=== PATIENT | male | born 1940 | race Caucasian/White ===

== ENCOUNTER 2020-12-27 11:19 | Outpatient (REF) | payer MEDICARE, BC, SELFPAY ==
[2020-12-27 12:18] LABS: MANUAL DIFF FLAG NO
[2020-12-27 12:23] LABS: Basophils Percent Auto 0.3 % (0-2); Eosinophils Absolute Auto 0.1 X10*3/uL (0.0-0.4); Hematocrit 35.7 % (42-52); Hemoglobin 11.6 g/dl (14.0-18.0); Imm Gran Abs Auto 0.01 X10*3/uL (0.00-0.03); Imm Gran Pct Auto 0.1 % (0.0-0.4); Lymphocytes Absolute Auto 1.6 X10*3/uL (1.2-4.9); Lymphocytes Percent Auto 23.8 % (20-40); Mean Corpuscular HGB Conc 32.5 g/dl (31.0-36.0); Mean Corpuscular Hemoglobin 29.5 pg (27.0-33.0); Mean Corpuscular Volume 90.8 fL (80-98); Mean Platelet Volume 11.5 fL (9.4-12.4); Monocytes Absolute Auto 0.7 X10*3/uL (0.1-1.2); Monocytes Percent Auto 9.6 % (2-11); Neutrophils Absolute Auto 4.4 X10*3/uL (2.0-8.3); Neutrophils Percent Auto 64.2 % (45-73); Platelet Count 224 X10*3/uL (160-400); Red Blood Count 3.93 X10*6/uL (4.60-5.80); Red Cell Distribution Width 12.9 % (11.0-16.0); White Blood Count 6.9 X10*3/uL (4.8-10.8)
[2020-12-27 12:47] LABS: Alanine Aminotransferase 15 U/L (0-40); Albumin Level 4.2 g/dL (3.5-5.0); Alkaline Phosphatase 65 U/L (39-117); Anion Gap 11 (12-20); Aspartate Amino Transferase 18 U/L (5-37); Bilirubin Total 0.5 mg/dL (0.0-1.0); Blood Urea Nitrogen 32 mg/dL (9-16); Calcium 9.2 mg/dL (8.4-10.2); Carbon Dioxide 27 mmol/L (22-29); Chloride 105 mmol/L (96-108); Estimated Glomerular Filt Rate > 60; Glucose Random 107 mg/dL (60-115); Potassium 4.6 mmol/L (3.3-5.1); Sodium 138 mmol/L (135-145)
[2020-12-27 14:19] LABS: Creatinine Urine 108.23 mg/dL; Microalbum/Creatinine Ratio Ur 21.2 ug/mg cr
[2020-12-27 14:36] LABS: Estimated Average Glucose 137 mg/dL; Hemoglobin A1c % 6.4 %
== END 2020-12-27 11:20 | disposition home or self-care (01) ==
LOC: HO.LAB 11:19
PROVIDERS: PCP Internal Medicine; Visit Provider Internal Medicine
DX: I25.10 Atherosclerotic heart disease of native coronary artery without angina pectoris (principal); I48.91 Unspecified atrial fibrillation; E11.9 Type 2 diabetes mellitus without complications; N40.0 Benign prostatic hyperplasia without lower urinary tract symptoms
CPT/HCPCS: 36415; 80053; 82043; 83036; 85025

== ENCOUNTER 2022-08-15 11:00 | Outpatient (REF) | payer MEDICARE, BC, SELFPAY ==
[2022-08-15 13:17] LABS: MANUAL DIFF FLAG NO
[2022-08-15 13:22] LABS: Basophils Percent Auto 0.5 % (0-2); Eosinophils Absolute Auto 0.2 X10*3/uL (0.0-0.4); Eosinophils Percent Auto 2.5 % (0-4); Hematocrit 36.8 % (42.0-52.0); Hemoglobin 11.9 g/dl (14.0-18.0); Imm Gran Abs Auto 0.01 X10*3/uL (0.00-0.03); Imm Gran Pct Auto 0.2 % (0.0-0.4); Lymphocytes Absolute Auto 1.7 X10*3/uL (1.2-4.9); Lymphocytes Percent Auto 28.6 % (20-40); Mean Corpuscular HGB Conc 32.3 g/dl (31.0-36.0); Mean Corpuscular Hemoglobin 29.3 pg (27.0-33.0); Mean Corpuscular Volume 90.6 fL (80.0-98.0); Mean Platelet Volume 11.5 fL (9.4-12.4); Monocytes Absolute Auto 0.7 X10*3/uL (0.1-1.2); Monocytes Percent Auto 12.3 % (2-11); Neutrophils Absolute Auto 3.3 x10*3/uL (2.0-8.3); Neutrophils Percent Auto 55.9 % (45-73); Platelet Count 192 X10*3/uL (160-400); Red Blood Count 4.06 X10*6/uL (4.60-5.80); Red Cell Distribution Width 14.2 % (11.0-16.0); White Blood Count 5.9 X10*3/uL (4.8-10.8)
[2022-08-15 13:24] LABS: Appearance Urine Clear; Color Urine Yellow; Glucose Urine UA Negative (Negative); Leukocyte Esterase Urine Trace (Negative); Nitrite Urine Negative (Negative); PH 5.5 (5.0-9.0); UMIC TRIGGER UA YES; Urine Blood Negative (Negative); Urine Ketones Negative (Negative); Urine Protein Negative (Neg-Trace)
[2022-08-15 13:27] LABS: Estimated Average Glucose 146 mg/dL; Hemoglobin A1c % 6.7 %
[2022-08-15 13:29] LABS: Bacteria Urine None Seen (None Seen); Hyaline Casts Urine 0-2 /LPF (0-2); RBC Urine 0-2 /HPF (0-2); Squamous Epithelial Cell Urine 0-2 /HPF (0-2); WBC Urine 0-5 /HPF (0-5)
[2022-08-15 14:04] LABS: Alanine Aminotransferase 14 U/L (0-40); Albumin Level 4.4 g/dL (3.5-5.0); Alkaline Phosphatase 68 U/L (39-117); Anion Gap 13 (12-20); Aspartate Amino Transferase 17 U/L (5-37); Bilirubin Total 0.8 mg/dL (0.0-1.0); Blood Urea Nitrogen 20 mg/dL (9-16); Calcium 9.2 mg/dL (8.4-10.2); Carbon Dioxide 29 mmol/L (22-29); Chloride 104 mmol/L (96-108); Cholesterol 144 mg/dL; Estimated Glomerular Filt Rate > 60; Glucose Fasting 123 mg/dL (60-99); HDL Cholesterol 62 mg/dL; LDL Cholesterol Calculated 70 mg/dl; Potassium 4.2 mmol/L (3.3-5.1); Sodium 142 mmol/L (135-145); Total Protein 6.8 g/dL (6.5-8.0); Triglycerides 60 mg/dL
[2022-08-15 14:20] LABS: Creatinine Urine 40.55 mg/dL; Microalbum/Creatinine Ratio Ur 19.7 ug/mg cr
[2022-08-15 14:20] LABS: Prostate Specific Antigen 0.16 ng/mL (<0.05-4.0); Vitamin D 25-OH Total 27.8 ng/mL (>30)
== END 2022-08-15 11:01 | disposition home or self-care (01) ==
LOC: HO.10HDL 11:00
PROVIDERS: Visit Provider Internal Medicine
DX: Z00.00 Encounter for general adult medical examination without abnormal findings (principal); Z12.5 Encounter for screening for malignant neoplasm of prostate; E11.9 Type 2 diabetes mellitus without complications; E55.9 Vitamin D deficiency, unspecified
CPT/HCPCS: 36415; 80053; 80061; 81001; 82043; 82306; 83036; 84153; 85025

== ENCOUNTER 2023-03-31 11:45 | Outpatient (REF) | payer MEDICARE, BC, SELFPAY ==
[2023-03-31 13:14] LABS: MANUAL DIFF FLAG NO
[2023-03-31 13:47] LABS: Basophils Percent Auto 0.4 % (0-2); Eosinophils Absolute Auto 0.1 X10*3/uL (0.0-0.4); Eosinophils Percent Auto 2.6 % (0-4); Hematocrit 28.1 % (42.0-52.0); Hemoglobin 8.7 g/dl (14.0-18.0); Imm Gran Abs Auto 0.02 X10*3/uL (0.00-0.03); Imm Gran Pct Auto 0.4 % (0.0-0.4); Lymphocytes Absolute Auto 1.2 X10*3/uL (1.2-4.9); Lymphocytes Percent Auto 24.7 % (20-40); Mean Corpuscular Hemoglobin 25.7 pg (27.0-33.0); Mean Corpuscular Volume 83.1 fL (80.0-98.0); Mean Platelet Volume 11.3 fL (9.4-12.4); Monocytes Absolute Auto 0.4 X10*3/uL (0.1-1.2); Monocytes Percent Auto 8.5 % (2-11); Neutrophils Absolute Auto 3.2 x10*3/uL (2.0-8.3); Neutrophils Percent Auto 63.4 % (45-73); Platelet Count 191 X10*3/uL (160-400); Red Blood Count 3.38 X10*6/uL (4.60-5.80); Red Cell Distribution Width 15.5 % (11.0-16.0)
[2023-03-31 13:57] LABS: Alanine Aminotransferase 11 U/L (0-40); Albumin Level 3.9 g/dL (3.5-5.0); Alkaline Phosphatase 54 U/L (39-117); Anion Gap 11 (12-20); Aspartate Amino Transferase 16 U/L (5-37); Bilirubin Total 0.5 mg/dL (0.0-1.0); Blood Urea Nitrogen 17 mg/dL (9-16); Calcium 9.3 mg/dL (8.4-10.2); Carbon Dioxide 29 mmol/L (22-29); Chloride 106 mmol/L (96-108); Estimated Glomerular Filt Rate > 60; Glucose Random 201 mg/dL (60-115); Iron 27 mcg/dL (45-160); Percent Iron Saturation 7 % (15-50); Sodium 142 mmol/L (135-145); Total Iron Binding Capacity 369 mcg/dL (228-428); Total Protein 6.6 g/dL (6.5-8.0); Unsaturated Iron Binding 342 ug/dL
== END 2023-03-31 11:46 | disposition home or self-care (01) ==
LOC: HO.10HDL 11:45
PROVIDERS: Visit Provider Internal Medicine
DX: D64.9 Anemia, unspecified (principal); I48.91 Unspecified atrial fibrillation; I25.10 Atherosclerotic heart disease of native coronary artery without angina pectoris
CPT/HCPCS: 36415; 80053; 83540; 85025

== ENCOUNTER 2023-04-21 08:48 | Outpatient (REF) | payer MEDICARE, BC, SELFPAY ==
[2023-04-21 11:26] LABS: Anion Gap 13 (12-20); Blood Urea Nitrogen 24 mg/dL (9-16); Calcium 9.6 mg/dL (8.4-10.2); Carbon Dioxide 29 mmol/L (22-29); Chloride 104 mmol/L (96-108); Estimated Glomerular Filt Rate > 60; Glucose Random 122 mg/dL (60-115); Potassium 4.5 mmol/L (3.3-5.1); Sodium 141 mmol/L (135-145)
[2023-04-21 11:30] LABS: Estimated Average Glucose 117 mg/dL; Hemoglobin A1c % 5.7 % (<6.0)
== END 2023-04-21 08:49 | disposition home or self-care (01) ==
LOC: HO.10HDL 08:48
PROVIDERS: Visit Provider Internal Medicine
DX: E11.9 Type 2 diabetes mellitus without complications (principal)
CPT/HCPCS: 36415; 80048; 83036

== ENCOUNTER 2023-04-28 12:31 | Outpatient (REF) | payer MEDICARE, BC, SELFPAY ==
[2023-04-28 14:03] LABS: MANUAL DIFF FLAG NO
[2023-04-28 14:10] LABS: Basophils Percent Auto 0.7 % (0-2); Eosinophils Absolute Auto 0.1 X10*3/uL (0.0-0.4); Eosinophils Percent Auto 2.5 % (0-4); Hematocrit 33.6 % (42.0-52.0); Hemoglobin 10.5 g/dl (14.0-18.0); Imm Gran Abs Auto 0.01 X10*3/uL (0.00-0.03); Imm Gran Pct Auto 0.2 % (0.0-0.4); Lymphocytes Absolute Auto 1.3 X10*3/uL (1.2-4.9); Lymphocytes Percent Auto 23.8 % (20-40); Mean Corpuscular HGB Conc 31.3 g/dl (31.0-36.0); Mean Corpuscular Hemoglobin 26.5 pg (27.0-33.0); Mean Corpuscular Volume 84.8 fL (80.0-98.0); Mean Platelet Volume 10.9 fL (9.4-12.4); Monocytes Absolute Auto 0.6 X10*3/uL (0.1-1.2); Monocytes Percent Auto 10.5 % (2-11); Neutrophils Absolute Auto 3.5 x10*3/uL (2.0-8.3); Neutrophils Percent Auto 62.3 % (45-73); Platelet Count 231 X10*3/uL (160-400); Red Blood Count 3.96 X10*6/uL (4.60-5.80); Red Cell Distribution Width 19.9 % (11.0-16.0); White Blood Count 5.6 X10*3/uL (4.8-10.8)
[2023-04-28 14:26] LABS: Iron 50 mcg/dL (45-160); Percent Iron Saturation 16 % (15-50); Total Iron Binding Capacity 317 mcg/dL (228-428); Unsaturated Iron Binding 267 ug/dL
== END 2023-04-28 12:32 | disposition home or self-care (01) ==
LOC: HO.10HDL 12:31
PROVIDERS: Visit Provider Internal Medicine
DX: I48.91 Unspecified atrial fibrillation (principal); D64.9 Anemia, unspecified; E11.9 Type 2 diabetes mellitus without complications; I25.10 Atherosclerotic heart disease of native coronary artery without angina pectoris; R01.1 Cardiac murmur, unspecified
CPT/HCPCS: 36415; 83540; 85025

== ENCOUNTER 2023-05-06 11:55 | Outpatient (REF) | payer MEDICARE, BC, SELFPAY ==
[2023-05-06 12:13] LABS: MANUAL DIFF FLAG NO
[2023-05-06 13:48] LABS: Basophils Percent Auto 0.7 % (0-2); Eosinophils Absolute Auto 0.1 X10*3/uL (0.0-0.4); Eosinophils Percent Auto 2.2 % (0-4); Hematocrit 32.6 % (42.0-52.0); Hemoglobin 10.2 g/dl (14.0-18.0); Imm Gran Abs Auto 0.02 X10*3/uL (0.00-0.03); Imm Gran Pct Auto 0.3 % (0.0-0.4); Lymphocytes Absolute Auto 1.5 X10*3/uL (1.2-4.9); Mean Corpuscular HGB Conc 31.3 g/dl (31.0-36.0); Mean Corpuscular Hemoglobin 26.7 pg (27.0-33.0); Mean Corpuscular Volume 85.3 fL (80.0-98.0); Mean Platelet Volume 11.5 fL (9.4-12.4); Monocytes Absolute Auto 0.7 X10*3/uL (0.1-1.2); Monocytes Percent Auto 11.6 % (2-11); Neutrophils Absolute Auto 3.6 x10*3/uL (2.0-8.3); Neutrophils Percent Auto 60.2 % (45-73); Platelet Count 197 X10*3/uL (160-400); Red Blood Count 3.82 X10*6/uL (4.60-5.80); Red Cell Distribution Width 20.1 % (11.0-16.0)
== END 2023-05-06 11:56 | disposition home or self-care (01) ==
LOC: HO.LAB 11:55
PROVIDERS: Visit Provider Nurse Practitioner
DX: I25.118 Atherosclerotic heart disease of native coronary artery with other forms of angina pectoris (principal); D64.9 Anemia, unspecified
CPT/HCPCS: 36415; 85025

== ENCOUNTER 2023-05-20 10:44 | Outpatient (REF) | payer MEDICARE, BC, SELFPAY ==
[2023-05-20 12:37] LABS: MANUAL DIFF FLAG NO
[2023-05-20 12:42] LABS: Basophils Percent Auto 0.6 % (0-2); Eosinophils Absolute Auto 0.1 X10*3/uL (0.0-0.4); Eosinophils Percent Auto 1.9 % (0-4); Hematocrit 37.1 % (42.0-52.0); Hemoglobin 11.6 g/dl (14.0-18.0); Imm Gran Abs Auto 0.02 X10*3/uL (0.00-0.03); Imm Gran Pct Auto 0.3 % (0.0-0.4); Lymphocytes Absolute Auto 1.3 X10*3/uL (1.2-4.9); Lymphocytes Percent Auto 20.9 % (20-40); Mean Corpuscular HGB Conc 31.3 g/dl (31.0-36.0); Mean Corpuscular Hemoglobin 27.2 pg (27.0-33.0); Mean Corpuscular Volume 87.1 fL (80.0-98.0); Mean Platelet Volume 11.2 fL (9.4-12.4); Monocytes Absolute Auto 0.6 X10*3/uL (0.1-1.2); Monocytes Percent Auto 9.7 % (2-11); Neutrophils Absolute Auto 4.2 x10*3/uL (2.0-8.3); Neutrophils Percent Auto 66.6 % (45-73); Platelet Count 203 X10*3/uL (160-400); Red Blood Count 4.26 X10*6/uL (4.60-5.80); Red Cell Distribution Width 19.9 % (11.0-16.0); White Blood Count 6.4 X10*3/uL (4.8-10.8)
[2023-05-20 13:01] LABS: Anion Gap 9 (12-20); Blood Urea Nitrogen 16 mg/dL (9-16); Calcium 9.6 mg/dL (8.4-10.2); Carbon Dioxide 31 mmol/L (22-29); Chloride 104 mmol/L (96-108); Estimated Glomerular Filt Rate 57; Glucose Random 196 mg/dL (60-115); Iron 61 mcg/dL (45-160); Percent Iron Saturation 20 % (15-50); Potassium 4.2 mmol/L (3.3-5.1); Sodium 140 mmol/L (135-145); Total Iron Binding Capacity 303 mcg/dL (228-428); Unsaturated Iron Binding 242 ug/dL
== END 2023-05-20 10:45 | disposition home or self-care (01) ==
LOC: HO.10HDL 10:44
PROVIDERS: Visit Provider Internal Medicine
DX: D64.9 Anemia, unspecified (principal); I25.10 Atherosclerotic heart disease of native coronary artery without angina pectoris
CPT/HCPCS: 36415; 80048; 83540; 85025

== ENCOUNTER → 2023-06-30 09:54 | Outpatient (REF) | payer MEDICARE, BC, SELFPAY ==
[2023-06-30 10:48] LABS: MANUAL DIFF FLAG NO
[2023-06-30 11:47] LABS: Basophils Percent Auto 0.4 % (0-2); Eosinophils Absolute Auto 0.2 X10*3/uL (0.0-0.4); Eosinophils Percent Auto 2.3 % (0-4); Hematocrit 31.8 % (42.0-52.0); Hemoglobin 10.4 g/dl (14.0-18.0); Imm Gran Abs Auto 0.04 X10*3/uL (0.00-0.03); Imm Gran Pct Auto 0.6 % (0.0-0.4); Lymphocytes Absolute Auto 1.2 X10*3/uL (1.2-4.9); Lymphocytes Percent Auto 17.6 % (20-40); Mean Corpuscular HGB Conc 32.7 g/dl (31.0-36.0); Mean Corpuscular Hemoglobin 28.7 pg (27.0-33.0); Mean Corpuscular Volume 87.6 fL (80.0-98.0); Mean Platelet Volume 10.8 fL (9.4-12.4); Monocytes Absolute Auto 0.7 X10*3/uL (0.1-1.2); Monocytes Percent Auto 9.6 % (2-11); Neutrophils Absolute Auto 4.8 x10*3/uL (2.0-8.3); Neutrophils Percent Auto 69.5 % (45-73); Platelet Count 178 X10*3/uL (160-400); Red Blood Count 3.63 X10*6/uL (4.60-5.80); Red Cell Distribution Width 17.7 % (11.0-16.0); White Blood Count 6.9 X10*3/uL (4.8-10.8)
[2023-06-30 12:12] LABS: Estimated Average Glucose 143 mg/dL; Hemoglobin A1c % 6.6 % (<6.0)
[2023-06-30 12:32] LABS: Alanine Aminotransferase 16 U/L (0-40); Alkaline Phosphatase 58 U/L (39-117); Anion Gap 10 (12-20); Aspartate Amino Transferase 16 U/L (5-37); Bilirubin Total 0.3 mg/dL (0.0-1.0); Blood Urea Nitrogen 21 mg/dL (9-16); Calcium 9.2 mg/dL (8.4-10.2); Carbon Dioxide 32 mmol/L (22-29); Chloride 105 mmol/L (96-108); Estimated Glomerular Filt Rate > 60; Glucose Random 199 mg/dL (60-115); Sodium 143 mmol/L (135-145); Total Protein 6.8 g/dL (6.5-8.0)
== END ==
LOC: HO.SL 09:54
PROVIDERS: PCP Internal Medicine; Visit Provider Internal Medicine
DX: I48.91 Unspecified atrial fibrillation (principal); D64.9 Anemia, unspecified; I25.10 Atherosclerotic heart disease of native coronary artery without angina pectoris; R73.03 Prediabetes; G47.10 Hypersomnia, unspecified; F51.11 Primary hypersomnia; R06.83 Snoring
CPT/HCPCS: 36415; 80053; 83036; 85025; 95806

== ENCOUNTER → 2023-06-30 19:00 | Outpatient (BNV) | payer MEDICARE, BC, SELFPAY | PROVIDERS: PCP Internal Medicine; Visit Provider Internal Medicine | DX: G47.33 Obstructive sleep apnea (adult) (pediatric) (principal) | CPT/HCPCS: 95806 ==

== ENCOUNTER 2023-08-07 11:34 | Outpatient (REF) | payer MEDICARE, BC, SELFPAY ==
[2023-08-07 13:12] LABS: MANUAL DIFF FLAG NO
[2023-08-07 13:13] LABS: Appearance Urine Clear; Color Urine Yellow; Glucose Urine UA Negative (Negative); Leukocyte Esterase Urine Negative (Negative); Nitrite Urine Negative (Negative); PH 5.5 (5.0-9.0); Specific Gravity - Urine 1.025 (1.005-1.025); Urine Blood Negative (Negative); Urine Ketones Trace mg/dL (Negative); Urine Protein Negative (Neg-Trace)
[2023-08-07 13:19] LABS: Bacteria Urine None Seen (None Seen); Hyaline Casts Urine 0-2 /LPF (0-2); RBC Urine 0-2 /HPF (0-2); Squamous Epithelial Cell Urine 0-2 /HPF (0-2); WBC Urine 0-5 /HPF (0-5)
[2023-08-07 13:23] LABS: Basophils Absolute Auto 0.1 X10*3/uL (0.0-0.2); Basophils Percent Auto 0.7 % (0-2); Eosinophils Absolute Auto 0.4 X10*3/uL (0.0-0.4); Eosinophils Percent Auto 4.9 % (0-4); Hematocrit 30.8 % (42.0-52.0); Hemoglobin 10.1 g/dl (14.0-18.0); Imm Gran Abs Auto 0.06 X10*3/uL (0.00-0.03); Imm Gran Pct Auto 0.8 % (0.0-0.4); Lymphocytes Percent Auto 13.2 % (20-40); Mean Corpuscular HGB Conc 32.8 g/dl (31.0-36.0); Mean Corpuscular Hemoglobin 28.9 pg (27.0-33.0); Mean Corpuscular Volume 88.3 fL (80.0-98.0); Mean Platelet Volume 10.7 fL (9.4-12.4); Monocytes Absolute Auto 0.9 X10*3/uL (0.1-1.2); Monocytes Percent Auto 12.3 % (2-11); Neutrophils Absolute Auto 5.1 x10*3/uL (2.0-8.3); Neutrophils Percent Auto 68.1 % (45-73); Platelet Count 329 X10*3/uL (160-400); Red Blood Count 3.49 X10*6/uL (4.60-5.80); Red Cell Distribution Width 13.3 % (11.0-16.0); White Blood Count 7.5 X10*3/uL (4.8-10.8)
[2023-08-07 14:05] LABS: Anion Gap 12 (12-20); Blood Urea Nitrogen 19 mg/dL (9-16); Calcium 9.3 mg/dL (8.4-10.2); Carbon Dioxide 27 mmol/L (22-29); Chloride 101 mmol/L (96-108); Estimated Glomerular Filt Rate > 60; Glucose Random 182 mg/dL (60-115); Potassium 4.1 mmol/L (3.3-5.1); Sodium 136 mmol/L (135-145)
[2023-08-07 15:01] LABS: Estimated Average Glucose 143 mg/dL; Hemoglobin A1c % 6.6 % (<6.0)
== END 2023-08-07 11:35 | disposition home or self-care (01) ==
LOC: HO.10HDL 11:34
PROVIDERS: Visit Provider Internal Medicine
DX: E11.9 Type 2 diabetes mellitus without complications (principal); D64.9 Anemia, unspecified
CPT/HCPCS: 36415; 80048; 81001; 83036; 85025; 87086

== ENCOUNTER 2023-08-13 08:49 | Outpatient (REF) | payer MEDICARE, BC, SELFPAY ==
[2023-08-13 10:22] LABS: Appearance Urine Clear; Color Urine Yellow; Glucose Urine UA Negative (Negative); Leukocyte Esterase Urine Negative (Negative); Nitrite Urine Negative (Negative); PH 5.5 (5.0-9.0); Specific Gravity - Urine 1.025 (1.005-1.025); Urine Blood Negative (Negative); Urine Ketones Negative (Negative); Urine Protein Negative (Neg-Trace)
[2023-08-13 10:28] LABS: Bacteria Urine None Seen (None Seen); Hyaline Casts Urine 0-2 /LPF (0-2); RBC Urine 0-2 /HPF (0-2); Squamous Epithelial Cell Urine 0-2 /HPF (0-2); WBC Urine 0-5 /HPF (0-5)
== END 2023-08-13 08:50 | disposition home or self-care (01) ==
LOC: HO.10HDLNP 08:49
PROVIDERS: Visit Provider Internal Medicine
DX: R30.0 Dysuria (principal)
CPT/HCPCS: 81001; 87086

== ENCOUNTER 2023-10-13 08:18 | Outpatient (REF) | payer MEDICARE, BC, SELFPAY ==
[2023-10-13 10:58] LABS: MANUAL DIFF FLAG NO
[2023-10-13 11:09] LABS: Basophils Percent Auto 0.7 % (0-2); Eosinophils Absolute Auto 0.1 X10*3/uL (0.0-0.4); Eosinophils Percent Auto 2.7 % (0-4); Hematocrit 37.2 % (42.0-52.0); Hemoglobin 11.7 g/dl (14.0-18.0); Imm Gran Abs Auto 0.01 X10*3/uL (0.00-0.03); Imm Gran Pct Auto 0.2 % (0.0-0.4); Lymphocytes Absolute Auto 1.2 X10*3/uL (1.2-4.9); Lymphocytes Percent Auto 26.3 % (20-40); Mean Corpuscular HGB Conc 31.5 g/dl (31.0-36.0); Mean Corpuscular Hemoglobin 29.1 pg (27.0-33.0); Mean Corpuscular Volume 92.5 fL (80.0-98.0); Mean Platelet Volume 11.3 fL (9.4-12.4); Monocytes Absolute Auto 0.5 X10*3/uL (0.1-1.2); Monocytes Percent Auto 11.6 % (2-11); Neutrophils Absolute Auto 2.6 x10*3/uL (2.0-8.3); Neutrophils Percent Auto 58.5 % (45-73); Platelet Count 188 X10*3/uL (160-400); Red Blood Count 4.02 X10*6/uL (4.60-5.80); Red Cell Distribution Width 14.9 % (11.0-16.0); White Blood Count 4.5 X10*3/uL (4.8-10.8)
[2023-10-13 11:18] LABS: Estimated Average Glucose 134 mg/dL; Hemoglobin A1c % 6.3 % (<6.0)
[2023-10-13 11:43] LABS: Alanine Aminotransferase 14 U/L (0-40); Alkaline Phosphatase 60 U/L (39-117); Anion Gap 10 (12-20); Aspartate Amino Transferase 16 U/L (5-37); Bilirubin Total 0.5 mg/dL (0.0-1.0); Blood Urea Nitrogen 18 mg/dL (9-16); Calcium 9.1 mg/dL (8.4-10.2); Carbon Dioxide 29 mmol/L (22-29); Chloride 105 mmol/L (96-108); Estimated Glomerular Filt Rate > 60; Glucose Random 127 mg/dL (60-115); Iron 80 mcg/dL (45-160); Percent Iron Saturation 25 % (15-50); Sodium 140 mmol/L (135-145); Total Iron Binding Capacity 318 mcg/dL (228-428); Total Protein 7.1 g/dL (6.5-8.0); Unsaturated Iron Binding 238 ug/dL
[2023-10-13 11:50] LABS: Vitamin D 25-OH Total 37.5 ng/mL (>30)
== END 2023-10-13 08:19 | disposition home or self-care (01) ==
LOC: HO.10HDL 08:18
PROVIDERS: Visit Provider Internal Medicine
DX: E11.9 Type 2 diabetes mellitus without complications (principal); I25.10 Atherosclerotic heart disease of native coronary artery without angina pectoris; I48.91 Unspecified atrial fibrillation; D64.9 Anemia, unspecified; E55.9 Vitamin D deficiency, unspecified
CPT/HCPCS: 36415; 80053; 82306; 83036; 83540; 85025

== ENCOUNTER 2023-12-22 11:40 | Outpatient (REF) | payer MEDICARE, BC, SELFPAY ==
[2023-12-22 13:18] LABS: MANUAL DIFF FLAG NO
[2023-12-22 13:33] LABS: Basophils Percent Auto 0.7 % (0-2); Eosinophils Absolute Auto 0.1 X10*3/uL (0.0-0.4); Eosinophils Percent Auto 1.7 % (0-4); Imm Gran Abs Auto 0.03 X10*3/uL (0.00-0.03); Imm Gran Pct Auto 0.5 % (0.0-0.4); Lymphocytes Absolute Auto 1.2 X10*3/uL (1.2-4.9); Lymphocytes Percent Auto 21.4 % (20-40); Mean Corpuscular Hemoglobin 25.4 pg (27.0-33.0); Mean Corpuscular Volume 81.9 fL (80.0-98.0); Mean Platelet Volume 10.7 fL (9.4-12.4); Monocytes Absolute Auto 0.7 X10*3/uL (0.1-1.2); Monocytes Percent Auto 12.4 % (2-11); Neutrophils Absolute Auto 3.7 x10*3/uL (2.0-8.3); Neutrophils Percent Auto 63.3 % (45-73); Platelet Count 233 X10*3/uL (160-400); Red Blood Count 2.48 X10*6/uL (4.60-5.80); Red Cell Distribution Width 16.2 % (11.0-16.0); White Blood Count 5.8 X10*3/uL (4.8-10.8)
[2023-12-22 13:39] LABS: Hemoglobin 6.3 g/dl (14.0-18.0)
[2023-12-22 13:40] LABS: Hematocrit 20.3 % (42.0-52.0)
[2023-12-22 13:55] LABS: Alanine Aminotransferase 11 U/L (0-40); Albumin Level 3.9 g/dL (3.5-5.0); Alkaline Phosphatase 54 U/L (39-117); Anion Gap 11 (12-20); Aspartate Amino Transferase 13 U/L (5-37); Bilirubin Total 0.3 mg/dL (0.0-1.0); Blood Urea Nitrogen 20 mg/dL (9-16); Calcium 8.7 mg/dL (8.4-10.2); Carbon Dioxide 26 mmol/L (22-29); Chloride 108 mmol/L (96-108); Estimated Glomerular Filt Rate > 60; Glucose Random 158 mg/dL (60-115); Iron 318 mcg/dL (45-160); Percent Iron Saturation 80 % (15-50); Potassium 4.2 mmol/L (3.3-5.1); Sodium 141 mmol/L (135-145); Total Iron Binding Capacity 396 mcg/dL (228-428); Total Protein 6.3 g/dL (6.5-8.0); Unsaturated Iron Binding 78 ug/dL
== END 2023-12-22 11:41 | disposition home or self-care (01) ==
LOC: HO.10HDL 11:40
PROVIDERS: Visit Provider Internal Medicine
DX: Z13.89 Encounter for screening for other disorder (principal)
CPT/HCPCS: 36415; 80053; 83540; 85025

== ENCOUNTER 2023-12-22 14:44 | Inpatient (IN) | payer MEDICARE, BC, SELFPAY ==
[2023-12-22] VITALS (10 sets, daily range): BP systolic 116–157; BP diastolic 36–65; PULSE 52–69; RESP 12–24; TEMP 36.1–37; O2SAT 99–100; BMI 24.4
--- NOTE | ~2023-12-22 | CT_ITS ---
EXAMINATION: CT GI bleed abdomen and pelvis without and with IV contrast CLINICAL INFORMATION: Rectal bleeding. Anemia. COMPARISON: Previous CT of the abdomen and pelvis from 2011 TECHNIQUE: Axial images through the abdomen and pelvis without and following 85 mL Omnipaque 350 IV contrast. Delayed phase two-minute imaging post-IV contrast also performed. This CT examination was performed using dose optimization techniques as appropriate, variously including the following: *Automated exposure control *Adjustment of mA and/or kV according to patient size (this includes techniques or standardized protocols for targeted exams where dose is matched to indication/reason for exam; i.e. extremities or head) *Use of iterative reconstruction technique DLP 119 9 mg/cm FINDINGS: Lung bases are clear. Liver spleen pancreas adrenal glands and gallbladder are unremarkable. Small bilateral low-attenuation renal lesions probably representing cysts. No imaging follow-up recommended. Kidneys otherwise normal. Very full bladder. Enlarged prostate gland protrudes into the base of the bladder. No evidence of active GI bleeding seen. Severe diverticulosis. Mild constipation. No evidence of diverticulitis or colitis. No mass seen. Equalization of small bowel loops suggestive of small bowel stasis. No caliber change or dilatation to suggest obstruction. Normal appendix. Atherosclerotic disease. No aneurysm. No ascites or adenopathy. Left inguinal hernia containing fat. Postsurgical changes to the low anterior abdominal wall suggestive of prior hernia repair both inguinal regions with mesh. Degenerative changes of the spine and hip joints. CT/CT gi bleed abd pel wo/w IVcon IMPRESSION: No evidence of active GI bleed seen. Diverticulosis and constipation. Well-distended bladder. Enlarged prostate gland that protrudes into the base of the bladder.
--- NOTE | 2023-12-22 15:28 | ECG_ITS ---
Test Reason : ANEMIC Blood Pressure : / mmHG Vent. Rate : 051 BPM Atrial Rate : 000 BPM P-R Int : 000 ms QRS Dur : 088 ms QT Int : 464 ms P-R-T Axes : 000 -24 036 degrees QTc Int : 427 ms Atrial fibrillation with slow ventricular response Abnormal ECG No previous ECGs available Referred By: Caitlin Pandey Electronically Signed By:SHANNON MARTINEZ MD
--- NOTE | 2023-12-22 15:34 | ED.GIBLEED ---
HPI - GI Bleed General Chief complaint: GI Bleed Stated complaint: BLACK STOOL SINCE SAT,ABN LABS PER EMS Time Seen by Provider: 12/22/23 15:01 Source: patient, family and EMS Mode of arrival: EMS Limitations: no limitations History of Present Illness ED Provider: Dr. Caitlin Pandey HPI Narrative: Patient comes to the emergency room complaining of generalized fatigue, weakness, wobbly gait, and black colored stools for several days. Patient states that today because of his symptoms , patient went to see his primary care physician today who did lab work. When patient was sent home, the family received a phone call to the been note to return to the emergency room since the hemoglobin and hematocrit were on the lower side. Patient states that he has no abdominal pain. Per family, patient has had low hemoglobin in the past down to 5 for which patient did blood transfusion. According to the family, patient had a colonoscopy and endoscopy in [facility] with no obvious findings. Patient does take Xarelto for atrial fibrillation. patient denies shortness of breath, patient states that occasionally he feels very sharp pains in his chest which she has been having for years. Patient does have history of cardiac stents. At this time, patient has no chest pain or abdominal pain. Related Data Allergies Allergy/AdvReac Type Severity Reaction Status Date / Time No Known Allergies Allergy Verified 12/22/23 15:15 Review of Systems Review of Systems: Constitutional : No Weight loss, No Fever, No Chills, No Night Sweats, Complaining of fatigue and weakness ENT/Mouth : No Hearing loss, No Ear Pain, No Nasal Congestion, No Sinus Pain, No Hoarseness, No sore throat, No Rhinorrhea, No Swallowing Difficulty Eyes: No Eye Pain, No Swelling, No Redness, No Foreign Body, No Discharge, No Vision Changes Cardiovascular : occasional sharp pains in the chest for several years, no pain at this time, shortness of breath with exertion Respiratory : No Cough, No Sputum, No Wheezing, No Smoke Exposure, No Dyspnea Gastrointestinal : No Nausea, No Vomiting, No Diarrhea, No Constipation, No abdominal Pain, No Hematochezia, No Melena Genitourinary : no irregular bleeding, No Dysuria, No Urinary Frequency, No Hematuria, No Urinary Incontinence, No Urgency, No Flank Pain, No Urinary Flow Changes, No Hesitancy Musculoskeletal : complaining of decreased strength/wobbly gait in both legs from feeling fatigue, No joint pain, No Myalgias, No Joint Swelling Skin : pale skin color, no rash Neuro : No Weakness, No Numbness, No Paresthesias, No Loss of Consciousness, No Dizziness, No Headache Psych : No Anxiety/Panic, No Depression, No SI/HI/AH/VH, No Social Issues, Heme/Lymph: No Bruising, No Bleeding,No Lymphadenopathy Endocrine : No Polyuria, No Polydipsia, No Temperature Intolerance [facility] Past Medical History Medical History (Updated 12/22/23 @ 18:48 by Caitlin Pandey MD) Chronic anemia Coronary artery disease Hx of half-way use of blood thinners Atrial fibrillation Social History Social History Advance Directives: No Advance Directives Information Provided: No Physical Exam Vital Signs: Vital Signs: Last Vital Signs Temp 98.0 F 12/22/23 17:20 Pulse 58 12/22/23 17:20 Resp 12 12/22/23 17:20 BP 118/48 L 12/22/23 17:20 Pulse Ox 100 12/22/23 17:20 O2 Del Method Room Air 12/22/23 17:20 BMI result Body Mass Index 24.4 Const: Other: Appearance: Alert. Oriented X3. No acute distress. Eyes: Pupils equal, round and reactive to light. ENT: Pharynx normal. Neck: Normal inspection. Neck supple. No lymph nodes noted. No crepitus CVS: Normal heart rate and rhythm. Pulses normal. Normal S1 and S2 Respiratory: No respiratory distress. Breath sounds normal. No Wheezing. No rales Abdomen: Soft and nontender. No rigidity. No distention. no external hemorrhoids, maroon color stool Skin: Skin warm and dry. skin has a pale color. Normal skin turgor. Extremities: No lower extremity edema. No Lacerations. No Rash Neuro: Oriented X 3. No motor deficit. No sensory deficit. Moving all extremities. No slurred speech. CN 2 through 12 grossly intact Psych: calm, cooperative, normal affect Course Course Course Narrative: - labs from earlier this morning show a hemoglobin of 6.3, hematocrit 20.3 - I discussed with the patient the benefits versus risks of blood transfusion, patient agreeable to proceed with a blood transfusion, consent sign - CT scan of the abdomen pending Medications Administered Discontinued Medications Generic Name Dose Route Start Last Admin Trade Name Freq PRN Reason Stop Dose Admin Iohexol 100 ml 12/22/23 16:24 12/22/23 16:25 Iohexol 350 Mg/Ml 100 Ml Infus..Btl IV 12/22/23 16:25 80 ml ONCE ONE Administration Medical Decision Making Medical Decision Making [facility] Narrative: my interpretation of labs: Hemoglobin was checked again, remained stable my interpretation of CT scan, no obvious active GI bleed. Radiology report confirmed that there is no active GI bleed. - Patient is tolerating well the blood transfusion - we received records from [facility]. On February of 2023, patient had a colonoscopy which showed significant diverticulosis, internal and external hemorrhoids with no active bleeding. Then an endoscopy was also done which showed significant peptic erosions but no clear source of bleed. Patient was cleared by the GI team to restart aspirin and Xarelto - I discussed the patient with Dr. Weaver, patient being admitted Differential Diagnosis Differential Diagnoses: The differential diagnosis associated with the presentation includes ( upper GI bleed, lower GI bleed, internal hemorrhoids, diverticulitis, gastritis) Admission/Observation Consideration of admission/observation: Escalation of care including admission/observation considered Consult Healthcare Provider Management of the patient was discussed with: Hospitalist Lab Data [facility] Lab Attestation statement: I reviewed the patient's lab results. 12/22/23 15:44 12/22/23 15:44 Labs: Lab Results 12/22/23 12/22/23 12/22/23 Range/Units 15:44 15:48 15:49 WBC 5.6 (4.8-10.8) X10*3/uL RBC 2.62 L (4.60-5.80) X10*6/uL Hgb 6.5 L* (14.0-18.0) g/dl Hct 22.0 L (42.0-52.0) % MCV 84.0 (80.0-98.0) fL MCH 24.8 L (27.0-33.0) pg MCHC 29.5 L (31.0-36.0) g/dl RDW 16.3 H (11.0-16.0) % Plt Count 236 (160-400) X10*3/uL MPV 10.2 (9.4-12.4) fL Immature Gran % (Auto) 0.7 H (0.0-0.4) % Neut % (Auto) 59.7 (45-73) % Lymph % (Auto) 21.8 (20-40) % [place] % (Auto) 15.5 H (2-11) % Eos % (Auto) 1.8 (0-4) % Baso % (Auto) 0.5 (0-2) % Lymph # (Auto) 1.2 (1.2-4.9) X10*3/uL [place] # (Auto) 0.9 (0.1-1.2) X10*3/uL Eos # (Auto) 0.1 (0.0-0.4) X10*3/uL Baso # (Auto) 0.0 (0.0-0.2) X10*3/uL Abs Immat Gran (auto) 0.04 H (0.00-0.03) X10*3/uL Absolute Neuts (auto) 3.4 (2.0-8.3) x10*3/uL Absolute Nucleated RBC 0.000 (0.0-0.012) X10*3/uL Nucleated RBC % (auto) 0.0 (0.0-0.2) /100WBC PT 15.1 H (11.1-13.3) SEC INR 1.2 H (0.9-1.1) APTT 37.1 H (26.0-36.8) SEC Sodium 142 (135-145) mmol/L Potassium 4.0 (3.3-5.1) mmol/L Chloride 108 (96-108) mmol/L Carbon Dioxide 26 (22-29) mmol/L Anion Gap 12 (12-20) BUN 21 H (9-16) mg/dL Creatinine 0.87 (0.5-1.4) mg/dL Estim Creat Clear Calc 60.1 Estimated GFR > 60 Random Glucose 135 H (60-115) mg/dL Calcium 9.0 (8.4-10.2) mg/dL Magnesium 2.3 (1.6-2.6) mg/dL Total Bilirubin 0.3 (0.0-1.0) mg/dL Direct Bilirubin 0.1 (0.0-0.5) mg/dL AST 18 (5-37) U/L ALT 13 (0-40) U/L Alkaline Phosphatase 56 (39-117) U/L Troponin I High Sens 3.9 (<3.5-35.0) ng/L B-Natriuretic Peptide 239 H (<100) pg/mL Total Protein 6.5 (6.5-8.0) g/dL Albumin 4.0 (3.5-5.0) g/dL Urine Color Urine Appearance Urine pH (5.0-9.0) Ur Specific [place] (1.005-1.025) Urine Protein (Neg-Trace) mg/dL Urine Glucose (UA) (Negative) mg/dL Urine Ketones (Negative) mg/dL Urine Blood (Negative) Urine Nitrite (Negative) Ur Leukocyte Esterase (Negative) Urine RBC (0-2) /HPF Urine WBC (0-5) /HPF Ur Squamous Epith Cells (0-2) /HPF Urine Bacteria (None Seen) Hyaline Casts (0-2) /LPF Stool Occult Blood POSITIVE (NEGATIVE) Blood Type A Positive Antibody Screen NEGATIVE Crossmatch See Detail 12/22/23 Range/Units 17:15 WBC (4.8-10.8) X10*3/uL RBC (4.60-5.80) X10*6/uL Hgb (14.0-18.0) g/dl Hct (42.0-52.0) % MCV (80.0-98.0) fL MCH (27.0-33.0) pg MCHC (31.0-36.0) g/dl RDW (11.0-16.0) % Plt Count (160-400) X10*3/uL MPV (9.4-12.4) fL Immature Gran % (Auto) (0.0-0.4) % Neut % (Auto) (45-73) % Lymph % (Auto) (20-40) % [place] % (Auto) (2-11) % Eos % (Auto) (0-4) % Baso % (Auto) (0-2) % Lymph # (Auto) (1.2-4.9) X10*3/uL [place] # (Auto) (0.1-1.2) X10*3/uL Eos # (Auto) (0.0-0.4) X10*3/uL Baso # (Auto) (0.0-0.2) X10*3/uL Abs Immat Gran (auto) (0.00-0.03) X10*3/uL Absolute Neuts (auto) (2.0-8.3) x10*3/uL Absolute Nucleated RBC (0.0-0.012) X10*3/uL Nucleated RBC % (auto) (0.0-0.2) /100WBC PT (11.1-13.3) SEC INR (0.9-1.1) APTT (26.0-36.8) SEC Sodium (135-145) mmol/L Potassium (3.3-5.1) mmol/L Chloride (96-108) mmol/L Carbon Dioxide (22-29) mmol/L Anion Gap (12-20) BUN (9-16) mg/dL Creatinine (0.5-1.4) mg/dL Estim Creat Clear Calc Estimated GFR Random Glucose (60-115) mg/dL Calcium (8.4-10.2) mg/dL Magnesium (1.6-2.6) mg/dL Total Bilirubin (0.0-1.0) mg/dL Direct Bilirubin (0.0-0.5) mg/dL AST (5-37) U/L ALT (0-40) U/L Alkaline Phosphatase (39-117) U/L Troponin I High Sens (<3.5-35.0) ng/L B-Natriuretic Peptide (<100) pg/mL Total Protein (6.5-8.0) g/dL Albumin (3.5-5.0) g/dL Urine Color Yellow Urine Appearance Clear Urine pH 5.5 (5.0-9.0) Ur Specific [place] >= 1.030 H (1.005-1.025) Urine Protein Negative (Neg-Trace) mg/dL Urine Glucose (UA) >=1000 H (Negative) mg/dL Urine Ketones Negative (Negative) mg/dL Urine Blood Negative (Negative) Urine Nitrite Negative (Negative) Ur Leukocyte Esterase Negative (Negative) Urine RBC 0-2 (0-2) /HPF Urine WBC 0-5 (0-5) /HPF Ur Squamous Epith Cells 0-2 (0-2) /HPF Urine Bacteria None Seen (None Seen) Hyaline Casts 0-2 (0-2) /LPF Stool Occult Blood (NEGATIVE) Blood Type Antibody Screen Crossmatch Independent Interpretation I performed an independent interpretation of an: CT Scan Radiology Impression Discussion of test interpretation with radiology: I have reviewed the radiologist's reading. Radiologist Impression: FINDINGS: Lung bases are clear. Liver spleen pancreas adrenal glands and gallbladder are unremarkable. Small bilateral low-attenuation renal lesions probably representing cysts. No imaging follow-up recommended. Kidneys otherwise normal. Very full bladder. Enlarged prostate gland protrudes into the base of the bladder. No evidence of active GI bleeding seen. Severe diverticulosis. Mild constipation. No evidence of diverticulitis or colitis. No mass seen. Equalization of small bowel loops suggestive of small bowel stasis. No caliber change or dilatation to suggest obstruction. Normal appendix. Atherosclerotic disease. No aneurysm. No ascites or adenopathy. Left inguinal hernia containing fat. Postsurgical changes to the low anterior abdominal wall suggestive of prior hernia repair both inguinal regions with mesh. Degenerative changes of the spine and hip joints. CT/CT gi bleed abd pel wo/w IVcon IMPRESSION: No evidence of active GI bleed seen. Diverticulosis and constipation. Well-distended bladder. Enlarged prostate gland that protrudes into the base of the bladder. Critical Care Time Critical Care Time Critical Care Time: Yes Total Critical Care Time: 60 Attestation: I have personally provided critical care time. Time includes review of lab data, radiology results, discussion with consultants, and monitoring for potential decompensation. Intervention performed as documented. Discharge Plan Discharge Clinical Impression: Acute GI bleeding, Anemia Patient Disposition: Admitted As Inpatient Print Language: Estonian
[2023-12-22 15:49] LABS: MANUAL DIFF FLAG NO
[2023-12-22 15:50] LABS: Basophils Percent Auto 0.5 % (0-2); Eosinophils Absolute Auto 0.1 X10*3/uL (0.0-0.4); Eosinophils Percent Auto 1.8 % (0-4); Imm Gran Abs Auto 0.04 X10*3/uL (0.00-0.03); Imm Gran Pct Auto 0.7 % (0.0-0.4); Lymphocytes Absolute Auto 1.2 X10*3/uL (1.2-4.9); Lymphocytes Percent Auto 21.8 % (20-40); Mean Corpuscular HGB Conc 29.5 g/dl (31.0-36.0); Mean Corpuscular Hemoglobin 24.8 pg (27.0-33.0); Mean Platelet Volume 10.2 fL (9.4-12.4); Monocytes Absolute Auto 0.9 X10*3/uL (0.1-1.2); Monocytes Percent Auto 15.5 % (2-11); Neutrophils Absolute Auto 3.4 x10*3/uL (2.0-8.3); Neutrophils Percent Auto 59.7 % (45-73); Platelet Count 236 X10*3/uL (160-400); Red Blood Count 2.62 X10*6/uL (4.60-5.80); Red Cell Distribution Width 16.3 % (11.0-16.0); White Blood Count 5.6 X10*3/uL (4.8-10.8)
[2023-12-22 16:01] LABS: OBS Int Ctl Valid YES; OBS1 POSITIVE (NEGATIVE)
[2023-12-22 16:03] LABS: INTERNATIONAL NORM RATIO 1.2 (0.9-1.1); Prothrombin Time 15.1 SEC (11.1-13.3)
[2023-12-22 16:06] LABS: Partial Thromboplastin Time 37.1 SEC (26.0-36.8)
[2023-12-22 16:08] LABS: Alanine Aminotransferase 13 U/L (0-40); Alkaline Phosphatase 56 U/L (39-117); Anion Gap 12 (12-20); Aspartate Amino Transferase 18 U/L (5-37); Bilirubin Direct 0.1 mg/dL (0.0-0.5); Bilirubin Total 0.3 mg/dL (0.0-1.0); Blood Urea Nitrogen 21 mg/dL (9-16); Carbon Dioxide 26 mmol/L (22-29); Chloride 108 mmol/L (96-108); Creatinine Clr Calc Pharmacy 60.1; Estimated Glomerular Filt Rate > 60; Glucose Random 135 mg/dL (60-115); Magnesium 2.3 mg/dL (1.6-2.6); Sodium 142 mmol/L (135-145); Total Protein 6.5 g/dL (6.5-8.0)
[2023-12-22 16:10] LABS: B Type Natriuretic Peptide 239 pg/mL (<100); Troponin-I High Sensitivity 3.9 ng/L (<3.5-35.0)
[2023-12-22] MEDS: iohexoL 350 MG/ML 100 ML INFUS..BTL IV (16:25)
[2023-12-22 17:34] LABS: Appearance Urine Clear; Color Urine Yellow; Glucose Urine UA >=1000 mg/dL (Negative); Leukocyte Esterase Urine Negative (Negative); Nitrite Urine Negative (Negative); PH 5.5 (5.0-9.0); Specific Gravity - Urine >= 1.030 (1.005-1.025); UMIC TRIGGER UACC YES; Urine Blood Negative (Negative); Urine Ketones Negative (Negative); Urine Protein Negative (Neg-Trace)
[2023-12-22 17:39] LABS: Bacteria Urine None Seen (None Seen); Hyaline Casts Urine 0-2 /LPF (0-2); RBC Urine 0-2 /HPF (0-2); Squamous Epithelial Cell Urine 0-2 /HPF (0-2); WBC Urine 0-5 /HPF (0-5)
--- NOTE | 2023-12-22 18:37 | PM.IMHP ---
History of Present Illness Date of Service: 12/22/23 Chief Complaint: Black stool 83-year-old male presents today after outpatient labs demonstrated significant anemia. When questioned patient states over the last week or so he has been increasingly fatigued and weak with an unsteady gait and had several black colored stools. He called his PCP this a.m. was told to go for labs. Shortly thereafter he was called by his PCP's office and told to presents to the emergency room. In the emergency room initial hemoglobin was 6.5. Of note patient had recent colon/EGD at [facility] 02/2023 which demonstrated significant diverticulosis; EGD demonstrated significant peptic ulcers of esophagus for which he was on Carafate. He states it been off Carafate for some time now. In the emergency room has remained hemodynamically stable and will be admitted to complete transfusion and GI consult in a.m. 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 Atrial fibrillation Social History Advance Directives: No Advance Directives Information Provided: No Meds Allergies Allergy/AdvReac Type Severity Reaction Status Date / Time No Known Allergies Allergy Verified 12/22/23 15:15 Physical Exam Vital Signs and Narrative: Vital Signs: Last Vital Signs Temp 98.0 F 12/22/23 17:20 Pulse 58 12/22/23 17:20 Resp 12 12/22/23 17:20 BP 118/48 L 12/22/23 17:20 Pulse Ox 100 12/22/23 17:20 O2 Del Method Room Air 12/22/23 17:20 BMI result Body Mass Index 24.4 Const: Other: Awake alert oriented x3 in no acute distress Resp: Other: Clear to auscultation bilaterally no rales rhonchi or wheezes Cardio: Other: No S4; positive S1-S2; no S3 2/6 systolic murmur best heard at the apex. Irregularly irregular rhythm GI: Other: Soft nontender nondistended normoactive bowel sounds Neuro: Other: Cranial nerves 2-12 grossly intact as tested. Motor is 5/5 all extremities. Sensation is intact. Gait not observed Extrem: Other: No edema bilaterally Results Labs 12/22/23 15:44 12/22/23 15:44 Labs: Laboratory Results - last 24 hr 12/22/23 12/22/23 12/22/23 15:44 15:48 15:49 MCV 84.0 MCH 24.8 L MCHC 29.5 L RDW 16.3 H Plt Count 236 MPV 10.2 Immature Gran % (Auto) 0.7 H Neut % (Auto) 59.7 Lymph % (Auto) 21.8 [place] % (Auto) 15.5 H Eos % (Auto) 1.8 Baso % (Auto) 0.5 Lymph # (Auto) 1.2 [place] # (Auto) 0.9 Eos # (Auto) 0.1 Baso # (Auto) 0.0 Abs Immat Gran (auto) 0.04 H Absolute Neuts (auto) 3.4 Absolute Nucleated RBC 0.000 Nucleated RBC % (auto) 0.0 PT 15.1 H INR 1.2 H APTT 37.1 H Anion Gap 12 Estim Creat Clear Calc 60.1 Estimated GFR > 60 Random Glucose 135 H Calcium 9.0 Magnesium 2.3 Total Bilirubin 0.3 Direct Bilirubin 0.1 AST 18 ALT 13 Alkaline Phosphatase 56 Troponin I High Sens 3.9 B-Natriuretic Peptide 239 H Total Protein 6.5 Albumin 4.0 Urine Color Urine Appearance Urine pH Ur Specific [place] Urine Protein Urine Glucose (UA) Urine Ketones Urine Blood Urine Nitrite Ur Leukocyte Esterase Urine RBC Urine WBC Ur Squamous Epith Cells Urine Bacteria Hyaline Casts Stool Occult Blood POSITIVE Blood Type A Positive Antibody Screen NEGATIVE Crossmatch See Detail 12/22/23 17:15 MCV MCH MCHC RDW Plt Count MPV Immature Gran % (Auto) Neut % (Auto) Lymph % (Auto) [place] % (Auto) Eos % (Auto) Baso % (Auto) Lymph # (Auto) [place] # (Auto) Eos # (Auto) Baso # (Auto) Abs Immat Gran (auto) Absolute Neuts (auto) Absolute Nucleated RBC Nucleated RBC % (auto) PT INR APTT Anion Gap Estim Creat Clear Calc Estimated GFR Random Glucose Calcium Magnesium Total Bilirubin Direct Bilirubin AST ALT Alkaline Phosphatase Troponin I High Sens B-Natriuretic Peptide Total Protein Albumin Urine Color Yellow Urine Appearance Clear Urine pH 5.5 Ur Specific [place] >= 1.030 H Urine Protein Negative Urine Glucose (UA) >=1000 H Urine Ketones Negative Urine Blood Negative Urine Nitrite Negative Ur Leukocyte Esterase Negative Urine RBC 0-2 Urine WBC 0-5 Ur Squamous Epith Cells 0-2 Urine Bacteria None Seen Hyaline Casts 0-2 Stool Occult Blood Blood Type Antibody Screen Crossmatch Imaging Radiologist's Impressions: Impressions Abdomen/Pelvis CT 12/22/23 16:41 IMPRESSION: No evidence of active GI bleed seen. Diverticulosis and constipation. Well-distended bladder. Enlarged prostate gland that protrudes into the base of the bladder. Assessment and Plan (1) Lower GI bleed: Status: Acute (2) Chronic atrial fibrillation: Status: Acute (3) Coronary artery disease: Qualifiers: Associated angina: without angina Coronary Disease-Associated Artery/Lesion type: unspecified vessel or lesion type [place] vs. transplanted heart: [place] heart Qualified Code(s): I25.10 - Atherosclerotic heart disease of [place] coronary artery without angina pectoris Status: Acute Plan 83-year-old male with history of coronary artery disease chronic atrial fibrillation on anticoagulation presents after 2 weeks of weakness and unsteady gait and several days of black stool. Hemoglobin on admission 6.5 for which he received 2 units of blood in the emergency room. 1. Lower GI bleed -complete transfusion of packed red cells. . . Repeat blood count in a.m. -clear liquids until midnight... NPO thereafter -GI consult in a.m. -colonoscopy/EGD results reviewed. Will hold Carafate pending exam in a.m. 2. Chronic atrial fibrillation -hold Xarelto at this time -add back when clinically appropriate (await GI input) 3. Coronary artery disease -stable and well compensated -continue outpatient therapies Full code Pneumatics Patient will require 2 midnights of inpatient stay going forward to transfused 2 acceptable hemoglobin and for specialty consultation. This can not be achieved a lesser acute setting Quality Stroke Does the patient have a stroke diagnosis?: No VTE Prior VTE?: No VTE Risk Level:: Medical - moderate - high VTE Device Contraindication: N/A - Device Ordered VTE Drug Contraindication: Treatment Not Indicated
[2023-12-22] MEDS: Furosemide 20 MG/2 ML VIAL IVPUSH (20:00)
--- NOTE | 2023-12-22 20:08 | PC.NURSE ---
patient first unit of blood complete, no transfusion reaction noted.
--- NOTE | 2023-12-22 20:40 | PHA.MEDREC ---
Pharmacy Consult ? Medication Reconciliation Pharmacy has completed the medication reconciliation. Spoke with patient and family at bedside and patient was kitty able to confirm meds but family and him agreed to have Patients other daughter Melodie call and confirm them. Spoke to Melodie around 08:30 pm 12/21 and she was able to confirm what medications the patient was on and when he last took them.
[2023-12-23] VITALS (14 sets, daily range): BP systolic 110–144; BP diastolic 46–68; PULSE 55–71; RESP 16–19; TEMP 36–37.1; O2SAT 93–100
[2023-12-23] MEDS: 0.9 % Sodium Chloride Flush 3 ML SYRINGE IVFLUSH ×2 (00:09→09:28)
[2023-12-23 07:52] LABS: MANUAL DIFF FLAG NO
[2023-12-23 07:58] LABS: Basophils Percent Auto 0.5 % (0-2); Eosinophils Absolute Auto 0.1 X10*3/uL (0.0-0.4); Eosinophils Percent Auto 1.2 % (0-4); Hematocrit 28.9 % (42.0-52.0); Hemoglobin 9.4 g/dl (14.0-18.0); Imm Gran Abs Auto 0.05 X10*3/uL (0.00-0.03); Imm Gran Pct Auto 0.6 % (0.0-0.4); Lymphocytes Percent Auto 12.4 % (20-40); Mean Corpuscular HGB Conc 32.5 g/dl (31.0-36.0); Mean Corpuscular Hemoglobin 27.3 pg (27.0-33.0); Mean Platelet Volume 10.1 fL (9.4-12.4); Monocytes Absolute Auto 0.9 X10*3/uL (0.1-1.2); Monocytes Percent Auto 11.4 % (2-11); Neutrophils Absolute Auto 5.7 x10*3/uL (2.0-8.3); Neutrophils Percent Auto 73.9 % (45-73); Platelet Count 216 X10*3/uL (160-400); Red Blood Count 3.44 X10*6/uL (4.60-5.80); White Blood Count 7.7 X10*3/uL (4.8-10.8)
[2023-12-23 08:12] LABS: Alanine Aminotransferase 18 U/L (0-40); Albumin Level 3.8 g/dL (3.5-5.0); Alkaline Phosphatase 60 U/L (39-117); Anion Gap 11 (12-20); Aspartate Amino Transferase 19 U/L (5-37); Bilirubin Total 1.8 mg/dL (0.0-1.0); Blood Urea Nitrogen 16 mg/dL (9-16); Carbon Dioxide 27 mmol/L (22-29); Chloride 106 mmol/L (96-108); Creatinine Clr Calc Pharmacy 55.6; Estimated Glomerular Filt Rate > 60; Glucose Fasting 98 mg/dL (60-99); Potassium 3.3 mmol/L (3.3-5.1); Sodium 141 mmol/L (135-145); Total Protein 6.3 g/dL (6.5-8.0)
--- NOTE | 2023-12-23 08:56 | MHC.CM.PN ---
IMM 12/23/23 DX GIB Patient lives with his and family. He is independent with all functional mobility. A copy of his HCP has been requested. DP home with family assist + transport home.
--- NOTE | 2023-12-23 09:27 | P.CNGI_ITS ---
History of Present Illness Data of Consult Service Date: 12/23/23 Requesting physician: Alex Weaver Primary Care Provider: Josesito Chavarria MD HPI Reason for consult: anemia 83-year-old male w/ hx of CAd, a-fib-on xarelto and BPH who I am seeing for assessement for anemia. Patient had been at PCP c/o fatigue and weakness. He noted several dark stools and went for labs ordered by PCP. He was told to go to the ED due to low hgb. He denies abdominal pain , no nausea, no vomiting. presents today after outpatient labs demonstrated significant anemia. When questioned patient states over the last week or so he has been increasingly fatigued and weak with an unsteady gait and had several black colored stools. He called his PCP this a.m. was told to go for labs. Shortly thereafter he was called by his PCP's office and told to presents to the emergency room. In the emergency room initial hemoglobin was 6.5. Of note patient had recent colon/EGD at [facility] 02/2023 which demonstrated significant diverticulosis; EGD demonstrated significant peptic ulcers of esophagus for which he was on Carafate. He states it been off Carafate for some time now. In the emergency room has remained hemodynamically stable and will be admitted to complete transfusion and GI consult in a.m. Review of Systems 2 Review of Systems: Constitutional : No Weight loss, No Fever, No Chills ENT/Mouth : No sore throat, No Rhinorrhea Eyes: No Swelling, No Redness Cardiovascular : No Chest Pain, No SOB, No Edema Respiratory : No Cough, No Sputum, No Wheezing Gastrointestinal : see HPI Genitourinary : NO Dysuria, No Urinary Frequency, No Hematuria, No Urgency Musculoskeletal : + joint pain, No Myalgias, No Joint Swelling Skin : No Skin Lesions, No rash Neuro : No Weakness, No Numbness, No Dizziness, No Headache Psych : No Anxiety/Panic, No Depression Heme/Lymph: No Bruising, No Lymphadenopathy Endocrine : No Polyuria, No Polydipsia All other systems reviewed and are negative. 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 Atrial fibrillation Family History Pertinent family history: no Fh of ulcers or colon cancer Social History Social History Household Members: Spouse and Family Housing: House Do you presently have visiting nurse or other home services: No Patient Tobacco Use Status: Former Tobacco user e-Cigarette/Vaping Use: Former Use service: No Meds Allergies Allergy/AdvReac Type Severity Reaction Status Date / Time No Known Allergies Allergy Verified 12/22/23 15:15 Active Medications: Current Medications Acetaminophen (Acetaminophen 325 Mg Tablet) 650 mg PO Q6H PRN PRN Reason: Pain, Mild (Pain Scale 1-3), fever or headache Calcium Carbonate (Calcium Carbonate 750 Mg Tab.Chew) 750 mg PO Q4H PRN PRN Reason: Heartburn Magnesium Hydroxide (Milk Of Magnesia 30 Ml Oral.Susp) 30 ml PO DAILY PRN PRN Reason: Constipation Melatonin (Melatonin 3 Mg Tablet) 6 mg PO BEDTIME PRN PRN Reason: Insomnia Sodium Chloride (0.9 % Sodium Chloride Flush 3 Ml Syringe) 3 ml IVFLUSH [facility] Last Admin: 12/23/23 00:09 Dose: 3 ml Home Medications ?Medication ?Instructions ?Recorded ?Confirmed ?Last Taken ?Type aspirin 81 mg tablet,delayed 81 mg PO DAILY 12/22/23 12/22/23 12/22/23 10:00 History release cholecalciferol (vitamin D3) 25 25 mcg PO DAILY 12/22/23 12/22/23 12/22/23 10:00 History mcg (1,000 unit) tablet (Vitamin D3) dutasteride 0.5 mg capsule 0.5 mg PO BEDTIME 12/22/23 12/22/23 Unknown History empagliflozin 10 mg tablet 10 mg PO DAILY 12/22/23 12/22/23 12/22/23 10:00 History (Jardiance) ezetimibe 10 mg tablet 10 mg PO DAILY 12/22/23 12/22/23 12/22/23 10:00 History isosorbide mononitrate 30 mg 30 mg PO DAILY 12/22/23 12/22/23 12/22/23 10:00 History tablet,extended release 24 hr metoprolol succinate 25 mg 12.5 mg PO DAILY 12/22/23 12/22/23 12/22/23 10:00 History tablet,extended release 24 hr nitroglycerin 0.4 mg sublingual 0.4 mg sublingual NEEDED angina 12/22/23 12/22/23 Unknown History tablet pantoprazole 40 mg tablet,delayed 40 mg PO BID 12/22/23 12/22/23 12/22/23 10:00 History release rivaroxaban 20 mg tablet (Xarelto) 20 mg PO DAILY 12/22/23 12/22/23 Unknown History simvastatin 40 mg tablet 40 mg PO BEDTIME 12/22/23 12/22/23 Unknown History tamsulosin 0.4 mg capsule 0.4 mg PO DAILY 12/22/23 12/22/23 12/22/23 10:00 History Physical Exam 2 Vital Signs: Vital Signs: Last Vital Signs Temp 97.8 F 12/23/23 07:16 Pulse 65 12/23/23 07:16 Resp 18 12/23/23 07:16 BP 144/57 H 12/23/23 07:16 Pulse Ox 98 12/23/23 07:16 O2 Del Method Room Air 12/23/23 07:16 O2 Flow Rate 2 12/23/23 04:00 BMI result Body Mass Index 24.4 EXAM: GENERAL: The patient is well developed and nontoxic. VITAL SIGNS:see workflow HEENT: Nonicteric sclerae, PERRLA, EOMI. Oropharynx clear. Moist mucous membranes. Conjunctivae appear well perfused. No thyroid mass. CHEST: Chest wall is nontender. HEART: Regular rate and rhythm without murmurs. LUNGS: Clear to auscultation bilaterally. ABDOMEN: Soft, positive bowel sounds, nontender, no organomegaly.no flank tenderness SKIN: No rash, no excessive bruising, petechiae, or purpura. NEUROLOGIC: Cranial nerves II-XII intact without motor/sensory deficit. Psych: normal affect Results Labs 12/23/23 07:39 12/23/23 07:39 Labs: Short CBC 12/22/23 12/23/23 Range/Units 15:44 07:39 WBC 5.6 7.7 (4.8-10.8) X10*3/uL Hgb 6.5 L* 9.4 L D (14.0-18.0) g/dl Hct 22.0 L 28.9 L D (42.0-52.0) % Plt Count 236 216 (160-400) X10*3/uL BMP 12/22/23 12/23/23 15:44 07:39 Sodium 142 141 Potassium 4.0 3.3 Chloride 108 106 Carbon Dioxide 26 27 BUN 21 H 16 Creatinine 0.87 0.94 Calcium 9.0 9.0 Liver Function 12/22/23 12/23/23 Range/Units 15:44 07:39 Total Bilirubin 0.3 1.8 H (0.0-1.0) mg/dL Direct Bilirubin 0.1 (0.0-0.5) mg/dL AST 18 19 (5-37) U/L ALT 13 18 (0-40) U/L Alkaline Phosphatase 56 60 (39-117) U/L Albumin 4.0 3.8 (3.5-5.0) g/dL Urine 12/22/23 Range/Units 17:15 Urine Color Yellow Urine Appearance Clear Urine pH 5.5 (5.0-9.0) Ur Specific [place] >= 1.030 H (1.005-1.025) Urine Protein Negative (Neg-Trace) mg/dL Urine Glucose (UA) >=1000 H (Negative) mg/dL Procedures Date of Service Date of Service: 12/23/23
--- NOTE | 2023-12-23 12:15 | MHC.SHP ---
Pre-Procedural Eval Section A - 24 Hr Update-Section A only Date of Service: 12/23/23 The patient is an INPATIENT: Yes The patient has been examined within 24 hours of the surgical procedure. The History & Physical has been completed within 30 days and I have reviewed it.: Yes Section B - Complete if H&P > 30 days Chief Complaint: Lower GI bleed Allergies: Allergies Allergy/AdvReac Type Severity Reaction Status Date / Time No Known Allergies Allergy Verified 12/22/23 15:15 Plan I have reviewed the history and physical and performed a pertinent physical examination on my patient. No changes have occurred unless specified. Time Spent With Patient Time: Total time managing care of this patient today ____ minutes.
--- NOTE | 2023-12-23 12:15 | PM.EVENT ---
Event Note Date of Service: 12/23/23 Event Note: GI Consult-Full note dictated-History from patient, daughter Roz, and EMR. Imp: UGI bleed in 83 yo male on Xarelto(last dose on Thursday, 12/20) and 81mg aspirin(last dose on Thursday, 12/21) presenting with several days of painless melena with anemia, but no other GI sx. Denies NSAIDs, cigs, or EtOH. Had a similar history last year at [facility] with EGD showing ulcers and a negative colonoscopy. He had been on his PPI BID and Carafate through August. Carafate was stopped but the PPI was continued. He feels better after transfusions. He is hungry. He reports brown BM's over the last couple of days. Diff dx: Recurrent ulcer disease, gastritis, esophagitis. Rec: EGD with MAC today with Dr. Salter. Full consent has been obtained for this, including risks of bleeding and perforation. Continue holding Xarelto and aspirin for the time being. F/U Hgb. D/W patient and his daughter, Roz, in detail. Thanks Time Spent With Patient Time: Total time managing care of this patient today ____ minutes.
--- NOTE | 2023-12-23 12:20 | P.CDIM_ITS ---
PROVIDER RESPONSE TEXT: To clarify, the appropriate diagnosis supported by the clinical indicators: Acute blood loss anemia QUERY TEXT: PHYSICIAN'S DOCUMENTATION REQUEST Date of Query: 12/23/2023 11:55 AM EDT Patient Name: ANNE MARTINEZ Admit Date: 12/22/2023 Dear Alex Weaver, A review of the medical record indicates additional documentation may be needed. Please review below and update the documentation accordingly. Clinical Indicators: black stools H&H on 12/22/23: 6.5/22.0 transfusion of packed red cells GI follow up Based on the above, could you clarify which of the following is the most likely type of anemia you ar e evaluating, treating, and/or monitoring? Acute blood loss anemia Acute blood loss anemia with baseline chronic anemia (specify type) Anemia of chronic disease indicate if neoplastic disease, CKD, or other Chronic iron deficiency anemia due to blood loss Vitamin B12 deficiency anemia indicate etiology, such as intrinsic factor deficiency, malabsorption, transcobalamin II deficiency, dietary, etc Folate deficiency anemia indicate etiology, such as dietary, drug-induced, etc Protein deficiency anemia Other (explain) Clinically unable to determine (explain) Thank you, Karen Cheng RN Use of terms such as suspected, likely, concern for, or probable (associated with a specific diagnosi s that is being evaluated, monitored, or treated as if it exists) are acceptable and can be coded in the inpatient se tting, when documented at the time of discharge. Please use your independent medical judgment in providing your response. THIS QUERY IS PART OF THE PERMANENT MEDICAL RECORD
[2023-12-23] MEDS: Pantoprazole Sodium 40 MG/10 ML VIAL IVPUSH (12:26)
[2023-12-23] MEDS: Lactated Ringers 1,000 ML 80 ML IVCONT (13:42)
--- NOTE | 2023-12-23 13:42 | CONS_ITS ---
DATE OF SERVICE: 12/23/2023 REASON FOR CONSULTATION: Melena and anemia. HISTORY OF PRESENT ILLNESS: This has been obtained from the patient, his daughter, Roz, and the medical record. The patient is an 83-year-old male, who describes the onset of melena sometime last week. This persisted for several days until his stools became brown again over the past 1 or 2 days. However, he has developed progressive weakness and was found to be markedly anemic, which prompted his admission. The patient's history is notable for hospitalization last year at [facility] for a similar problem with melena and he underwent upper endoscopy and colonoscopy. I do not have the exact records, but he apparently had an ulcers and a negative colonoscopy. He has also had a colonoscopies with me in 2014 and 2002, which were negative other than small tubular adenomas. After the hospitalization at [facility] last year, he did remain on his Xarelto and aspirin, but was also on his pantoprazole b.i.d. and sucralfate. The sucralfate was stopped in August of this year due to some constipation, but he has continued on his pantoprazole twice a day on a regular basis. He has not been noticing any increasing heartburn, dysphagia, abdominal pain, early satiety, nausea, nor vomiting. Up until the stools turning black last week, the bowel movements had been regular and without any signs of bleeding. Over the past 1 to 2 days, the bowel movements have returned to normal color and again without any hematochezia. Aside from his daily Xarelto and aspirin, he does not use any other NSAIDs, tobacco, nor alcohol. MEDICATIONS: At home include pantoprazole 40 mg b.i.d., aspirin 81 mg, vitamin D, Jardiance, ezetimibe, isosorbide, metoprolol, pantoprazole, Xarelto, simvastatin, tamsulosin. PAST MEDICAL HISTORY: Screening Colonoscopies as above. EGD and Colonoscopy last year at [facility] with the finding of gastric ulcers. Coronary artery bypass. Knee surgery. Umbilical hernia surgery. Coronary artery disease, but denies any history of [place]. He also has a coronary artery stent placed approximately 2 or 3 years ago. He does have diabetes. Atrial fibrillation. He denies any history of lung disease nor renal disease. He denies any history of stroke. SOCIAL HISTORY: He is . He does not smoke nor use any significant amounts of alcohol. FAMILY HISTORY: Noncontributory. REVIEW OF SYSTEMS: CONSTITUTIONAL: Up until recently, had been feeling well with good energy and good appetite, but has become weaker with his associated anemia. CARDIAC: No chest pain. PULMONARY: No coughing, nor hemoptysis. GI: As above. URINARY: No dysuria. No hematuria. NEUROLOGIC: No headache or seizures. PHYSICAL EXAMINATION: GENERAL: The patient is a pleasant, alert, comfortable-appearing male. SKIN: Warm and dry. HEENT: Anicteric sclerae. Moist mucous membranes. NECK: Supple without lymphadenopathy. CHEST: Clear. CARDIAC: Normal S1, S2. ABDOMEN: Soft, nondistended, nontender without organomegaly or mass. EXTREMITIES: Without edema. LABORATORY DATA: His admitting hemoglobin was 6.3. After 2 units of blood, his hemoglobin has gone up to 9.4. Platelets 216,000, white blood cell count 7.7. PT 15.1 with INR 1.2. Normal electrolytes. BUN 21, creatinine 0.9. He had a CT scan of the abdomen and pelvis on admission, which was negative for any sign of active bleeding and showed only some diverticulosis and an enlarged prostate. His hemoglobin did go up to 9.4 as of this morning. He has received a total of 2 units of packed red blood cells. IMPRESSION: Given the patient's clinical history, this certainly seems consistent with another upper gastrointestinal bleed, most likely in relation to ulcer disease, gastritis, and/or esophagitis. Given the significance of the bleed and his need to go back on blood thinners, I would recommend a repeat upper endoscopy later today with Dr. Salter. Full consent has been obtained from the patient and his daughter for this, including risks of bleeding and perforation. I would continue to hold the aspirin and Xarelto for the time being. I would follow his hemoglobin after the transfusions to be sure it has improved and has remained stable. I do not think a repeat colonoscopy is required given the negative exam last year and the clinical history of just black stool. This has all been discussed with the patient and his daughter in detail. Thank you for the consultation. MD RIKI Elizalde/BEVERLY / [id number] [facility]
--- NOTE | 2023-12-23 13:46 | HO.ANESPROP2 ---
HPI - Anesthesia Eval Consult details Narrative: 83 yo male patient with GI bleed. 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 Atrial fibrillation Family History Family history of problems with anesthesia: No Surgical History Surgical History (Updated 12/23/23 @ 13:53 by Hank De La Cruz RN) History of esophagogastroduodenoscopy (EGD) History of coronary artery stent placement History of umbilical hernia repair History of left knee surgery History of coronary artery bypass graft History of Problems with Anesthesia: No Social History Social History Household Members: Spouse and Family Housing: House Do you presently have visiting nurse or other home services: No Patient Tobacco Use Status: Former Tobacco user e-Cigarette/Vaping Use: Former Use Second Hand Smoke Exposure: No service: No Meds Allergies Allergy/AdvReac Type Severity Reaction Status Date / Time No Known Allergies Allergy Verified 12/22/23 15:15 Active Medications: Current Medications Acetaminophen (Acetaminophen 325 Mg Tablet) 650 mg PO Q6H PRN PRN Reason: Pain, Mild (Pain Scale 1-3), fever or headache Calcium Carbonate (Calcium Carbonate 750 Mg Tab.Chew) 750 mg PO Q4H PRN PRN Reason: Heartburn Lactated Ringer's (Lr) 1,000 mls @ 80 mls/hr IVCONT .[id number] [facility] Last Admin: 12/23/23 13:42 Dose: 80 mls/hr Magnesium Hydroxide (Milk Of Magnesia 30 Ml Oral.Susp) 30 ml PO DAILY PRN PRN Reason: Constipation Melatonin (Melatonin 3 Mg Tablet) 6 mg PO BEDTIME PRN PRN Reason: Insomnia Pantoprazole Sodium (Pantoprazole Sodium 40 Mg/10 Ml Vial) 40 mg IVPUSH BID@0630,1630 [facility] Last Admin: 12/23/23 12:26 Dose: 40 mg Sodium Chloride (0.9 % Sodium Chloride Flush 3 Ml Syringe) 3 ml IVFLUSH QSHIFT [facility] Last Admin: 12/23/23 09:28 Dose: 3 ml Home Medications ?Medication ?Instructions ?Recorded ?Confirmed ?Last Taken ?Type aspirin 81 mg tablet,delayed 81 mg PO DAILY 12/22/23 12/22/23 12/22/23 10:00 History release cholecalciferol (vitamin D3) 25 25 mcg PO DAILY 12/22/23 12/22/23 12/22/23 10:00 History mcg (1,000 unit) tablet (Vitamin D3) dutasteride 0.5 mg capsule 0.5 mg PO BEDTIME 12/22/23 12/22/23 Unknown History empagliflozin 10 mg tablet 10 mg PO DAILY 12/22/23 12/22/23 12/21/23 History (Jardiance) ezetimibe 10 mg tablet 10 mg PO DAILY 12/22/23 12/22/23 12/22/23 10:00 History isosorbide mononitrate 30 mg 30 mg PO DAILY 12/22/23 12/22/23 12/22/23 10:00 History tablet,extended release 24 hr metoprolol succinate 25 mg 12.5 mg PO DAILY 12/22/23 12/22/23 12/22/23 10:00 History tablet,extended release 24 hr nitroglycerin 0.4 mg sublingual 0.4 mg sublingual NEEDED angina 12/22/23 12/22/23 Unknown History tablet pantoprazole 40 mg tablet,delayed 40 mg PO BID 12/22/23 12/22/23 12/22/23 10:00 History release rivaroxaban 20 mg tablet (Xarelto) 20 mg PO DAILY 12/22/23 12/22/23 12/21/23 History simvastatin 40 mg tablet 40 mg PO BEDTIME 12/22/23 12/22/23 Unknown History tamsulosin 0.4 mg capsule 0.4 mg PO DAILY 12/22/23 12/22/23 12/22/23 10:00 History Exam Height,Weight and Vital Signs: Height 5 ft 7 in Weight 70.8 kg Last Vital Signs Temp 98.6 F 12/23/23 13:38 Pulse 63 12/23/23 13:38 Resp 16 12/23/23 13:38 BP 144/53 H 12/23/23 13:38 Pulse Ox 100 12/23/23 13:38 O2 Del Method Room Air 12/23/23 13:38 O2 Flow Rate 2 12/23/23 04:00 Pertinent Lab Results Pertinent Lab Results: Laboratory Tests 12/22/23 12/22/23 12/22/23 15:44 15:48 15:49 WBC 5.6 RBC 2.62 L Hgb 6.5 L* Hct 22.0 L MCV 84.0 MCH 24.8 L MCHC 29.5 L RDW 16.3 H Plt Count 236 MPV 10.2 Immature Gran % (Auto) 0.7 H Neut % (Auto) 59.7 Lymph % (Auto) 21.8 Yancey % (Auto) 15.5 H Eos % (Auto) 1.8 Baso % (Auto) 0.5 Lymph # (Auto) 1.2 Yancey # (Auto) 0.9 Eos # (Auto) 0.1 Baso # (Auto) 0.0 Abs Immat Gran (auto) 0.04 H Absolute Neuts (auto) 3.4 Absolute Nucleated RBC 0.000 Nucleated RBC % (auto) 0.0 PT 15.1 H INR 1.2 H APTT 37.1 H Sodium 142 Potassium 4.0 Chloride 108 Carbon Dioxide 26 Anion Gap 12 BUN 21 H Creatinine 0.87 Estim Creat Clear Calc 60.1 Estimated GFR > 60 Random Glucose 135 H Fasting Glucose Calcium 9.0 Magnesium 2.3 Total Bilirubin 0.3 Direct Bilirubin 0.1 AST 18 ALT 13 Alkaline Phosphatase 56 Troponin I High Sens 3.9 B-Natriuretic Peptide 239 H Total Protein 6.5 Albumin 4.0 Urine Color Urine Appearance Urine pH Ur Specific [place] Urine Protein Urine Glucose (UA) Urine Ketones Urine Blood Urine Nitrite Ur Leukocyte Esterase Urine RBC Urine WBC Ur Squamous Epith Cells Urine Bacteria Hyaline Casts Stool Occult Blood POSITIVE Blood Type A Positive Antibody Screen NEGATIVE Crossmatch See Detail 12/22/23 12/23/23 17:15 07:39 WBC 7.7 RBC 3.44 L D Hgb 9.4 L D Hct 28.9 L D MCV 84.0 MCH 27.3 MCHC 32.5 RDW 17.0 H Plt Count 216 MPV 10.1 Immature Gran % (Auto) 0.6 H Neut % (Auto) 73.9 H Lymph % (Auto) 12.4 L Yancey % (Auto) 11.4 H Eos % (Auto) 1.2 Baso % (Auto) 0.5 Lymph # (Auto) 1.0 L Yancey # (Auto) 0.9 Eos # (Auto) 0.1 Baso # (Auto) 0.0 Abs Immat Gran (auto) 0.05 H Absolute Neuts (auto) 5.7 Absolute Nucleated RBC 0.000 Nucleated RBC % (auto) 0.0 PT INR APTT Sodium 141 Potassium 3.3 Chloride 106 Carbon Dioxide 27 Anion Gap 11 L BUN 16 Creatinine 0.94 Estim Creat Clear Calc 55.6 Estimated GFR > 60 Random Glucose Fasting Glucose 98 Calcium 9.0 Magnesium Total Bilirubin 1.8 H Direct Bilirubin AST 19 ALT 18 Alkaline Phosphatase 60 Troponin I High Sens B-Natriuretic Peptide Total Protein 6.3 L Albumin 3.8 Urine Color Yellow Urine Appearance Clear Urine pH 5.5 Ur Specific [place] >= 1.030 H Urine Protein Negative Urine Glucose (UA) >=1000 H Urine Ketones Negative Urine Blood Negative Urine Nitrite Negative Ur Leukocyte Esterase Negative Urine RBC 0-2 Urine WBC 0-5 Ur Squamous Epith Cells 0-2 Urine Bacteria None Seen Hyaline Casts 0-2 Stool Occult Blood Blood Type Antibody Screen Crossmatch Airway Mallampati Class: II TM Dist: >3cm Neck ROM: Full Denture: Upper and Lower Loose/Missing/Broken Teeth: Yes Heart: Irregularly irregular Lungs: CTAB Assessment and Plan Assessment Anesthesia Assessment: Anesthesia Plan Discussed and Chart Reviewed Final Anesthetic Review Family History of Problems with Anesthesia: No History of Problems with Anesthesia: No NPO: Yes ASA Class: III and Emergency Final Preanesthetic Review: No Changes in Pt Med Stat, Meds/Allgs Chart Reviewed, Consent Obtained/Reviewed and Anes Risks/Benef Reviewed Patient Risk: Intermediate Procedure Risk: Low Assessment/Block/Sedation in SS: Assess/Block/Sedation-SS Anesthetic Plan Anesthetic Plan: GA Disposition: Standard PACU and Inp. Admit - IMC
--- NOTE | 2023-12-23 13:54 | HO.PM.IMPN ---
Subjective Subjective Date of Service: 12/23/23 Interval History: No acute issues overnight. No further bleeding noted Physical Exam Vital Signs: Vital Signs: Last Vital Signs Temp 98.6 F 12/23/23 13:38 Pulse 63 12/23/23 13:38 Resp 16 12/23/23 13:38 BP 144/53 H 12/23/23 13:38 Pulse Ox 100 12/23/23 13:38 O2 Del Method Room Air 12/23/23 13:38 O2 Flow Rate 2 12/23/23 04:00 BMI result Body Mass Index 24.4 Const: Other: Awake alert oriented x3 in no acute distress Resp: Other: Clear to auscultation bilaterally no rales rhonchi or wheezes Cardio: Other: No S4; positive S1-S2; no S3 2/6 systolic murmur best heard at the apex. Irregularly irregular rhythm GI: Other: Soft nontender nondistended normoactive bowel sounds Neuro: Other: Cranial nerves 2-12 grossly intact as tested. Motor is 5/5 all extremities. Sensation is intact. Gait not observed Extrem: Other: No edema bilaterally Objective Data Active Medications Acetaminophen (Acetaminophen 325 Mg Tablet) 650 mg PO Q6H PRN PRN Reason: Pain, Mild (Pain Scale 1-3), fever or headache Calcium Carbonate (Calcium Carbonate 750 Mg Tab.Chew) 750 mg PO Q4H PRN PRN Reason: Heartburn Lactated Ringer's (Lr) 1,000 mls @ 80 mls/hr IVCONT .[id number] [facility] Last Admin: 12/23/23 13:42 Dose: 80 mls/hr Documented By: YSABEL Magnesium Hydroxide (Milk Of Magnesia 30 Ml Oral.Susp) 30 ml PO DAILY PRN PRN Reason: Constipation Melatonin (Melatonin 3 Mg Tablet) 6 mg PO BEDTIME PRN PRN Reason: Insomnia Pantoprazole Sodium (Pantoprazole Sodium 40 Mg/10 Ml Vial) 40 mg IVPUSH BID@0630,1630 [facility] Last Admin: 12/23/23 12:26 Dose: 40 mg Documented By: VI Sodium Chloride (0.9 % Sodium Chloride Flush 3 Ml Syringe) 3 ml IVFLUSH QSHIFT [facility] Last Admin: 12/23/23 09:28 Dose: 3 ml Documented By: VI Labs 12/23/23 07:39 12/23/23 07:39 Labs: Laboratory Results - last 24 hr 12/22/23 12/22/23 12/22/23 15:44 15:48 15:49 MCV 84.0 MCH 24.8 L MCHC 29.5 L RDW 16.3 H Plt Count 236 MPV 10.2 Immature Gran % (Auto) 0.7 H Neut % (Auto) 59.7 Lymph % (Auto) 21.8 [place] % (Auto) 15.5 H Eos % (Auto) 1.8 Baso % (Auto) 0.5 Lymph # (Auto) 1.2 [place] # (Auto) 0.9 Eos # (Auto) 0.1 Baso # (Auto) 0.0 Abs Immat Gran (auto) 0.04 H Absolute Neuts (auto) 3.4 Absolute Nucleated RBC 0.000 Nucleated RBC % (auto) 0.0 PT 15.1 H INR 1.2 H APTT 37.1 H Anion Gap 12 Estim Creat Clear Calc 60.1 Estimated GFR > 60 Random Glucose 135 H Fasting Glucose Calcium 9.0 Magnesium 2.3 Total Bilirubin 0.3 Direct Bilirubin 0.1 AST 18 ALT 13 Alkaline Phosphatase 56 Troponin I High Sens 3.9 B-Natriuretic Peptide 239 H Total Protein 6.5 Albumin 4.0 Urine Color Urine Appearance Urine pH Ur Specific [place] Urine Protein Urine Glucose (UA) Urine Ketones Urine Blood Urine Nitrite Ur Leukocyte Esterase Urine RBC Urine WBC Ur Squamous Epith Cells Urine Bacteria Hyaline Casts Stool Occult Blood POSITIVE Blood Type A Positive Antibody Screen NEGATIVE Crossmatch See Detail 12/22/23 12/23/23 17:15 07:39 MCV 84.0 MCH 27.3 MCHC 32.5 RDW 17.0 H Plt Count 216 MPV 10.1 Immature Gran % (Auto) 0.6 H Neut % (Auto) 73.9 H Lymph % (Auto) 12.4 L [place] % (Auto) 11.4 H Eos % (Auto) 1.2 Baso % (Auto) 0.5 Lymph # (Auto) 1.0 L [place] # (Auto) 0.9 Eos # (Auto) 0.1 Baso # (Auto) 0.0 Abs Immat Gran (auto) 0.05 H Absolute Neuts (auto) 5.7 Absolute Nucleated RBC 0.000 Nucleated RBC % (auto) 0.0 PT INR APTT Anion Gap 11 L Estim Creat Clear Calc 55.6 Estimated GFR > 60 Random Glucose Fasting Glucose 98 Calcium 9.0 Magnesium Total Bilirubin 1.8 H Direct Bilirubin AST 19 ALT 18 Alkaline Phosphatase 60 Troponin I High Sens B-Natriuretic Peptide Total Protein 6.3 L Albumin 3.8 Urine Color Yellow Urine Appearance Clear Urine pH 5.5 Ur Specific [place] >= 1.030 H Urine Protein Negative Urine Glucose (UA) >=1000 H Urine Ketones Negative Urine Blood Negative Urine Nitrite Negative Ur Leukocyte Esterase Negative Urine RBC 0-2 Urine WBC 0-5 Ur Squamous Epith Cells 0-2 Urine Bacteria None Seen Hyaline Casts 0-2 Stool Occult Blood Blood Type Antibody Screen Crossmatch Assessment and Plan (1) Acute GI bleeding: Status: Acute Plan 83-year-old male with history of coronary artery disease chronic atrial fibrillation on anticoagulation presents after 2 weeks of weakness and unsteady gait and several days of black stool. Hemoglobin on admission 6.5 for which he received 2 units of blood in the emergency room. 1. Acute GI bleed -2 units packed red cells with appropriate rise in hemoglobin -seen by GI ... EGD later today -NPO/continue to hold aspirin and Xarelto 2. Chronic atrial fibrillation -hold Xarelto at this time -add back when clinically appropriate (await GI input) 3. Coronary artery disease -stable and well compensated -continue outpatient therapies Full code Pneumatics Patient will require 2 midnights of inpatient stay going forward to transfused 2 acceptable hemoglobin and for specialty consultation. This can not be achieved a lesser acute setting Quality Stroke Does the patient have a stroke diagnosis?: No VTE Prior VTE?: No VTE Risk Level:: Medical - moderate - high VTE Device Contraindication: N/A - Device Ordered VTE Drug Contraindication: Treatment Not Indicated
--- NOTE | 2023-12-23 14:31 | PM.OP ---
Brief Operative Note Date of Service: 12/23/23 Pre-op diagnosis: gi bleeding Post-op diagnosis: same Procedure: egd Surgeon: Anshul Salter MD Anesthesia: MAC Was an Safety Consultant used for this Procedure?: No Estimated blood loss (mL): 2 Pathology: other Condition: stable Disposition: PACU
--- NOTE | 2023-12-23 14:32 | PM.EVENT ---
Event Note Date of Service: 12/23/23 Event Note: EGD EGD is fairly unremarkable, small hiatal hernia, no bleeding Rec: Advance diet resume anticoagulation, and antiplatelets as needed consider sb capsule endoscopy Time Spent With Patient Time: Total time managing care of this patient today ____ minutes.
--- NOTE | 2023-12-23 15:28 | OP_ITS ---
DATE OF SERVICE: 12/23/2023 SURGEON: Anshul Salter MD INDICATIONS: GI bleeding. PREOPERATIVE DIAGNOSIS: POSTOPERATIVE DIAGNOSIS: PROCEDURE PERFORMED: Upper endoscopy with biopsy. ESTIMATED BLOOD LOSS: COMPLICATIONS: ANESTHESIA: General anesthesia. ASSISTANTS: SPECIMENS: DESCRIPTION OF PROCEDURE: A history and physical was performed. The risks and benefits of the procedure were explained to the patient and informed consent was obtained. The patient was placed in the left lateral decubitus position. The Olympus video gastroscope was introduced into the esophagus, stomach, duodenum, and proximal small intestine. Examination was performed and the scope was removed. He tolerated the procedure well and was returned to recovery area in stable condition. FINDINGS: Esophagus: The esophagus was normal. 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 This had been previously biopsied at his endoscopy in the fall. It was not rebiopsied. There was a 4 to 5 cm hiatal hernia. Stomach: The stomach showed no evidence of masses, ulcers, or polyps. There was no blood in the stomach. The stomach was carefully examined. Antral biopsies were obtained. Duodenum: The scope was advanced 20 cm beyond the pyloric opening into the proximal jejunum and no bleeding was identified. No lesions were seen. The mucosa was normal. IMPRESSION: 1. Normal upper gastrointestinal endoscopy. 2. Small hiatal hernia. RECOMMENDATIONS: 1. Advance diet. 2. Consider outpatient capsule endoscopy. 3. Continue b.i.d. PPI as the patient will need to resume anticoagulation and anti-platelet medications. MD TAMMIE Bradley/BEVERLY / [id number] MTDD
[2023-12-23 16:27] LABS: Hemoglobin 6.5 g/dl (14.0-18.0)
[2023-12-24 04:00] VITALS: BP 143/61; PULSE 69; RESP 18; TEMP 37.2; O2SAT 98
[2023-12-24] MEDS: Pantoprazole Sodium 40 MG/10 ML VIAL IVPUSH (06:14)
[2023-12-24 06:23] LABS: MANUAL DIFF FLAG NO
[2023-12-24 06:34] LABS: Basophils Percent Auto 0.3 % (0-2); Eosinophils Absolute Auto 0.2 X10*3/uL (0.0-0.4); Eosinophils Percent Auto 1.6 % (0-4); Hematocrit 31.1 % (42.0-52.0); Hemoglobin 9.9 g/dl (14.0-18.0); Imm Gran Abs Auto 0.06 X10*3/uL (0.00-0.03); Imm Gran Pct Auto 0.6 % (0.0-0.4); Lymphocytes Absolute Auto 1.1 X10*3/uL (1.2-4.9); Lymphocytes Percent Auto 11.4 % (20-40); Mean Corpuscular HGB Conc 31.8 g/dl (31.0-36.0); Mean Corpuscular Hemoglobin 27.3 pg (27.0-33.0); Mean Corpuscular Volume 85.7 fL (80.0-98.0); Mean Platelet Volume 10.3 fL (9.4-12.4); Monocytes Absolute Auto 1.1 X10*3/uL (0.1-1.2); Monocytes Percent Auto 11.5 % (2-11); Neutrophils Absolute Auto 7.2 x10*3/uL (2.0-8.3); Neutrophils Percent Auto 74.6 % (45-73); Platelet Count 223 X10*3/uL (160-400); Red Blood Count 3.63 X10*6/uL (4.60-5.80); Red Cell Distribution Width 17.6 % (11.0-16.0); White Blood Count 9.7 X10*3/uL (4.8-10.8)
[2023-12-24 07:10] LABS: Anion Gap 12 (12-20); Blood Urea Nitrogen 16 mg/dL (9-16); Calcium 9.1 mg/dL (8.4-10.2); Carbon Dioxide 27 mmol/L (22-29); Chloride 105 mmol/L (96-108); Creatinine Clr Calc Pharmacy 56.8; Estimated Glomerular Filt Rate > 60; Glucose Fasting 97 mg/dL (60-99); Potassium 4.6 mmol/L (3.3-5.1); Sodium 139 mmol/L (135-145)
[2023-12-24 07:30] VITALS: BP 133/62; PULSE 62; RESP 18; TEMP 36.6; O2SAT 96
[2023-12-24 09:46] VITALS: BP 133/62
[2023-12-24] MEDS: Cholecalciferol (Vitamin D3) 25 MCG TABLET PO (09:46)
[2023-12-24] MEDS: Isosorbide Mononitrate 30 MG TAB.ER.24H PO (09:46)
[2023-12-24 09:47] VITALS: BP 133/62; PULSE 75
[2023-12-24] MEDS: Tamsulosin HCL 0.4 MG CAPSULE PO (09:47)
[2023-12-24] MEDS: Metoprolol Succinate ER 12.5 MG HALFTAB.ER.24H PO (09:47)
[2023-12-24] MEDS: Empagliflozin 10 MG TABLET PO (09:47)
[2023-12-24] MEDS: 0.9 % Sodium Chloride Flush 3 ML SYRINGE IVFLUSH (09:49)
[2023-12-24] MEDS: Ezetimibe 10 MG TABLET PO (10:11)
--- NOTE | 2023-12-24 11:12 | MHC.CM.PN ---
Pt is medically cleared for discharge home self-care with family support, pts family to transport him home.
--- NOTE | 2023-12-24 11:37 | P.DS_ITS ---
DS: Providers Provider Date of Service: 12/24/23 Date of admission: 12/22/23 18:35 Primary care physician: Josesito Chavarria MD Consults: 12/22/23 18:57 Consult to Gastroenterology Routine Consulting Provider: Melquiades Bang Reason for consultation: LGIB Has provider been notified: No DS: Diagnosis Discharge Diagnosis (1) Acute GI bleeding: Status: Acute DS: Summary Hospital Course Hospital Course: History of presenting illness: Date of Service: 12/22/23 Chief Complaint: Black stool 83-year-old male presents today after outpatient labs demonstrated significant anemia. When questioned patient states over the last week or so he has been increasingly fatigued and weak with an unsteady gait and had several black colored stools. He called his PCP this a.m. was told to go for labs. Shortly thereafter he was called by his PCP's office and told to presents to the emergency room. In the emergency room initial hemoglobin was 6.5. Of note patient had recent colon/EGD at [facility] 02/2023 which demonstrated significant diverticulosis; EGD demonstrated significant peptic ulcers of esophagus for which he was on Carafate. He states it been off Carafate for some time now. In the emergency room has remained hemodynamically stable and will be admitted to complete transfusion and GI consult in a.m. Hospital course: 83-year-old male with history of coronary artery disease chronic atrial fibrillation on anticoagulation presents after 2 weeks of weakness and unsteady gait and several days of black stool. Hemoglobin on admission 6.5 for which he received 2 units of blood in the emergency room and admitted to intermediate care unit, with a diagnosis of acute GI bleed and symptomatic anemia, treated with IV Protonix, anticoagulation was held, hematocrit improved with blood transfusion patient underwent upper endoscopy by Dr. Salter that showed no source of bleed, GI recommend to resume anticoagulation and to continue twice daily Protonix he recommend outpatient video capsule study since patient had no recurrent episodes of black tarry stools, tolerating diet with stable hematocrit he is being discharged home with recommendation for close outpatient follow-up w [facility] Gastroenterology.. In regard to Chronic atrial fibrillation he has been resume on Xarelto, for coronary artery disease he had no chest pain and recommended to resume home medications. Time Attestation Discharge Coordination Time (in mins): 36 Quality: Safe Use of Opioids Does Pt have an Active Cancer Diagnosis on the Problem List?: No Quality: Stroke Does the patient have a stroke diagnosis?: No Physical Exam Vital Signs: Vital Signs: Last Vital Signs Temp 97.8 F 12/24/23 07:30 Pulse 75 12/24/23 09:47 Resp 18 12/24/23 07:30 BP 133/62 12/24/23 09:47 Pulse Ox 96 12/24/23 07:30 O2 Del Method Room Air 12/24/23 07:30 O2 Flow Rate 2 12/23/23 04:00 BMI result Body Mass Index 24.4 Const: Other: General awake alert, in no acute distress. Necksupple no JVD. CVS regular rate rhythm, Respiratory lungs clear to auscultation, no respiratory distress, no wheeze, no rhonchi. Gastrointestinal abdomen soft, non tender, bowel sounds audible. Extremities no edema. Neuro nonfocal Skin no rash DS: Data Data Completed and Pending Pending studies at discharge: Pending at discharge 12/23/23 14:26 Surgical [PTH] Routine Labs on day of discharge: Laboratory Results - last 24 hr 12/22/23 12/24/23 15:44 06:00 WBC 9.7 RBC 3.63 L Hgb 6.5 L* 9.9 L Hct 31.1 L MCV 85.7 MCH 27.3 MCHC 31.8 RDW 17.6 H Plt Count 223 MPV 10.3 Immature Gran % (Auto) 0.6 H Neut % (Auto) 74.6 H Lymph % (Auto) 11.4 L [place] % (Auto) 11.5 H Eos % (Auto) 1.6 Baso % (Auto) 0.3 Lymph # (Auto) 1.1 L [place] # (Auto) 1.1 Eos # (Auto) 0.2 Baso # (Auto) 0.0 Abs Immat Gran (auto) 0.06 H Absolute Neuts (auto) 7.2 Absolute Nucleated RBC 0.000 Nucleated RBC % (auto) 0.0 Sodium 139 Potassium 4.6 D Chloride 105 Carbon Dioxide 27 Anion Gap 12 BUN 16 Creatinine 0.92 Estim Creat Clear Calc 56.8 Estimated GFR > 60 Fasting Glucose 97 Calcium 9.1 Discharge Plan Discharge Anticipated Discharge Date/Time: 12/24/23 11:07 Patient Disposition: Home, Self-Care Discharge Diagnosis: Acute GI bleed Chronic atrial fibrillation Referrals: Josesito Chavarria MD [Primary Care Provider] - 1 Week Discharge Medications: Continued isosorbide mononitrate 30 mg tablet extended release 24 hr 30 mg PO DAILY aspirin 81 mg Tablet,Delayed Release (Dr/Ec) 81 mg PO DAILY simvastatin 40 mg tablet 40 mg PO BEDTIME tamsulosin 0.4 mg capsule 0.4 mg PO DAILY pantoprazole 40 mg tablet,delayed release (DR/EC) 40 mg PO BID nitroglycerin 0.4 mg tablet, sublingual 0.4 mg sublingual NEEDED metoprolol succinate 25 mg tablet extended release 24 hr 12.5 mg PO DAILY ezetimibe 10 mg tablet 10 mg PO DAILY dutasteride 0.5 mg capsule 0.5 mg PO BEDTIME cholecalciferol (vitamin D3) [Vitamin D3] 25 mcg (1,000 unit) Tablet 25 mcg PO DAILY Xarelto 20 mg tablet 20 mg PO DAILY Jardiance 10 mg tablet 10 mg PO DAILY Discharge Orders: Discharge Order (Routine); Ordered 12/24/23 Ordered By: Tegan Buckner Diet: Diabetic diet Activity on Discharge: As tolerated Stand Alone Forms: Patient Portal Discharge page Print Language: Korean Care Plan Goals: Continue Prilosec 1 tablet twice daily, continue Xarelto and aspirin Upper endoscopy showed no source of bleed Recommend video capsule study as outpatient follow-up with Gastroenterology call for appointment Resume all home medication Returned to check with recurrent bleed. Health Concerns: cad/ch afib Plan of Treatment: Outpatient follow-up with Gastroenterology for video capsule study Assessment: as above Discharge Date/Time: 12/24/23 11:48
--- NOTE | 2023-12-24 12:03 | HO.POSTANES ---
Post Anesthesia Evaluation Post Anesthesia Evaluation Date of Service: 12/23/23 Vital Signs: Vital Signs Temp Pulse Resp BP Pulse Ox O2 Del Method 12/24/23 09:47 75 133/62 12/24/23 09:46 133/62 12/24/23 07:30 97.8 F 62 18 133/62 96 Room Air 12/24/23 04:00 98.9 F 69 18 143/61 H 98 Room Air Anesthesia: General Mental Status: Awake Pain Control: Satisfactory Nausea/Vomiting: None Hydration: Adequate Anesthesia-Related Issues: No Anes. Related Issues
== END 2023-12-24 11:48 | disposition home or self-care (01) | DRG 378 ==
LOC: HO.ED 15:28 → HO.EDOVER 18:48 → HO.IMC 19:49
PROVIDERS: Internal Medicine; Internal Medicine Gastroenterology; Admitting Provider Hospitalist; Emergency Provider Emergency Medicine; PCP Internal Medicine; Visit Provider Hospitalist
PROC: 0DB78ZX Excision of Stomach, Pylorus, Via Natural or Artificial Opening Endoscopic, Diagnostic (ICD-10-PCS; principal; 2023-12-23 13:50)
DX: K92.2 Gastrointestinal hemorrhage, unspecified (principal); D62 Acute posthemorrhagic anemia; I48.20 Chronic atrial fibrillation, unspecified; I25.10 Atherosclerotic heart disease of native coronary artery without angina pectoris; K44.9 Diaphragmatic hernia without obstruction or gangrene; Z87.891 Personal history of nicotine dependence; Z79.01 Long term (current) use of anticoagulants; Z79.82 Long term (current) use of aspirin; Z79.899 Other long term (current) drug therapy
CPT/HCPCS: 36415; 74178; 80048; 80053; 80076; 81001; 82272; 83540; 83735; 83880; 84484; 85025; 85610; 85730; 86850; 86900; 86901; 86923; 88305; 88313; 88342; 93005; 99285; C9113; J0171; J0330; J1940; J2371; J2405; J2704; J3010; J7120; P9016; Q9967

== ENCOUNTER → 2023-12-22 15:28 | Outpatient (BNV) | payer MEDICARE, BC, SELFPAY | PROVIDERS: Admitting Provider Hospitalist; Emergency Provider Emergency Medicine; PCP Internal Medicine; Visit Provider Internal Medicine Cardiovascular Disease | DX: R94.31 Abnormal electrocardiogram [ECG] [EKG] (principal) | CPT/HCPCS: 93010 ==

== ENCOUNTER → 2023-12-22 18:35 | Outpatient (BNV) | payer MEDICARE, BC, SELFPAY | PROVIDERS: Admitting Provider Hospitalist; Emergency Provider Emergency Medicine; PCP Internal Medicine; Visit Provider Hospitalist | DX: K92.2 Gastrointestinal hemorrhage, unspecified (principal) | CPT/HCPCS: 99223; 99232; 99239 ==

== ENCOUNTER 2024-01-04 09:53 | Outpatient (REF) | payer MEDICARE, BC, SELFPAY ==
[2024-01-04 11:21] LABS: MANUAL DIFF FLAG NO
[2024-01-04 11:28] LABS: Basophils Percent Auto 0.6 % (0-2); Eosinophils Absolute Auto 0.1 X10*3/uL (0.0-0.4); Eosinophils Percent Auto 1.8 % (0-4); Hemoglobin 10.5 g/dl (14.0-18.0); Imm Gran Abs Auto 0.04 X10*3/uL (0.00-0.03); Imm Gran Pct Auto 0.6 % (0.0-0.4); Lymphocytes Absolute Auto 1.2 X10*3/uL (1.2-4.9); Lymphocytes Percent Auto 18.7 % (20-40); Mean Corpuscular HGB Conc 30.9 g/dl (31.0-36.0); Mean Corpuscular Hemoglobin 27.6 pg (27.0-33.0); Mean Corpuscular Volume 89.2 fL (80.0-98.0); Mean Platelet Volume 10.8 fL (9.4-12.4); Monocytes Absolute Auto 0.6 X10*3/uL (0.1-1.2); Monocytes Percent Auto 8.8 % (2-11); Neutrophils Absolute Auto 4.4 x10*3/uL (2.0-8.3); Neutrophils Percent Auto 69.5 % (45-73); Platelet Count 239 X10*3/uL (160-400); Red Blood Count 3.81 X10*6/uL (4.60-5.80); Red Cell Distribution Width 19.1 % (11.0-16.0); White Blood Count 6.3 X10*3/uL (4.8-10.8)
[2024-01-04 11:45] LABS: Estimated Average Glucose 117 mg/dL; Hemoglobin A1c % 5.7 % (<6.0)
[2024-01-04 11:58] LABS: Anion Gap 12 (12-20); Blood Urea Nitrogen 22 mg/dL (9-16); Calcium 9.4 mg/dL (8.4-10.2); Carbon Dioxide 27 mmol/L (22-29); Chloride 106 mmol/L (96-108); Estimated Glomerular Filt Rate > 60; Glucose Random 170 mg/dL (60-115); Iron 43 mcg/dL (45-160); Percent Iron Saturation 13 % (15-50); Potassium 4.5 mmol/L (3.3-5.1); Sodium 140 mmol/L (135-145); Total Iron Binding Capacity 333 mcg/dL (228-428); Unsaturated Iron Binding 290 ug/dL
== END 2024-01-04 09:54 | disposition home or self-care (01) ==
LOC: HO.10HDL 09:53
PROVIDERS: Visit Provider Internal Medicine
DX: D64.9 Anemia, unspecified (principal); E11.9 Type 2 diabetes mellitus without complications; K92.2 Gastrointestinal hemorrhage, unspecified
CPT/HCPCS: 36415; 80048; 83036; 83540; 85025

== ENCOUNTER → 2024-01-20 07:52 | Outpatient (BNVA) | payer MEDICARE, BC, SELFPAY | PROVIDERS: PCP Internal Medicine; Visit Provider Internal Medicine Gastroenterology ==

== ENCOUNTER 2024-02-03 08:56 | Outpatient (REF) | payer MEDICARE, BC, SELFPAY ==
[2024-02-03 11:03] LABS: MANUAL DIFF FLAG NO
[2024-02-03 11:21] LABS: Basophils Percent Auto 0.6 % (0-2); Eosinophils Absolute Auto 0.1 X10*3/uL (0.0-0.4); Eosinophils Percent Auto 2.1 % (0-4); Hematocrit 27.8 % (42.0-52.0); Hemoglobin 8.7 g/dl (14.0-18.0); Imm Gran Abs Auto 0.02 X10*3/uL (0.00-0.03); Imm Gran Pct Auto 0.4 % (0.0-0.4); Lymphocytes Percent Auto 19.6 % (20-40); Mean Corpuscular HGB Conc 31.3 g/dl (31.0-36.0); Mean Corpuscular Hemoglobin 27.1 pg (27.0-33.0); Mean Corpuscular Volume 86.6 fL (80.0-98.0); Mean Platelet Volume 10.6 fL (9.4-12.4); Monocytes Absolute Auto 0.6 X10*3/uL (0.1-1.2); Monocytes Percent Auto 12.4 % (2-11); NRBC Pct Auto 0.4 /100WBC (0.0-0.2); Neutrophils Absolute Auto 3.2 x10*3/uL (2.0-8.3); Neutrophils Percent Auto 64.9 % (45-73); Platelet Count 186 X10*3/uL (160-400); Red Blood Count 3.21 X10*6/uL (4.60-5.80); Red Cell Distribution Width 17.9 % (11.0-16.0); White Blood Count 4.9 X10*3/uL (4.8-10.8)
[2024-02-03 11:22] LABS: Iron 29 mcg/dL (45-160); Percent Iron Saturation 9 % (15-50); Total Iron Binding Capacity 338 mcg/dL (228-428); Unsaturated Iron Binding 309 ug/dL
== END 2024-02-03 08:57 | disposition home or self-care (01) ==
LOC: HO.10HDL 08:56
PROVIDERS: Visit Provider Internal Medicine
DX: D64.9 Anemia, unspecified (principal)
CPT/HCPCS: 36415; 83540; 85025

== ENCOUNTER 2024-03-08 13:53 | Outpatient (REF) | payer MEDICARE, BC, SELFPAY ==
[2024-03-08 14:26] LABS: MANUAL DIFF FLAG NO
[2024-03-08 14:31] LABS: Basophils Percent Auto 0.4 % (0-2); Eosinophils Absolute Auto 0.1 X10*3/uL (0.0-0.4); Eosinophils Percent Auto 1.5 % (0-4); Hematocrit 30.7 % (42.0-52.0); Hemoglobin 9.8 g/dl (14.0-18.0); Imm Gran Abs Auto 0.01 X10*3/uL (0.00-0.03); Imm Gran Pct Auto 0.2 % (0.0-0.4); Mean Corpuscular HGB Conc 31.9 g/dl (31.0-36.0); Mean Corpuscular Hemoglobin 27.1 pg (27.0-33.0); Mean Platelet Volume 10.4 fL (9.4-12.4); Monocytes Absolute Auto 0.7 X10*3/uL (0.1-1.2); Monocytes Percent Auto 14.3 % (2-11); Neutrophils Absolute Auto 2.9 x10*3/uL (2.0-8.3); Neutrophils Percent Auto 62.6 % (45-73); Platelet Count 165 X10*3/uL (160-400); Red Blood Count 3.61 X10*6/uL (4.60-5.80); Red Cell Distribution Width 17.7 % (11.0-16.0); White Blood Count 4.6 X10*3/uL (4.8-10.8)
[2024-03-08 14:40] LABS: Estimated Average Glucose 120 mg/dL; Hemoglobin A1c % 5.8 % (<6.0)
[2024-03-08 15:29] LABS: Alanine Aminotransferase 13 U/L (0-40); Albumin Level 4.1 g/dL (3.5-5.0); Alkaline Phosphatase 55 U/L (39-117); Anion Gap 10 (12-20); Aspartate Amino Transferase 17 U/L (5-37); Bilirubin Total 0.3 mg/dL (0.0-1.0); Blood Urea Nitrogen 24 mg/dL (9-16); Calcium 9.4 mg/dL (8.4-10.2); Carbon Dioxide 29 mmol/L (22-29); Chloride 104 mmol/L (96-108); Estimated Glomerular Filt Rate > 60; Glucose Random 152 mg/dL (60-115); Iron 45 mcg/dL (45-160); Percent Iron Saturation 14 % (15-50); Potassium 4.1 mmol/L (3.3-5.1); Sodium 139 mmol/L (135-145); Total Iron Binding Capacity 331 mcg/dL (228-428); Total Protein 6.5 g/dL (6.5-8.0); Unsaturated Iron Binding 286 ug/dL
== END 2024-03-08 13:54 | disposition home or self-care (01) ==
LOC: HO.LAB 13:53
PROVIDERS: PCP Internal Medicine; Visit Provider Internal Medicine
DX: I25.10 Atherosclerotic heart disease of native coronary artery without angina pectoris (principal); D64.9 Anemia, unspecified; E11.9 Type 2 diabetes mellitus without complications
CPT/HCPCS: 36415; 80053; 83036; 83540; 85025

== ENCOUNTER 2024-03-23 07:49 | Outpatient (AMB) | payer MEDICARE, BC, SELFPAY ==
--- NOTE | 2024-03-23 08:03 | AM.OFFVISNUR ---
Intake Visit Reasons: CAPSULE ENDOSCOPY Allergies No Known Allergies Allergy (Verified 12/22/23 15:15) Nursing Note Patient presents for Capsule Endoscopy. Patient aware of risk of Capsule Endoscopy. Patient agreed to proceed and signed consent form. Patient given instructions to follow throughout the course of the day. Equipment placed, Capsule working appropriately. Patient advised to return to office at 4pm. Patient provided with number to our office to call with any questions or concerns.
--- NOTE | 2024-04-27 21:36 | A.OFFVIS_ITS ---
Intake Visit Reasons: CAPSULE ENDOSCOPY Allergies No Known Allergies Allergy (Verified 12/22/23 15:15) [facility] Medical History (Updated 04/27/24 @ 21:39 by Jill Cole MD) Chronic anemia Coronary artery disease Hx of exterminator termite use of blood thinners Atrial fibrillation Surgical History (Updated 12/23/23 @ 13:53 by Hank De La Cruz RN) History of esophagogastroduodenoscopy (EGD) History of coronary artery stent placement History of umbilical hernia repair History of left knee surgery History of coronary artery bypass graft Social History Household Members: Spouse and Family Housing: House Do you presently have visiting nurse or other home services: No Patient Tobacco Use Status: Former Tobacco user e-Cigarette/Vaping Use: Former Use Second Hand Smoke Exposure: No service: No Office Procedures AMB Capsule Endoscopy Procedure Notes: Capsule Endoscopy: Date of Service:03/23/24 Indication: anemia Findings: mild gastritis noted duodenum entered at 39 min. at 1 hr 33 min blood noted, possible visible vessel with clot in proximal or mid jejunum. cecum reached at 5 hr 8 min Conclusion: bleeding point jejunum, possible dieulafoy, may be accessible by push ente roscopy. (Report faxed to [facility]) Capsule Endoscopy CPT Code: 45687 - Capsule Endoscopy Assessment & Plan Assessment & Plan (1) Anemia: Code(s): D64.9 - Anemia, unspecified Category: Medical Qualifiers: Iron deficiency anemia type: chronic blood loss Plan: see above Coding Level of Care Code Procedure Only Diagnoses Anemia D64.9 Iron deficiency anemia type: chronic blood loss CPT Codes AMB Capsule Endoscopy - Capsule Endoscopy CPT Code: 56970 - Capsule Endoscopy ([id number])
== END 2024-03-23 08:06 | disposition home or self-care (01) ==
PROVIDERS: PCP Internal Medicine; Visit Provider Internal Medicine Gastroenterology
DX: D64.9 Anemia, unspecified (principal); K29.70 Gastritis, unspecified, without bleeding
CPT/HCPCS: 91110

== ENCOUNTER → 2024-03-23 07:49 | Outpatient (BNVA) | payer MEDICARE, BC, SELFPAY | PROVIDERS: PCP Internal Medicine; Visit Provider Internal Medicine Gastroenterology | DX: D50.0 Iron deficiency anemia secondary to blood loss (chronic) (principal) | CPT/HCPCS: 91110; 99211 ==

== ENCOUNTER 2024-04-20 11:13 | Outpatient (REF) | payer MEDICARE, BC, SELFPAY ==
[2024-04-20 11:46] LABS: MANUAL DIFF FLAG NO
[2024-04-20 12:07] LABS: Basophils Percent Auto 0.3 % (0-2); Eosinophils Absolute Auto 0.1 X10*3/uL (0.0-0.4); Eosinophils Percent Auto 0.6 % (0-4); Hematocrit 26.5 % (42.0-52.0); Hemoglobin 8.5 g/dl (14.0-18.0); Imm Gran Abs Auto 0.05 X10*3/uL (0.00-0.03); Imm Gran Pct Auto 0.5 % (0.0-0.4); Lymphocytes Absolute Auto 0.9 X10*3/uL (1.2-4.9); Lymphocytes Percent Auto 9.1 % (20-40); Mean Corpuscular HGB Conc 32.1 g/dl (31.0-36.0); Mean Corpuscular Hemoglobin 27.9 pg (27.0-33.0); Mean Corpuscular Volume 86.9 fL (80.0-98.0); Monocytes Absolute Auto 0.9 X10*3/uL (0.1-1.2); Monocytes Percent Auto 9.1 % (2-11); Neutrophils Absolute Auto 7.8 x10*3/uL (2.0-8.3); Neutrophils Percent Auto 80.4 % (45-73); Platelet Count 301 X10*3/uL (160-400); Red Blood Count 3.05 X10*6/uL (4.60-5.80); White Blood Count 9.7 X10*3/uL (4.8-10.8)
[2024-04-20 12:39] LABS: Anion Gap 11 (12-20); Blood Urea Nitrogen 16 mg/dL (9-16); Calcium 8.9 mg/dL (8.4-10.2); Carbon Dioxide 28 mmol/L (22-29); Chloride 106 mmol/L (96-108); Estimated Glomerular Filt Rate > 60; Glucose Random 156 mg/dL (60-115); Iron 286 mcg/dL (45-160); Percent Iron Saturation 83 % (15-50); Potassium 4.1 mmol/L (3.3-5.1); Sodium 141 mmol/L (135-145); Total Iron Binding Capacity 345 mcg/dL (228-428); Unsaturated Iron Binding 59 ug/dL
== END 2024-04-20 11:14 | disposition home or self-care (01) ==
LOC: HO.LAB 11:13
PROVIDERS: PCP Internal Medicine; Visit Provider Internal Medicine
DX: D64.9 Anemia, unspecified (principal)
CPT/HCPCS: 36415; 80048; 83540; 85025

== ENCOUNTER 2024-04-27 11:58 | Outpatient (REF) | payer MEDICARE, BC, SELFPAY ==
[2024-04-27 12:26] LABS: MANUAL DIFF FLAG NO
[2024-04-27 13:06] LABS: Basophils Absolute Auto 0.1 X10*3/uL (0.0-0.2); Basophils Percent Auto 0.9 % (0-2); Eosinophils Absolute Auto 0.1 X10*3/uL (0.0-0.4); Eosinophils Percent Auto 2.4 % (0-4); Hematocrit 29.6 % (42.0-52.0); Hemoglobin 9.2 g/dl (14.0-18.0); Imm Gran Abs Auto 0.06 X10*3/uL (0.00-0.03); Imm Gran Pct Auto 1.1 % (0.0-0.4); Lymphocytes Absolute Auto 1.2 X10*3/uL (1.2-4.9); Lymphocytes Percent Auto 23.2 % (20-40); Mean Corpuscular HGB Conc 31.1 g/dl (31.0-36.0); Mean Corpuscular Hemoglobin 27.9 pg (27.0-33.0); Mean Corpuscular Volume 89.7 fL (80.0-98.0); Mean Platelet Volume 10.6 fL (9.4-12.4); Monocytes Absolute Auto 0.6 X10*3/uL (0.1-1.2); Neutrophils Absolute Auto 3.3 x10*3/uL (2.0-8.3); Neutrophils Percent Auto 61.4 % (45-73); Platelet Count 291 X10*3/uL (160-400); Red Cell Distribution Width 16.1 % (11.0-16.0); White Blood Count 5.4 X10*3/uL (4.8-10.8)
[2024-04-27 13:53] LABS: Anion Gap 12 (12-20); Blood Urea Nitrogen 17 mg/dL (9-16); Calcium 8.8 mg/dL (8.4-10.2); Carbon Dioxide 28 mmol/L (22-29); Chloride 107 mmol/L (96-108); Estimated Glomerular Filt Rate > 60; Glucose Random 123 mg/dL (60-115); Sodium 143 mmol/L (135-145)
== END 2024-04-27 11:59 | disposition home or self-care (01) ==
LOC: HO.LAB 11:58
PROVIDERS: PCP Internal Medicine; Visit Provider Internal Medicine
DX: D64.9 Anemia, unspecified (principal)
CPT/HCPCS: 36415; 80048; 85025

== ENCOUNTER 2024-05-04 12:03 | Outpatient (REF) | payer MEDICARE, BC, SELFPAY ==
[2024-05-04 12:58] LABS: MANUAL DIFF FLAG NO
[2024-05-04 13:10] LABS: Basophils Percent Auto 0.4 % (0-2); Eosinophils Absolute Auto 0.1 X10*3/uL (0.0-0.4); Eosinophils Percent Auto 1.8 % (0-4); Hematocrit 30.4 % (42.0-52.0); Hemoglobin 9.7 g/dl (14.0-18.0); Imm Gran Abs Auto 0.02 X10*3/uL (0.00-0.03); Imm Gran Pct Auto 0.4 % (0.0-0.4); Lymphocytes Absolute Auto 1.2 X10*3/uL (1.2-4.9); Lymphocytes Percent Auto 22.5 % (20-40); Mean Corpuscular HGB Conc 31.9 g/dl (31.0-36.0); Mean Corpuscular Volume 87.6 fL (80.0-98.0); Mean Platelet Volume 10.3 fL (9.4-12.4); Monocytes Absolute Auto 0.7 X10*3/uL (0.1-1.2); Monocytes Percent Auto 12.2 % (2-11); Neutrophils Absolute Auto 3.5 x10*3/uL (2.0-8.3); Neutrophils Percent Auto 62.7 % (45-73); Platelet Count 203 X10*3/uL (160-400); Red Blood Count 3.47 X10*6/uL (4.60-5.80); Red Cell Distribution Width 16.7 % (11.0-16.0); White Blood Count 5.5 X10*3/uL (4.8-10.8)
== END 2024-05-04 12:04 | disposition home or self-care (01) ==
LOC: HO.LAB 12:03
PROVIDERS: PCP Internal Medicine; Visit Provider Internal Medicine
DX: D64.9 Anemia, unspecified (principal); I48.0 Paroxysmal atrial fibrillation
CPT/HCPCS: 36415; 85025

== ENCOUNTER 2024-05-11 14:06 | Outpatient (REF) | payer MEDICARE, BC, SELFPAY ==
[2024-05-11 14:21] LABS: MANUAL DIFF FLAG NO
[2024-05-11 14:43] LABS: Basophils Percent Auto 0.3 % (0-2); Eosinophils Absolute Auto 0.1 X10*3/uL (0.0-0.4); Eosinophils Percent Auto 1.4 % (0-4); Hemoglobin 10.3 g/dl (14.0-18.0); Imm Gran Abs Auto 0.04 X10*3/uL (0.00-0.03); Imm Gran Pct Auto 0.6 % (0.0-0.4); Lymphocytes Percent Auto 15.1 % (20-40); Mean Corpuscular HGB Conc 31.2 g/dl (31.0-36.0); Mean Corpuscular Hemoglobin 28.2 pg (27.0-33.0); Mean Corpuscular Volume 90.4 fL (80.0-98.0); Mean Platelet Volume 10.4 fL (9.4-12.4); Monocytes Absolute Auto 0.6 X10*3/uL (0.1-1.2); Monocytes Percent Auto 9.3 % (2-11); Neutrophils Absolute Auto 4.8 x10*3/uL (2.0-8.3); Neutrophils Percent Auto 73.3 % (45-73); Platelet Count 189 X10*3/uL (160-400); Red Blood Count 3.65 X10*6/uL (4.60-5.80); Red Cell Distribution Width 16.7 % (11.0-16.0); White Blood Count 6.5 X10*3/uL (4.8-10.8)
[2024-05-11 14:45] LABS: Appearance Urine Cloudy; Color Urine Yellow; Glucose Urine UA 250 mg/dL (Negative); Leukocyte Esterase Urine Moderate (2+) (Negative); Nitrite Urine Negative (Negative); PH 5.5 (5.0-9.0); Specific Gravity - Urine 1.015 (1.005-1.025); UMIC TRIGGER UACC YES; Urine Blood Moderate (2+) (Negative); Urine Ketones Trace mg/dL (Negative); Urine Protein 30 (1+) mg/dL (Neg-Trace)
[2024-05-11 14:51] LABS: Bacteria Urine None Seen (None Seen); Hyaline Casts Urine 0-2 /LPF (0-2); Squamous Epithelial Cell Urine 0-2 /HPF (0-2); UACC Culture Trigger YES; WBC Urine >50 /HPF (0-5)
== END 2024-05-11 14:07 | disposition home or self-care (01) ==
LOC: HO.LAB 14:06
PROVIDERS: PCP Internal Medicine; Visit Provider Internal Medicine
DX: D64.9 Anemia, unspecified (principal); K92.2 Gastrointestinal hemorrhage, unspecified
CPT/HCPCS: 36415; 81001; 85025; 87086

== ENCOUNTER 2024-05-19 10:19 | Outpatient (REF) | payer MEDICARE, BC, SELFPAY ==
[2024-05-19 10:34] LABS: MANUAL DIFF FLAG NO
[2024-05-19 10:42] LABS: Basophils Percent Auto 0.8 % (0-2); Eosinophils Absolute Auto 0.1 X10*3/uL (0.0-0.4); Eosinophils Percent Auto 2.2 % (0-4); Hematocrit 34.9 % (42.0-52.0); Hemoglobin 10.9 g/dl (14.0-18.0); Imm Gran Abs Auto 0.04 X10*3/uL (0.00-0.03); Imm Gran Pct Auto 0.8 % (0.0-0.4); Lymphocytes Absolute Auto 0.9 X10*3/uL (1.2-4.9); Mean Corpuscular HGB Conc 31.2 g/dl (31.0-36.0); Mean Corpuscular Hemoglobin 27.5 pg (27.0-33.0); Mean Corpuscular Volume 87.9 fL (80.0-98.0); Monocytes Absolute Auto 0.5 X10*3/uL (0.1-1.2); Monocytes Percent Auto 10.5 % (2-11); Neutrophils Absolute Auto 3.3 x10*3/uL (2.0-8.3); Neutrophils Percent Auto 66.7 % (45-73); Platelet Count 208 X10*3/uL (160-400); Red Blood Count 3.97 X10*6/uL (4.60-5.80); Red Cell Distribution Width 15.5 % (11.0-16.0)
[2024-05-19 11:47] LABS: Anion Gap 12 (12-20); Blood Urea Nitrogen 17 mg/dL (9-16); Calcium 9.5 mg/dL (8.4-10.2); Carbon Dioxide 29 mmol/L (22-29); Chloride 105 mmol/L (96-108); Estimated Glomerular Filt Rate > 60; Glucose Random 128 mg/dL (60-115); Potassium 4.1 mmol/L (3.3-5.1); Sodium 142 mmol/L (135-145)
== END 2024-05-19 10:20 | disposition home or self-care (01) ==
LOC: HO.LAB 10:19
PROVIDERS: PCP Internal Medicine; Visit Provider Internal Medicine
DX: D64.9 Anemia, unspecified (principal); I48.0 Paroxysmal atrial fibrillation
CPT/HCPCS: 36415; 80048; 85025

== ENCOUNTER 2024-05-24 06:35 | Outpatient (REF) | payer MEDICARE, BC, SELFPAY ==
[2024-05-24 07:20] LABS: Basophils Percent Auto 0.2 % (0-2); Eosinophils Absolute Auto 0.1 X10*3/uL (0.0-0.4); Eosinophils Percent Auto 0.3 % (0-4); Hematocrit 35.1 % (42.0-52.0); Hemoglobin 11.1 g/dl (14.0-18.0); Imm Gran Abs Auto 0.16 X10*3/uL (0.00-0.03); Imm Gran Pct Auto 0.9 % (0.0-0.4); Lymphocytes Absolute Auto 1.1 X10*3/uL (1.2-4.9); Lymphocytes Percent Auto 5.8 % (20-40); MANUAL DIFF FLAG SCAN; Mean Corpuscular HGB Conc 31.6 g/dl (31.0-36.0); Mean Corpuscular Volume 88.4 fL (80.0-98.0); Mean Platelet Volume 10.7 fL (9.4-12.4); Monocytes Absolute Auto 1.6 X10*3/uL (0.1-1.2); Monocytes Percent Auto 8.5 % (2-11); Neutrophils Absolute Auto 15.6 x10*3/uL (2.0-8.3); Neutrophils Percent Auto 84.3 % (45-73); Platelet Count 238 X10*3/uL (160-400); Red Blood Count 3.97 X10*6/uL (4.60-5.80); Red Cell Distribution Width 16.3 % (11.0-16.0); SCAN SMEAR FLAG 1; White Blood Count 18.5 X10*3/uL (4.8-10.8)
[2024-05-24 07:30] LABS: Estimated Average Glucose 117 mg/dL; Hemoglobin A1C 110.3399 umol/L; Hemoglobin A1c % 5.7 % (<6.0); Total Hemoglobin (HGBA1C) 2823.0231 umol/L
[2024-05-24 07:46] LABS: Alanine Aminotransferase 26 U/L (0-40); Albumin Level 4.4 g/dL (3.5-5.0); Alkaline Phosphatase 75 U/L (39-117); Anion Gap 12 (12-20); Aspartate Amino Transferase 38 U/L (5-37); Bilirubin Total 0.5 mg/dL (0.0-1.0); Blood Urea Nitrogen 19 mg/dL (9-16); Calcium 9.7 mg/dL (8.4-10.2); Carbon Dioxide 28 mmol/L (22-29); Chloride 102 mmol/L (96-108); Estimated Glomerular Filt Rate > 60; Glucose Random 148 mg/dL (60-115); Iron 138 mcg/dL (45-160); Percent Iron Saturation 40 % (15-50); Potassium 3.8 mmol/L (3.3-5.1); Sodium 138 mmol/L (135-145); Total Iron Binding Capacity 345 mcg/dL (228-428); Total Protein 7.2 g/dL (6.5-8.0); Unsaturated Iron Binding 207 ug/dL
[2024-05-24 07:55] LABS: SLIDE REVIEW VERIFIED
== END 2024-05-24 06:36 | disposition home or self-care (01) ==
LOC: HO.LAB 06:35
PROVIDERS: PCP Internal Medicine; Visit Provider Internal Medicine
DX: D64.9 Anemia, unspecified (principal); E11.9 Type 2 diabetes mellitus without complications; I25.10 Atherosclerotic heart disease of native coronary artery without angina pectoris
CPT/HCPCS: 36415; 80053; 83036; 83540; 85025

== ENCOUNTER 2024-05-31 10:04 | Outpatient (REF) | payer MEDICARE, BC, SELFPAY ==
[2024-05-31 10:17] LABS: MANUAL DIFF FLAG NO
[2024-05-31 10:51] LABS: Basophils Percent Auto 0.7 % (0-2); Eosinophils Absolute Auto 0.1 X10*3/uL (0.0-0.4); Eosinophils Percent Auto 1.8 % (0-4); Hematocrit 35.8 % (42.0-52.0); Hemoglobin 11.1 g/dl (14.0-18.0); Imm Gran Abs Auto 0.05 X10*3/uL (0.00-0.03); Imm Gran Pct Auto 0.9 % (0.0-0.4); Lymphocytes Percent Auto 17.9 % (20-40); Mean Corpuscular Hemoglobin 27.7 pg (27.0-33.0); Mean Corpuscular Volume 89.3 fL (80.0-98.0); Mean Platelet Volume 10.5 fL (9.4-12.4); Monocytes Absolute Auto 0.6 X10*3/uL (0.1-1.2); Monocytes Percent Auto 10.9 % (2-11); Neutrophils Absolute Auto 3.7 x10*3/uL (2.0-8.3); Neutrophils Percent Auto 67.8 % (45-73); Platelet Count 249 X10*3/uL (160-400); Red Blood Count 4.01 X10*6/uL (4.60-5.80); Red Cell Distribution Width 15.3 % (11.0-16.0); White Blood Count 5.4 X10*3/uL (4.8-10.8)
== END 2024-05-31 10:05 | disposition home or self-care (01) ==
LOC: HO.LAB 10:04
PROVIDERS: PCP Internal Medicine; Visit Provider Internal Medicine
DX: D64.9 Anemia, unspecified (principal)
CPT/HCPCS: 36415; 85025

== ENCOUNTER 2024-06-07 09:16 | Outpatient (REF) | payer MEDICARE, BC, SELFPAY ==
[2024-06-07 09:36] LABS: MANUAL DIFF FLAG NO
[2024-06-07 09:56] LABS: Basophils Percent Auto 0.4 % (0-2); Eosinophils Absolute Auto 0.1 X10*3/uL (0.0-0.4); Eosinophils Percent Auto 2.5 % (0-4); Hematocrit 34.5 % (42.0-52.0); Hemoglobin 10.9 g/dl (14.0-18.0); Imm Gran Abs Auto 0.03 X10*3/uL (0.00-0.03); Imm Gran Pct Auto 0.5 % (0.0-0.4); Lymphocytes Absolute Auto 1.2 X10*3/uL (1.2-4.9); Lymphocytes Percent Auto 20.7 % (20-40); Mean Corpuscular HGB Conc 31.6 g/dl (31.0-36.0); Mean Corpuscular Hemoglobin 28.2 pg (27.0-33.0); Mean Corpuscular Volume 89.1 fL (80.0-98.0); Mean Platelet Volume 10.4 fL (9.4-12.4); Monocytes Absolute Auto 0.7 X10*3/uL (0.1-1.2); Monocytes Percent Auto 11.8 % (2-11); Neutrophils Absolute Auto 3.6 x10*3/uL (2.0-8.3); Neutrophils Percent Auto 64.1 % (45-73); Platelet Count 218 X10*3/uL (160-400); Red Blood Count 3.87 X10*6/uL (4.60-5.80); Red Cell Distribution Width 15.3 % (11.0-16.0); White Blood Count 5.7 X10*3/uL (4.8-10.8)
--- OUTSIDE RECORDS SUMMARY | 2024-06-08 19:24 | XMS_ITS ---
Author Organization [facility] Address [address] [place] [address] Care Team Providers Care Bus Company Manager Name Role Phone Josesito Chavarria MD Primary Care Provider Riki Avila Unavailable [phone] REASON FOR VISIT Patient presents today for a f/u from a GI bleed. Encounters Encounter Location Date Provider Diagnosis [facility] [address] [place] [address] 05/19/2024 Riki Clements PLAN OF TREATMENT Next Appt Details Provider Name:Riki Clements , 07/07/2024 11:20:00 AM, [address], [address], [place], [address],
--- OUTSIDE RECORDS SUMMARY | 2024-06-08 19:25 | XMS_ITS ---
Author Organization [facility] Address [address] [place] [address] Care Team Providers Care Insulation Machine Operator Name Role Phone Josesito Chavarria MD Primary Care Provider UnavailRiki Guerrero Unavailable [phone] REASON FOR VISIT daughter has question Encounters Encounter Location Date Provider Diagnosis [facility] [address] [place] [address] 04/21/2024 Riki Clements PLAN OF TREATMENT Next Appt Details Provider Name:Riki Clements , 07/07/2024 11:20:00 AM, [address], [address], [place], [address],
--- OUTSIDE RECORDS SUMMARY | 2024-06-08 19:25 | XMS_ITS | Patient Health Record ---
Author Organization [facility] Address [address] [place] [address] Care Team Providers Care Press Department Manager Name Role Phone Josesito Chavarria MD Primary Care Provider Riki Avila Unavailable [phone] RESULTS Component Value Reference Range Notes Pathology Reviewed date:12/25/2023 04:12:01 PM Interpretation: Performing Lab:[facility], [address] [place] [phone] Notes/Report: Complete Blood Count Auto Di ff Reviewed date:12/24/2023 12:39:32 PM Interpretation: Performing Lab:[facility], [address] [place] [phone] Notes/Report: White Blood Count 9.7 4.8-10.8 X10*3/uL Red Blood Count 3.63 4.60-5.80 X10*6/uL Hemoglobin 9.9 14.0-18.0 g/dl Hematocrit 31.1 42.0-52.0 % Mean Corpuscular Volume 85.7 80.0-98.0 fL Mean Corpuscular Hemoglobin 27.3 27.0-33.0 pg Mean Corpuscular HGB Conc 31.8 31.0-36.0 g/dl Red Cell Distribution Width 17.6 11.0-16.0 % Platelet Count 223 160-400 X10*3/uL Mean Platelet Volume 10.3 9.4-12.4 fL Neutrophils Percent Auto 74.6 45-73 % Imm Gran Pct Auto 0.6 0.0-0.4 % Lymphocytes Percent Auto 11.4 20-40 % Monocytes Percent Auto 11.5 2-11 % Eosinophils Percent Auto 1.6 0-4 % Basophils Percent Auto 0.3 0-2 % NRBC Pct Auto 0.0 0.0-0.2 /100WBC Neutrophils Absolute Auto 7.2 2.0-8.3 x10*3/u L Imm Gran Abs Auto 0.06 0.00-0.03 X10*3/uL Lymphocytes Absolute Auto 1.1 1.2-4.9 X10*3/u L Monocytes Absolute Auto 1.1 0.1-1.2 X10*3/uL Eosinophils Absolute Auto 0.2 0.0-0.4 X10*3/u L Basophils Absolute Auto 0.0 0.0-0.2 X10*3/uL NRBC Abs Auto 0.000 0.0-0.012 X10*3/uL Basic Metabolic Panel Fastin g Reviewed date:12/24/2023 12:40:09 PM Interpretation: Performing Lab:[facility], [address] [place] [phone] Notes/Report: Sodium 139 135-145 mmol/L Potassium 4.6 3.3-5.1 mmol/L Chloride 105 96-108 mmol/L Carbon Dioxide 27 22-29 mmol/L Anion Gap 12 12-20 Blood Urea Nitrogen 16 9-16 mg/dL Creatinine 0.92 0.5-1.4 mg/dL Creatinine Clr Calc Pharmacy 56.8 eGFR (calculated from the MDRD study equation) and eCrCl (calculated from the Cockcroft-Gault equation) are based on different parameters and may not yield comparable results. If eCrCl result is absurd, please check patient's height/weight. Estimated Glomerular Filt Rate > 60 NOTE: For -Citizen Of [place] individuals, multiply the result by 1.210. Chronic Kidney Disease: Estimated GFR < 60 mL/min/1.73m2 Severe Kidney Disease: Estimated GFR < 15 mL/min/1.73m2 Glucose Fasting 97 60-99 mg/dL Calcium 9.1 8.4-10.2 mg/dL REASON FOR REFERRAL No Information MEDICATIONS Medication SIG (Take, Route, Frequency, Duration) Notes Start Date End Date Status pyRIDostigmine [place] 60 MG 1 tablet Or ally every 4 hrs Active Suprep Bowel Prep 1 kit as directed Oral ly as directed for 1 dose 12/19/2014 Active Vytorin 10-40 MG 1 tablet Orally Once a day Active metFORMIN HCl 500 MG 1 tablet with meals Orally Twice a day Active Warfarin Sodium 5 MG 1 tablet Orally Onc e a day Active Atenolol 25 MG 1 tablet Orally Once a day Active Tamsulosin HCl 0.4 MG 1 capsule 30 minut es after the same meal each day Orally Once a day Active Avodart 0.5 MG 1 capsule Orally Onc e a day Active SOCIAL HISTORY Sex Assigned At : Social History Observation Description Sex Assigned At Unknown PROBLEMS Problem Type ICD Code Onset Dates Problem Status W/U Status Risk SNOMED Code Notes Problem Colon cancer screening (V76.51) Active confirmed Colon can cer screening (877403362) Problem alf current use of anticoagulant (V58.61) Active confirmed Long-term curre nt use of anticoagulant (942281455) Problem Acute posthemorrhagic anemia (D62) Active confirmed Acute posthemorrhagic anemia (132060009) Encounters Encounter Location Date Provider Diagnosis [facility] [address] [place] [address] 05/19/2024 Riki Clements [facility] [address] [place] [address] 12/24/2023 Riki Clements [facility] [address] [place] [address] 12/25/2023 Riki Clements [facility] [address] [place] [address] 01/20/2024 Riki Clements Acute posthemorrhagi c anemia D62 [facility] [address] [place] [address] 04/13/2024 Riki Clements [facility] [address] [place] [address] 04/21/2024 Riki Clements [facility] [address] [place] [address] 05/15/2024 Riki Clements ASSESSMENTS Encounter Date Diagnosis Assessment Notes Treatment Notes Treatment Clinical Notes 01/20/2024 Acute posthemorrhagi c anemia (ICD-10 - D62) PLAN OF TREATMENT Pending Test Test Name Order Date GI BIOPSY 03/20/2015 CBC w DIFF 01/20/2024 Future Test Test Name Order Date COLONOSCOPY 12/13/2014 Next Appt Details Provider Name:Riki Clements , 07/07/2024 11:20:00 AM, [address], [address], [place], [address], Insurance Providers Payer Name Payer Address Payer Phone Subscriber Number Group Number Insured Name Patient Relationship to Insured Coverage Start Date Coverage End Date MEDICARE OF [place] [address] [place] [address] [id number] ANNE MARTINEZ Self - patient is the insured [facility] [address] [place], [place] [id number] ANNE MARTINEZ Self - patient is the insured MEDICAL (GENERAL) HISTORY Medical History History ICD Code HTN NIDDM 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 screening colonoscopy i n 09/2002 except for a hyperplastic polyp, sigmoid divertciulosis, internal hemorrhoids Hyperlipidemia Surgical History Surgery Date(Month/Year) Bilateral inguinal hernia CABG as above
--- OUTSIDE RECORDS SUMMARY | 2024-06-08 19:25 | XMS_ITS ---
Author Organization [facility] Address [address] [place] [address] Care Team Providers Care Laborer Steel Handling Name Role Phone Josesito Chavarria MD Primary Care Provider Riki Avila Unavailable [phone] Encounters Encounter Location Date Provider Diagnosis [facility] [address] [place] [address] 05/15/2024 Riki Clements PLAN OF TREATMENT Next Appt Details Provider Name:Riki Clements , 07/07/2024 11:20:00 AM, [address], [address], [place], [address],
== END 2024-06-07 09:17 | disposition home or self-care (01) ==
LOC: HO.LABR 09:16
PROVIDERS: PCP Internal Medicine; Visit Provider Internal Medicine
DX: D64.9 Anemia, unspecified (principal)
CPT/HCPCS: 36415; 85025

== ENCOUNTER 2024-06-14 09:48 | Outpatient (REF) | payer MEDICARE, BC, SELFPAY ==
--- OUTSIDE RECORDS SUMMARY | 2024-06-14 09:51 | XMS_ITS | Patient Health Record ---
Author Organization [facility] Address [address] [place] [address] Care Team Providers Care Switch Cleaner Name Role Phone Josesito Chavarria MD Primary Care Provider Riki Avila Unavailable [phone] RESULTS Component Value Reference Range Notes Pathology Reviewed date:12/25/2023 04:12:01 PM Interpretation: Performing Lab:[facility], [address] [place] [phone] Notes/Report: Complete Blood Count Auto Di ff Reviewed date:12/24/2023 12:39:32 PM Interpretation: Performing Lab:[facility], [address] [place] [phone] Notes/Report: White Blood Count 9.7 4.8-10.8 X10*3/uL [...] g Reviewed date:12/24/2023 12:40:09 PM Interpretation: Performing Lab:[facility], [address] [place] [phone] Notes/Report: Sodium 139 135-145 mmol/L Potassium 4.6 [...] Glomerular Filt Rate > 60 NOTE: For -[place] individuals, multiply the result by 1.210. Chronic Kidney Disease: Estimated GFR < 60 mL/min/1.73m2 Severe Kidney Disease: Estimated GFR < 15 mL/min/1.73m2 Glucose Fasting 97 60-99 mg/dL Calcium 9.1 8.4-10.2 mg/dL REASON FOR REFERRAL No Information MEDICATIONS Medication SIG (Take, Route, Frequency, Duration) Notes Start Date End Date Status pyRIDostigmine [place] 60 MG 1 tablet Or ally every [...] (V76.51) Active confirmed Colon can cer screening (086593606) Problem longterm current use of anticoagulant (V58.61) Active confirmed Long-term curre nt use of anticoagulant (553874597) Problem Acute posthemorrhagic anemia (D62) Active confirmed Acute posthemorrhagic anemia (524325355) Encounters Encounter Location Date Provider Diagnosis [facility] [address] [place] [address] 05/19/2024 Riki Clements [facility] [address] [place] [address] 12/24/2023 Riki Clements [facility] [address] [place] [address] 12/25/2023 Riki Clements [facility] [address] [place] [address] 01/20/2024 Riki Clements Acute posthemorrhagi c anemia D62 [facility] [address] [place] [address] 04/13/2024 Riki Clements [facility] [address] [place] [address] 04/21/2024 Riki Clements [facility] [address] [place] [address] 05/15/2024 Riki Clements ASSESSMENTS Encounter Date Diagnosis Assessment Notes Treatment Notes Treatment Clinical Notes 01/20/2024 Acute posthemorrhagi c anemia (ICD-10 - D62) PLAN OF TREATMENT Pending Test Test Name Order Date GI BIOPSY 03/20/2015 CBC w DIFF 01/20/2024 Future Test Test Name Order Date COLONOSCOPY 12/13/2014 Next Appt Details Provider Name:Riki Clements , 07/07/2024 11:20:00 AM, [address], [address], [place], [address], Insurance Providers Payer Name Payer Address Payer Phone Subscriber Number Group Number Insured Name Patient Relationship to Insured Coverage Start Date Coverage End Date MEDICARE OF [place] [address] [place] [address] [id number] ANNE MARTINEZ Self - patient is the insured [facility] [address] [place], [place] [id number] [phone] [id number] ANNE MARTINEZ Self - patient is the insured MEDICAL (GENERAL) HISTORY Medical History History ICD Code HTN NIDDM 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 screening colonoscopy i n 09/2002 except for a hyperplastic polyp, sigmoid divertciulosis, internal hemorrhoids Hyperlipidemia Surgical History Surgery Date(Month/Year) Bilateral inguinal hernia CABG as above
--- OUTSIDE RECORDS SUMMARY | 2024-06-14 09:51 | XMS_ITS ---
Author Organization [facility] Address [address] [place] [address] Care Team Providers Care Globe Tester Name Role Phone Josesito Chavarria MD Primary Care Provider Riki Avila Unavailable [phone] Encounters Encounter Location Date Provider Diagnosis [facility] [address] [place] [address] 05/15/2024 Riki Clements PLAN OF TREATMENT Next Appt Details Provider Name:Riki Clements , 07/07/2024 11:20:00 AM, [address], [address], [place], [address],
--- OUTSIDE RECORDS SUMMARY | 2024-06-14 09:51 | XMS_ITS ---
Author Organization [facility] Address [address] [place] [address] Care Team Providers Care Security Police Name Role Phone Josesito Chavarria MD Primary Care Provider UnavailRiki Guerrero Unavailable [phone] REASON FOR VISIT daughter has question Encounters Encounter Location Date Provider Diagnosis [facility] [address] [place] [address] 04/21/2024 Riki Clements PLAN OF TREATMENT Next Appt Details Provider Name:Riki Clements , 07/07/2024 11:20:00 AM, [address], [address], [place], [address],
--- OUTSIDE RECORDS SUMMARY | 2024-06-14 09:51 | XMS_ITS ---
Author Organization [facility] Address [address] [place] [address] Care Team Providers Care Superintendent Stations Name Role Phone Josesito Chavarria MD Primary Care Provider Riki Avila Unavailable [phone] REASON FOR VISIT Patient presents today for a f/u from a GI bleed. Encounters Encounter Location Date Provider Diagnosis [facility] [address] [place] [address] 05/19/2024 Riki Clements PLAN OF TREATMENT Next Appt Details Provider Name:Riki Clements , 07/07/2024 11:20:00 AM, [address], [address], [place], [address],
[2024-06-14 10:01] LABS: MANUAL DIFF FLAG NO
[2024-06-14 11:03] LABS: Basophils Percent Auto 0.5 % (0-2); Eosinophils Absolute Auto 0.1 X10*3/uL (0.0-0.4); Eosinophils Percent Auto 2.4 % (0-4); Hematocrit 31.1 % (42.0-52.0); Hemoglobin 9.8 g/dl (14.0-18.0); Imm Gran Abs Auto 0.03 X10*3/uL (0.00-0.03); Imm Gran Pct Auto 0.5 % (0.0-0.4); Lymphocytes Absolute Auto 1.1 X10*3/uL (1.2-4.9); Lymphocytes Percent Auto 18.3 % (20-40); Mean Corpuscular HGB Conc 31.5 g/dl (31.0-36.0); Mean Corpuscular Hemoglobin 27.9 pg (27.0-33.0); Mean Corpuscular Volume 88.6 fL (80.0-98.0); Mean Platelet Volume 11.1 fL (9.4-12.4); Monocytes Absolute Auto 0.6 X10*3/uL (0.1-1.2); Neutrophils Absolute Auto 3.9 x10*3/uL (2.0-8.3); Neutrophils Percent Auto 67.3 % (45-73); Platelet Count 206 X10*3/uL (160-400); Red Blood Count 3.51 X10*6/uL (4.60-5.80); Red Cell Distribution Width 15.3 % (11.0-16.0); White Blood Count 5.8 X10*3/uL (4.8-10.8)
== END 2024-06-14 09:49 | disposition home or self-care (01) ==
LOC: HO.LABR 09:48
PROVIDERS: PCP Internal Medicine; Visit Provider Internal Medicine
DX: D64.9 Anemia, unspecified (principal)
CPT/HCPCS: 36415; 85025

== ENCOUNTER 2024-06-20 16:29 | Outpatient (REF) | payer MEDICARE, BC, SELFPAY ==
[2024-06-20 16:39] LABS: MANUAL DIFF FLAG NO
[2024-06-20 16:49] LABS: Basophils Percent Auto 0.6 % (0-2); Eosinophils Absolute Auto 0.2 X10*3/uL (0.0-0.4); Eosinophils Percent Auto 3.1 % (0-4); Hematocrit 32.3 % (42.0-52.0); Hemoglobin 10.5 g/dl (14.0-18.0); Imm Gran Abs Auto 0.04 X10*3/uL (0.00-0.03); Imm Gran Pct Auto 0.6 % (0.0-0.4); Lymphocytes Absolute Auto 1.5 X10*3/uL (1.2-4.9); Lymphocytes Percent Auto 22.5 % (20-40); Mean Corpuscular HGB Conc 32.5 g/dl (31.0-36.0); Mean Corpuscular Hemoglobin 28.8 pg (27.0-33.0); Mean Corpuscular Volume 88.7 fL (80.0-98.0); Mean Platelet Volume 9.8 fL (9.4-12.4); Monocytes Absolute Auto 0.9 X10*3/uL (0.1-1.2); Monocytes Percent Auto 13.3 % (2-11); Neutrophils Absolute Auto 3.9 x10*3/uL (2.0-8.3); Neutrophils Percent Auto 59.9 % (45-73); Platelet Count 222 X10*3/uL (160-400); Red Blood Count 3.64 X10*6/uL (4.60-5.80); Red Cell Distribution Width 15.7 % (11.0-16.0); White Blood Count 6.5 X10*3/uL (4.8-10.8)
== END 2024-06-20 16:30 | disposition home or self-care (01) ==
LOC: HO.LABR 16:29
PROVIDERS: PCP Internal Medicine; Visit Provider Internal Medicine
DX: D64.9 Anemia, unspecified (principal)
CPT/HCPCS: 36415; 85025

== ENCOUNTER 2024-07-05 11:52 | Outpatient (REF) | payer MEDICARE, BC, SELFPAY ==
[2024-07-05 12:12] LABS: MANUAL DIFF FLAG NO
[2024-07-05 12:29] LABS: Basophils Percent Auto 0.4 % (0-2); Eosinophils Absolute Auto 0.2 X10*3/uL (0.0-0.4); Eosinophils Percent Auto 2.9 % (0-4); Hematocrit 34.8 % (42.0-52.0); Hemoglobin 10.9 g/dl (14.0-18.0); Imm Gran Abs Auto 0.04 X10*3/uL (0.00-0.03); Imm Gran Pct Auto 0.6 % (0.0-0.4); Lymphocytes Absolute Auto 1.2 X10*3/uL (1.2-4.9); Lymphocytes Percent Auto 17.2 % (20-40); Mean Corpuscular HGB Conc 31.3 g/dl (31.0-36.0); Mean Corpuscular Hemoglobin 28.2 pg (27.0-33.0); Mean Corpuscular Volume 90.2 fL (80.0-98.0); Mean Platelet Volume 10.6 fL (9.4-12.4); Monocytes Absolute Auto 0.7 X10*3/uL (0.1-1.2); Monocytes Percent Auto 9.9 % (2-11); Neutrophils Absolute Auto 4.7 x10*3/uL (2.0-8.3); Platelet Count 200 X10*3/uL (160-400); Red Blood Count 3.86 X10*6/uL (4.60-5.80); Red Cell Distribution Width 15.3 % (11.0-16.0); White Blood Count 6.8 X10*3/uL (4.8-10.8)
--- OUTSIDE RECORDS SUMMARY | 2024-07-05 13:49 | XMS_ITS ---
Author Organization [facility] Address [address] [place] [address] Care Team Providers Care Airport Duty Manager Name Role Phone Josesito Chavarria MD Primary Care Provider Riki Avila Unavailable [phone] Encounters Encounter Location Date Provider Diagnosis [facility] [address] [place] [address] 05/15/2024 Riki Clements PLAN OF TREATMENT Next Appt Details Provider Name:Riki Clements , 07/07/2024 11:20:00 AM, [address], [address], [place], [address],
--- OUTSIDE RECORDS SUMMARY | 2024-07-05 13:50 | XMS_ITS | Patient Health Record ---
Author Organization [facility] Carmen marisela Price Address [address] [place] [address] Care Team Providers Care Warranty Clerk Name Role Phone Josesito Chavarria MD Primary Care Provider Carol Barron Unavailable [phone] Allergies No Known Allergies Results Component Value Reference Range Notes HEMOGLOBIN A1C (GLYCOHEMOGLO BIN) Reviewed date:06/24/2024 12:19:41 PM Interpretation: Performing Lab: Notes/Report: TOTAL HEMOGLOBIN (HGBA1C) 5.8 Reason For Referral No Information Medications Medication SIG (Take, Route, Frequency, Duration) Notes Start Date End Date Status Extra Depth Orthopedic Shoes, (1) Pair With (3) Pair Custom Heat Molded Multidensity Innersoles Dx: NIDDM/PVD(E11.51), Hammertoe Foot Deformity(M20.41,M20.42), Preulcerative Skin Lesion(s)(L85.1) Wear Daily for 365 days 06/24/2024 Active Zetia 10 MG 1 tablet Orally Once a day Active Pantoprazole Sodium 40 MG 1 tablet 1/2 t o 1 hour before morning meal Orally twice a day Active Avodart 0.5 MG 1 capsule Orally Onc e a day Active Xarelto 20 MG 1 tablet with food O rally Once a day Active Isosorbide Mononitrate ER 30 MG 1 tablet in the morning Orally Once a day Active Simvastatin 40 MG 1 tablet in the even ing Orally Once a day Active Metoprolol Succinate 12.5mg Active Ferrous Sulfate 325 (65 Fe) MG 1 tablet Orally Three times a Week Active Carafate 1 GM 1 tablet on an empty stomach Orally Twice a day Active Vitamin C 500 MG as directed Orally Active Folic Acid 1 MG 1 tablet Orally Once a day Active Flomax 0.4 MG 1 capsule Orally Onc e a day Active Nitroglycerin PRN Active Jardiance 10 MG 1 tablet Orally Once a day Active Vitamin D Active Social History Tobacco Use: Social History Observation Description Date Details (start date - stop date) Former Smoker NA - NA Tobacco use other than smoking: Question Answer Notes Are you an other tobacco user? No Tobacco Control (Standard) Question Answer Notes Tobacco use: Former smoker Additional Findings: Tobacco non-user Current no nsmoker AUDIT-C (Standard) Question Answer Notes Did you have a drink containing alcohol in the p ast year? No Points 0 Interpretation Negative Problems Problem Type SNOMED Code ICD Code Onset Dates Problem Status W/U Status Risk Notes Problem Acquired hammer toe of right foot (7470977497743 105) Other hammer toe(s) (acquired), right foot (M20.41) Active confirmed Problem Type 2 diabetes mellitus with peripheral angiopathy (080437533) Type 2 diabetes mellitus with diabetic peripheral angiopathy without gangrene (E11.51) Active confirmed Q7(A), Q8(2B), Q9(1B,2C) Problem Acquired hammer toe of left foot (5267978555458 103) Other hammer toe(s) (acquired), left foot (M20.42) Active confirmed Vital Signs Height 5ft 6in in 06/24/2024 Weight 150 lbs 06/24/2024 BMI 24.21 kg/m2 06/24/2024 Procedures Procedure Date Ordered Date Performed Result Body Sit e 10234-ITBNLWN NAIL, 6 OR MORE 06/24/2024 N/A 46686-HHAU SKIN LESIONS, OVER 4 06/24/2024 N/A Encounters Encounter Location Date Provider Diagnosis [facility] [place] [address] [place] [address] 06/24/2024 Carol Valerio Other hammer toe(s) (acquired), right foot M20.41 ; Other hammer toe(s) (acquired), left foot M20.42 ; Type 2 diabetes mellitus with diabetic peripheral angiopathy without gangrene E11.51 ; Tinea unguium B35.1 ; Pain in right toe(s) M79.674 and Pain in left toe(s) M79.675 Assessments Encounter Date Diagnosis (ICD Code) Assessment Notes Treatment Notes Treatment Clinical Notes Section Notes 06/24/2024 Other hammer toe(s) (acquired), right foot (ICD-10 - M20.41) Patient Educated with: DIABETIC FOOT CARE INSTRUCTIONS.p df (DIABETIC FOOT CARE INSTRUCTIONS.p df) 06/24/2024 Other hammer toe(s) (acquired), left foot (ICD-10 - M20.42) 06/24/2024 Type 2 diabetes mellitus with diabetic peripheral angiopathy without gangrene (ICD-10 - E11.51) Q7(A), Q8(2B), Q9(1B,2C) 06/24/2024 Tinea unguium (ICD-10 - B35.1) 06/24/2024 Pain in right toe(s) (ICD-10 - M79.674) 06/24/2024 Pain in left toe(s) (ICD-10 - M79.675) Plan Of Treatment Pending Test Test Name Order Date 56307-QCHFWQR NAIL, 6 OR MORE 06/24/2024 74988-VVCS SKIN LESIONS, OVER 4 06/24/20 24 Next Appt Details Provider Name:Carol Lauren lucrecia, 10/18/2024 10:15:00 AM, [address] [facility], [facility] [address], [place], [address], Insurance Providers Payer Name Payer Address Payer Phone Subscriber Number Group Number Insured Name Patient Relationship to Insured Coverage Start Date Coverage End Date Medicare [employer] [address] [place] [address] [id number] Elvin Barone Self - patient is the insured 6 [facility] [address] [place] [address] [id number] Elvin Barone Self - patient is the insured 6 Medical (General) History Medical History History ICD Code Anemia CAD (Cholesterol) type II diabetes High Blood Pressure Reflux ( GERD) Stomach ulcer Chicken pox Transfusions Surgical History Surgery Date(Month/Year) CABG surgery 1996 Stent 2021 hernia 2010
--- OUTSIDE RECORDS SUMMARY | 2024-07-05 13:50 | XMS_ITS | Patient Health Record ---
Author Organization [facility] Address [address] [place] [address] Care Team Providers Care Sole Tier Name Role Phone Josesito Chavarria MD Primary Care Provider Riki Avila Unavailable [phone] RESULTS Component Value Reference Range Notes Pathology Reviewed date:12/25/2023 04:12:01 PM Interpretation: Performing Lab:[facility], [address] [place] [phone] Notes/Report: Complete Blood Count Auto Di ff Reviewed date:12/24/2023 12:39:32 PM Interpretation: Performing Lab:[facility], [address] [place] [phone] Notes/Report: White Blood Count 9.7 4.8-10.8 X10*3/uL [...] g Reviewed date:12/24/2023 12:40:09 PM Interpretation: Performing Lab:[facility], [address] [place] [phone] Notes/Report: Sodium 139 135-145 mmol/L Potassium 4.6 [...] Glomerular Filt Rate > 60 NOTE: For -Chinese individuals, multiply the result by 1.210. 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 (V58.61) Active confirmed Long-term curre nt use of anticoagulant (398477985) Problem Acute posthemorrhagic anemia (D62) Active confirmed Acute posthemorrhagic anemia (864374523) Encounters Encounter Location Date Provider Diagnosis [facility] [address] [place] [address] 05/19/2024 Riki Clements [facility] [address] [place] [address] 12/24/2023 Riki Clements [facility] [address] [place] [address] 12/25/2023 Riki Clements [facility] [address] [place] [address] 01/20/2024 Riki Clements Acute posthemorrhagi c anemia D62 [facility] [address] [place] [address] 04/13/2024 Riki Clements [facility] [address] [place] [address] 04/21/2024 Riki Clements [facility] [address] [place] [address] 05/15/2024 Riki Clements ASSESSMENTS Encounter Date Diagnosis Assessment Notes Treatment Notes Treatment Clinical Notes 01/20/2024 Acute posthemorrhagi c anemia (ICD-10 - D62) PLAN OF TREATMENT Pending Test Test Name Order Date GI BIOPSY 03/20/2015 CBC w DIFF 01/20/2024 Future Test Test Name Order Date COLONOSCOPY 12/13/2014 Next Appt Details Provider Name:Riki Clements , 07/07/2024 11:20:00 AM, [address], [address], [place], [address], Insurance Providers Payer Name Payer Address Payer Phone Subscriber Number Group Number Insured Name Patient Relationship to Insured Coverage Start Date Coverage End Date MEDICARE OF [place] [address] [place] [address] [phone] [id number] ANNE MARTINEZ Self - patient is the insured [facility] [address] [place], [place] [id number] ANNE MARTINEZ Self - patient is the insured MEDICAL (GENERAL) HISTORY Medical History History ICD Code HTN NIDDM 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 screening colonoscopy i n 09/2002 except for a hyperplastic polyp, sigmoid divertciulosis, internal hemorrhoids Hyperlipidemia Surgical History Surgery Date(Month/Year) Bilateral inguinal hernia CABG as above
--- OUTSIDE RECORDS SUMMARY | 2024-07-05 13:50 | XMS_ITS ---
Author Organization [facility] Address [address] [place] [address] Care Team Providers Care Chief Librarian Work With Blind Name Role Phone Josesito Chavarria MD Primary Care Provider UnavailRiki Guerrero Unavailable [phone] REASON FOR VISIT daughter has question Encounters Encounter Location Date Provider Diagnosis [facility] [address] [place] [address] 04/21/2024 Riki Clements PLAN OF TREATMENT Next Appt Details Provider Name:Riki Clements , 07/07/2024 11:20:00 AM, [address], [address], [place], [address],
--- OUTSIDE RECORDS SUMMARY | 2024-07-05 13:50 | XMS_ITS ---
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 Name Role Phone Josesito Chavarria MD Primary Care Provider Carol Barron Unavailable [phone] Allergies No Known Allergies REASON FOR VISIT Toe Irritation, At Risk Footcare, Painful Nail(s) aggravated by shoes and causing difficulty standing/walking Medications Medication SIG (Take, Route, Frequency, Duration) Notes Start Date End Date Status Avodart 0.5 MG 1 capsule Orally Onc e a day Active Ferrous Sulfate 325 (65 Fe) MG 1 tablet Orally Three times a Week Active Carafate 1 GM 1 tablet on an empty stomach Orally Twice a day Active Vitamin C 500 MG as directed Orally Active Folic Acid 1 MG 1 tablet Orally Once a day Active Extra Depth Orthopedic Shoes, (1) Pair With (3) Pair Custom Heat Molded Multidensity Innersoles Dx: NIDDM/PVD(E11.51), Hammertoe Foot Deformity(M20.41,M20.42), Preulcerative Skin Lesion(s)(L85.1) Wear Daily for 365 days 06/24/2024 Active Zetia 10 MG 1 tablet Orally Once a day Active Xarelto 20 MG 1 tablet with food O rally Once a day Active Simvastatin 40 MG 1 tablet in the even ing Orally Once a day Active Nitroglycerin PRN Active Pantoprazole Sodium 40 MG 1 tablet 1/2 t o 1 hour before morning meal Orally twice a day Active Isosorbide Mononitrate ER 30 MG 1 tablet in the morning Orally Once a day Active Metoprolol Succinate 12.5mg Active Flomax 0.4 MG 1 capsule Orally Onc e a day Active Vitamin D Active Jardiance 10 MG 1 tablet Orally Once a day Active Social History Tobacco Use: Social History [...] Problem Acquired hammer toe of right foot (5570443447210 105) Other hammer toe(s) (acquired), right foot (M20.41) Active confirmed Problem Acquired hammer toe of left foot (8639551098486 103) Other hammer toe(s) (acquired), left foot (M20.42) Active confirmed Problem Type 2 diabetes mellitus with peripheral angiopathy (812957924) Type 2 diabetes mellitus with diabetic peripheral angiopathy without gangrene (E11.51) Active confirmed Q7(A), Q8(2B), Q9(1B,2C) Vital Signs Height 5ft 6in in 06/24/2024 Weight 150 lbs 06/24/2024 BMI 24.21 kg/m2 06/24/2024 Procedures Procedure Date Ordered Date Performed Result Body Sit e 80789-KJLXJTT NAIL, 6 OR MORE 06/24/2024 N/A 94335-XZAL SKIN LESIONS, OVER 4 06/24/2024 N/A Encounters Encounter Location Date Provider Diagnosis [facility] [address] [address] 06/24/2024 Carol Valerio Other hammer toe(s) (acquired), [...] toe(s) (ICD-10 - M79.675) Plan Of Treatment Medication Medication Name Sig Start Date Stop Date Notes Extra Depth Orthopedic Shoes , (1) Pair With (3) Pair Custom Heat Molded Multidensity Innersoles Dx: NIDDM/PVD(E11.51), Hammertoe Foot Deformity(M20.41,M20.42), Preulcerative Skin Lesion(s)(L85.1) Wear Daily for 365 days 06/24/2024 Treatment Notes Assessment Notes Other hammer toe(s) (acquired), right fo ot Patient Educated with: DIABETIC FOOT CARE INSTRUCTIONS.pdf (DIABETIC FOOT CARE INSTRUCTIONS.pdf) Pending Test Test Name Order Date [id number] NAIL, 6 OR MORE 06/24/2024 26508-GASK SKIN LESIONS, OVER 4 06/24/20 24 Next Appt Details Follow Up: 4 Months, Reason: Provider Name:Carol singer, 10/18/2024 10:15:00 AM, [address] [facility], [address], [place], [address], Procedure Notes * Category Sub-Category Detail Notes Debride Nail 6-10 Nail debridement Due to the cl inical pathology outlined in the exam findings, performance of this nail treatment is medically necessary as its management by an unskilled/untrained nonprofessional would put this patients foot and overall health at risk. Therefore, debridement to affected nail(s), as described in exam ( TA, T1, T2, T3, T4, T5, T6, T7, T8, T9, ), was performed exclusively by the physician of record to reduce/remove overall nail length, girth, thickness, subungual debris, and necrotic tissue, by manual and/or electrical means through the use of a nail nipper and/or dremel-type carbon plant grinder, to a more viable healthy nail plate or bed tissue 6-10 nails in total. Silver nitrate was used for any petechial bleeding as necessary. Definitive antifungal treatment options, both pharmaceutical and surgical, have been reviewed and discussed with the patient. The patient solely prefers the use of intermittent/as needed professional debridement services for their nail condition and understands the need for additional periodic treatments to maintain effectiveness in symptomatic relief - 65397 Keratoma Treatment Parring or Cutting o f Benign Hyperkeratotic Lesion(s) (-57) More than 4 Lesions - Due to the at risk nature of the patients medical condition as documented in the exam findings, performance of this keratoderma treatment is medically necessary as its management by an unskilled/untrained nonprofessional would put this patients foot and overall health at risk. Therefore, the benign hyperkeratotic lesions, ( 6 ) in total, locations as stated and described in the exam ( sub 1st, 2nd, 3rd and 5th metatarsal heads B/L), were pared, and/or cut utilizing a sterile 15 blade, tissue nippers, and/or power dremel instrumentation by the physician of record - 59806, Q8 Progress Notes * Elvin BARONEDOB: (83 yo M)Acc No.[id number]:06/24/2024 Progress Notes Patient:?Elvin BARONE Provider:?Carol Valerio DPM :1940???Age:83 Y???Sex:Male Doroteo e:06/24/2024 Address:[address] [place] [address], [place] [address] Pcp:Josesito Chavarria MD Subjective: * Chief Complaints: * ???Toe IrritationAt Risk Abby tcarePainful Nail(s) aggravated by shoes and causing difficulty standing/walking * HPI: ???Toe pain:?Location:?B/L feet.?Duration:?several years.?Course:?worse.?Aggravated by:?shoes, any pressure.?Treatments:?change in shoes.?At Risk footcare:?Pt States Last PCP Visit:?Date?05/10/2024 * ROS:?General/Constitutional:?Nausea?denies.?Vomiting?denies.?Hunger Thirst?denies.?Loss appetite?denies.?Chills?denies.?Fatigue?denies.?Fever?denies.?Night Sweats?denies.?Unexplained weight loss?denies.?Unexplained weight gain?denies.?HEENTM:?Dentures?admits.?Dizziness?denies.?Glasses/contacts?denies.?Retinopathy?de nies.?Blurred/double vision?admits.?TMJ?denies.?Discharge/drainage?denies.?Implants?denies.?Sore throat?denies.?Dental implants?denies.?Hard of hearing ?denies.?Difficulty chewing/swallowing/speaking?denies.?Nose bleeds?denies.?Sore mouth?denies.?Respiratory:?On Oxygen?denies.?Pneumonia/pleurisy?denies.?Bronchitis?denies.?Emphysema?denies.?C oughing?denies.?Cough blood?denies.?Shortness of breath?denies.?Wheezing?denies.?Cardiovascular:?Pacemaker?denies.?MVP?denies.?WPW?denies.?CHF?denies.?Heart attack?denies.?Septal defect?denies.?Rapid beat?denies.?Chest pain ?denies.?Atrial Fib.?admits.?Murmur/Palpitations?denies.?Gastrointestinal:?Hemorrhoids?denies.?Stomach/Abdominal pain?admits.?Dark blood stool?denies.?Irritable bowel ?denies.?Constipation?denies.?Diarrhea?denies.?Hematology:?Swelling?denies.?Clots?denies.?Varicose Veins?denies.?Bruising?denies.?Bleeding problem?denies.?Genitourinary:?Blood urine?denies.?Frequent/Painfu/urination/bladder control?denies.?Kidney stones?denies.?Infection (UTI)?denies.?Nephropathy?denies.?sex trans dis (STD)?denies.?Prostate?admits.?Musculoskeletal:?Hammertoes?denies.?Bunions?denies.?Back Pain?denies.?Muscle Cramps/ Resting?denies.?Muscle cramps / walking?denies.?Generalized aches and pains?denies.?Weakness?denies.?Integ.:?Manriquez?denies.?Scars?denies.?Corns/calluses?denies.?Ingrown nails?denies.?Painful nails?denies.?Open Sores?denies.?Rashes?denies.?Neurologic:?Difficulty sleeping?denies.?Brain disorder?denies.?Numbness?denies.?Balance trouble?denies.?Confusion?denies.?Fainting/blackouts?denies.?Tingling?denies.?Tr emors?denies.? * Medical History:? * Surgical History:?CABG surge ry 1996Stent 2021hernia 2009 * Hospitalization/Major Diagno stic Procedure:?No Hospitalization History. * Family History:?Mother: dece ased, diagnosed with Other malignant neoplasm of unspecified site.?Father: , diagnosed with Unspecified heart disease.? * Social History:?Tobacco Use:?Tobacco use other than smoking?Are you an other tobacco user??No ?Tobacco Control (Standard)?Tobacco use:?Former smoker ?Additional Findings: Tobacco non-user?Current nonsmoker ???Drugs/Alcohol:?Drugs?Have you used drugs other than those for medical reasons in the past 12 months??No ???Miscellaneous:?Caffeine: yes, 2-3 cups per day. ?Children: yes. ?Exercise: yes, walking, golf. ?Marital status: . ?Occupation: Retired. ???Drug/Alcohol:?AUDIT-C (Standard)?Did you have a drink containing alcohol in the past year??No ?Points?0 ?Interpretation?Negative * Medications:?TakingNitroglyc shaista , Notes to Pharmacist: PRNSimvastatin 40 MG Tablet 1 tablet in the evening Orally Once a day Zetia 10 MG Tablet 1 tablet Orally Once a day Avodart 0.5 MG Capsule 1 capsule Orally Once a day Vitamin C 500 MG Capsule as directed Orally Folic Acid 1 MG Tablet 1 tablet Orally Once a day Ferrous Sulfate 325 (65 Fe) MG Tablet 1 tablet Orally Three times a Week Carafate 1 GM Tablet 1 tablet on an empty stomach Orally Twice a day Jardiance 10 MG Tablet 1 tablet Orally Once a day Vitamin D Flomax 0.4 MG Capsule 1 capsule Orally Once a day Isosorbide Mononitrate ER 30 MG Tablet Extended Release 24 Hour 1 tablet in the morning Orally Once a day Metoprolol Succinate , Notes to Pharmacist: 12.5mgPantoprazole Sodium 40 MG Tablet Delayed Release 1 tablet 1/2 to 1 hour before morning meal Orally twice a day Xarelto 20 MG Tablet 1 tablet with food Orally Once a day Medication List reviewed and reconciled with the patientTaking Nitroglycerin , Notes to Pharmacist: PRNTaking Simvastatin 40 MG Tablet 1 tablet in the evening Orally Once a day Taking Zetia 10 MG Tablet 1 tablet Orally Once a day Taking Avodart 0.5 MG Capsule 1 capsule Orally Once a day Taking Vitamin C 500 MG Capsule as directed Orally Taking Folic Acid 1 MG Tablet 1 tablet Orally Once a day Taking Ferrous Sulfate 325 (65 Fe) MG Tablet 1 tablet Orally Three times a Week Taking Carafate 1 GM Tablet 1 tablet on an empty stomach Orally Twice a day Taking Jardiance 10 MG Tablet 1 tablet Orally Once a day Taking Vitamin D Taking Flomax 0.4 MG Capsule 1 capsule Orally Once a day Taking Isosorbide Mononitrate ER 30 MG Tablet Extended Release 24 Hour 1 tablet in the morning Orally Once a day Taking Metoprolol Succinate , Notes to Pharmacist: 12.5mgTaking Pantoprazole Sodium 40 MG Tablet Delayed Release 1 tablet 1/2 to 1 hour before morning meal Orally twice a day Taking Xarelto 20 MG Tablet 1 tablet with food Orally Once a day Medication List reviewed and reconciled with the patient * Allergies:?N.K.D.A.yes[Aller gies Verified] Objective: * Vitals:?Ht: 5ft 6in, Wt: 150 , BMI: 24.21, Shoe size: 10.5, BS: 141, Ht-cm: 167.64 cm, Wt-k.04 kg. * ???Past Orders: ???Lab:HEMOGLOBIN A1C (GLYCO HEMOGLOBIN) (Order Date - 06/24/2024) (Collection Date & Time - 06/24/2024 12:19 PM) ? Value Reference Range ?TOTAL HEMOGLOBIN (HGBA1C) 5.8 * Examination: ???Ophthalmology Referral: ?DIABETES EYE EXAM?Orthopedic: ?MUSCLE STRENGTH:?5/5 all groups in a symmetrical fashion, B/L.?DIGITAL DEFORMITIES:?Digital contracture, PIPJ, 2-5 B/L, incompl-reducible to push-up test, no over, nor underlapping,?there is?evidence of shoe producing skin irritation.?FOOTWEAR:?worn, non-supportive, shoe gear properties exacerbate patient's foot/toe deformity.?General Examination: ?GENERAL APPEARANCE:?Reveals a pleasant, alert, well nourished, well- developed, well hydrated individual, who demonstrates proper attention to hygiene/body habitus, and is in no acute distress, Pt serves as own historian for office visit today.?ORIENTED:?person, place, and time.?FOOT EXAM:?Footwear Evaluation?Vascular: ?DP PULSES (B):? 0/4, B/L.?PT PULSES (B):? 0/4, B/L.?CAPILLARY FILL TIME:? delayed, all digits, B/L.?TROPHIC CONDITION-TEXTURE/ELASTICITY/TURGOR/HAIR GROWTH (B):? decreased, fragile, thin, shiny, with sparse to absent hair growth, B/L.?TEMPERTURE GRADIENT (C):? decreased, cool to cool, proximal to distal, B/L.?PIGMENTATION:?pale, B/L.?EDEMA (C):?absent, B/L.?CLAUDICATION (C):?denies, B/L.?REST PAIN:?denies, B/L.?PARESTHESIA (C):?absent, B/L.?BURNING (C):?absent, B/L.?Nails: ?NAILS are:?Elongated, overgrown, dystrophic, lytic, greater than 3mm thick, discolored and friable with crumbly malodorous subungual debris, with pain on palpation, TA, T1, T2, T3, T4, T5, T6, T7, T8, T9.?Dermatologic: ?SKIN FINDINGS:?Skin exam reveals Keratotic lesion(s) located at sub 1st, 2nd, 3rd and 5th metatarsal heads B/L.?Neurological: ?SENSORY:?Neurological exam reveals intact sensorium, pain sensation normal, vibration sensation intact, pinprick sensation is normal in the lower extremities, 5.07 monofilament test performed at plantar aspects of 5 varied sites per foot shows sensation, normal, B/L, Pt denies, anesthesia, burning, paresthesia, tingling, B/L.? Assessment: * Assessment: 1.?Other hammer toe(s) (acqu ired), right foot - M20.41 (Primary)???Specify :Chronic problem, Worse (4),Rx Management (4)???2.?Other hammer toe(s) (acquired), left foot - M20.42???Specify :Chronic problem, Worse (4),Rx Management (4)???3.?Type 2 diabetes mellitus with diabetic peripheral angiopathy without gangrene - E11.51???Notes :Q7(A), Q8(2B), Q9(1B,2C)???4.?Tinea unguium - B35.1???5.?Pain in right toe(s) - M79.674???6.?Pain in left toe(s) - M79.675??? Plan: * Treatment: 2.?Type 2 diabetes mellitus with diabetic peripheral angiopathy without gangrene?Procedure: 70351-FDSQ SKIN LESIONS, OVER 4 3.?Tinea unguium?Procedure: 94479-AUNEVHN NAIL, 6 OR MORE * Procedures:?Debride Nail 6-10:?Nail debridement?Due to the clinical pathology outlined in the exam findings, performance of this nail treatment is medically necessary as its management by an unskilled/untrained nonprofessional would put this patients foot and overall health at risk. Therefore, debridement to affected nail(s), as described in exam ( TA, T1, T2, T3, T4, T5, T6, T7, T8, T9, ), was performed exclusively by the physician of record to reduce/remove overall nail length, girth, thickness, subungual debris, and necrotic tissue, by manual and/or electrical means through the use of a nail nipper and/or dremel-type carbon plant grinder, to a more viable healthy nail plate or bed tissue 6- 10 nails in total. Silver nitrate was used for any petechial bleeding as necessary. Definitive antifungal treatment options, both pharmaceutical and surgical, have been reviewed and discussed with the patient. The patient solely prefers the use of intermittent/as needed professional debridement services for their nail condition and understands the need for additional periodic treatments to maintain effectiveness in symptomatic relief - 74444.?Keratoma Treatment:?Parring or Cutting of Benign Hyperkeratotic Lesion(s)?(-57) More than 4 Lesions - Due to the at risk nature of the patients medical condition as documented in the exam findings, performance of this keratoderma treatment is medically necessary as its management by an unskilled/untrained nonprofessional would put this patients foot and overall health at risk. Therefore, the benign hyperkeratotic lesions, ( 6 ) in total, locations as stated and described in the exam ( sub 1st, 2nd, 3rd and 5th metatarsal heads B/L), were pared, and/or cut utilizing a sterile 15 blade, tissue nippers, and/or power dremel instrumentation by the physician of record - 22243, Q8.? * Procedure Codes:?05561 DEBRI DE NAIL, 6 OR MORE, Modifiers: XS 67355 TRIM SKIN LESIONS, OVER 4, Modifiers: XS , Q8 * Preventive Medicine:? ??Counseling:?Discussion:?-04: Office or other outpatient visit for the evaluation and management of a new patient, which required a medically appropriate history and/or examination and MODERATE level of DECISION MAKING for: 1 OR MORE CHRONIC PROBLEM(S) THATS WORSENING, 2 STABLE CHRONIC PROBLEMS, A NEWLY DIAGNOSED PROBLEM WITH UNCERTAIN PROGNOSIS, AN ACUTE COMPLICATED INJURY WITH MULTIPLE TREATMENT OPTIONS, OR AN ACUTE PROBLEM WITH ACCOMPANYING SYSTEMIC SYMPTOMS, THAT POSE(S) A MODERATE RISK OF MORBIDITY. THIS CONDITION MAY ALSO INCLUDE RX DRUG MANAGEMENT, OR A DECISON FOR MINOR SURGERY. The visit on the day of the encounter encompassed interpreting the data and educating the patient as to the nature of their condition, treatment options available according to their individual PMH, meds, allergies, and overall health/living conditions, as well as any potential risks or complications that may occur from a failure to adhere to, and participate in, the recommended course of therapy. The discussion included a complete verbal, and/or written explanation of the examination results, any x-rays taken, the proposed diagnosis, and outline of the treatment plan. A schedule for future care needs was also explained. The patient verbalized an understanding of the instructions at this time and agreed to be an active participant in their treatment. If the patient should think of any questions or concerns after the visit, I have encouraged the patient to call the office.?Digital Surgery:?Digital surgery was discussed with the patient, We elected to try conservative treatment at the present time, due to the patients medical history and increased asssociated post-operative risks.?Digital Treatment:?HT- I explained to the patient the possible etiologies of Hammertoes, including genetics/foot type/shoegear/activity level/exercise routine and the risks/benefits of all the different treatment options for their pain including: No treatment at all, Rest, Ice, New/supportive/wider/deeper Shoegear, Digital Padding/Strapping/Taping/Bracing/Gel protective sleeves, Foot/Ankle AFO Bracing, Stretching exercises, Deep Tissue Massage, Arch support/shoe inserts with splay metatarsal padding, and Custom orthoses. I insisted that any digital devices be removed daily and not worn overnight for safety. The patient is to carefully examine the toes daily for any skin irritation while using any splinting or padding device. The advantages and disadvantages of each option were discussed and the patients questions re: shoegear, padding, custom vs prefabricated inserts, activity level, and consistency in home treatment regimens for optimal success were answered to their verbally confirmed satisfaction.?Shoe Gear Counseling:?SHOE Rx - The patient was counseled in great detail on their muscoloskeletal foot and toe deformities which coincided with the dermatological presentations visualized on exam. We discussed how their deformities put the integrity of their feet at risk for potential pedal complications which makes the accomidative diabetic shoes and cutomizable inserts medically necessary. We discussed the different shoe and insert treatment types and options, as well as the important advantages for adhering to regularly wearing these accomidative devices daily. The patient was made aware of the fact that a failure to abide by these recommedations may be deleterious to their foot health as they are able to prevent many pedal complications such as skin irritation, skin ulceration, infection, and even loss of toe/foot/leg/or life. Time was also spent with the patient dispensing and discussing proper diabetic footcare techniques including daily skin moisturization, daily foot inspection for any interruption in skin integrity including open lesions, or sign of infection such as redness/malodor/drainage/swelling. Also discussed and recommended were procedures regarding daily shoe inspection for the presence of internal foreign bodies as well as any visualized irregular shoe or insert wear. Patient questions re: shoes, inserts, and self foot inspections were answered to their satisfaction as the patient verbally confirmed a full understanding of the above information. A Rx for Extra Depth Orthopedic Shoes with 3 pair of custom heat-molded inserts was dispensed.? * Follow Up:?4 Months * Images: * Sign off status: Completed true * Provider:Edmundo Valerio DPM Date:?08/25/2023 Generated for Jeanine thapa/Kamari/Isidoro on:?07/05/2024 01:49 PM EST History and Physical Notes * HPI (History of Present Illness) Category Sub-Category Detail Notes Category Not es Toe pain Location: B/L feet Duration: several years Course: worse Aggravated by: shoes, any pressure Treatments: change in shoes At Risk footcare Pt States Last PCP Visit: Date: 4 Examination Category Sub-Category Detail Notes Category Not es Neurological SENSORY: Neurological exa m reveals intact sensorium, pain sensation normal, vibration sensation intact, pinprick sensation is normal in the lower extremities, 5.07 monofilament test performed at plantar aspects of 5 varied sites per foot shows sensation, normal, B/L, Pt denies, anesthesia, burning, paresthesia, tingling, B/L Dermatologic SKIN FINDINGS: Skin exam reveal s Keratotic lesion(s) located at sub 1st, 2nd, 3rd and 5th metatarsal heads B/L Orthopedic FOOTWEAR: worn, non-suppor tive, shoe gear properties exacerbate patient's foot/toe deformity DIGITAL DEFORMITIES: Digital contracture , PIPJ, 2-5 B/L, incompl-reducible to push-up test, no over, nor underlapping, there is evidence of shoe producing skin irritation MUSCLE STRENGTH: 5/5 all groups in a symmetrical fashion, B/L General Examination GENERAL APPEARANCE: Reveals a pleasant, alert, well nourished, well-developed, well hydrated individual, who demonstrates proper attention to hygiene/body habitus, and is in no acute distress, Pt serves as own historian for office visit today FOOT EXAM: Lower Extremity Neurological Exa m performed:: Yes ORIENTED: person, place, and t marilyn Footwear Evaluation Footwear Evaluation performe d:: Yes Ophthalmology Referral DIABETES EYE EXAM Diabeti c Retinopathy Screening:: Yes 08/2023 Vascular DP PULSES (B): 0/4, B/L PT PULSES (B): 0/4, B/L CAPILLARY FILL TIME: delayed, all digits , B/L TEMPERTURE GRADIENT (C): decreased, cool to cool, proximal to distal, B/L TROPHIC CONDITION-TEXTURE/ELASTICITY/TURGOR/HAIR GROWTH (B): decreased, fragile, thin, shiny, with sp arse to absent hair growth, B/L EDEMA (C): absent, B/L CLAUDICATION (C): denies, B/L REST PAIN: denies, B/L PIGMENTATION: pale, B/L PARESTHESIA (C): absent, B/L BURNING (C): absent, B/L Nails NAILS are: Elongated, overg rown, dystrophic, lytic, greater than 3mm thick, discolored and friable with crumbly malodorous subungual debris, with pain on palpation, TA, T1, T2, T3, T4, T5, T6, T7, T8, T9
== END 2024-07-05 11:53 | disposition home or self-care (01) ==
LOC: HO.LAB 11:52
PROVIDERS: PCP Internal Medicine; Visit Provider Internal Medicine
DX: D64.9 Anemia, unspecified (principal)
CPT/HCPCS: 36415; 85025

== ENCOUNTER 2024-07-18 09:35 | Outpatient (REF) | payer MEDICARE, BC, SELFPAY ==
[2024-07-18 09:48] LABS: MANUAL DIFF FLAG NO
[2024-07-18 10:05] LABS: Basophils Percent Auto 0.5 % (0-2); Eosinophils Absolute Auto 0.3 X10*3/uL (0.0-0.4); Eosinophils Percent Auto 5.1 % (0-4); Hematocrit 36.9 % (42.0-52.0); Hemoglobin 11.8 g/dl (14.0-18.0); Imm Gran Abs Auto 0.04 X10*3/uL (0.00-0.03); Imm Gran Pct Auto 0.7 % (0.0-0.4); Lymphocytes Absolute Auto 0.9 X10*3/uL (1.2-4.9); Lymphocytes Percent Auto 14.8 % (20-40); Mean Corpuscular Hemoglobin 28.2 pg (27.0-33.0); Mean Corpuscular Volume 88.1 fL (80.0-98.0); Mean Platelet Volume 10.4 fL (9.4-12.4); Monocytes Absolute Auto 0.7 X10*3/uL (0.1-1.2); Monocytes Percent Auto 12.2 % (2-11); Neutrophils Absolute Auto 3.8 x10*3/uL (2.0-8.3); Neutrophils Percent Auto 66.7 % (45-73); Platelet Count 237 X10*3/uL (160-400); Red Blood Count 4.19 X10*6/uL (4.60-5.80); Red Cell Distribution Width 14.5 % (11.0-16.0); White Blood Count 5.7 X10*3/uL (4.8-10.8)
[2024-07-18 10:32] LABS: INTERNATIONAL NORM RATIO 1.7 (0.9-1.1); Prothrombin Time 19.9 SEC (10.9-12.4)
[2024-07-18 10:34] LABS: Anion Gap 14 (12-20); Blood Urea Nitrogen 18 mg/dL (9-16); Calcium 9.6 mg/dL (8.4-10.2); Carbon Dioxide 27 mmol/L (22-29); Chloride 103 mmol/L (96-108); Estimated Glomerular Filt Rate > 60; Glucose Random 131 mg/dL (60-115); Sodium 140 mmol/L (135-145)
[2024-07-18 10:49] LABS: Cholesterol 142 mg/dL (<200); HDL Cholesterol 49 mg/dL (>40); LDL Cholesterol Calculated 75 mg/dL (<100); Triglycerides 93 mg/dL (<150)
== END 2024-07-18 09:36 | disposition home or self-care (01) ==
LOC: HO.LAB 09:35
PROVIDERS: Absent Provider Nurse Practitioner; PCP Internal Medicine; Visit Provider Internal Medicine Clinical Cardiac Electrophysiology
DX: I25.10 Atherosclerotic heart disease of native coronary artery without angina pectoris (principal)
CPT/HCPCS: 36415; 80048; 80061; 85025; 85610

== ENCOUNTER 2024-08-04 10:57 | Outpatient (REF) | payer MEDICARE, BC, SELFPAY ==
--- OUTSIDE RECORDS SUMMARY | 2024-08-04 11:00 | XMS_ITS | Encounter Summary ---
Author Organization [facility] Address [address] [place] [address] Care Team Providers Care Family Resource Management Specialist Name Role Phone Josesito Chavarria MD Primary Care Provider [phone] Reason for Visit * Reason Comments Follow-up Encounter Details Date Type Department Care Team (Late st Contact Info) Description 07/07/2024 8:10 AM EST Office Visit [facility] [address] [place] [address] Marilyn Gutiérrez NP [address] [place] [address] Dr [address] [place], [place] [id number] Atrial fibrillation, unspecified type (CMS/HCC) (Primary Dx); Coronary artery disease involving [place] coronary artery of [place] heart without angina pectoris; Aortic valve stenosis, etiology of cardiac valve disease unspecified Social History Tobacco Use Types Packs/Day Years Used Date Smoking Tobacco: Former Cigarettes Smokeless Tobacco: Never Alcohol Use Standard Drinks/Week Comments Not Currently 0 (1 standard drink = 0.6 oz pur e alcohol) Sex and Gender Information Value Date Recorded Sex Assigned at Male 07/25/2024 12:30 PM EST Gender Identity Male 07/25/2024 12:30 PM EST Sexual Orientation Straight 07/25/2024 12 :30 PM EST Job Start Date Occupation Industry Not on file Not on file Not on file documented as of this encounter Last Filed Vital Signs Vital Sign Reading Time Taken Comments Blood Pressure 100/58 07/07/2024 8:20 AM EST Pulse 89 07/07/2024 8:20 AM EST Temperature - - Respiratory Rate - - Oxygen Saturation 98% 07/07/2024 8:20 AM EST Inhaled Oxygen Concentration - - Weight 68.9 kg (152 lb) 07/07/2024 8:20 AM EST Height 170.2 cm (5' 7 ) 07/07/2024 8:20 AM EST Body Mass Index 23.81 07/07/2024 8:20 AM EST documented in this encounter Progress Notes * Marilyn Gutiérrez, ANASTACIA - 07/07/2024 8:10 AM EST Images from the original note were not included. [facility] PRIMARY PRESS FEEDER: Michael Cuba MD PCP: Josesito Chavarria MD HPI: Elvin Barone is a 83 y.o. old male with history of coronary artery disease status post bypass which included CONTEH graft to the LAD, vein graft to the first diagonal, vein graft to the circumflex marginal. He also has history of chronic atrial fibrillation and is on Xarelto for anticoagulation. Nuclear medicine stress testing has shown evidence of reversible apical defect. Coronary angiography showed that the vein graft to the first diagonal was patent, vein graft to the first obtuse marginal was small with severe ostial disease. The graft to the LAD which was the CONTEH graft was patent. There is severe underlying three-vessel [place] disease. 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 The RCA was not bypassed it was felt that the graft to the OM was small and not worth the benefit of angioplasty and medical management was increased. Patient unfortunately developed refractory chest discomfort his isosorbide was increased ultimatelyunderwent coronary angiography in September 2021 and had a 2.5 mm drug-eluting stent placed in the ostium of the vein graft to the obtuse marginal. Echo in 2021 showed a normal LV EF 55 to 60% with mild aortic stenosis with a 29 mmHg peak gradientmild mitral and tricuspid insufficiency. Nuclear medicine stress testing was repeated in 2022 that showed no areas of ischemia or infarct In 2022 the patient had a significant anemia due to gastric erosions. Patient continued to have difficulties with anemia and was seen by Dr. Aceves 03/2024 in consultation for a left atrial appendage closure device placement. Patient underwent placement of a left atrial appendage closure device on 06/08/2024. He was discharged on Xarelto and Plavix and was advised to stop Xarelto and continue on aspirin and Plavix for at least 6 months after his 45- day DAVI. Patient is scheduled for DAVI on 07/25/2024. I have obtained verbal consent from Elvin Barone prior to the recording. I have advised Godwin Barone that he may refuse the recording and require the recording to be turned off at any time during this encounter. History of Present Illness The patient presents today for a hospital follow-up. He recently underwent the placement of a left atrial appendage occlusion device. He is scheduled for a transesophageal echocardiogram (DAVI) on 07/25/2024. Presently, he remains on aspirin and Xarelto. We will also evaluate his history of coronaryartery disease and atrial fibrillation during today's office visit. He reports an improvement in his condition since his recent hospitalization, with no complaints of chest pain or shortness of breath. He experiences leg swelling, typically towards the end of the day, which resolves overnight. He has not observed any bleeding or excessive bruising, although he did experience minor bleeding following a blood draw. He has not had his cholesterol levels checked recently but plans to do so next week at [place], along with his weekly blood count. He occasionally experiences palpitations upon waking in the morning, which subside after medicationadministration. ACTIVE MEDICATIONS: Current Outpatient Medications Medication Instructions ascorbic acid, vitamin C, 500 mg capsule Take 1 Capsule by mouth daily. aspirin 81 mg EC tablet Take 1 Tablet by mouth daily. cholecalciferol (VITAMIN D-3) 25 mcg (1,000 unit) tablet Take 1 Tablet by mouth daily. dutasteride (AVODART) 0.5 mg capsule Take 1 tablet by mouth daily. empagliflozin (Jardiance) 10 mg tablet Take 1 Tablet by mouth daily. ezetimibe (ZETIA) 10 mg, oral, Daily ferrous sulfate 325 mg (65 mg elemental iron) tablet Take 1 Tablet by mouth daily. folic acid (FOLVITE) 1 mg tablet Take 1 Tablet by mouth daily. isosorbide mononitrate (IMDUR) 30 mg 24 hr tablet TAKE TWO TABLETS BY MOUTH EVERY DAY metoprolol tartrate (LOPRESSOR) 25 mg tablet Take 0.5 Tablets by mouth daily. nitroglycerin (NITROSTAT) 0.[address] 1 Tablet under the tongue every 5 minutes as needed for Chest pain. pantoprazole (PROTONIX) 40 mg EC tablet Take 1 Tablet by mouth 2 Times Daily. rivaroxaban (XARELTO) 20 mg, oral, Daily, With meals simvastatin (ZOCOR) 40 mg tablet Take 1 tablet by mouth daily. sucralfate (CARAFATE) 1 gram tablet Take 1 Tablet by mouth 2 times daily. tamsulosin (FLOMAX) 0.4 mg 24 hr capsule Take 1 capsule by mouth daily. PAST MEDICAL HISTORY: Patient Active Problem List Diagnosis Atrial fibrillation (CMS/HCC) Coronary artery disease Aortic stenosis Bilateral carotid bruits Leg weakness Chest pain Chronic anemia Light headedness Black stool ALLERGIES: No Known Allergies SOCIAL HISTORY: Social History Tobacco Use Smoking status: Former Current packs/day: 0.50 Types: Cigarettes Smokeless tobacco: Never Substance Use Topics Alcohol use: Not Currently PHYSICAL EXAM: Vitals: 07/07/24 0820 BP: 100/58 BP Location: Left arm Patient Position: Sitting BP Cuff Size: Adult Pulse: 89 SpO2: 98% Weight: 68.9 kg (152 lb) Height: 1.702 m (67 ) Physical Exam Constitutional: General: He is not in acute distress. Appearance: He is not diaphoretic. HENT: Head: Normocephalic. Eyes: Pupils: Pupils are equal, round, and reactive to light. Neck: Vascular: No carotid bruit. Cardiovascular: Rate and Rhythm: Normal rate. Rhythm irregular. Pulses: Normal pulses. Heart sounds: Murmur heard. Harsh midsystolic murmur is present with a grade of 2/6 at the upper right sternal border radiatingto the neck. No friction rub. Pulmonary: Effort: Pulmonary effort is normal. No respiratory distress. Breath sounds: Normal breath sounds. No stridor. No wheezing, rhonchi or rales. Chest: Chest wall: No tenderness. Abdominal: General: Bowel sounds are normal. There is no distension. Palpations: Abdomen is soft. Tenderness: There is no abdominal tenderness. Musculoskeletal: General: No deformity. Cervical back: Normal range of motion. Right lower leg: No edema. Left lower leg: No edema. Skin: General: Skin is warm and dry. Neurological: Mental Status: He is alert and oriented to person, place, and time. Psychiatric: Mood and Affect: Mood normal. EKG: Encounter Date: 07/07/24 ECG 12 lead Result Value Ventricular Rate ECG 89 Atrial Rate 375 QRS Duration 82 Q-T Interval 392 QTc 476 R [place] 118 T [place] 11 ECG Interpretation Atrial fibrillation Right axis deviation Abnormal ECG When compared with ECG of 22-MAR-2019 15:08, Vent. rate has increased BY 38 BPM QRS axis Shifted right QT has lengthened *Note: Due to a large number of results and/or encounters for the requested time period, some results have not been displayed. A complete set of results can be found in Results Review. TESTING: Patient to have labs done in the near future. ASSESSMENT/PLAN: As per AHA guidelines and previously established plan of care by Dr. Michael Cuba MD, we discussed the following today: Assessment & Plan 1. Post-hospitalization follow-up, s/p Left atrial appendage closure device placement. His blood pressure readings are within normal limits today. He is currently on aspirin and Xarelto.A DAVI is scheduled for 07/25/2024, to be performed by Dr. Mcguire at [facility]. A lab slip for cholesterol level assessment has been provided, with instructions to fast prior to the test. If the DAVI results are satisfactory, he will be advised to discontinue Xarelto and commence Plavix therapy, in conjunction with aspirin, for a minimum duration of 6 months. Subsequently, discontinuation of Plavix and continuation of aspirin monotherapy will be considered. 2. Atrial Fibrillation. He reports occasional palpitations in the morning, which resolve after taking his medications. An EKG showed atrial fibrillation but a reasonable heart rate. He will continue with his current medication regimen of aspirin and Xarelto. If the DAVI results are satisfactory, a transition to Plavix and aspirin will be made for at least 6 months. 3. Coronary Artery Disease. Patient has history of coronary artery disease status post bypass which included CONTEH graft to the LAD, vein graft to the first diagonal, vein graft to the circumflex marginal. 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 in September 2021 and had a 2.5 mm drug-eluting stent placed in the ostium of the vein graft to the obtuse marginal. He denies any exertional anginal symptoms. Continue with aspirin, beta flakito, isosorbide and statin. I have reviewed with the patient the importance of a heart healthy lifestyle which includes eating a low-fat low-salt diet, getting regular exercise, maintaining a healthy weight, not smoking, and following up with routine medical care. 4. Hyperlipidemia We will update lipid panel. Goal LDL less than 70. Continue with statin. DAVI schedule later this month. 5. Aortic stenosis Mild aortic stenosis on last echocardiogram. Patient denies any clinical symptoms of heart failure.He is euvolemic on examination. Follow-up The patient will follow up with Dr. Cuba in 6 months. [facility] documented in this encounter Plan of Treatment Upcoming Encounters Date Type Department Care Team (Late st Contact Info) Description 08/09/2024 1:40 PM EST Office Visit [facility] [address] [place] [id number] Christina Varma NP [address] [place] [id number] Scheduled Orders Name Type Priority Associated Diagnoses Orde r Schedule Lipid panel Lab Routine Coronary artery disease involving [place] coronary artery of [place] heart without angina pectoris 1 Occurrences starting 07/07/2024 until 07/07/2025 documented as of this encounter Procedures Procedure Name Priority Date/Time Associated Diagnosis Comments ECG 12-LEAD Routine 07/07/2024 9:00 AM EST Atrial fibrillation, unspecified type (CMS/HCC) documented in this encounter Results * ECG 12 lead (07/07/2024 9:00 AM EST) Ventricular Rate ECG 89 BPM GEMUSE Atrial Rate 375 BPM GEMUSE QRS Duration 82 ms GEMUSE Q-T Interval 392 ms GEMUSE QTc 476 ms GEMUSE R [place] 118 degrees GEMUSE T [place] 11 degrees GEMUSE ECG Interpretation Atrial fibrillation Right axis deviation Abnormal ECG Confirmed by Prasad CUBA, MICHAEL ([id number]) on 07/07/2024 2:34:42 PM GEMUSE 07/07/2024 8:28 AM EST 07/07/2024 2:34 PM EST Marilyn Gutiérrez DIRECTOR PUBLIC POLICY ECG ORDERABLES GEMUSE documented in this encounter Visit Diagnoses Diagnosis Atrial fibrillation, unspecified type (CMS/[facility])- Primary Coronary artery disease involving [place] coronary artery of [place] heart without angina pectoris Aortic valve stenosis, etiology of cardiac valve disease unspecified documented in this encounter Care Teams Family Resource Management Specialist Relationship Specialty Start Date End Date Josesito Chavarria MD [address] [place] [address] Dr Sary [place] PCP - General 11/29/13 documented as of this encounter
--- OUTSIDE RECORDS SUMMARY | 2024-08-04 11:00 | XMS_ITS | Clinical Summary ---
Author Organization [facility] Address [address] [place] [address] Care Team Providers Care Digital Content Coordinator Name Role Phone Josesito Chavarria MD Primary Care Provider [phone] Allergies No known active allergies Medications dutasteride (Avodart) 0.5 MG capsule Take 0.5 mg by mouth every night. 4 Active Jardiance 10 MG Take 10 mg by mouth 1 (one) time each day in the morning. 4 Active ezetimibe (Zetia) 10 MG tablet Take 10 mg by mouth every night. 4 Active isosorbide mononitrate ER (Imdur) 30 MG 24 hr tablet Take 30 mg by mouth 1 (one) time each day in the morning. 4 Active metoprolol succinate XL (Toprol-XL) 25 MG 24 hr tablet Take 12.5 mg by mouth 1 (one) time each day in the morning. 4 Active pantoprazole (ProtoNix) 40 MG EC tablet Take 40 mg by mouth in the morning and 40 mg before bedtime. 4 Active simvastatin (Zocor) 40 MG tablet Take 40 mg by mouth every night. 4 Active sucralfate (Carafate) 1 g tablet Take 1 g by mouth in the morning and 1 g before bedtime. 4 Active tamsulosin (Flomax) 0.4 MG 24 hr capsule Take 0.4 mg by mouth 1 (one) time each day in the morning. 4 Active ascorbic acid (Vitamin C) 500 MG tablet Take 500 mg by mouth 1 (one) time each day in the morning. Active folic acid (Folvite) 1 MG tablet Take 1 mg by mouth 1 (one) time each day in the morning. Active ferrous sulfate 325 (65 Fe) MG tablet Take 325 mg by mouth 1 (one) time each day with breakfast. Active Carboxymethylcel lulose Sodium (ARTIFICIAL TEARS OP) Administer 1 drop into both eyes if needed. Active acetaminophen (Tylenol) 500 MG tablet Take 500 mg by mouth if needed for mild pain (pain score 1-3). Active aspirin 81 MG EC tablet Take 1 tablet (81 mg total) by mouth 1 (one) time each day in the morning HOLD UNTIL REPEAT LABS. 4 Active Xarelto 20 MG tablet Take 1 tablet (20 mg total) by mouth 1 (one) time each day in the morning HOLD UNTIL REPEAT LABS.. 4 Active Active Problems Problem Noted Date Diagnosed Date CAD (coronary artery disease) 04/14/2024 HTN (hypertension) 04/14/2024 Atrial fibrillation 04/14/2024 Acute blood loss anemia 04/13/2024 Social History Tobacco Use Types Packs/Day Years Used Date Smoking Tobacco: Former Cigarettes 1 40.1 1 985 - 1956 Smokeless Tobacco: Never Tobacco Cessation:Counseling Given: Not Answered Alcohol Use Standard Drinks/Week Comments Yes 0 (1 standard drink = 0.6 oz pur e alcohol) RARE B1300 Health Literacy Answer Date Recor ded How often do you need to hav e someone help you when you read instructions, pamphlets, or other written material from your doctor or pharmacy? Never 04/13/2024 Humiliation, Afraid, Rape, and Kick questionnair e Answer Date Recorded Fear of Current or Ex-Partner Not on file Within the last year, have y ou been humiliated or emotionally abused in other ways by your partner or ex-partner? No 04/15/2024 Physically Abused Not on file 04/15/2024 Within the last year, have y ou been raped or forced to have any kind of sexual activity by your partner or ex-partner? No 04/15/2024 Social Connection and Isolation Panel [NHANES] A nswer Date Recorded In a typical week, how many times do you talk on the phone with family, friends, or neighbors? Three times a week 04/15/2024 How often do you get togethe r with friends or relatives? Twice a week 04/15/2024 How often do you attend chur ch or yazidism services? Never 04/15/2024 Do you belong to any clubs o r organizations such as muslim groups, unions, fraternal or athletic groups, or school groups? Yes 04/15/2024 How often do you attend meet ings of the clubs or organizations you belong to? Never 04/15/2024 Are you , , di vorced, , never , or living with a partner? 04/15/2024 Overall Financial Resource Strain (CARDIA) Answe r Date Recorded How hard is it for you to pa y for the very basics like food, housing, medical care, and heating? Not hard at all 04/14/2024 PHQ-2 Answer Date Recorded Patient Health Questionnaire-2 Score 0 04/13/2024 [facility] [place] - Occupational Stress Questionnaire Answer Date Recorded Do you feel stress - tense, restless, nervous, or anxious, or unable to sleep at night because your mind is troubled all the time - these days? Only a little 04/13/2024 Exercise Vital Sign Answer Date Recorde d On average, how many days pe r week do you engage in moderate to strenuous exercise (like a brisk walk)? 7 days 04/13/2024 On average, how many minutes do you engage in exercise at this level? 30 min 04/13/2024 Hunger Vital Sign Answer Date Recorded Within the past 12 months, y ou worried that your food would run out before you got the money to buy more. Never true 04/14/20 24 Within the past 12 months, t he food you bought just didn't last and you didn't have money to get more. Never true 04/14/2024 PRAPARE - Transportation Answer Date Re corded In the past 12 months, has l ack of transportation kept you from medical appointments or from getting medications? No 03/29 In the past 12 months, has l ack of transportation kept you from meetings, work, or from getting things needed for daily living? No 04/14/2024 Housing Stability Vital Sign Answer Doroteo e Recorded In the last 12 months, was t here a time when you were not able to pay the mortgage or rent on time? No 04/14/2024 In the past 12 months, how m any times have you moved where you were living? 0 04/14/2024 At any time in the past 12 m [facility], were you homeless or living in a penitentiary (including now)? No 04/14/2024 Alcohol Use/AUDIT-C Answer Date Recorde d How often do you have a drin k containing alcohol? Never 04/13/2024 How many standard drinks con taining alcohol do you have on a typical day? Patient does not drink 04/13/2024 How often do you have six or more drinks on one occasion? 04/13/2024 Sex and Gender Information Value Date Recorded Sex Assigned at Not on file Legal Sex Male 1:10 PM EDT Gender Identity Not on file Sexual Orientation Not on file Last Filed Vital Signs Vital Sign Reading Time Taken Comments Blood Pressure 141/61 04/16/2024 5:05 AM EDT Pulse 72 04/16/2024 9:00 AM EDT Temperature 36.4 ??C (97.5 ??F) 04/16/2024 5:05 AM ED T Respiratory Rate 16 04/16/2024 9:00 AM EDT Oxygen Saturation 100% 04/16/2024 5:05 AM EDT Inhaled Oxygen Concentration - - Weight 62 kg (136 lb 11 oz) 04/14/2024 8:45 AM E DT Height 170.2 cm (5' 7 ) 04/14/2024 8:45 AM EDT Body Mass Index 21.41 04/14/2024 8:45 AM EDT Plan of Treatment Health Maintenance Due Date Last Done Comments DTaP,Tdap,and Td Vaccines (1 - Tdap) 11/20/1959 Zoster Vaccines (1 of 2) 1990 Pneumococcal Vaccine: 65+ Ye ars (1 of 1 - PCV) 2005 Respiratory Syncytial Virus (RSV): 60+ years (1 - 1-dose 75+ series) 11/20/2015 Influenza Vaccine (#1) 2024 03/25/2023 HPV Vaccines Aged Out No longer eligi ble based on patient's age to complete this topic Meningococcal Vaccine Aged Out No sher epi eligible based on patient's age to complete this topic Insurance MEDICARE PART A AND B [facility] Advance Directives * Full Code (Latest Code Status on File) Date Activated Date Inactivated Comments 04/13/2024 8:20 PM 04/16/2024 2:35 PM Care Teams Digital Content Coordinator Relationship Specialty Start Date End Date Josesito Chavarria MD [address] [place] [address] [place] [address] PCP - General Family Medicine 04/15/24
--- OUTSIDE RECORDS SUMMARY | 2024-08-04 11:00 | XMS_ITS | Encounter Summary ---
Author Organization [facility] Address [address] [place] [address] Care Team Providers Care Cyanide Furnace Operator Name Role Phone Josesito Chavarria MD Primary Care Provider [phone] Reason for Referral * Imaging (Routine) - Closed Specialty Diagnoses / Procedures Referred By Contac t Referred To Contact Cardiology Diagnoses Atrial fibrillation, unspecified type (CMS/HCC) Procedures Transesophageal echocardiogram (DAVI) with PRN contrast and 3D RI ECHOCARDIOGRAPHY TRANSESOPHAGEAL REAL-TIME W IMG DOC INCL PROBE PLCMNT RI ECHOCARDIOGRAPHY DOPPLER COLOR FLOW MAPPING RI DOPPLER ECHO COMPLETE Dom Aceves MD [address] [place] [address] [facility] Referral ID Status Reason Start Date Expiration Date Visits Re quested Visits Authorized [id number] Closed 06/23/2024 06/23/2025 1 1 Reason for Visit * Imaging (Routine) - Closed Specialty Diagnoses / Procedures Referred By Contac t Referred To Contact Cardiology Diagnoses Atrial fibrillation, unspecified type (CMS/HCC) Procedures Transesophageal echocardiogram (DAVI) with PRN contrast and 3D RI ECHOCARDIOGRAPHY TRANSESOPHAGEAL REAL-TIME W IMG DOC INCL PROBE PLCMNT RI ECHOCARDIOGRAPHY DOPPLER COLOR FLOW MAPPING RI DOPPLER ECHO COMPLETE Dom Aceves MD [address] [place] [address] [facility] Referral ID Status Reason Start Date Expiration Date Visits Re quested Visits Authorized [id number] Closed 06/23/2024 06/23/2025 1 1 Encounter Details Date Type Department Care Team (Late st Contact Info) Description 07/25/2024 12:35 PM EST - 07/25/2024 11:59 PM EST Hospital Encounter [facility] Cardiac Rounder Hand [address] [place] [id number] Esteban Mcguire MD [address] [place] [address] Ant Herndon MD [address] [facility] [address] [place] [address] Atrial fibrillation, unspecified type (CMS/HCC) Discharge Disposition: Home or Self Care Social History Tobacco Use Types Packs/Day Years [...] Sign Reading Time Taken Comments Blood Pressure 120/54 07/25/2024 2:00 PM EST Pulse 66 07/25/2024 2:00 PM EST Temperature - - Respiratory Rate 18 07/25/2024 1:45 PM EST Oxygen Saturation 98% 07/25/2024 2:00 PM EST Inhaled Oxygen Concentration - - Weight 68 kg (150 lb) 07/25/2024 12:55 PM EST Height 170.2 cm (5' 7 ) 07/25/2024 12:55 PM EST Body Mass Index 23.49 07/25/2024 12:55 PM EST documented in this encounter Medications at Time of Discharge Medication Sig Dispensed Refills Start Date End Date ascorbic acid, vitamin C, 500 mg capsule Take 1 Capsule by mouth daily. aspirin 81 mg EC tablet Take 1 Tablet by mouth daily. cholecalciferol (VITAMIN D-3) 25 mcg (1,000 unit) tablet Take 1 Tablet by mouth daily. dutasteride (AVODART) 0.5 mg capsule Take 1 tablet by mouth daily. empagliflozin (Jardiance) 10 mg tablet Take 1 Tablet by mouth daily. ezetimibe (ZETIA) 10 mg tablet TAKE ONE TABLET BY MOUTH EVERY DAY 90 tablet 3 06/13/2024 ferrous sulfate 325 mg (65 mg elemental iron) tablet Take 1 Tablet by mouth daily. folic acid (FOLVITE) 1 mg tablet Take 1 Tablet by mouth daily. isosorbide mononitrate (IMDUR) 30 mg 24 hr tablet TAKE TWO TABLETS BY MOUTH EVERY DAY metoprolol tartrate (LOPRESSOR) 25 mg tablet Take 0.5 Tablets by mouth daily. pantoprazole (PROTONIX) 40 mg EC tablet Take 1 Tablet by mouth 2 Times Daily. rivaroxaban (XARELTO) 20 mg tablet Take 1 tablet (20 mg total) by mouth 1 (one) time each day. With meals 90 each 3 05/12/2024 simvastatin (ZOCOR) 40 mg tablet Take 1 tablet by mouth daily. sucralfate (CARAFATE) 1 gram tablet Take 1 Tablet by mouth 2 times daily. tamsulosin (FLOMAX) 0.4 mg 24 hr capsule Take 1 capsule by mouth daily. nitroglycerin (NITROSTAT) 0.[address] 1 Tablet under the tongue every 5 minutes as needed for Chest pain. documented as of this encounter Discharge Disposition Disposition Code Departure Means Destination Home or Self Care documented in this encounter H&P Notes * Esteban Mcguire MD - 07/25/2024 1:30 PM EST Note reviewed, no significant change in symptoms or exam at this time. Source Note - Marilyn Gutiérrez NP - 07/07/2024 8:10 AM EST Images from the original note were not included. [facility] PRIMARY KITCHEN MANAGER: Jovani Cuba MD PCP: Josesito Chavarria MD HPI: [...] was patent. 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 The patient has a chronic subtotal [...] plans to do so next week at [facility], along with his weekly blood count. He [...] 82 Q-T Interval 392 QTc 476 R [place] 118 T [place] 11 ECG Interpretation Atrial fibrillation Right axis [...] previously established plan of care by Dr. Jovani Cuba MD, we discussed the following today: Assessment & Plan 1. Post-hospitalization follow-up, s/p Left atrial appendage closure device placement. His blood pressure readings are within normal limits today. He is currently on aspirin and Xarelto.A DAVI is scheduled for 07/25/2024, to be performed by Dr. Mcguire at [facility]. A lab slip for cholesterol level assessment [...] up with Dr. Cuba in 6 months. [facility] documented in this encounter Procedure Notes * Suzette Beaver RN - 07/25/2024 1:30 PM EST Care taken over from anesthesia, VSS. Patient drowsy but oriented. * Esteban Mcguire MD - 07/25/2024 1:30 PM EST Transesophageal Echo Procedure note Reason for procedure: Post-Watchman Chronic Afib Retail Planning Manager: Dr. Mcguire Sedation: Anesthesia deep sedation Procedure Description: After informed consent time out was performed. Sedation per anesthesia. After adequate sedation theTEE was passed by me without difficulty. Images were obtained. Watchman device was seen in the RAFAL.It is well seated without asha- device leak. Patient tolerated procedure well without complications. documented in this encounter Plan of Treatment Upcoming Encounters Date Type Department Care Team (Late st Contact Info) Description 08/09/2024 1:40 PM EST Office Visit [facility] - [address] [place] [address] Christina Varma NP [address] [place] [address] documented as of this encounter Procedures Procedure Name Priority Date/Time Associated Diagnosis Comments DAVI COMPLETE Routine 07/25/2024 1:52 PM EST Atrial fibrillation, unspecified type (CMS/HCC) documented in this encounter Results * DAVI COMPLETE (07/25/2024 1:52 PM EST) BSA 1.79 m2 CV PACS Aortic Sinus Valsalva 3.2 cm CV PACS Ascending Aorta 3.3 cm CV PACS Ascending Aorta Index 1.84 cm/m2 CV PACS Anatomical Region Laterality Modality X-Ray Angiograph y Narrative 07/25/2024 4:59 PM EST ?Left ventricle cavity size is normal. Left ventricular systolic function is in the normal range with an ejection fraction of 55-60%. ?Right ventricular systolic function is normal. ?Aortic valve demonstrates mild stenosis. ?There is a Watchman closure device. It completely occludes the left atrial appendage. ?? There is no thrombus in the cavity or appendage. Left Ventricle Left ventricle cavity size is normal. Systolic function is normal with an ejection fraction of 55-60%. Right Ventricle Systolic function is normal. Left Atrium There is a Watchman closure device. It completely occludes the left atrial appendage. There is no thrombus in the cavity or appendage. Right Atrium There is no thrombus in the right atrial cavity. Mitral Valve The leaflets are mildly thickened. There is mild regurgitation. There is no evidence of mitral valve stenosis. Tricuspid Valve There is trace regurgitation. There is no evidence of tricuspid valve stenosis. Aortic Valve The aortic valve is trileaflet. There is trace regurgitation. There is mild stenosis. Pulmonic Valve There is no regurgitation or stenosis. Ascending Aorta The aorta appears normal in size. Pericardium Pericardium appears normal. There is no pericardial effusion. Study Details Overall the study quality was adequate. A transesophogeal echo was performed using 3D imaging and postprocessing performed without an independent workstation. The procedure, risks and alternatives were explained. Informed consent was obtained. The probe was inserted by the brush trimming machine setter. There was no probe insertion difficulty. Moderate sedation was administered by anesthesia. The patient had no complications. Estimated blood loss: no blood loss. No specimens were collected. Dom Aceves MD CV ECHO PROCEDURES documented in this encounter Visit Diagnoses Diagnosis Atrial fibrillation, unspecified type (CMS/[facility]) documented in this encounter Orders Discharge Count Last Ordered Date First Orde red Date DISCHARGE PATIENT 1 07/25/2024 documented in this encounter Care Teams Cyanide Furnace Operator Relationship Specialty Start Date End Date Josesito Chavarria MD [address] [place] [address] Dr Sary [place] PCP - General 11/29/13 documented as of this encounter
--- OUTSIDE RECORDS SUMMARY | 2024-08-04 11:00 | XMS_ITS | Clinical Summary ---
Author Organization [facility] [employer] Address [address] [place] [address] Phone Care Team Providers Care Manager Ship Name Role Phone Josesito Chavarria MD Primary Care Provider [phone] Allergies No known active allergies Medications Medication Sig Dispensed Refills Start Date End Date Status rivaroxaban (XARELTO) 20 mg tablet Take 1 tablet (20 mg total) by mouth 1 (one) time each day. With meals 90 each 3 05/12/2024 Active ascorbic acid, vitamin C, 500 mg capsule Take 1 Capsule by mouth daily. Active aspirin 81 mg EC tablet Take 1 Tablet by mouth daily. Active cholecalciferol (VITAMIN D-3) 25 mcg (1,000 unit) tablet Take 1 Tablet by mouth daily. Active dutasteride (AVODART) 0.5 mg capsule Take 1 tablet by mouth daily. Active empagliflozin (Jardiance) 10 mg tablet Take 1 Tablet by mouth daily. Active ferrous sulfate 325 mg (65 mg elemental iron) tablet Take 1 Tablet by mouth daily. Active folic acid (FOLVITE) 1 mg tablet Take 1 Tablet by mouth daily. Active isosorbide mononitrate (IMDUR) 30 mg 24 hr tablet TAKE TWO TABLETS BY MOUTH EVERY DAY Active metoprolol tartrate (LOPRESSOR) 25 mg tablet Take 0.5 Tablets by mouth daily. Active nitroglycerin (NITROSTAT) 0.[address] 1 Tablet under the tongue every 5 minutes as needed for Chest pain. Active pantoprazole (PROTONIX) 40 mg EC tablet Take 1 Tablet by mouth 2 Times Daily. Active simvastatin (ZOCOR) 40 mg tablet Take 1 tablet by mouth daily. Active sucralfate (CARAFATE) 1 gram tablet Take 1 Tablet by mouth 2 times daily. Active tamsulosin (FLOMAX) 0.4 mg 24 hr capsule Take 1 capsule by mouth daily. Active ezetimibe (ZETIA) 10 mg tablet TAKE ONE TABLET BY MOUTH EVERY DAY 90 tablet 3 06/13/2024 Active Active Problems Problem Noted Date Diagnosed Date Chronic anemia 03/21/2024 Black stool 03/21/2024 Light headedness 04/30/2023 Leg weakness 03/10/2023 Bilateral carotid bruits 08/12/2022 Overview (05/19/2024): Last Assessment & Plan: On exam today we noted carotid bruits he does have mild aortic stenosis. And this may simply be a radiated murmur of the vascular tree but we will obtain a vascular duplex scan of the lateral carotid arteries to ensure that were not missing a stenosis. Aortic stenosis 12/24/2021 Overview (05/19/2024): Last Assessment & Plan: Patient with a left ventricular outflow tract murmur and evidence of mild aortic stenosis Atrial fibrillation 11/30/2020 Overview (05/19/2024): Last Assessment & Plan: Patient with a history of atrial fibrillation requiring anticoagulation. He had 2 GI bleeds now is now time to consider a Watchman device have discussed this with him and his daughter they are interested in pursuing the possibility of the device. The patient will be sent to our EP service to be considered for the placement of watchman's and that ultimately we can discontinue his anticoagulation Coronary artery disease 11/30/2020 Overview (05/19/2024): Last Assessment & Plan: Patient has history of coronary artery disease status post bypass as outlined in detailed above. He had ongoing issues with refractory chest pain and to his most recent coronary angiogram 09/2021 he successfully underwent angioplasty with a 2.5 mm drug-eluting stent to the ostium of the vein graft to the obtuse marginal. At this time he denies any exertional anginal symptoms. We reviewed the results of his nuclear stress test. Does not require any additional cardiac intervention at this time. He should remain on his cardioprotective medical therapies with aspirin, beta-flakito and statin. I have reviewed with the patient the importance of a heart healthy lifestyle which includes eating a low-fat low-salt diet, getting regular exercise, maintaining a healthy weight, not smoking, and following up with routine medical care. Resolved Problems Problem Noted Date Diagnosed Date Resolved Date Chest pain 04/30/2023 07/07/2024 Overview (05/19/2024): Last Assessment & Plan: Patient really does not complain of chest pain just a vague chest discomfort I used several different tactics using probing questions to try to get a sense as to what he is feeling and at the end of the interview I felt that the patient was feeling palpitations previously had been ordered a Holter monitor prior to his GI bleed for the same symptoms we will get a go ahead and do that now I do not think this is angina. When asked patient whether his symptoms were consistent with a discomfort prior to the stent of the vein graft he said (no). My hope is that this is an arrhythmia on top of the A-fib and the Holter monitor will allow us to see that. Patient does have a history of mild ischemia on stress testing more recent stress testing is showing no evidence for ischemia on medical management. He is taking 30 mg of isosorbide in the morning and 15 in the evening and seems to be controlling his symptoms at this time Encounters Date Type Department Care Team Description 07/25/2024 1:04 PM EST Anesthesia Event [facility] Cardiac Blender Operator [address] [place] [address] Ant Herndon MD 07/25/2024 12:35 PM EST - 07/25/2024 11:59 PM EST Hospital Encounter [facility] Cardiac Blender Operator [address] [place] [address] Esteban Mcguire MD Gomes, Sheldon B, MD Atrial fibrillation, unspecified type ([facility]) Discharge Disposition: Home or Self Care 07/07/2024 8:10 AM EST Office Visit [facility] - [facility] [address] [place] [address] Marilyn Gutiérrez, ANASTACIA Atrial fibrillation, unspecified type (CMS/HCC) (Primary Dx); Coronary artery disease involving tangirnaq coronary artery of tangirnaq heart without angina pectoris; Aortic valve stenosis, etiology of cardiac valve disease unspecified 06/23/2024 Telephone [facility] Cardiology [facility] [address] [place] [phone] Dom Aceves MD Procedure (DAVI post watchman 07.25.24) 06/03/2024 Telephone [facility] Cardiology [facility] - [address] [place] [phone] Dom Aceves MD Procedure (Watchman Procedure w/ Dr. Aceves at [facility] on 06.08.24) 05/12/2024 Telephone [facility] [address] [place] [phone] Jovani Cuba MD Med Refill 05/10/2024 Telephone [place] [address] [place] [address] Jovani Cuba MD medication review from Last 3 Months Medical History Medical History Date Comments Diabetes mellitus type 2, co ntrolled, with complications (CMS/HCC) DX:Diabetes mellitus type 2, controlled, with complications (HCC) Hyperlipidemia DX:Hyperlipidemi a Diverticulosis DX:Diverticulosi s Peptic ulceration DX:Peptic ulce ration HTN (hypertension) DX:HTN (hyper tension) Anemia DX:Anemia GI bleed DX:GI bleed Social History Tobacco Use Types Packs/Day Years [...] file Not on file Not on file Obstetrics History Last Filed Vital Signs Vital Sign Reading [...] Mass Index 23.49 07/25/2024 12:55 PM EST Plan of Treatment Upcoming Encounters Date Type Department Care Team (Late st Contact Info) Description 08/09/2024 1:40 PM EST Office Visit [facility] - [address] [place] [address] Christina Varma NP [address] [place] [address] Health Maintenance Due Date Last Done Comments Pneumococcal Vaccine: 65+ Years (1 of 2 - PCV) 1946 DTaP,Tdap,and Td Vaccines (1 - Tdap) 11/20/1959 Zoster Vaccines (1 of 2) 1990 RSV Immunization Patients 60+ Years Old (1 - 1-dose 75+ series) 11/20/2015 Cholesterol Screening (Lipid Panel) 06/07/2022 Depression Screening 06/07/2022 Falls Risk Assessment 06/07/2022 Social Influencers of Health Screening 06/07/2022 Medicare Annual Wellness Visit 08/14/2023 08/14/2022 COVID-19 Vaccine ( - season) 2024 Influenza Vaccine (#1) 2024 03/25/2023 Hypertension/CHF/CAD Annual BMP Blood Test 04/16/2025 04/16/2024, 04/16/2024, 04/15/2024, Additional history exists HIB Vaccines Aged Out No longer eligi ble based on patient's age to complete this topic HPV Vaccines Aged Out No longer eligi ble based on patient's age to complete this topic Hepatitis A Vaccines Aged Out No long er eligible based on patient's age to complete this topic Hepatitis B Vaccines Aged Out No long er eligible based on patient's age to complete this topic IPV Vaccines Aged Out No longer eligi ble based on patient's age to complete this topic MMR Vaccines Aged Out No longer eligi ble based on patient's age to complete this topic Meningococcal ACWY Vaccine Aged Out N o longer eligible based on patient's age to complete this topic RSV Immunization Patients Under 20 months Aged Out No longer eligible based on patient's age to complete this topic Varicella Vaccines Aged Out No longer eligible based on patient's age to complete this topic Procedures Procedure Name Priority Date/Time Associated Diagnosis Comments DAVI COMPLETE Routine 07/25/2024 1:52 PM EST Atrial fibrillation, unspecified type (CMS/HCC) EXTERNAL CLINICAL LAB Routine 07/18/2024 9:42 AM EST ECG 12-LEAD Routine 07/07/2024 9:00 AM EST Atrial fibrillation, unspecified type (CMS/HCC) EXTERNAL CT REPORT Routine 05/14/2024 1: 39 PM EST ANNUAL BMP BLOOD TEST Routine 04/16/2024 from Last 3 Months or Most Recently Relevant to Health Maintenance Results * DAVI COMPLETE (07/25/2024 1:52 PM [...] obtained. The probe was inserted by the pv installer tech. There was no probe insertion difficulty. Moderate sedation was administered by anesthesia. The patient had no complications. Estimated blood loss: no blood loss. No specimens were collected. Dom Aceves MD CV ECHO PROCEDURES * External clinical lab (07/18/2024 9:42 AM EST) Historical Provider LAB BLOOD ORDERAB LES * ECG 12 lead (07/07/2024 9:00 AM EST) Ventricular Rate ECG 89 BPM GEMUSE Atrial Rate 375 BPM GEMUSE QRS Duration 82 ms GEMUSE Q-T Interval 392 ms GEMUSE QTc 476 ms GEMUSE R Marion 118 degrees GEMUSE T Marion 11 degrees GEMUSE ECG Interpretation Atrial fibrillation Right axis deviation Abnormal ECG Confirmed by Prasad CUBA JAMES ([id number]) on 07/07/2024 2:34:42 PM GEMUSE 07/07/2024 8:28 AM EST 07/07/2024 2:34 PM EST Marilyn Gutiérrez NP ECG ORDERABLES GEMUSE * External CT Report (05/14/2024 1:39 PM EST) Anatomical Region Laterality Modality Computed Tomogra phy Historical Provider MD BENITO CT PROCEDURES * Annual BMP Blood Test (04/16/2024) Annual BMP Blood Test abstracted Historical Provider MD OSMIN Jasso from Last 3 Months or Most Recently Relevant to Health Maintenance Care Teams Manager Ship Relationship Specialty Start Date End Date Josesito Chavarria MD [address] [place] [address] Dr Kumar [address] [place] [address] PCP - General 11/29/13
--- OUTSIDE RECORDS SUMMARY | 2024-08-04 11:01 | XMS_ITS | Referral Summary ---
Author Organization [facility] Address [address] [place] [address] Care Team Providers Care Job Site Supervisor Name Role Phone Josesito Chavarria MD Primary Care Provider [phone] Allergies No known active allergies Medications dutasteride [...] often do you attend chur ch or taoist services? Never 04/15/2024 Do you belong to any clubs o r organizations such as jew groups, unions, fraternal or athletic groups, or [...] Recorded Patient Health Questionnaire-2 Score 0 04/13/2024 [facility] - Occupational Stress Questionnaire Answer Date Recorded [...] any time in the past 12 m [facility], were you homeless or living in a [place] health [place] facility (including now)? No 04/14/2024 Alcohol Use/AUDIT-C Answer [...] Mass Index 21.41 04/14/2024 8:45 AM EDT Functional Status * Are you deaf or do you have serious difficulty hearing? Answer Date of Assessment Author No 04/13/2024 9:09 PM EDT Neelima Louise RN * Are you blind or do you have serious difficulty seeing, even when wearing glasses? Answer Date of Assessment Author No 04/13/2024 9:09 PM EDT Michaela Marquis RN Plan of Treatment Not on file Insurance MEDICARE PART A AND B [facility] Advance Directives * Full Code (Latest Code Status on File) Date Activated Date Inactivated Comments 04/13/2024 8:20 PM 04/16/2024 2:35 PM Care Teams Job Site Supervisor Relationship Specialty Start Date End Date Josesito Chavarria MD [address] [place] [address] [place] [address] PCP - General Family Medicine 04/15/24
--- OUTSIDE RECORDS SUMMARY | 2024-08-04 11:01 | XMS_ITS | Encounter Summary ---
[facility] Organization [facility] Address [address] [place] [address] Care Team Providers Care Dry Starch Supervisor Name Role Phone Josesito Chavarria MD Primary Care Provider [phone] Encounter Details Date Type Department Care Team (Late st Contact Info) Description 07/25/2024 1:04 PM EST Anesthesia Event [facility] Cardiac Automobile Seat Cover Installer [address] [place] [id number] Ant Herndon MD [address] [place] [address] [address] [place] [address] Anesthesia Record Procedure Summary Procedure Name Responsible Anesthesiologist Anesthesia Start Time Anesthesia Stop Time TRANSESOPHAGEAL ECHOCARDIOGRAM (CONTRAST/3D PRN) Ant Herndon MD 07/25/24 1304 07/25/24 1325 Events Date Time Event Comment 07/25/2024 1256 1304 An Start 1304 An Start Data The patient wa s reevaluated immediately before moderate or deep sedation use and before anesthesia induction. 1304 Anesthesia Ready 1306 Kong Time out done 1308 Proc Start 1321 Proc Fin 1322 an stop data 1324 Handoff to RN I completed my handoff to the receiving nurse during which we: 1. Identified the patient 2. Identified the responsible provider 3. Reviewed the pertinent medical history 4. Discussed the surgical course 5. Reviewed intra-op anesthesia management and issues during anesthesia 6. Set expectations for post-procedure period 7. Allowed opportunity for questions and acknowledgement of understanding. 1325 An Stop Meds Name Total propofol (DIPRIVAN) injection 10 mg/mL 9 0 mg lidocaine PF (XYLOCAINE-MPF) local injec tion 2% 100 mg lactated Ringer's infusion 75 mL * Agents Name O2 * Blood No blood administrations on file. Lines, Drains, and Airways Type Details Placement Removal Peripheral IV Placement Date: 07/25/24; Placement Time: 1254; Catheter Size: 20 G; Orientation: Right; Location: Antecubital; Local Anesth: None; Removal Date: 07/25/24; Removal Time: 1420 07/25/24 1254 by Suzette Beaver RN 07/25/24 1420 by Lars Ferguson RN documented in this encounter Social History Tobacco Use Types Packs/Day Years [...] on file documented as of this encounter Progress Notes * Phi Fernandez CRNA - 07/25/2024 1:25 PM EST Patient: Elvin Barone Procedure Summary Date: 07/25/24 Room / Location: [facility] Cardiac Automobile Seat Cover Installer Anesthesia Start: 1304 Anesthesia Stop: 1325 Procedure: TRANSESOPHAGEAL ECHOCARDIOGRAM (CONTRAST/3D PRN) Diagnosis: Atrial fibrillation, unspecified type (CMS/HCC) Scheduled Providers: Esteban Mcguire MD; Ant Herndon MD Responsible Provider: Ant Herndon MD Anesthesia Type: MAC ASA Status: 3 Anesthesia Plan: MAC Last Vitals: Vitals Value Taken Time BP 98/54 07/25/24 1325 Temp 97.3 07/25/24 1325 Pulse 68 07/25/24 1325 Resp 14 07/25/24 1325 SpO2 98 07/25/24 1325 No data recorded Anesthesia Post Evaluation Patient location during evaluation: PACU Patient participation: complete - patient participated Level of consciousness: awake Pain score: 0 Pain management: adequate Airway patency: patent Anesthetic complications: no Cardiovascular status: acceptable Respiratory status: acceptable Hydration status: acceptable Nausea: No Vomiting: No There were no known notable events for this encounter. * Ant Herndon MD - 07/25/2024 12:44 PM EST 83 y.o. male scheduled for Atrial fibrillation, unspecified type (CMS/HCC) [TRANSESOPHAGEAL ECHOCARDIOGRAM (CONTRAST/3D PRN)] Ht Readings from Last 1 Encounters: 07/07/24 1.702 m (67 ) Wt Readings from Last 1 Encounters: 07/07/24 68.9 kg (152 lb) There is no height or weight on file to calculate BMI. Past Medical History: Diagnosis Date Anemia DX:Anemia Diabetes mellitus type 2, controlled, with complications (CMS/HCC) DX:Diabetes mellitus type 2, controlled, with complications ([facility]) Diverticulosis DX:Diverticulosis GI bleed DX:GI bleed HTN (hypertension) DX:HTN (hypertension) Hyperlipidemia DX:Hyperlipidemia Peptic ulceration DX:Peptic ulceration No past surgical history on file. Anesthesia complications Denies No Known Allergies Prior to Admission medications Medication Sig Start Date End Date Taking? Authorizing Provider ascorbic acid, vitamin C, 500 mg capsule Take 1 Capsule by mouth daily. Historical Provider, aspirin 81 mg EC tablet Take 1 Tablet by mouth daily. Historical Provider, cholecalciferol (VITAMIN D-3) 25 mcg (1,000 unit) tablet Take 1 Tablet by mouth daily. Historical Provider, dutasteride (AVODART) 0.5 mg capsule Take 1 tablet by mouth daily. Historical Provider, empagliflozin (Jardiance) 10 mg tablet Take 1 Tablet by mouth daily. Historical Provider, ezetimibe (ZETIA) 10 mg tablet TAKE ONE TABLET BY MOUTH EVERY DAY 06/13/24 Jovani Cuba MD ferrous sulfate 325 mg (65 mg elemental iron) tablet Take 1 Tablet by mouth daily. Historical Provider, folic acid (FOLVITE) 1 mg tablet Take 1 Tablet by mouth daily. Historical Provider, isosorbide mononitrate (IMDUR) 30 mg 24 hr tablet TAKE TWO TABLETS BY MOUTH EVERY DAY Historical ProviderMD metoprolol tartrate (LOPRESSOR) 25 mg tablet Take 0.5 Tablets by mouth daily. Historical Provider, nitroglycerin (NITROSTAT) 0.[address] 1 Tablet under the tongue every 5 minutes as needed for Chest pain. Historical Provider, pantoprazole (PROTONIX) 40 mg EC tablet Take 1 Tablet by mouth 2 Times Daily. Historical ProviderMD rivaroxaban (XARELTO) 20 mg tablet Take 1 tablet (20 mg total) by mouth 1 (one) time each day. Withmeals 05/12/24 Jovani Cuba MD simvastatin (ZOCOR) 40 mg tablet Take 1 tablet by mouth daily. Historical Provider, sucralfate (CARAFATE) 1 gram tablet Take 1 Tablet by mouth 2 times daily. Historical Provider, tamsulosin (FLOMAX) 0.4 mg 24 hr capsule Take 1 capsule by mouth daily. Historical ProviderMD Villalobos have personally reviewed all the patient's medications with them prior to anesthesia. Current In-hospital Medications Social History Tobacco Use Smoking status: Former Current packs/day: 0.50 Types: Cigarettes Smokeless tobacco: Never Substance Use Topics Alcohol use: Not Currently Drug use: Never Is the patient a current smoker (e.g. cigarette, cigar, pip, e-cigarette, or mariajuana)? Yes [] No[] Patient previously instructed to abstain from smoking on the day of procedure? Yes [] No[] Patient smoked on the day of procedure? Yes [] No[] ASPIRE smoking VBR: [] Not interested in quitting [] Interested in quitting- referred to treatment [] Interested in quitting - treatment provided Visit Vitals Smoking Status Former LABS: No results found for: WBC , HGB , HCT , MCV , PLT No results found for: GLUCOSE , CALCIUM , NA , K , CO2 , CL , BUN , CREATININE No results found for: INR , PROTIME No results found for: PTT Relevant Problems Cardio (+) Aortic stenosis (+) Atrial fibrillation (CMS/HCC) (+) Coronary artery disease Other (+) Chronic anemia Clinical information reviewed: Anesthesia Plan ASA 3 Anesthesia Plan: MAC Induction method: intravenous Anesthetic plan and risks discussed with patient. Anesthesia Plan discussed with MARKETING COMPLIANCE MANAGER. Anesthesia Evaluation History of anesthetic complications Airway Mallampati: II Thyromental distance: > 3 finger breadths Neck ROM: fullnot intubatedno noted risk Dental (+) upper dentures and lower dentures Pulmonary breath sounds clear to auscultation Cardiovascular (+) hypertension, CAD, CABG/stent (Stent 2022) Rhythm: irregular Rate: normal ROS comment: Nuclear stress test 2022: SCAN FINDINGS: Nuclear imaging of the left ventricle reveals normal cavity size at stress, no change with rest imaging. Myocardial perfusion imaging of the left ventricle reveals a medium sized moderate to severe intensity defect in the apical inferior, mid inferior, basal inferior region. No ischemia is identified. CT attenuation correction was applied to the study which normalized the previously mentioned perfusion abnormality Gated SPECT imaging was performed which demonstrated paradoxical septal wall motion consistent withprior bypass surgery with a calculated LVEF of 72 % IMPRESSION: Abnormal. Exercise stress test with nuclear imaging. The patient had left-sided chest pain as notedabove. Ischemic EKG changes are noted. Nuclear imaging revealed no areas of ischemia or infarction after attenuation correction was applied. TID was normal at 1.03. Severe three-vessel coronary artery calcification was noted. Calcification is noted in the aortic valve. Gated SPECT imaging was performed which demonstrated paradoxical septal wall motion consistent withprior bypass surgery with a calculated LVEF of 72 % coronary artery disease status post bypass which [...] was patent. There is severe underlying three-vessel ute disease. 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 The RCA was not bypassed it was felt that the graft to the OM was small and not worth the benefit of angioplasty and medical management was increased. Patient developed refractory chest discomfort his isosorbide was increased ultimately underwent coronary angiography in September 2021 and had a 2.5 mm drug- eluting stent placed in the ostium of the veingraft to the obtuse marginal. Echo in 2021 [...] 6 months after his 45- day DAVI. Neuro/Psych GI/Hepatic/Renal (+) PUD Endo/Other (+) diabetes mellitus Abdominal PONV RISK SCORE: 1 There were no vitals filed for this visit. SpO2 Readings from Last 1 Encounters: 07/07/24 98% No results found for: WBC , RBC , HGB , HCT , PLT , MCV No Known Allergies STOP BANG: No data recorded NPO Status: No data recorded documented in this encounter Plan of Treatment Upcoming Encounters Date Type Department Care Team (Late st Contact Info) Description 08/09/2024 1:40 PM EST Office Visit [facility] [address] [place] [address] Christina Varma NP [address] [place] [address] documented as of this encounter Visit Diagnoses Not on filedocumented in this encounter Administered Medications Inactive Administered Medications - up to 3 most recent administrations Medication Order MAR Action Action Date Dose Rate Site lactated Ringer's infusion intravenous, Continuous PRN, Starting on Thu07/25/24 at 1321, Anesthesia Intraprocedure New Bag 07/25/2024 1:21 PM EST 50 mL/hr lidocaine (PF) (XYLOCAINE-MPF) 2 % injection injection, As needed, Starting on Thu07/25/24 at 1307, Anesthesia Intraprocedure Given 07/25/2024 1:07 PM EST 100 mg propofoL (DIPRIVAN) injection intravenous, As needed, Starting on Thu07/25/24 at 1307, Anesthesia Intraprocedure Given 07/25/2024 1:13 PM EST 20 mg Given 07/25/2024 1:07 PM EST 70 mg documented in this encounter Care Teams Dry Starch Supervisor Relationship Specialty Start Date End Date Josesito Chavarria MD [address] [facility] [address] PCP - General 11/29/13 documented as of this encounter
[2024-08-04 11:05] LABS: MANUAL DIFF FLAG NO
[2024-08-04 11:36] LABS: Basophils Absolute Auto 0.1 X10*3/uL (0.0-0.2); Basophils Percent Auto 0.7 % (0-2); Eosinophils Absolute Auto 0.4 X10*3/uL (0.0-0.4); Eosinophils Percent Auto 5.1 % (0-4); Hematocrit 35.8 % (42.0-52.0); Hemoglobin 11.4 g/dl (14.0-18.0); Imm Gran Abs Auto 0.05 X10*3/uL (0.00-0.03); Imm Gran Pct Auto 0.7 % (0.0-0.4); Lymphocytes Percent Auto 14.9 % (20-40); Mean Corpuscular HGB Conc 31.8 g/dl (31.0-36.0); Mean Corpuscular Hemoglobin 28.1 pg (27.0-33.0); Mean Corpuscular Volume 88.2 fL (80.0-98.0); Mean Platelet Volume 10.4 fL (9.4-12.4); Monocytes Percent Auto 14.1 % (2-11); Neutrophils Absolute Auto 4.5 x10*3/uL (2.0-8.3); Neutrophils Percent Auto 64.5 % (45-73); Platelet Count 251 X10*3/uL (160-400); Red Blood Count 4.06 X10*6/uL (4.60-5.80); Red Cell Distribution Width 13.7 % (11.0-16.0)
== END 2024-08-04 10:58 | disposition home or self-care (01) ==
LOC: HO.LABR 10:57
PROVIDERS: PCP Internal Medicine; Visit Provider Internal Medicine
DX: D64.9 Anemia, unspecified (principal)
CPT/HCPCS: 36415; 85025

== ENCOUNTER 2024-08-09 11:04 | Outpatient (REF) | payer MEDICARE, BC, SELFPAY ==
[2024-08-09 11:19] LABS: MANUAL DIFF FLAG NO
[2024-08-09 11:50] LABS: Basophils Percent Auto 0.6 % (0-2); Eosinophils Absolute Auto 0.3 X10*3/uL (0.0-0.4); Eosinophils Percent Auto 4.5 % (0-4); Hematocrit 35.8 % (42.0-52.0); Hemoglobin 11.2 g/dl (14.0-18.0); Imm Gran Abs Auto 0.04 X10*3/uL (0.00-0.03); Imm Gran Pct Auto 0.6 % (0.0-0.4); Lymphocytes Percent Auto 14.9 % (20-40); Mean Corpuscular HGB Conc 31.3 g/dl (31.0-36.0); Mean Corpuscular Hemoglobin 27.9 pg (27.0-33.0); Mean Corpuscular Volume 89.1 fL (80.0-98.0); Mean Platelet Volume 10.6 fL (9.4-12.4); Monocytes Absolute Auto 0.8 X10*3/uL (0.1-1.2); Neutrophils Absolute Auto 4.2 x10*3/uL (2.0-8.3); Neutrophils Percent Auto 66.4 % (45-73); Platelet Count 261 X10*3/uL (160-400); Red Blood Count 4.02 X10*6/uL (4.60-5.80); Red Cell Distribution Width 13.9 % (11.0-16.0); White Blood Count 6.4 X10*3/uL (4.8-10.8)
--- OUTSIDE RECORDS SUMMARY | 2024-08-09 12:35 | XMS_ITS ---
Author Organization [facility] Address [address] [place] [address] Care Team Providers Care Employee Benefits Specialist Name Role Phone Josesito Chavarria MD Primary Care Provider Riki Avila Unavailable [phone] Encounters Encounter Location Date Provider Diagnosis [facility] [address] [place] [address] 05/15/2024 Riki Clements PLAN OF TREATMENT Next Appt Details Provider Name:Riki Clements , 03/21/2025 09:30:00 AM, [address], [address], [place], [address],
--- OUTSIDE RECORDS SUMMARY | 2024-08-09 12:35 | XMS_ITS ---
Author Organization [facility] Address [address] [place] [address] Care Team Providers Care Hat Forming Machine Feeder Name Role Phone Josesito Chavarria MD Primary Care Provider Esther lewis Riki Clements Unavailable [phone] ALLERGIES No Known Allergies REASON FOR VISIT Patient presents today for a f/u from GI bleed/small bowel enteroscopy(Dr. Blair) /watchman placement MEDICATIONS Medication SIG (Take, Route, Frequency, Duration) Notes Start Date End Date Status Folic Acid 800 MCG 1 tablet Orally Once a day for 30 day(s) 07/07/2024 Active Warfarin Sodium 5 MG 1 tablet Orally Onc e a day Not-Taking Vitamin C 500 MG as directed Orally 07/07/2024 Active Aspirin 81 81 MG 1 tablet Orally Once a day for 30 day(s) 07/07/2024 Active Isosorbide Mononitrate ER 30 MG TAKE TWO TABLETS BY MOUTH EVERY DAY Oral for 90 Active Vitamin D 50 MCG (2000 UT) 1 tablet Oral ly Once a day for 30 day(s) 07/07/2024 Active Flomax 0.4 MG 1 capsule Orally Onc e a day for 30 day(s) 07/07/2024 Active Ferrous Sulfate 325 (65 Fe) MG 1 tablet Orally Three times a Week for 30 day(s) 07/07/2024 Active Xarelto 20 MG TAKE 1 TABLET BY CAREN TH ONCE A DAY. WITH MEAL Oral for 90 Active Sucralfate 1 GM TAKE ONE TABLET BY MOUTH THREE TIMES A DAY. Oral for 30 Active Simvastatin 40 MG TAKE ONE TABLET BY MOUTH EVERY DAY Oral for 90 Active Metoprolol Succinate ER 25 MG TAKE HALF A TABLET BY MOUTH DAILY. Oral for 90 Active Pantoprazole Sodium 40 MG TAKE ONE TABLE T BY MOUTH TWICE A DAY Oral for 90 Active Vytorin 10-40 MG 1 tablet Orally Once a day Not-Taking Dutasteride 0.5 MG TAKE ONE CAPSULE BY MOUTH DAILY AT BEDTIME Oral for 90 Active pyRIDostigmine Bruni 60 MG 1 tablet Orally every 4 hrs Not-Taking Ezetimibe 10 MG TAKE ONE TABLET BY MOUTH EVERY DAY Oral for 90 Active Jardiance 10 MG TAKE ONE TABLET BY MOUTH EVERY DAY Oral for 30 Active Tamsulosin HCl 0.4 MG 1 capsule 30 minut es after the same meal each day Orally Once a day Active Avodart 0.5 MG 1 capsule Orally Onc e a day Active VITAL SIGNS BMI 23.80 kg/m2 07/07/2024 Blood pressure systolic 00 mm Hg 07/07/19 25 Blood pressure diastolic 00 mm Hg 025 Height 67 in 07/07/2024 Weight 152 lbs 07/07/2024 Encounters Encounter Location Date Provider Diagnosis [facility] [address] [place] [address] 07/07/2024 Riki Clements Acute posthemorrhagi c anemia D62 ASSESSMENTS Encounter Date Diagnosis Assessment Notes Treatment Notes Treatment Clinical Notes 07/07/2024 Acute posthemorrhagi c anemia (ICD-10 - D62) Continue the Protonix and Sucralfate twice a day longterm for now PLAN OF TREATMENT Treatment Notes Assessment Notes Acute posthemorrhagic anemia Continue th e Protonix and Sucralfate twice a day roasterman for now Next Appt Details Follow Up: 2024, Reaso n: Provider Name:Riki Clements , 03/21/2025 09:30:00 AM, [address] [place] [address], [address], [place], [address],
--- OUTSIDE RECORDS SUMMARY | 2024-08-09 12:35 | XMS_ITS | Clinical Summary ---
Author Organization [facility] Address [address] [place] [address] Care Team Providers Care Concrete Inspector Name Role Phone Josesito Chavarria MD Primary Care Provider [phone] Allergies No known active allergies Medications dutasteride [...] often do you attend chur ch or sabianism services? Never 04/15/2024 Do you belong to any clubs o r organizations such as quaker groups, unions, fraternal or athletic groups, or [...] Recorded Patient Health Questionnaire-2 Score 0 04/13/2024 [facility] Stress Questionnaire Answer Date Recorded [...] any time in the past 12 m [facility], were you homeless or living in a correction (including now)? No 04/14/2024 Alcohol Use/AUDIT-C Answer [...] topic Insurance MEDICARE PART A AND B [facility] Advance Directives * Full Code (Latest Code Status on File) Date Activated Date Inactivated Comments 04/13/2024 8:20 PM 04/16/2024 2:35 PM Care Teams Concrete Inspector Relationship Specialty Start Date End Date Josesito Chavarria MD [address] [place] [address] [place] [address] PCP - General Family Medicine 04/15/24
--- OUTSIDE RECORDS SUMMARY | 2024-08-09 12:35 | XMS_ITS | Encounter Summary ---
[facility] Organization [facility] Address [address] [place] [address] Care Team Providers Care Manager Lsw Name Role Phone Josesito Chavarria MD Primary Care Provider [phone] Encounter Details Date Type Department Care Team (Late st Contact Info) Description 07/25/2024 1:04 PM EST Anesthesia Event [facility] Cardiac Mix Crusher Operator [address] [place] [id number] Ant Herndon MD [address] [place] [address] [address] [place] [address] Anesthesia Record Procedure Summary Procedure Name Responsible Anesthesiologist Anesthesia Start Time Anesthesia Stop Time TRANSESOPHAGEAL ECHOCARDIOGRAM (CONTRAST/3D PRN) Ant Herndno MD 07/25/24 1304 07/25/24 1325 Events Date [...] Assigned at Male 07/25/2024 12:30 PM EST Legal Sex Male 12:02 AM EST Gender Identity Male 07/25/2024 12:30 PM EST Sexual Orientation Straight 07/25/2024 12 :30 PM EST documented as of this encounter Progress Notes * Phi Fernandez CRNA - 07/25/2024 1:25 PM EST Patient: Elvin Barone Procedure Summary Date: 07/25/24 Room / Location: [facility] Cardiac Mix Crusher Operator Anesthesia Start: 1304 Anesthesia Stop: 1325 Procedure: [...] DX:Diabetes mellitus type 2, controlled, with complications ([facility]) Diverticulosis DX:Diverticulosis GI bleed DX:GI bleed HTN [...] discussed with patient. Anesthesia Plan discussed with EXCHANGE SPECIALIST. Anesthesia Evaluation History of anesthetic complications Airway [...] was patent. There is severe underlying three-vessel [place] disease. The patient has a chronic subtotal [...] Description 08/09/2024 1:40 PM EST Office Visit [facility] [address] [facility] [address] [place] [address] Christina Varma, DATABASE REPORTING CONSULTANT [address] [place] [address] documented as of this encounter [...] mg documented in this encounter Care Teams Manager Lsw Relationship Specialty Start Date End Date Josesito Chavarria MD [address] [place] [address] Dr Sary [place] PCP - General 11/29/13 documented as of this encounter
--- OUTSIDE RECORDS SUMMARY | 2024-08-09 12:35 | XMS_ITS | Encounter Summary ---
Author Organization [facility] Address [address] [place] [address] Care Team Providers Care Offbearer Name Role Phone Josesito Chavarria MD Primary Care Provider [phone] Reason for Referral * Imaging (Routine) - Closed Specialty Diagnoses / Procedures Referred By Contac t Referred To Contact Cardiology Diagnoses Atrial fibrillation, unspecified type (CMS/HCC) Procedures Transesophageal echocardiogram (DAVI) with PRN contrast and 3D NM ECHOCARDIOGRAPHY TRANSESOPHAGEAL REAL-TIME W IMG DOC INCL PROBE PLCMNT NM ECHOCARDIOGRAPHY DOPPLER COLOR FLOW MAPPING NM DOPPLER ECHO COMPLETE Dom Aceves MD [address] [place] [address] Phone: tel: fax: [facility] Referral ID Status Reason Start Date Expiration Date Visits Re quested Visits Authorized [id number] Closed 06/23/2024 06/23/2025 1 1 Reason for Visit * Imaging (Routine) - Closed Specialty Diagnoses / Procedures Referred By Contac t Referred To Contact Cardiology Diagnoses Atrial fibrillation, unspecified type (CMS/HCC) Procedures Transesophageal echocardiogram (DAVI) with PRN contrast and 3D NM ECHOCARDIOGRAPHY TRANSESOPHAGEAL REAL-TIME W IMG DOC INCL PROBE PLCMNT NM ECHOCARDIOGRAPHY DOPPLER COLOR FLOW MAPPING NM DOPPLER ECHO COMPLETE Dom Aceves MD [address] [place] [address] Phone: tel: fax: [facility] Referral ID Status Reason Start Date Expiration Date Visits Re quested Visits Authorized [id number] Closed 06/23/2024 06/23/2025 1 1 Encounter Details Date Type Department Care Team (Late st Contact Info) Description 07/25/2024 12:35 PM EST - 07/25/2024 11:59 PM EST Hospital Encounter [facility] Cardiac Guest Service Host [address] [place] [id number] Esteban Mcguire MD [address] [place] [address] Ant Herndon MD [address] [facility] [address] [place] [address] Atrial fibrillation, unspecified type (CMS/HCC) Discharge Disposition: [...] PM EST documented as of this encounter Last Filed [...] this encounter Medications at Time of Discharge ascorbic acid, vitamin C, 500 mg capsule [...] capsule Take 1 capsule by mouth daily. documented as of this encounter Discharge Disposition Disposition Code Departure Means Destination Home or Self Care documented in this encounter H&P Notes * Esteban Mcguire MD - 07/25/2024 1:30 PM EST Note reviewed, no significant change in symptoms or exam at this time. Source Note - Marilyn Gutiérrez NP - 07/07/2024 8:10 AM EST Images from the original note were not included. [facility] PRIMARY ELECTRICIAN'S ASSISTANT: Jovani Cuba MD PCP: Josesito Chavarria MD [...] was patent. There is severe underlying three-vessel [place] disease. The patient has a chronic subtotal [...] prior to the recording. I have advised CelineTiffany Lizabeth that he may refuse the recording and [...] plans to do so next week at [place], along with his weekly blood count. He [...] 82 Q-T Interval 392 QTc [address] [place] [address] [place] 11 ECG Interpretation Atrial fibrillation Right axis [...] to be performed by Dr. Mcguire at [facility]. A lab slip for cholesterol [...] up with Dr. Cuba in 6 months. [facility] Cosigned by Jovani Cuba MD at 07/08/2024 6:28 PM EST documented in this encounter Procedure Notes * Suzette Beaver RN - 07/25/2024 1:30 PM EST Care taken over from anesthesia, VSS. Patient drowsy but oriented. * Esteban Mcguire MD - 07/25/2024 1:30 PM EST Transesophageal Echo Procedure note Reason for procedure: Post-Watchman Chronic Afib [place]: Dr. Mcguire Sedation: Anesthesia deep sedation Procedure [...] Description 08/09/2024 1:40 PM EST Office Visit [facility] - [address] [place] [address] Christina Varma, PURCHASING ANALYST [address] [place] [address] documented as of this encounter [...] obtained. The probe was inserted by the search engine optimization specialist. There was no probe insertion difficulty. Moderate sedation was administered by anesthesia. The patient had no complications. Estimated blood loss: no blood loss. No specimens were collected. us Dom Aceves MD CV ECHO PROCEDURES Final R esult documented in this encounter Visit Diagnoses Diagnosis Atrial fibrillation, unspecified type (CMS/HCC) documented in this encounter Orders Discharge Count Last Ordered Date First Orde red Date DISCHARGE PATIENT 1 07/25/2024 documented in this encounter Care Teams Offbearer Relationship Specialty Start Date End Date Josesito Chavarria MD [address] [place] [address] Dr Sary [place] PCP - General 11/29/13 documented as of this encounter
--- OUTSIDE RECORDS SUMMARY | 2024-08-09 12:35 | XMS_ITS | Patient Health Record ---
Author Organization [facility] Address [address] [place] [address] Care Team Providers Care It Intern Name Role Phone Josesito Chavarria MD Primary Care Provider Riki Avila Unavailable [phone] ALLERGIES No Known Allergies RESULTS Component Value Reference Range Notes Pathology Reviewed date:12/25/2023 04:12:01 PM Interpretation: Performing Lab:[facility], [address] [place] [phone] Notes/Report: Complete Blood Count Auto Di ff Reviewed date:12/24/2023 12:39:32 PM Interpretation: Performing Lab:[facility], [address] [place] [phone] Notes/Report: White Blood Count 9.7 4.8-10.8 X10*3/uL [...] g Reviewed date:12/24/2023 12:40:09 PM Interpretation: Performing Lab:[facility], [address] [place] [phone] Notes/Report: Sodium 139 135-145 mmol/L Potassium 4.6 [...] Glomerular Filt Rate > 60 NOTE: For -[place] Island[place] individuals, multiply the result by 1.210. Chronic Kidney Disease: Estimated GFR < 60 mL/min/1.73m2 Severe Kidney Disease: Estimated GFR < 15 mL/min/1.73m2 Glucose Fasting 97 60-99 mg/dL Calcium 9.1 8.4-10.2 mg/dL REASON FOR REFERRAL No Information MEDICATIONS Medication SIG (Take, Route, Frequency, Duration) Notes Start Date End Date Status Vytorin 10-40 MG 1 tablet Orally Once a day Not-Taking Aspirin 81 81 MG 1 tablet Orally Once a day for 30 day(s) 07/07/2024 Active Tamsulosin HCl 0.4 MG 1 capsule 30 minut es after the same meal each day Orally Once a day Active Isosorbide Mononitrate ER 30 MG TAKE TWO TABLETS BY MOUTH EVERY DAY Oral for 90 Active Dutasteride 0.5 MG TAKE ONE CAPSULE BY MOUTH DAILY AT BEDTIME Oral for 90 Active Vitamin D 50 MCG (2000 UT) 1 tablet Oral ly Once a day for 30 day(s) 07/07/2024 Active pyRIDostigmine [place] 60 MG 1 tablet Orally every 4 hrs Not-Taking Flomax 0.4 MG 1 capsule Orally Onc e a day for 30 day(s) 07/07/2024 Active Ezetimibe 10 MG TAKE ONE TABLET BY MOUTH EVERY DAY Oral for 90 Active Folic Acid 800 MCG 1 tablet Orally Once a day for 30 day(s) 07/07/2024 Active Jardiance 10 MG TAKE ONE TABLET BY MOUTH EVERY DAY Oral for 30 Active Ferrous Sulfate 325 (65 Fe) MG 1 tablet Orally Three times a Week for 30 day(s) 07/07/2024 Active Xarelto 20 MG TAKE 1 TABLET BY CAREN TH ONCE A DAY. WITH MEAL Oral for 90 Active Warfarin Sodium 5 MG 1 tablet Orally Onc e a day Not-Taking Sucralfate 1 GM TAKE ONE TABLET BY MOUTH THREE TIMES A DAY. Oral for 30 Active Vitamin C 500 MG as directed Orally 07/07/2024 Active Pantoprazole Sodium 40 MG TAKE ONE TABLE T BY MOUTH TWICE A DAY Oral for 90 Active Simvastatin 40 MG TAKE ONE TABLET BY MOUTH EVERY DAY Oral for 90 Active Metoprolol Succinate ER 25 MG TAKE HALF A TABLET BY MOUTH DAILY. Oral for 90 Active Avodart 0.5 MG 1 capsule Orally Onc e a day Active SOCIAL HISTORY Sex Assigned At : Social History Observation Description Sex Assigned At Unknown PROBLEMS Problem Type ICD Code Onset Dates Problem Status W/U Status Risk SNOMED Code Notes Problem Colon cancer screening (V76.51) Active confirmed Colon can cer screening (313036794) Problem technician terminal and repeater current use of anticoagulant (V58.61) Active confirmed Long-term curre nt use of anticoagulant (451010665) Problem Acute posthemorrhagic anemia (D62) Active confirmed Acute posthemorrhagic anemia (538983320) VITAL SIGNS Blood pressure diastolic 00 mm Hg 07/07/2024 Height 67 in 07/07/2024 Blood pressure systolic 00 mm Hg 07/07/2024 Weight 152 lbs 07/07/2024 BMI 23.80 kg/m2 07/07/2024 Encounters Encounter Location Date Provider Diagnosis [facility] [address] [place] [address] 05/19/2024 Riki Clements [facility] [address] [place] [address] 07/07/2024 Riki Clements Acute posthemorrhagi c anemia D62 [facility] [address] [place] [address] 12/24/2023 Riki Clements [facility] [address] [place] [address] 12/25/2023 Riki Clements [facility] [address] [place] [address] 01/20/2024 Riki Clements Acute posthemorrhagi c anemia D62 [facility] [address] [place] [address] 04/13/2024 Riki Clements [facility] [address] [place] [address] 04/21/2024 Riki Clements [facility] [address] [place] [address] 05/15/2024 Riki Clements ASSESSMENTS Encounter Date Diagnosis Assessment Notes Treatment Notes Treatment Clinical Notes 07/07/2024 Acute posthemorrhagi c anemia (ICD-10 - D62) Continue the Protonix and Sucralfate twice a day termite inspector for now 01/20/2024 Acute posthemorrhagi c anemia (ICD-10 - D62) PLAN OF TREATMENT Pending Test Test Name Order Date GI BIOPSY 03/20/2015 CBC w DIFF 01/20/2024 Future Test Test Name Order Date COLONOSCOPY 12/13/2014 Next Appt Details Provider Name:Riki Clements , 03/21/2025 09:30:00 AM, [address], [address], [place], [address], Insurance Providers Payer Name Payer Address Payer Phone Subscriber Number Group Number Insured Name Patient Relationship to Insured Coverage Start Date Coverage End Date MEDICARE OF [place] [address] [place] [id number] [phone] [id number] ANNE MARTINEZ Self - patient is the insured [facility] [address] [place], [place] [id number] ANNE MARTINEZ Self - patient is the insured MEDICAL (GENERAL) HISTORY Medical History History ICD Code HTN NIDDM CAD--4V CABG-1996--no SC A.fib--refractory to cardioversion--on Jorge [place]-he sees BPH Denies SC,CVA,Lung disease,renal disease Neg. screening colonoscopy i n 09/2002 except for a hyperplastic polyp, sigmoid divertciulosis, internal hemorrhoids Hyperlipidemia Surgical History Surgery Date(Month/Year) Bilateral inguinal hernia CABG as above left knee watchman jun 08, 2024
--- OUTSIDE RECORDS SUMMARY | 2024-08-09 12:35 | XMS_ITS | Clinical Summary ---
Author Organization [facility] Address [address] [facility] [place] [address] Phone Care Team Providers Care Electrolysis Engineer Name Role Phone Josesito Chavarria MD Primary Care Provider [phone] Allergies No known active allergies Medications rivaroxaban (XARELTO) 20 mg tablet Take 1 [...] Description 07/25/2024 1:04 PM EST Anesthesia Event [facility] Cardiac Cardiac Cath [address] [place] [phone] Ant Herndon MD 07/25/2024 12:35 PM EST - 07/25/2024 11:59 PM EST Hospital Encounter [facility] Cardiac Cardiac Cath R[address] [place] [phone] Esteban Mcguire MD Gomes, Sheldon B, MD Atrial fibrillation, unspecified type (CMS/HCC) Discharge Disposition: Home or Self Care 07/07/2024 8:10 AM EST Office Visit [facility] [address] [facility] [address] [place] [phone] Marilyn Gutiérrez, ANASTACIA Atrial fibrillation, unspecified type (CMS/HCC) (Primary Dx); Coronary artery disease involving chinik coronary artery of chinik heart without angina pectoris; Aortic valve stenosis, etiology of cardiac valve disease unspecified 06/23/2024 Telephone [facility] [address] [place] [phone] Dom Aceves MD Procedure (DAVI post watchman 1.) 06/03/2024 Telephone [facility] - [address] [place] [phone] Dom Aceves MD Procedure (Watchman Procedure w/ Dr. Aceves at [facility] on 06.08.24) 05/12/[address] [place] [phone] Jovani Cuba MD Med Refill 05/10/2024 Telephone [place] [address] [place] [address] Jovani Cuba MD medication review from Last [...] Orientation Straight 07/25/2024 12 :30 PM EST Obstetrics History Last Filed Vital Signs Vital [...] Description 08/09/2024 1:40 PM EST Office Visit [facility] - [address] [place] [address] Christina Varma NP [address] [place] [address] Health Maintenance Due Date Last Done Comments DTaP,Tdap,and Td Vaccines (1 - Tdap) 11/20/1947 Pneumococcal Vaccine: 50+ Years (1 of 2 - PCV) 11/20/1959 Zoster Vaccines (1 of 2) 1990 RSV Immunization Patients 60+ Years Old (1 - 1-dose 75+ series) 11/20/2015 Cholesterol Screening (Lipid Panel) 06/07/2022 Depression Screening 06/07/2022 Falls Risk Assessment 06/07/2022 Social Influencers of Health Screening 06/07/2022 Medicare Annual Wellness Visit 08/14/2023 08/14/2022 COVID-19 Vaccine ( season) 2024 Influenza Vaccine (#1) 2024 03/25/2023 [...] patient's age to complete this topic Meningococcal B Vacine Aged Out No lo nger eligible based on patient's age to complete [...] obtained. The probe was inserted by the customs house broker. There was no probe insertion difficulty. Moderate sedation was administered by anesthesia. The patient had no complications. Estimated blood loss: no blood loss. No specimens were collected. Dom Aceves MD CV ECHO PROCEDURES Final R esult * External clinical lab (07/18/2024 9:42 AM EST) Historical Provider LAB BLOOD ORDERABLES Edit ed Result - Final * ECG 12 lead (07/07/2024 9:00 AM EST) Ventricular Rate ECG 89 BPM GEMUSE Atrial Rate 375 BPM GEMUSE QRS Duration 82 ms GEMUSE Q-T Interval 392 ms GEMUSE QTc 476 ms GEMUSE R [place] 118 degrees GEMUSE T [place] 11 degrees GEMUSE ECG Interpretation Atrial fibrillation Right axis deviation Abnormal ECG Confirmed by Prasad CUBA JAMES ([id number]) on 07/07/2024 2:34:42 PM GEMUSE 07/07/2024 8:28 AM EST 07/07/2024 2:34 PM EST us Marilyn Blackwoodoc C WINFORMS DEVELOPER ECG ORDERABLES Edited Resul t - Final GEMUSE * External CT Report (05/14/2024 1:39 PM EST) Anatomical Region Laterality Modality Computed Tomogra phy Historical Provider IMG CT PROCEDURES Final R esult * Annual BMP Blood Test (04/16/2024) Annual BMP Blood Test abstracted Historical Provider HEALTH MAINTENANCE Final Result from Last 3 Months or Most Recently Relevant to Health Maintenance Insurance MEDICARE [facility] Care Teams Electrolysis Engineer Relationship Specialty Start Date End Date Josesito Chavarria MD [address] [place] [address] Dr Sary [place] PCP - General 11/29/13
--- OUTSIDE RECORDS SUMMARY | 2024-08-09 12:35 | XMS_ITS | Referral Summary ---
Author Organization [facility] Address [address] [place] [address] Care Team Providers Care Sap Director Name Role Phone Josesito Chavarria MD Primary Care Provider [phone] Allergies No known active allergies Medications dutasteride [...] often do you attend chur ch or methodist services? Never 04/15/2024 Do you belong to any clubs o r organizations such as roman catholic groups, unions, fraternal or athletic groups, or [...] Recorded Patient Health Questionnaire-2 Score 0 04/13/2024 [facility] - Occupational Stress Questionnaire Answer Date [...] in the past 12 m [facility], were you homeless or living in a retirement (including now)? No 04/14/2024 Alcohol Use/AUDIT-C Answer [...] file Insurance MEDICARE PART A AND B [facility] Advance Directives * Full Code (Latest Code Status on File) Date Activated Date Inactivated Comments 04/13/2024 8:20 PM 04/16/2024 2:35 PM Care Teams Sap Director Relationship Specialty Start Date End Date Josesito Chavarria MD [address] [place] [address] [place] [address] PCP - General Family Medicine 04/15/24
--- OUTSIDE RECORDS SUMMARY | 2024-08-09 12:35 | XMS_ITS ---
Author Organization [facility] Address [address] [place] [address] Care Team Providers Care Blue Leather Sorter Name Role Phone Josesito Chavarria MD Primary Care Provider Riki Avila Unavailable [phone] REASON FOR VISIT Patient presents today for a f/u from a GI bleed. Encounters Encounter Location Date Provider Diagnosis [facility] [address] [place] [address] 05/19/2024 Riki Clements PLAN OF TREATMENT Next Appt Details Provider Name:Riki Clements , 03/21/2025 09:30:00 AM, [address], [address], [place], [address],
== END 2024-08-09 11:05 | disposition home or self-care (01) ==
LOC: HO.LABR 11:04
PROVIDERS: PCP Internal Medicine; Visit Provider Internal Medicine
DX: D64.9 Anemia, unspecified (principal)
CPT/HCPCS: 36415; 85025

== ENCOUNTER 2024-08-23 11:47 | Outpatient (REF) | payer MEDICARE, BC, SELFPAY ==
[2024-08-23 12:01] LABS: Basophils Percent Auto 0.6 % (0-2); Eosinophils Absolute Auto 0.2 X10*3/uL (0.0-0.4); Eosinophils Percent Auto 3.2 % (0-4); Hematocrit 33.4 % (42.0-52.0); Hemoglobin 10.9 g/dl (14.0-18.0); Imm Gran Abs Auto 0.02 X10*3/uL (0.00-0.03); Imm Gran Pct Auto 0.4 % (0.0-0.4); Lymphocytes Absolute Auto 0.9 X10*3/uL (1.2-4.9); Lymphocytes Percent Auto 17.4 % (20-40); Mean Corpuscular HGB Conc 32.6 g/dl (31.0-36.0); Mean Corpuscular Hemoglobin 28.9 pg (27.0-33.0); Mean Corpuscular Volume 88.6 fL (80.0-98.0); Mean Platelet Volume 10.3 fL (9.4-12.4); Monocytes Absolute Auto 0.7 X10*3/uL (0.1-1.2); Monocytes Percent Auto 13.4 % (2-11); Neutrophils Absolute Auto 3.5 x10*3/uL (2.0-8.3); Red Blood Count 3.77 X10*6/uL (4.60-5.80); Red Cell Distribution Width 14.6 % (11.0-16.0); White Blood Count 5.4 X10*3/uL (4.8-10.8)
[2024-08-23 12:05] LABS: MANUAL DIFF FLAG SCAN
[2024-08-23 12:54] LABS: Platelet Count 159 X10*3/uL (160-400)
--- OUTSIDE RECORDS SUMMARY | 2024-08-23 14:27 | XMS_ITS ---
Author Organization [facility] marisela Mcintosh Address [address] [place] [address] Care Team Providers Care Revenue Field Agent Name Role Phone Josesito Chavarria MD Primary Care Provider Carol Barron Unavailable [phone] Allergies No Known Allergies REASON FOR VISIT [...] Problem Acquired hammer toe of right foot (9423322397762 105) Other hammer toe(s) (acquired), right foot (M20.41) Active confirmed Problem Acquired hammer toe of left foot (3294850033407 103) Other hammer toe(s) (acquired), left foot (M20.42) Active confirmed Problem Type 2 diabetes mellitus with peripheral angiopathy (955971000) Type 2 diabetes mellitus with diabetic peripheral angiopathy without gangrene (E11.51) Active confirmed Q7(A), Q8(2B), Q9(1B,2C) Vital Signs Height 5ft 6in in 06/24/2024 Weight 150 lbs 06/24/2024 BMI 24.21 kg/m2 06/24/2024 Procedures Procedure Date Ordered Date Performed Result Body Sit e 65649-YAPVYSG NAIL, 6 OR MORE 06/24/2024 N/A 07110-EXIW SKIN LESIONS, OVER 4 06/24/2024 N/A Encounters Encounter Location Date Provider Diagnosis [facility] [address] [address] 06/24/2024 Carol Valerio Other hammer toe(s) (acquired), [...] INSTRUCTIONS.pdf) Pending Test Test Name Order Date 35430-JFREVUV NAIL, 6 OR MORE 06/24/2024 10152-HBKG SKIN LESIONS, OVER 4 06/24/20 24 Next Appt Details Follow Up: 4 Months, Reason: Provider Name:Carol singer, 10/18/2024 10:15:00 AM, [address], [address], [place], [address], Procedure Notes * Category Sub-Category Detail Notes [...] use of a nail nipper and/or dremel-type razor grinder, to a more viable healthy nail [...] to maintain effectiveness in symptomatic relief - 46499 Keratoma Treatment Parring or Cutting o f [...] instrumentation by the physician of record - 75701, Q8 Progress Notes * Elvin BARONEDOB: (83 yo M)Acc No.[id number]:06/24/2024 Progress Notes Patient:?Elvin BARONE Provider:?Carol Valerio DPM :1940???Age:83 Y???Sex:Male Doroteo e:06/24/2024 Address:[address] [place] [address], [place] [address] Pcp:Josesito Chavarria MD Subjective: * Chief Complaints: [...] mellitus with diabetic peripheral angiopathy without gangrene?Procedure: 41487-WUUL SKIN LESIONS, OVER 4 3.?Tinea unguium?Procedure: 09493-JPAKIHW NAIL, 6 OR MORE * Procedures:?Debride Nail [...] use of a nail nipper and/or dremel-type razor grinder, to a more viable healthy nail [...] to maintain effectiveness in symptomatic relief - 20900.?Keratoma Treatment:?Parring or Cutting of Benign Hyperkeratotic Lesion(s)?(-57) [...] instrumentation by the physician of record - 29612, Q8.? * Procedure Codes:?15215 DEBRI DE NAIL, 6 OR MORE, Modifiers: XS 70708 TRIM SKIN LESIONS, OVER 4, Modifiers: XS [...] Valerio DPM Date:?08/25/2023 Generated for Jeanine thapa/Kamari/Isidoro on:?08/23/2024 02:26 PM EST History and Physical Notes * [...]
--- OUTSIDE RECORDS SUMMARY | 2024-08-23 14:27 | XMS_ITS | Encounter Summary ---
Author Organization [facility] Address [address] [place] [address] Care Team Providers Care Recovery Engineer Name Role Phone Josesito Chavarria MD Primary Care Provider [phone] Encounter Details Date Type Department Care Team (Late st Contact Info) Description 07/25/2024 1:04 PM EST Anesthesia Event [facility] Cardiac Dispatcher Maintenance Service [address] [place] [phone] Ant Herndon MD [address] [place] [address] [address] [place] [address] Anesthesia Record Procedure Summary Procedure Name Responsible [...] Procedure Summary Date: 07/25/24 Room / Location: [facility] Cardiac Dispatcher Maintenance Service Anesthesia Start: 1304 Anesthesia Stop: 1325 Procedure: [...] DX:Diabetes mellitus type 2, controlled, with complications ([facility]) Diverticulosis DX:Diverticulosis GI bleed DX:GI bleed HTN [...] discussed with patient. Anesthesia Plan discussed with BIT SHARPENER OPERATOR. Anesthesia Evaluation History of anesthetic complications Airway [...] was patent. 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 The patient has a chronic subtotal [...] Care Team (Late st Contact Info) Description 02/28/2025 1:00 PM EDT Office Visit [facility] [address] [place] [address] Jovani Cuba MD [address] [place] [address] [address] [place] [address] documented as of this encounter Visit Diagnoses [...] mg documented in this encounter Care Teams Recovery Engineer Relationship Specialty Start Date End Date Josesito Chavarria MD [address] [facility] [address] [place] PCP - General 11/29/13 documented as of this encounter
--- OUTSIDE RECORDS SUMMARY | 2024-08-23 14:27 | XMS_ITS | Encounter Summary ---
Author Organization [facility] Address [address] [place] [address] Care Team Providers Care Merchandising Execution Manager Name Role Phone Josesito Chavarria MD Primary Care Provider [phone] Reason for Visit * Reason Comments Follow-up Encounter Details Date Type Department Care Team (Late st Contact Info) Description 08/09/2024 1:40 PM EST Office Visit [facility] [address] [facility] [address] [place] [address] Christina Varma NP [address] [place] [address] Atrial fibrillation, unspecified type (CMS/HCC) (Primary Dx) Social History Tobacco Use Types Packs/Day Years [...] Sign Reading Time Taken Comments Blood Pressure 129/65 08/09/2024 1:55 PM EST Pulse 61 08/09/2024 1:55 PM EST Temperature - - Respiratory Rate - - Oxygen Saturation 98% 08/09/2024 1:55 PM EST Inhaled Oxygen Concentration - - Weight 69.9 kg (154 lb) 08/09/2024 1:55 PM EST Height 170.2 cm (5' 7 ) 08/09/2024 1:55 PM EST Body Mass Index 24.12 08/09/2024 1:55 PM EST documented in this encounter Ordered Prescriptions Prescription Sig Dispense Quantity Refills Last Filled Start Date End Date clopidogreL (PLAVIX) 75 mg tablet Take 1 tablet (75 mg total) by mouth 1 (one) time each day. 30 each 3 08/09/2024 amoxicillin (AMOXIL) 500 mg capsule Take 4 caps (2000 mg) 1 hour prior to procedure. 12 capsule 11 08/09/2024 08/19/2024 documented in this encounter Progress Notes * Christina Varma NP - 08/09/2024 1:40 PM EST PRIMARY PHARMACY DELIVERY DRIVER: Jovani Cuba MD PCP: Josesito Chavarria MD Elvin Barone is a 83 y.o. old male Stage 4 permanent atrial fibrillation, anticoagulated with Xarelto, significant anemia due to gastric erosion, GI bleed requiring transfusion, GI bleed requiring transfusion, CHADSVASc 3 for age and vascular disease ultimately undergoing successful watchman placement on June 08, 2024. Discharged on aspirin and Xarelto DAVI July 25, 2024, Watchman device was well-seated without BERE device leak. Other past medical history includes coronary artery disease, status post CABG, hyperlipidemia, aortic stenosis, followed closely by his primary cardiology team, Dr. Jovani Cuba and Marilyn Gutiérrez NP The patient presents for evaluation of his Watchman device. He is accompanied by his daughter. Documentation completed with aid of [employer]. I have obtained verbal consent from patient prior to the recording. I have advised patient that he may refuse the recording and require the recording to be turned off at any time during this encounter. History of Present Illness He has been on a regimen of Xarelto and aspirin. His groin area is in good condition, with no residual bruising or swelling. Initially, there was a presley on one side that persisted longer than expected, but it has since faded. He does not anticipate any procedures in the coming months. His primary care physician conducts frequent blood work, which has remained stable around 10. He has no known allergies to antibiotics. Otherwise reports feeling well, no exertional chest pain, shortness of breath, lightheadedness or palpitations. Is sleeping well no PND, orthopnea. No peripheral edema ALLERGIES - No known allergies MEDICATIONS - Current: Xarelto, aspirin Results ACTIVE MEDICATIONS: Outpatient Medications Marked as Taking for the 08/09/24 encounter (Office Visit) with Christina Varma NP Medication Sig Dispense Refill ascorbic acid, vitamin C, 500 mg capsule [...] BY MOUTH EVERY DAY 90 tablet 3 ferrous sulfate 325 mg (65 mg elemental iron) tablet Take 1 Tablet by mouth daily. folic acid (FOLVITE) 1 mg tablet Take 1 Tablet by mouth daily. isosorbide mononitrate (IMDUR) 30 mg 24 hr tablet TAKE TWO TABLETS BY MOUTH EVERY DAY (Patient taking differently: Take 1 tablet (30 mg total) by mouth 1 (one) time each day.) metoprolol tartrate (LOPRESSOR) 25 mg tablet Take 0.5 Tablets by mouth daily. nitroglycerin (NITROSTAT) 0.[address] 1 Tablet under the tongue every 5 minutes as needed for Chest pain. pantoprazole (PROTONIX) 40 mg EC tablet Take 1 Tablet by mouth 2 Times Daily. simvastatin (ZOCOR) 40 mg tablet Take 1 tablet by mouth daily. sucralfate (CARAFATE) 1 gram tablet Take 1 Tablet by mouth 2 times daily. tamsulosin (FLOMAX) 0.4 mg 24 hr capsule Take 1 capsule by mouth daily. [DISCONTINUED] rivaroxaban (XARELTO) 20 mg tablet Take 1 tablet (20 mg total) by mouth 1 (one) timeeach day. With meals 90 each 3 ALLERGIES: No Known Allergies FAMILY HISTORY: No family history on file. SOCIAL HISTORY: Social History Tobacco Use Smoking status: Former Current packs/day: 0.50 Types: Cigarettes Smokeless tobacco: Never Substance Use Topics Alcohol use: Not Currently PHYSICAL EXAM: Blood pressure 129/65, pulse 61, height 1.702 m (67 ), weight 69.9 kg (154 lb), SpO2 98%. Body mass index is 24.12 kg/m??. Physical Exam HENT: Mouth/Throat: Mouth: Mucous membranes are moist. Cardiovascular: Rate and Rhythm: Normal rate and regular rhythm. Heart sounds: Murmur heard. Pulmonary: Breath sounds: Normal breath sounds. Abdominal: General: Bowel sounds are normal. Palpations: Abdomen is soft. Musculoskeletal: General: Normal range of motion. Skin: General: Skin is warm and dry. Neurological: General: No focal deficit present. Mental Status: He is alert. Psychiatric: Mood and Affect: Mood normal. Right groin soft to palpation, no residual ecchymosis. Encounter Date: 07/07/24 ECG 12 lead Result Value Ventricular Rate ECG 89 Atrial Rate 375 QRS Duration 82 Q-T Interval 392 QTc 476 R [place] 118 T [place] 11 ECG Interpretation Atrial fibrillation Right axis deviation Abnormal ECG Confirmed by Prasad CUBA JAMES ([id number]) on 07/07/2024 2:34:42 PM *Note: Due to a large number of results and/or encounters for the requested time period, some results have not been displayed. A complete set of results can be found in Results Review. TESTING: PAST MEDICAL HISTORY: Patient Active Problem List Diagnosis Date Noted Chronic anemia 03/21/2024 Black stool 03/21/2024 Light headedness 04/30/2023 Leg weakness 03/10/2023 Bilateral carotid bruits 08/12/2022 Aortic stenosis 12/24/2021 Atrial fibrillation (CMS/HCC) 11/30/2020 Coronary artery disease 11/30/2020 As per AHA guidelines and previously established plan of care by Dr. Rachell Aceves MD we discussed the following today: ASSESSMENT/PLAN: Assessment & Plan Stage 4 permanent AF - s/p successful Watchman placement - Plavix and ASA for 6 months post procedure (December 07, 2024) Baby ASA there after. Will require dental prophylaxis for 6 months post implant - also until December 07, 2024. - DAVI results satisfactory, indicating a well-functioning Watchman device - Discontinue Xarelto - Prescription for amoxicillin 2000 mg provided, to be taken 30 to 60 minutes prior to any dental procedures until 12/07/2024 - Frequency of CBC monitoring to be determined by primary care physician or technical spec - Follow-up appointment with Dr. Cuba scheduled for 6 months from now Problem List Items Addressed This Visit None Thank you for allowing us to participate in the care of this patient. Today's documentation was made using voice recognition software.This note may contain grammatical errors secondary to this software. Cosigned by Dom Aceves MD at 08/15/2024 9:18 PM EST documented in this encounter Plan of Treatment Upcoming Encounters Date Type Department Care Team (Late st Contact Info) Description 02/28/2025 1:00 PM EDT Office Visit [facility] [address] [place] [address] Jovani Cuba MD [address] [place] [address] [address] [place] [address] documented as of this encounter Visit Diagnoses Diagnosis Atrial fibrillation, unspecified type (CMS/HCC)- Primary documented in this encounter Discontinued Medications Medication Sig Discontinue Reason Start Date End Da te rivaroxaban (XARELTO) 20 mg tablet Take 1 tablet (20 mg total) by mouth 1 (one) time each day. With meals 05/12/2024 08/09/2024 documented as of this encounter Care Teams Merchandising Execution Manager Relationship Specialty Start Date End Date Josesito Chavarria MD [address] [place] [address] [place] [address] DAMARIS Rahman PCP - General 11/29/13 documented as of this encounter
--- OUTSIDE RECORDS SUMMARY | 2024-08-23 14:27 | XMS_ITS | Encounter Summary ---
Author Organization [facility] Address [address] [place] [address] Care Team Providers Care Operations Systems Specialist Name Role Phone Josesito Chavarria MD Primary Care Provider [phone] Reason for Visit * Reason Onset Date Comments medication 08/09/2024 Encounter Details Date Type Department Care Team (Late st Contact Info) Description 08/09/2024 Telephone [facility]iology [address] [place] [phone] Jovani Cuba MD [address] [place] [address] [address] [place], [place] [phone] medication Social History Tobacco Use Types Packs/Day Years [...] as of this encounter Progress Notes * Karen Santos RN - 08/11/2024 9:28 AM EST Henri informed of Aleksander Bailey's response and voiced understanding. * Tacho Ellis NP - 08/11/2024 9:08 AM EST Yes that's ok to take * Fawn Mederos MA - 08/09/2024 3:04 PM EST Title Clopidogrel / Pantoprazole Risk Rating C: Monitor therapy Summary Pantoprazole may decrease serum concentrations of the active metabolite(s) of Clopidogrel. Severity Major Reliability Rating Fair: Existing data/ Pharmacist I wanting to know if they should still proceed to refill medication for pt * Anh Dowd - 08/09/2024 2:56 PM EST Henri from [employer] [facility] [employer] called. There is an interaction between the patient's Plavix and Pantoprazole. They are asking for confirmation that it is ok to prescribe both. Please call them back at [phone]. documented in this encounter Plan of Treatment Upcoming Encounters Date Type Department Care Team (Late st Contact Info) Description 02/28/2025 1:00 PM EDT Office Visit [facility] [address] [place] [address] Dr [address] [place] [address] Jovani Cuba MD [address] [place] [address] [address] [place] [address] documented as of this encounter Visit Diagnoses Not on filedocumented in this encounter Care Teams Operations Systems Specialist Relationship Specialty Start Date End Date Josesito Chavarria MD [address] [place] [address] Dr Kumar [facility] DAMARIS Rahman PCP - General 11/29/13 documented as of this encounter
--- OUTSIDE RECORDS SUMMARY | 2024-08-23 14:27 | XMS_ITS | Encounter Summary ---
Author Organization [facility] Address [address] [place] [address] Care Team Providers Care Clutch Operator Name Role Phone Josesito Chavarria MD Primary Care Provider [phone] Reason for Referral * Imaging (Routine) - Closed Specialty Diagnoses / Procedures Referred By Contac t Referred To Contact Cardiology Diagnoses Atrial fibrillation, unspecified type (CMS/HCC) Procedures Transesophageal echocardiogram (DAVI) with PRN contrast and 3D NY ECHOCARDIOGRAPHY TRANSESOPHAGEAL REAL-TIME W IMG DOC INCL PROBE PLCMNT NY ECHOCARDIOGRAPHY DOPPLER COLOR FLOW MAPPING [place] DOPPLER ECHO COMPLETE Dom Aceves MD [address] [place] [address] Phone: tel: fax: [facility] Referral ID Status Reason Start Date Expiration Date Visits Re quested Visits Authorized [id number] Closed 06/23/2024 06/23/2025 1 1 Reason for Visit * Imaging (Routine) - Closed Specialty Diagnoses / Procedures Referred By Contac t Referred To Contact Cardiology Diagnoses Atrial fibrillation, unspecified type (CMS/HCC) Procedures Transesophageal echocardiogram (DAVI) with PRN contrast and 3D [place] ECHOCARDIOGRAPHY TRANSESOPHAGEAL REAL-TIME W IMG DOC INCL PROBE PLCMNT [place] ECHOCARDIOGRAPHY DOPPLER COLOR FLOW MAPPING NY DOPPLER ECHO COMPLETE Dom Aceves MD [address] [place] [address] Phone: tel: fax: [facility] Referral ID Status Reason Start Date Expiration Date Visits Re quested Visits Authorized [id number] Closed 06/23/2024 06/23/2025 1 1 Encounter Details Date Type Department Care Team (Late st Contact Info) Description 07/25/2024 12:35 PM EST - 07/25/2024 11:59 PM EST Hospital Encounter [facility] [address] [place] [phone] Esteban Mcguire MD [address] [place] [address] Ant Herndon MD [address] [facility] [address] [place] [address] Atrial fibrillation, unspecified type (CMS/HCC) Discharge Disposition: [...] 5 minutes as needed for Chest pain. rivaroxaban (XARELTO) 20 mg tablet Take 1 tablet (20 mg total) by mouth 1 (one) time each day. With meals 90 each 3 05/12/2024 08/09/2024 documented as of this encounter Discharge Disposition Disposition Code Departure Means Destination Home or Self Care documented in this encounter H&P Notes * Esteban Mcguire MD - 07/25/2024 1:30 PM EST Note reviewed, no significant change in symptoms or exam at this time. Source Note - Marilyn Gutiérrez NP - 07/07/2024 8:10 AM EST Images from the original note were not included. [facility] PRIMARY REWORK OPERATOR: Jovani Cuba MD PCP: Josesito Chavarria MD [...] was patent. 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 The patient has a chronic subtotal [...] with anemia and was seen by Dr. Aceevs 03/2024 in consultation for a left atrial [...] I have obtained verbal consent from Elvin Parker Lizabeth prior to the recording. I have advised [...] plans to do so next week at [place], along with his weekly blood count. He [...] 82 Q-T Interval 392 QTc 476 R [place] 118 T [place] 11 ECG Interpretation Atrial fibrillation Right axis [...] to be performed by Dr. Mcguire at [facility]. A lab slip for cholesterol [...] up with Dr. Cuba in 6 months. [facility] Cosigned by Jovani Cuba MD at 07/08/2024 6:28 PM EST documented in this encounter Procedure Notes * Suzette Beaver RN - 07/25/2024 1:30 PM EST Care taken over from anesthesia, VSS. Patient drowsy but oriented. * Esteban Mcguire MD - 07/25/2024 1:30 PM EST Transesophageal Echo Procedure note Reason for procedure: Post-Watchman Chronic Afib Delinquent Tax Collector: Dr. Mcguire Sedation: Anesthesia deep sedation Procedure [...] Description 02/28/2025 1:00 PM EDT Office Visit [facility] [address] [place] [address] [address] [place] [address] Jovani Cuba MD [address] [place] [address] [address] [place] [address] documented as of this encounter Procedures Procedure [...] obtained. The probe was inserted by the yoker machine operator. There was no probe insertion difficulty. Moderate [...] 07/25/2024 documented in this encounter Care Teams Clutch Operator Relationship Specialty Start Date End Date Josesito Chavarria MD [address] [place] [address] Dr Sary [place] PCP - General 11/29/13 documented as of this encounter
--- OUTSIDE RECORDS SUMMARY | 2024-08-23 14:27 | XMS_ITS | Referral Summary ---
Author Organization [facility] Address [address] [place] [address] Care Team Providers Care Plugman Name Role Phone Josesito Chavarria MD Primary Care Provider Allergies No known active allergies Medications dutasteride [...] Used Date Smoking Tobacco: Former Cigarettes 1 40.2 1 985 - 1956 Smokeless Tobacco: Never [...] often do you attend chur ch or confucianist services? Never 04/15/2024 Do you belong to any clubs o r organizations such as protestant groups, unions, fraternal or athletic groups, or [...] Recorded Patient Health Questionnaire-2 Score 0 04/13/2024 [facility] - Occupational Stress Questionnaire Answer [...] any time in the past 12 m [facility], were you homeless or living in a fci (including now)? No 04/14/2024 Alcohol Use/AUDIT-C Answer [...] file Insurance MEDICARE PART A AND B [facility] Advance Directives * Full Code (Latest Code Status on File) Date Activated Date Inactivated Comments 04/13/2024 8:20 PM 04/16/2024 2:35 PM Care Teams Plugman Relationship Specialty Start Date End Date Josesito Chavarria MD [address] [place] [address] [place] [address] PCP - General Family Medicine 04/15/24
--- OUTSIDE RECORDS SUMMARY | 2024-08-23 14:27 | XMS_ITS | Clinical Summary ---
Author Organization [facility] Address [address] [place] [address] Care Team Providers Care Beef Pusher Name Role Phone Josesito Chavarria MD Primary Care Provider [phone] Allergies No known active allergies Medications dutasteride [...] often do you attend chur ch or spiritism services? Never 04/15/2024 Do you belong to any clubs o r organizations such as baptist groups, unions, fraternal or athletic groups, or [...] Recorded Patient Health Questionnaire-2 Score 0 04/13/2024 [facility] - Occupational Stress Questionnaire Answer Date [...] any time in the past 12 m [facility], were you homeless or living in a prison (including now)? No 04/14/2024 Alcohol Use/AUDIT-C Answer [...] topic Insurance MEDICARE PART A AND B [facility] Advance Directives * Full Code (Latest Code Status on File) Date Activated Date Inactivated Comments 04/13/2024 8:20 PM 04/16/2024 2:35 PM Care Teams Beef Pusher Relationship Specialty Start Date End Date Josesito Chavarria MD [address] [place] [address] [place] [address] PCP - General Family Medicine 04/15/24
--- OUTSIDE RECORDS SUMMARY | 2024-08-23 14:27 | XMS_ITS | Patient Health Record ---
Author Organization [facility] Address [address] [place] [address] Care Team Providers Care Floor Trader Name Role Phone Josesito Chavarria MD Primary Care Provider Carol Barron Unavailable [phone] Allergies No Known Allergies Results Component Value [...] Problem Acquired hammer toe of right foot (0776265282565 105) Other hammer toe(s) (acquired), right foot (M20.41) Active confirmed Problem Type 2 diabetes mellitus with peripheral angiopathy (993343904) Type 2 diabetes mellitus with diabetic peripheral angiopathy without gangrene (E11.51) Active confirmed Q7(A), Q8(2B), Q9(1B,2C) Problem Acquired hammer toe of left foot (9110426355037 103) Other hammer toe(s) (acquired), left foot (M20.42) Active confirmed Vital Signs Height 5ft 6in in 06/24/2024 Weight 150 lbs 06/24/2024 BMI 24.21 kg/m2 06/24/2024 Procedures Procedure Date Ordered Date Performed Result Body Sit e 38651-IDQCMIC NAIL, 6 OR MORE 06/24/2024 N/A 44704-NBVN SKIN LESIONS, OVER 4 06/24/2024 N/A Encounters Encounter Location Date Provider Diagnosis [facility] [place] [address] [place] [phone] 06/24/2024 Carol Valerio Other hammer toe(s) (acquired), [...] Treatment Pending Test Test Name Order Date [id number] NAIL, 6 OR MORE 06/24/2024 82521-QXKN SKIN LESIONS, OVER 4 06/24/20 24 Next Appt Details Provider Name:Carol Lauren lucrecia, 10/18/2024 10:15:00 AM, [address] [facility] [address], [place], [address], Insurance Providers Payer Name Payer Address Payer Phone Subscriber Number Group Number Insured Name Patient Relationship to Insured Coverage Start Date Coverage End Date Medicare [employer] [address] [place] [address] [id number] Elvin Barone Self - patient is the insured 6 [facility] [address] [place] [address] [id number] Elvin Barone Self - patient is the insured 6 Medical (General) History Medical History History ICD Code Anemia CAD (Cholesterol) type II diabetes High Blood Pressure Reflux ( GERD) Stomach ulcer Chicken pox Transfusions Surgical History Surgery Date(Month/Year) CABG surgery 1996 Stent 2021 hernia 2010
[2024-08-23 14:55] LABS: SLIDE REVIEW VERIFIED
== END 2024-08-23 11:48 | disposition home or self-care (01) ==
LOC: HO.LAB 11:47
PROVIDERS: PCP Internal Medicine; Visit Provider Internal Medicine
DX: D64.9 Anemia, unspecified (principal)
CPT/HCPCS: 36415; 85025

== ENCOUNTER 2024-08-31 12:09 | Outpatient (REF) | payer MEDICARE, BC, SELFPAY ==
[2024-08-31 12:34] LABS: MANUAL DIFF FLAG NO
[2024-08-31 13:09] LABS: Basophils Percent Auto 0.7 % (0-2); Eosinophils Absolute Auto 0.1 X10*3/uL (0.0-0.4); Eosinophils Percent Auto 2.8 % (0-4); Hematocrit 35.8 % (42.0-52.0); Hemoglobin 11.3 g/dl (14.0-18.0); Imm Gran Abs Auto 0.04 X10*3/uL (0.00-0.03); Imm Gran Pct Auto 0.9 % (0.0-0.4); Lymphocytes Percent Auto 22.3 % (20-40); Mean Corpuscular HGB Conc 31.6 g/dl (31.0-36.0); Mean Corpuscular Volume 88.8 fL (80.0-98.0); Mean Platelet Volume 10.9 fL (9.4-12.4); Monocytes Absolute Auto 0.6 X10*3/uL (0.1-1.2); Neutrophils Absolute Auto 2.7 x10*3/uL (2.0-8.3); Neutrophils Percent Auto 59.3 % (45-73); Platelet Count 171 X10*3/uL (160-400); Red Blood Count 4.03 X10*6/uL (4.60-5.80); Red Cell Distribution Width 14.9 % (11.0-16.0); White Blood Count 4.6 X10*3/uL (4.8-10.8)
--- OUTSIDE RECORDS SUMMARY | 2024-08-31 14:40 | XMS_ITS ---
Author Organization [facility] Address [address] [place] [address] Care Team Providers Care Photographic Equipment Technician Name Role Phone Josesito Chavarria MD Primary Care Provider Riki Avila Unavailable [phone] Allergies No Known Allergies Medications Medication SIG (Take, Route, Frequency, Duration) [...] AT BEDTIME Oral for 90 Active pyRIDostigmine Fairdale 60 MG 1 tablet Orally every 4 [...] capsule Orally Onc e a day Active Vital Signs Blood pressure systolic 00 mm Hg 07/07/19 25 Blood pressure diastolic 00 mm Hg 025 Height 67 in 07/07/2024 Weight 152 lbs 07/07/2024 BMI 23.80 kg/m2 07/07/2024 Encounters Encounter Location Date Provider Diagnosis [facility] [address] [place] [address] 07/07/2024 Riki Clements Acute posthemorrhagi c anemia D62 Assessments Encounter Date Diagnosis (ICD Code) Assessment Notes Treatment Notes Treatment Clinical Notes Section Notes 07/07/2024 Acute posthemorrhagic anemia (ICD-10 - D62) Continue the Protonix and Sucralfate twice a day fci for now Overall, Elvin appears to be stable at the present time in regard to the multiple episodes of previous GI bleeding. He does remain on his blood thinner, as well as his BID PPI and sucralfate. At this point he will continue followup with the cardiologists in regard to the recently placed Watchman and hopefully eventually will be able to be taken off of his blood thinner completely later this year and just remain on a low-dose aspirin. I did advise him to continue his PPI and sucralfate until he is off of his blood thinner completely. I will plan to see him again in the Fall for a followup visit. I did advise him and his daughter to call sooner as needed. If he was to have significant recurrent bleeding then he may need reevaluation with a followup small bowel capsule study to reassess the area that raised the suspicion of the Dieulafoy lesion and whether he would need a followup small bowel enteroscopy study for treatment of that. However, hopefully he will not have any further bleeding and things will remain stable until he is off of his blood thinner. Elvin and his daughter were comfortable with this plan. Thank you again for allowing me to participate in Elvin's care. I shall continue to keep you advised of his progress. Plan Of Treatment Treatment Notes Assessment Notes Acute posthemorrhagic anemia Continue th e Protonix and Sucralfate twice a day fci for now Next Appt Details Follow Up: 2024, Earlo n: Provider Name:Riki Clements , 03/21/2025 09:30:00 AM, [address], [address], [place], [address], Progress Notes * ELVIN MARTINEZ JDOB: [birth year] (83 yo M)Acc No.[id number]:07/07/2024 Progress Notes Patient:?ELVIN MARTINEZ Provider:?Riki Clements MD :1940???Age:83 Y???Sex:Male Doroteo e:07/07/2024 Address:[address] [place] [address] Pcp:Josesito Chavarria MD Subjective: * Chief Complaints: * ??? * HPI: ???incontinence:? I saw Elvin in followup today in regard to his previous GI bleeding and anemia. He was accompanied by his daughter. ?I last saw Elvin in November of 2023 when he was admitted to the hospital with anemia and underwent a negative upper endoscopy with Dr. Salter. As you know, he has been having difficulties with GI bleeding and anemia requiring transfusions and multiple GI procedures in 2022 and 2023 including multiple upper endoscopies, a colonoscopy, a small bowel capsule study, and most recently a negative small bowel enteroscopy at [facility] in April of 2024. All of the endoscopic procedures prior to that had been negative but the small bowel capsule study had raised a suspicion of a Dieulafoy lesion in the proximal small bowel. Hence he underwent the small bowel enteroscpy, although that was negative as well. His tissue with GI bleeding was complicated by the fact that he was on his blood thinner for his atrial fibrillation. ?Since the small bowel enteroscopy in April he has had no further signs of active bleeding. He did undergo placement of his Watchman procedure on June 08, 2024 at [facility] and is scheduled for a followup DAVI at the end of this month to assess whether his blood thinner can be changed. ?He has remained on his b.i.d. pantoprazole and Carafate, as well as his 81 mg aspirin and Xarelto. Fortunately, there's been no sign of any recurrent bleeding and the most recent hemoglobin on July 05 was stable at 10.9 compared to 10.5 on June 20, 2024. He has been eating fairly well and denies any significant heartburn or dysphagia. He denies any vomiting, abdominal pain, jaundice, hematochezia, nor melena. * ROS:?General/Constitutional:?Change in appetite?denies.?Chills?denies.?Fatigue?denies.?Ophthalmologic:?Patient denies? Negative..?ENT:?Patient denies?Negative..?Respiratory:?Patient denies?No coughing/hemoptysis..?Cardiovascular:?Patient denies? No chest pain/orthopnea..?Gastrointestinal:?Comments?See HPI for details.?Genitourinary:?Patient denies? No dysuria/hematuria..?Incontinence?denies.?Musculoskeletal:?Patient denies? No specific arthralgias/myalgias..?Skin:?Patient denies?No rash/pruritus..?Neurologic:?Patient denies? No headaches/seizures..?Psychiatric:?Patient denies?Negative..? * Medical History:? * Surgical History:?Bilateral inguinal hernia CABG as above Left knee * Hospitalization/Major Diagno stic Procedure:?No Hospitalization History. * Family History:?Father: dece ased, diagnosed with Heart disease.?Mother: .?Siblings: alive, diagnosed with Heart disease.? No colorectal cancer. * Social History:?Tobacco Use:?Tobacco Use/Smoking?Are you a: nonsmoker.?Drugs/Alcohol:?Alcohol Screen?Points: 1, Interpretation: Negative.?Miscellaneous:?Marital status: . Occupation: retired. ???Nonsmoker; no sig alcohol. * Medications:?TakingAvodart 0 .5 MG Capsule 1 capsule Orally Once a dayTamsulosin HCl 0.4 MG Capsule 1 capsule 30 minutes after the same meal each day Orally Once a dayDutasteride 0.5 MG Capsule TAKE ONE CAPSULE BY MOUTH DAILY AT BEDTIME Oral Jardiance 10 MG Tablet TAKE ONE TABLET BY MOUTH EVERY DAY Oral Ezetimibe 10 MG Tablet TAKE ONE TABLET BY MOUTH EVERY DAY Oral Sucralfate 1 GM Tablet TAKE ONE TABLET BY MOUTH THREE TIMES A DAY. Oral Xarelto 20 MG Tablet TAKE 1 TABLET BY MOUTH ONCE A DAY. WITH MEAL Oral Metoprolol Succinate ER 25 MG Tablet Extended Release 24 Hour TAKE HALF A TABLET BY MOUTH DAILY. Oral Simvastatin 40 MG Tablet TAKE ONE TABLET BY MOUTH EVERY DAY Oral Pantoprazole Sodium 40 MG Tablet Delayed Release TAKE ONE TABLET BY MOUTH TWICE A DAY Oral Isosorbide Mononitrate ER 30 MG Tablet Extended Release 24 Hour TAKE TWO TABLETS BY MOUTH EVERY DAY Oral Aspirin 81 81 MG Tablet Delayed Release 1 tablet Orally Once a dayFlomax 0.4 MG Capsule 1 capsule Orally Once a dayVitamin D 50 MCG (2000 UT) Tablet 1 tablet Orally Once a dayFerrous Sulfate 325 (65 Fe) MG Tablet 1 tablet Orally Three times a WeekFolic Acid 800 MCG Tablet 1 tablet Orally Once a dayVitamin C 500 MG Capsule as directed Orally Taking Avodart 0.5 MG Capsule 1 capsule Orally Once a dayTaking Tamsulosin HCl 0.4 MG Capsule 1 capsule 30 minutes after the same meal each day Orally Once a dayTaking Dutasteride 0.5 MG Capsule TAKE ONE CAPSULE BY MOUTH DAILY AT BEDTIME Oral Taking Jardiance 10 MG Tablet TAKE ONE TABLET BY MOUTH EVERY DAY Oral Taking Ezetimibe 10 MG Tablet TAKE ONE TABLET BY MOUTH EVERY DAY Oral Taking Sucralfate 1 GM Tablet TAKE ONE TABLET BY MOUTH THREE TIMES A DAY. Oral Taking Xarelto 20 MG Tablet TAKE 1 TABLET BY MOUTH ONCE A DAY. WITH MEAL Oral Taking Metoprolol Succinate ER 25 MG Tablet Extended Release 24 Hour TAKE HALF A TABLET BY MOUTH DAILY. Oral Taking Simvastatin 40 MG Tablet TAKE ONE TABLET BY MOUTH EVERY DAY Oral Taking Pantoprazole Sodium 40 MG Tablet Delayed Release TAKE ONE TABLET BY MOUTH TWICE A DAY Oral Taking Isosorbide Mononitrate ER 30 MG Tablet Extended Release 24 Hour TAKE TWO TABLETS BY MOUTH EVERY DAY Oral Taking Aspirin 81 81 MG Tablet Delayed Release 1 tablet Orally Once a dayTaking Flomax 0.4 MG Capsule 1 capsule Orally Once a dayTaking Vitamin D 50 MCG (2000 UT) Tablet 1 tablet Orally Once a dayTaking Ferrous Sulfate 325 (65 Fe) MG Tablet 1 tablet Orally Three times a WeekTaking Folic Acid 800 MCG Tablet 1 tablet Orally Once a dayTaking Vitamin C 500 MG Capsule as directed Orally Not-Taking/PRNVytorin 10-40 MG Tablet 1 tablet Orally Once a daypyRIDostigmine Fairdale 60 MG Tablet 1 tablet Orally every 4 hrsWarfarin Sodium 5 MG Tablet 1 tablet Orally Once a dayNot-Taking/PRN Vytorin 10-40 MG Tablet 1 tablet Orally Once a dayNot-Taking/PRN pyRIDostigmine [place]dale 60 MG Tablet 1 tablet Orally every 4 hrsNot-Taking/PRN Warfarin Sodium 5 MG Tablet 1 tablet Orally Once a dayDiscontinuedAtenolol 25 MG Tablet 1 tablet Orally Once a daymetFORMIN HCl 500 MG Tablet 1 tablet with meals Orally Twice a daySuprep Bowel Prep 1 kit Solution as directed Orally as directedMedication List reviewed and reconciled with the patientDiscontinued Atenolol 25 MG Tablet 1 tablet Orally Once a dayDiscontinued metFORMIN HCl 500 MG Tablet 1 tablet with meals Orally Twice a dayDiscontinued Suprep Bowel Prep 1 kit Solution as directed Orally as directedMedication List reviewed and reconciled with the patient * Allergies:?N.K.D.A.yes[Aller gies Verified] Objective: * Vitals:?Wt: 152 lbs, Ht: 67 in, BMI:23.80 Index, BP: 00/00 mm Hg. * Examination: ???General Examination: ?GENERAL APPEARANCE:?pleasant, well nourished, well developed, in no acute distress.?EYES:?sclera non-icteric.?ORAL CAVITY:?mucosa moist.?NECK/THYROID:?no cervical lymphadenopathy, neck supple.?SKIN:?nonjaundiced, no spider angiomata..?HEART:?S1, S2 normal.?LUNGS:?clear to auscultation bilaterally.?ABDOMEN:?normal bowel sounds, no guarding or rigidity, no hepatosplenomegaly, no masses palpable, soft, nontender, nondistended..?EXTREMITIES:?no edema.?NEUROLOGIC:?alert and oriented.? Assessment: * Assessment: 1.?Acute posthemorrhagic ane africa - D62 (Primary)? Overall, Elvin appears to be stable at the present time in regard to the multiple episodes of previous GI bleeding. He does remain on his blood thinner, as well as his BID PPI and sucralfate. At this point he will continue followup with the cardiologists in regard to the recently placed Watchman and hopefully eventually will be able to be taken off of his blood thinner completely later this year and just remain on a low-dose aspirin. I did advise him to continue his PPI and sucralfate until he is off of his blood thinner completely. I will plan to see him again in the Fall for a followup visit. I did advise him and his daughter to call sooner as needed. If he was to have significant recurrent bleeding then he may need reevaluation with a followup small bowel capsule study to reassess the area that raised the suspicion of the Dieulafoy lesion and whether he would need a followup small bowel enteroscopy study for treatment of that. However, hopefully he will not have any further bleeding and things will remain stable until he is off of his blood thinner. Elvni and his daughter were comfortable with this plan. Thank you again for allowing me to participate in Elvin's care. I shall continue to keep you advised of his progress. Plan: * Treatment: * Procedure Codes:?1036F TOBAC CO NON-[id number] BP SCR NOT PRFRM REC REASON NOS * Preventive Medicine:? ??Screenings:?Fall Risk Screening?Fall Risk Assessment:?No falls in the past year,?Screening:?No falls in the past year,?Assessment:?Not performed, no reason specified,?Plan of Care:?Not documented, no reason specified.? * Follow Up:?2024 * * Sign off status: Completed true * Provider:?Riki Clements MD Date:? 025 Generated for Shelbii elier/Kamari/eTransmitting on:?08/31/2024 02:39 PM EST History and Physical Notes * HPI (History of Present Illness) Category Sub-Category Detail Notes Category Not es incontinence I saw Elvin in followup today in regard to his previous GI bleeding and anemia. He was accompanied by his daughter. I last saw Elvin in November of 2023 when he was admitted to the hospital with anemia and underwent a negative upper endoscopy with Dr. Salter. As you know, he has been having difficulties with GI bleeding and anemia requiring transfusions and multiple GI procedures in 2022 and 2023 including multiple upper endoscopies, a colonoscopy, a small bowel capsule study, and most recently a negative small bowel enteroscopy at [facility] in April of 2024. All of the endoscopic procedures prior to that had been negative but the small bowel capsule study had raised a suspicion of a Dieulafoy lesion in the proximal small bowel. Hence he underwent the small bowel enteroscpy, although that was negative as well. His tissue with GI bleeding was complicated by the fact that he was on his blood thinner for his atrial fibrillation. Since the small bowel enteroscopy in April he has had no further signs of active bleeding. He did undergo placement of his Watchman procedure on June 08, 2024 at [facility] and is scheduled for a followup DAVI at the end of this month to assess whether his blood thinner can be changed. He has remained on his b.i.d. pantoprazole and Carafate, as well as his 81 mg aspirin and Xarelto. Fortunately, there's been no sign of any recurrent bleeding and the most recent hemoglobin on July 05 was stable at 10.9 compared to 10.5 on June 20, 2024. He has been eating fairly well and denies any significant heartburn or dysphagia. He denies any vomiting, abdominal pain, jaundice, hematochezia, nor melena. Examination Category Sub-Category Detail Notes Category Not es General Examination GENERAL APPEARANCE: pleasant , well nourished, well developed, in no acute distress EYES: sclera non-icteric NECK/THYROID: no cervical lymphade nopathy, neck supple HEART: S1, S2 normal LUNGS: clear to auscultatio n bilaterally ABDOMEN: normal bowel sounds, no guarding or rigidity, no hepatosplenomegaly, no masses palpable, soft, nontender, nondistended. NEUROLOGIC: alert and oriented SKIN: nonjaundiced, no spi vickie angiomata. EXTREMITIES: no edema ORAL CAVITY: mucosa moist
--- OUTSIDE RECORDS SUMMARY | 2024-08-31 14:40 | XMS_ITS | Encounter Summary ---
Author Organization [facility] Address [address] [place] [address] Care Team Providers Care Workers Compensation Claims Assistant Name Role Phone Josesito Chavarria MD Primary Care Provider Reason for Visit * Reason Comments Follow-up Encounter Details Date Type Department Care Team (Late st Contact Info) Description 08/09/2024 1:40 PM EST Office Visit [facility] [address] [facility] [address] [place] [address] Christina Varma NP [address] [place] [address] Atrial fibrillation, unspecified type (CMS/HCC) [...] NP - 08/09/2024 1:40 PM EST PRIMARY STAVE LOG CUT OFF SAW OPERATOR: Jovani Cuba MD PCP: Josesito Chavarria [...] his daughter. Documentation completed with aid of [employer]. I have obtained verbal consent from patient [...] 82 Q-T Interval 392 QTc 476 R Jerome 118 T Jerome 11 ECG Interpretation Atrial fibrillation Right axis [...] be determined by primary care physician or splicing machine operator automatic - Follow-up appointment with Dr. Cuba scheduled [...] Description 02/28/2025 1:00 PM EDT Office Visit [facility] [address] [place] [address] Jovani Cuba MD [address] [place] [address] DRIVE [address] [place] [address] documented as of this encounter Visit Diagnoses Diagnosis Atrial fibrillation, unspecified type (CMS/HCC)- Primary documented in this encounter Discontinued Medications Medication Sig Discontinue Reason Start Date End Da te rivaroxaban (XARELTO) 20 mg tablet Take 1 tablet (20 mg total) by mouth 1 (one) time each day. With meals 05/12/2024 08/09/2024 documented as of this encounter Care Teams Workers Compensation Claims Assistant Relationship Specialty Start Date End Date Josesito Chavarria MD [address] [place] [address] [place] [address] DAMARIS Rahman PCP - General 11/29/13 documented as of this encounter
--- OUTSIDE RECORDS SUMMARY | 2024-08-31 14:40 | XMS_ITS | Patient Health Record ---
Author Organization [facility] Address [address] [place] [address] Care Team Providers Care Car Park Attendant Name Role Phone Deon VALENZUELA, Josesito Primary Care Provider Esther ClementsRiki Unavailable [phone] Allergies No Known Allergies Results Component Value Reference Range Notes Pathology Reviewed date:12/25/2023 04:12:01 PM Interpretation: Performing Lab:[facility], [address] [place] [phone] Notes/Report: --- Name: Elvin Cao Age/Sex: 83/M : 1940 Unit#: [id number] Attend Dr: Tegan Buckner MD Re12/22/23 Status : DIS IN Location: [facility] [id number] Disch: 12/24/23 --- SPEC : [id number] RECD : 12/24/23 STATUS: RAGHAVENDRA MILIAN NUM: [id number] DENI: 12/23/23-[address] [facility] [address]: Anshul Salter MD ENTERED: 12/24/23-08 40 SP TYPE: Surgical OTHR DR: Josesito Chavarria MD, Nayyer MD ORDERED: HE Stain/3, Gross Micro L4, IHC, Special st. 2, H. pylori, AB/PAS Diagnosis Stomach, antrum, biopsy: Antral-type mucosa with moderate chronic inactive inflammation; no Helicobacter organisms seen. Clinical History Pre-Op Dx: GI bleed Post-Op Dx: Normal Microscopic Description Microscopic sections examined. No metaplastic changes are seen, supported by AB/PAS stains; no Helicobacter organisms are seen, supported by H. pylori immunostain. Material Received Antral bx's Gross Description Received in formalin labeled ?antral bx's? are 2 sin-ruelas rectangular tissue fragments each measuring 0.6 cm, submitted in toto in a cassette labeled A. CEDS Special studies orde red and performed: Immunostain for H. pylori; AB/PAS stains Copies To: Anshul Salter MD [facility] [address] [place] [address] [address] [place] [address] Josesito Chavarria MD [address] [place] [address], [address] [place] [address] Tegan Buckner MD [address] [place] [address] CONTINUED ON NEXT PAGE --- Name: Elvin Cao Age/Sex: 83/M : 1940 Unit#: [id number] Attend Dr: Tegan Buckner MD Re12/22/23 Status : DIS IN Location: [facility] 473- Disch: 12/24/23 --- SPEC : [id number] RECD : 12/24/23 STATUS: RAGHAVENDRA MILIAN NUM: [id number] DENI: 12/23/23-[address] [facility] [address]: Anshul Salter MD ENTERED: 12/24/23 40 SP TYPE: Surgical OTHR DR: Josesito Chavarria MD,Tegan VALENZUELA ORDERED: HE Stain/3, Gross Micro L4, IHC, Special st. 2, H. pylori, AB/PAS --- Signed (signature on file) Manfred Vance MD 12/25/23 1349 --- END OF REPORT Complete Blood Count Auto Di ff Reviewed date:12/24/2023 12:39:32 PM Interpretation: Performing Lab:[facility], [address] [place] [phone] Notes/Report: White Blood Count 9.7 4.8-10.8 X10*3/uL [...] 0.0-0.2 /100WBC Neutrophils Absolute Auto 7.2 2.0-8.3 x10*3/uL Imm Gran Abs Auto 0.06 0.00-0.03 X10*3/uL Lymphocytes Absolute Auto 1.1 1.2-4.9 X10*3/uL Monocytes Absolute Auto 1.1 0.1-1.2 X10*3/uL Eosinophils Absolute Auto 0.2 0.0-0.4 X10*3/uL Basophils Absolute Auto 0.0 0.0-0.2 X10*3/uL NRBC Abs Auto 0.000 0.0-0.012 X10*3/uL Basic Metabolic Panel Fastin g Reviewed date:12/24/2023 12:40:09 PM Interpretation: Performing Lab:[facility], [address] [place] [phone] Notes/Report: Sodium 139 135-145 mmol/L Potassium 4.6 [...] Glomerular Filt Rate > 60 NOTE: For -Nigerian individuals, multiply the result by 1.210. Chronic Kidney Disease: Estimated GFR < 60 mL/min/1.73m2 Severe Kidney Disease: Estimated GFR < 15 mL/min/1.73m2 Glucose Fasting 97 60-99 mg/dL Calcium 9.1 8.4-10.2 mg/dL Reason For Referral No Information Medications Medication [...] day for 30 day(s) 07/07/2024 Active pyRIDostigmine Golva 60 MG 1 tablet Orally every 4 [...] capsule Orally Onc e a day Active Problems Problem Type SNOMED Code ICD Code Onset Dates Problem Status W/U Status Risk Notes Problem Acute posthemorrhagic anemia (720545183) Acute posthemorrhagic anemia (D62) Active confirmed Vital Signs Blood pressure diastolic 00 mm Hg 07/07/2024 Height 67 in 07/07/2024 Blood pressure systolic 00 mm Hg 07/07/2024 Weight 152 lbs 07/07/2024 BMI 23.80 kg/m2 07/07/2024 Encounters Encounter Location Date Provider Diagnosis [facility] [address] [place] [phone] 07/07/2024 Riki Clements Acute posthemorrhagi c anemia D62 [facility] [address] [place] [phone] 12/24/2023 Riki Clements [facility] [address] [place] [phone] 12/25/2023 Riki Clements [facility] [address] [place] [address] 01/20/2024 Riki Clements Acute posthemorrhagi c anemia D62 [facility] [address] [place] [phone] 04/13/2024 Riki Clements [facility] [address] [place] [address] 04/21/2024 Riki Clements [facility] [address] [place] [phone] 05/15/2024 Riki Clements Assessments Encounter Date Diagnosis (ICD Code) Assessment Notes Treatment Notes Treatment Clinical Notes Section Notes 07/07/2024 Acute posthemorrhagic anemia (ICD-10 - D62) Continue the Protonix and Sucralfate twice a day care home for now Overall, Elvin appears to be [...] to keep you advised of his progress. 01/20/2024 Acute posthemorrhagic anemia (ICD-10 - D62) Plan Of Treatment Pending Test Test Name Order Date CBC w DIFF 01/20/2024 Future Test Test Name Order Date COLONOSCOPY 12/13/2014 Next Appt Details Provider Name:Riki Clements , 03/21/2025 09:30:00 AM, [address] [facility], [address], [place], [address], Insurance Providers Payer Name Payer Address Payer Phone Subscriber Number Group Number Insured Name Patient Relationship to Insured Coverage Start Date Coverage End Date MEDICARE OF [place] [address] [place] [address] [id number] ELVIN CAO Self - patient is the insured [facility] [address] [place], [place] [id number] [phone] [id number] ELVIN CAO Self - patient is the insured Medical (General) History Medical History History ICD Code HTN NIDDM 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 screening colonoscopy i n 09/2002 except for a hyperplastic polyp, sigmoid divertciulosis, internal hemorrhoidsis Colonoscopy 2014with a tubular adenoma r emoved Hyperlipidemia GI bleeding--multiple episod es of GI bleeding with significant anemia in 2022 and 2023. Evaluated at [facility], [facility], and [facility] with multiple upper endoscopies and a colonoscopy. These were all nonrevealing. 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 A followup small bowel enteroscopy with Dr. Blair at [facility] in 04/2024 was also negative however. He has not had any sign of active bleeding since then despite remaining on his blood thinners. Watchman procedure in at [facility] and scheduled for a DAVI 07/25/2024 to see if his Xarelto can be changed to Plavix. Surgical History Surgery Date(Month/Year) Bilateral inguinal hernia CABG as above Left knee
--- OUTSIDE RECORDS SUMMARY | 2024-08-31 14:40 | XMS_ITS ---
Author Organization [facility] Address [address] [place] [address] Care Team Providers Care Blanket Cutting Machine Operator Name Role Phone Deon VALENZUELA, Josesito Primary Care Provider Riki Avila [phone] REASON FOR VISIT Patient presents today for a f/u from a GI bleed. Encounters Encounter Location Date Provider Diagnosis [facility] [address] [place] [address] 05/19/2024 Riki Clements Plan Of Treatment Next Appt Details Provider Name:Riki Clements , 03/21/2025 09:30:00 AM, [address], [address], [place], [address], Progress Notes * ANNE MARTINEZDOB: [birth year] (83 yo M)Acc No.[id number]:05/19/2024 Progress Notes Patient:?ANNE MARTINEZ Provider:?Riki Clements MD :1940???Age:83 Y???Sex:Male Doroteo e:05/19/2024 Address:[address] [place], [place] [address] Pcp:Josesito Chavarria MD Subjective: * Chief Complaints: * ???1. Patient presents today for a f/u from a GI bleed. . * Medical History:? Objective: * Vitals:? Assessment: Plan: * Treatment: * * The named appointment provid er may or may not be the originator of this progress note, and it is not deemed complete until electronically signed by the appointment provider. Sign off status: Pending * Provider:?Riki Clements MD Date:? 024 Generated for Jeanine thapa/Kamari/Isidoro on:?08/31/2024 02:39 PM EST
--- OUTSIDE RECORDS SUMMARY | 2024-08-31 14:40 | XMS_ITS | Clinical Summary ---
Author Organization [facility] Address [address] [address] Phone Care Team Providers Care Information Security Associate Name Role Phone Josesito Chavarria MD Primary Care Provider [phone] Allergies No known active allergies Medications ascorbic acid, vitamin C, 500 mg capsule [...] BY MOUTH EVERY DAY 90 tablet 3 4 Active clopidogreL (PLAVIX) 75 mg tablet Take 1 tablet (75 mg total) by mouth 1 (one) time each day. 30 each 3 5 Active rivaroxaban (XARELTO) 20 mg tablet Take 1 tablet (20 mg total) by mouth 1 (one) time each day. With meals 90 each 3 4 025 Discontinued amoxicillin (AMOXIL) 500 mg capsule Take 4 caps (2000 mg) 1 hour prior to procedure. 12 capsule 11 5 025 Active Problems Problem Noted Date Diagnosed Date [...] Encounters Date Type Department Care Team Description 08/09/2024 1:40 PM EST Office Visit [facility] [place] [facility] [address] [place] [address] Christina Varma, CABLE TOOL DRILLER Atrial fibrillation, unspecified type (CMS/HCC) (Primary Dx) 08/09/2024 Telephone [facility] - [facility] [address] [place] [address] Jovani Cuba MD medication 07/25/2024 1:04 PM EST Anesthesia Event [facility] Cardiac Pneumatic Jack Operator [address] [place] [address] Ant Herndon MD 07/25/2024 12:35 PM EST - 07/25/2024 11:59 PM EST Hospital Encounter [facility] Cardiac Pneumatic Jack [address] [place] [address] Esteban Mcguire MD Gomes, Sheldon B, MD Atrial fibrillation, unspecified type (CMS/HCC) Discharge Disposition: Home or Self Care 07/07/2024 8:10 AM EST Office Visit [facility] [place] [address] [place] [address] Marilyn Gutiérrez NP Atrial fibrillation, unspecified type (CMS/HCC) (Primary Dx); Coronary artery disease involving saxman coronary artery of saxman heart without angina pectoris; Aortic valve stenosis, etiology of cardiac valve disease unspecified 06/23/2024 Telephone [facility] [address] [place] [address] Dom Aceves MD Procedure (DAVI post watchman 07.25.24) 06/03/2024 Telephone [facility] - [address] [place] [address] Dom Aceves MD Procedure (Watchman Procedure w/ Dr. Aceves at [facility] on 06.08.24) from Last 3 Months Medical History Medical [...] 07/25/2024 1:45 PM EST Oxygen Saturation 98% 08/09/2024 1:55 PM EST Inhaled Oxygen Concentration - - Weight 69.9 kg (154 lb) 08/09/2024 1:55 PM EST Height 170.2 cm (5' 7 ) 08/09/2024 1:55 PM EST Body Mass Index 24.12 08/09/2024 1:55 PM EST Plan of Treatment Upcoming Encounters Date Type Department Care Team (Late st Contact Info) Description 02/28/2025 1:00 PM EDT Office Visit [facility] [address] [place] [address] Jovani Cuba MD [address] [place] [address] DRIVE [address] [place] [address] Health Maintenance Due Date Last Done Comments DTaP,Tdap,and Td Vaccines (1 - Tdap) 11/20/1959 Pneumococcal Vaccine: 50+ Years (1 of 2 [...] AM EST Atrial fibrillation, unspecified type (CMS/HCC) ANNUAL BMP BLOOD TEST Routine 04/16/2024 from [...] obtained. The probe was inserted by the sharples machine operator. There was no probe insertion [...] ms GEMUSE QTc 476 ms GEMUSE R [place] 118 degrees GEMUSE T [place] 11 degrees GEMUSE ECG Interpretation Atrial fibrillation Right axis deviation Abnormal ECG Confirmed by Prasad CUBA JAMES ([id number]) on 07/07/2024 2:34:42 PM GEMUSE 07/07/2024 8:28 AM EST 07/07/2024 2:34 PM EST Marilynse Blackwoodoc CABLE TOOL DRILLER ECG ORDERABLES Edited Resul t - Final GEMUSE * Annual BMP Blood Test (04/16/2024) Annual BMP Blood Test abstracted us Historical Provider HEALTH MAINTENANCE Final Result from Last 3 Months or Most Recently Relevant to Health Maintenance Insurance MEDICARE [facility] Care Teams Information Security Associate Relationship Specialty Start Date End Date Josesito Chavarria MD [address] [place] [address] [place] [facility] - General 11/29/13
--- OUTSIDE RECORDS SUMMARY | 2024-08-31 14:41 | XMS_ITS | Referral Summary ---
Author Organization [facility] Address [address] [place] [address] Care Team Providers Care Roofing Applicator Name Role Phone Josesito Chavarria MD Primary Care Provider [phone] Allergies No known active allergies Medications dutasteride [...] often do you attend chur ch or pentecostalism services? Never 04/15/2024 Do you belong to any clubs o r organizations such as hindu groups, unions, fraternal or athletic groups, or [...] Recorded Patient Health Questionnaire-2 Score 0 04/13/2024 [facility] - Occupational Stress Questionnaire Answer Date [...] any time in the past 12 m [facility], were you homeless or living in a skilled nursing (including now)? No 04/14/2024 Alcohol Use/AUDIT-C Answer [...] file Insurance MEDICARE PART A AND B [facility] Advance Directives * Full Code (Latest Code Status on File) Date Activated Date Inactivated Comments 04/13/2024 8:20 PM 04/16/2024 2:35 PM Care Teams Roofing Applicator Relationship Specialty Start Date End Date Josesito Chavarria MD [address] [place] [address] [place] [address] PCP - General Family Medicine 04/15/24
--- OUTSIDE RECORDS SUMMARY | 2024-08-31 14:41 | XMS_ITS | Clinical Summary ---
Author Organization [facility] Address [address] [place] [address] Care Team Providers Care Oracle Security Consultant Name Role Phone Josesito Chavarria MD Primary Care Provider [phone] Allergies No known active allergies Medications dutasteride [...] often do you attend chur ch or christian services? Never 04/15/2024 Do you belong to any clubs o r organizations such as pentecostalism groups, unions, fraternal or athletic groups, or [...] Recorded Patient Health Questionnaire-2 Score 0 04/13/2024 [facility] - Occupational Stress Questionnaire Answer Date Recorded [...] any time in the past 12 m [facility], were you homeless or living in [...] topic Insurance MEDICARE PART A AND B [facility] Advance Directives * Full Code (Latest Code Status on File) Date Activated Date Inactivated Comments 04/13/2024 8:20 PM 04/16/2024 2:35 PM Care Teams Oracle Security Consultant Relationship Specialty Start Date End Date Josesito Chavarria MD [address] [place] [address] [place] [address] PCP - General Family Medicine 04/15/24
--- OUTSIDE RECORDS SUMMARY | 2024-08-31 14:41 | XMS_ITS | Encounter Summary ---
Author Organization [facility] [address] [place] [address] Address [address] [place] [address] Care Team Providers Care Cable Ferry Operator Name Role Phone Josesito Chavarria MD Primary Care Provider [phone] Reason for Visit * Reason Onset Date Comments medication 08/09/2024 Encounter Details Date Type Department Care Team (Late st Contact Info) Description 08/09/2024 Telephone [facility] [address] [place] [address] Jovani Cuba MD [address] [place] [address] DR[address] [place], [place] [phone] medication Social History Tobacco Use Types Packs/Day [...] prescribe both. Please call them back at [phone]. documented in this encounter Plan of Treatment Upcoming Encounters Date Type Department Care Team (Late st Contact Info) Description 02/28/2025 1:00 PM EDT Office Visit [facility] [address] [place] [address] [address] [place] [address] Jovani Cuba MD [address] [place] [address] DRIVE [address] [place] [address] documented as of this encounter Visit Diagnoses Not on filedocumented in this encounter Care Teams Cable Ferry Operator Relationship Specialty Start Date End Date Josesito Chavarria MD [address] [place] [address] Dr Kumar [facility] DAMARIS Rahman PCP - General 11/29/13 documented as of this encounter
--- OUTSIDE RECORDS SUMMARY | 2024-08-31 14:41 | XMS_ITS | Patient Health Record ---
Author Organization [facility] Carmen marisela Price Address [address] [place] [address] Care Team Providers Care Confectionery Maker Name Role Phone Josesito Chavarria MD Primary Care Provider Carol Barron Unavailable [phone] Allergies No Known Allergies Results Component Value [...] Problem Acquired hammer toe of right foot (1011815184726 105) Other hammer toe(s) (acquired), right foot (M20.41) Active confirmed Problem Type 2 diabetes mellitus with peripheral angiopathy (507647698) Type 2 diabetes mellitus with diabetic peripheral angiopathy without gangrene (E11.51) Active confirmed Q7(A), Q8(2B), Q9(1B,2C) Problem Acquired hammer toe of left foot (8905058314495 103) Other hammer toe(s) (acquired), left foot (M20.42) Active confirmed Vital Signs Height 5ft 6in in 06/24/2024 Weight 150 lbs 06/24/2024 BMI 24.21 kg/m2 06/24/2024 Procedures Procedure Date Ordered Date Performed Result Body Sit e 07983-OZBUBFW NAIL, 6 OR MORE 06/24/2024 N/A 04518-FYJA SKIN LESIONS, OVER 4 06/24/2024 N/A Encounters Encounter Location Date Provider Diagnosis [facility] [place] [address] [place] [address] 06/24/2024 Carol Valerio Other hammer toe(s) (acquired), [...] Treatment Pending Test Test Name Order Date 82451-VOEBKUO NAIL, 6 OR MORE 06/24/2024 95025-MACY SKIN LESIONS, OVER 4 06/24/20 24 Next Appt Details Provider Name:Carol Lauren lucrecia, 10/18/2024 10:15:00 AM, [address] [facility] [facility] [address], [place], [address], Insurance Providers Payer Name Payer Address Payer Phone Subscriber Number Group Number Insured Name Patient Relationship to Insured Coverage Start Date Coverage End Date Medicare National [employer]t [employer] [address] [place] [address] [id number] Elvin Barone Self - patient is the insured 6 [facility] [address] [place] [address] [id number] Elvin Barone Self - patient is the insured 6 Medical (General) History Medical History History ICD Code Anemia CAD (Cholesterol) type II diabetes High Blood Pressure Reflux ( GERD) Stomach ulcer Chicken pox Transfusions Surgical History Surgery Date(Month/Year) CABG surgery 1996 Stent 2021 hernia 2010
--- OUTSIDE RECORDS SUMMARY | 2024-08-31 14:41 | XMS_ITS ---
Author Organization [facility] Address [address] [place] [address] Care Team Providers Care Telephone Assembler Name Role Phone Josesito Chavarria MD Primary Care Provider Riki Avila [phone] Encounters Encounter Location Date Provider Diagnosis [facility] [address] [place] [address] 05/15/2024 Riki Clements Plan Of Treatment Next Appt Details Provider Name:Riki Clements , 03/21/2025 09:30:00 AM, [address], [address], [place], [address], Progress Notes * ANNE MARTINEZDOB: (83 yo M)Acc No.[id number]:05/15/2024 Patient:?ANNE MARTINEZ :1940???Age:83 Y???Sex:Male Address:[address] [place] [address] * true * Date:? Generated for Printi ng/Famichaelg/eTransmitting on:?08/31/2024 02:40 PM EST
== END 2024-08-31 12:10 | disposition home or self-care (01) ==
LOC: HO.LAB 12:09
PROVIDERS: PCP Internal Medicine; Visit Provider Internal Medicine
DX: D64.9 Anemia, unspecified (principal)
CPT/HCPCS: 36415; 85025

== ENCOUNTER 2024-09-13 11:22 | Outpatient (REF) | payer MEDICARE, BC, SELFPAY ==
[2024-09-13 11:59] LABS: MANUAL DIFF FLAG NO
[2024-09-13 12:09] LABS: Basophils Percent Auto 0.6 % (0-2); Eosinophils Absolute Auto 0.1 X10*3/uL (0.0-0.4); Eosinophils Percent Auto 1.9 % (0-4); Hematocrit 35.4 % (42.0-52.0); Hemoglobin 11.8 g/dl (14.0-18.0); Imm Gran Abs Auto 0.03 X10*3/uL (0.00-0.03); Imm Gran Pct Auto 0.6 % (0.0-0.4); Lymphocytes Absolute Auto 0.9 X10*3/uL (1.2-4.9); Lymphocytes Percent Auto 17.9 % (20-40); Mean Corpuscular HGB Conc 33.3 g/dl (31.0-36.0); Mean Corpuscular Hemoglobin 28.7 pg (27.0-33.0); Mean Corpuscular Volume 86.1 fL (80.0-98.0); Mean Platelet Volume 10.6 fL (9.4-12.4); Monocytes Absolute Auto 0.7 X10*3/uL (0.1-1.2); Monocytes Percent Auto 12.9 % (2-11); Neutrophils Absolute Auto 3.5 x10*3/uL (2.0-8.3); Neutrophils Percent Auto 66.1 % (45-73); Platelet Count 172 X10*3/uL (160-400); Red Blood Count 4.11 X10*6/uL (4.60-5.80); Red Cell Distribution Width 14.6 % (11.0-16.0); White Blood Count 5.2 X10*3/uL (4.8-10.8)
== END 2024-09-13 11:23 | disposition home or self-care (01) ==
LOC: HO.LABR 11:22
PROVIDERS: PCP Internal Medicine; Visit Provider Internal Medicine
DX: D64.9 Anemia, unspecified (principal)
CPT/HCPCS: 36415; 85025

== ENCOUNTER 2024-09-26 16:24 | Outpatient (REF) | payer MEDICARE, BC, SELFPAY ==
[2024-09-26 16:35] LABS: MANUAL DIFF FLAG NO
[2024-09-26 17:07] LABS: Basophils Percent Auto 0.6 % (0-2); Eosinophils Absolute Auto 0.1 X10*3/uL (0.0-0.4); Hematocrit 35.1 % (42.0-52.0); Hemoglobin 11.2 g/dl (14.0-18.0); Imm Gran Abs Auto 0.04 X10*3/uL (0.00-0.03); Imm Gran Pct Auto 0.6 % (0.0-0.4); Lymphocytes Absolute Auto 1.3 X10*3/uL (1.2-4.9); Lymphocytes Percent Auto 19.8 % (20-40); Mean Corpuscular HGB Conc 31.9 g/dl (31.0-36.0); Mean Corpuscular Hemoglobin 28.7 pg (27.0-33.0); Mean Platelet Volume 10.8 fL (9.4-12.4); Monocytes Absolute Auto 0.8 X10*3/uL (0.1-1.2); Neutrophils Absolute Auto 4.2 x10*3/uL (2.0-8.3); Platelet Count 172 X10*3/uL (160-400); Red Cell Distribution Width 15.3 % (11.0-16.0); White Blood Count 6.4 X10*3/uL (4.8-10.8)
--- OUTSIDE RECORDS SUMMARY | 2024-09-26 18:00 | XMS_ITS ---
Author Organization [facility] Address [address] [place] [address] Care Team Providers Care Procurement Representative Name Role Phone Josesito Chavarria MD Primary Care Provider Riki Avila Unavailable [phone] Allergies No Known Allergies Medications Medication SIG [...] AT BEDTIME Oral for 90 Active pyRIDostigmine Hyrum 60 MG 1 tablet Orally every 4 [...] 07/07/2024 Encounters Encounter Location Date Provider Diagnosis [facility] [address] [place] [address] 07/07/2024 Riki Clements Acute posthemorrhagi c anemia D62 Assessments Encounter Date Diagnosis (ICD Code) Assessment Notes Treatment Notes Treatment Clinical Notes Section Notes 07/07/2024 Acute posthemorrhagic anemia (ICD-10 - D62) Continue the Protonix and Sucralfate twice a day oil heaterman for now Overall, Elvin appears to be [...] e Protonix and Sucralfate twice a day oil heaterman for now Next Appt Details Follow Up: 2024, Earlo n: Provider Name:Riki Clements , 03/21/2025 09:30:00 AM, [address], [address], [place], [address], Progress Notes * ELVIN MARTINEZ JDOB: [birth year] (83 yo M)Acc No.[id number]:07/07/2024 Progress Notes Patient:?ELVIN MARTINEZ Provider:?Riki Clements MD :1940???Age:83 Y???Sex:Male Doroteo e:07/07/2024 Address:[address] [place] [address] Pcp:Josesito Chavarria MD Subjective: * Chief Complaints: [...] recently a negative small bowel enteroscopy at [facility] in April of 2024. All of [...] Watchman procedure on June 08, 2024 at [facility] and is scheduled for a followup [...] rash/pruritus..?Neurologic:?Patient denies? No headaches/seizures..?Psychiatric:?Patient denies?Negative..? * Medical History:?HTN, NIDDM, CAD--4V CABG-1996--no UT, A.fib--refractory to cardioversion--previously on Coumadin, BPH, Denies UT,CVA,Lung disease,renal disease, Neg. screening colonoscopy in 09/2002 except for a hyperplastic polyp, sigmoid divertciulosis, internal hemorrhoidsis, Colonoscopy 2014with a tubular adenoma removed, Hyperlipidemia, GI bleeding--multiple episodes of GI bleeding with significant anemia in 2022 and 2023. Evaluated at [facility], [facility], and [facility] with multiple upper endoscopies and a colonoscopy. These were all nonrevealing. 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 A followup small bowel enteroscopy with Dr. Blair at [facility] in 04/2024 was also negative however. He has not had any sign of active bleeding since then despite remaining on his blood thinners., Watchman procedure in 05/2024 at [facility] and scheduled for a DAVI 07/25/2024 to see if his Xarelto can be changed to Plavix.. * Surgical History:?Bilateral inguinal hernia , CABG as above , Left knee . * Family History:?Father: dece ased, diagnosed with Heart disease.?Mother: .?Siblings: alive, diagnosed with Heart disease.? No colorectal cancer. * Social History:?Tobacco Use:?Tobacco Use/Smoking?Are you a: nonsmoker.?Drugs/Alcohol:?Alcohol Screen?Points: 1, Interpretation: Negative.?Miscellaneous:?Marital status: . Occupation: retired. ???Nonsmoker; no sig alcohol. * Medications:?Taking Avodart 0.5 MG Capsule 1 capsule Orally Once a day , Taking Tamsulosin HCl 0.4 MG Capsule 1 capsule 30 minutes after the same meal each day Orally Once a day , Taking Dutasteride 0.5 MG Capsule TAKE ONE CAPSULE BY MOUTH DAILY AT BEDTIME Oral , Taking Jardiance 10 MG Tablet TAKE ONE TABLET BY MOUTH EVERY DAY Oral , Taking Ezetimibe 10 MG Tablet TAKE ONE TABLET BY MOUTH EVERY DAY Oral , Taking Sucralfate 1 GM Tablet TAKE ONE TABLET BY MOUTH THREE TIMES A DAY. Oral , Taking Xarelto 20 MG Tablet TAKE 1 TABLET BY MOUTH ONCE A DAY. WITH MEAL Oral , Taking Metoprolol Succinate ER 25 MG Tablet Extended Release 24 Hour TAKE HALF A TABLET BY MOUTH DAILY. Oral , Taking Simvastatin 40 MG Tablet TAKE ONE TABLET BY MOUTH EVERY DAY Oral , Taking Pantoprazole Sodium 40 MG Tablet Delayed Release TAKE ONE TABLET BY MOUTH TWICE A DAY Oral , Taking Isosorbide Mononitrate ER 30 MG Tablet Extended Release 24 Hour TAKE TWO TABLETS BY MOUTH EVERY DAY Oral , Taking Aspirin 81 81 MG Tablet Delayed Release 1 tablet Orally Once a day , Taking Flomax 0.4 MG Capsule 1 capsule Orally Once a day , Taking Vitamin D 50 MCG (2000 UT) Tablet 1 tablet Orally Once a day , Taking Ferrous Sulfate 325 (65 Fe) MG Tablet 1 tablet Orally Three times a Week , Taking Folic Acid 800 MCG Tablet 1 tablet Orally Once a day , Taking Vitamin C 500 MG Capsule as directed Orally , Not-Taking/PRN Vytorin 10-40 MG Tablet 1 tablet Orally Once a day , Not-Taking/PRN pyRIDostigmine Hyrum 60 MG Tablet 1 tablet Orally every 4 hrs , Not-Taking/PRN Warfarin Sodium 5 MG Tablet 1 tablet Orally Once a day , Discontinued Atenolol 25 MG Tablet 1 tablet Orally Once a day , Discontinued metFORMIN HCl 500 MG Tablet 1 tablet with meals Orally Twice a day , Discontinued Suprep Bowel Prep 1 kit Solution as directed Orally as directed , Medication List reviewed and reconciled with the patient * Allergies:?N.K.D.A. Objective: * Vitals:?Wt: 152 lbs, Ht: 67 in, BMI:23.80Index, BP: 00/00 mm Hg. * Examination: ???General Examination: ?GENERAL APPEARANCE:?pleasant, well nourished, well developed, in no acute distress.?EYES:?sclera non-icteric.?ORAL CAVITY:?mucosa moist.?NECK/THYROID:?no cervical lymphadenopathy, neck supple.?SKIN:?nonjaundiced, no spider angiomata..?HEART:?S1, S2 normal.?LUNGS:?clear to auscultation bilaterally.?ABDOMEN:?normal bowel sounds, no guarding or rigidity, no hepatosplenomegaly, no masses palpable, soft, nontender, nondistended..?EXTREMITIES:?no edema.?NEUROLOGIC:?alert and oriented.? Assessment: * Assessment: 1.?Acute posthemorrhagic ane africa - D62 (Primary)??? Overall, Elvin appears to be stable at [...] * Treatment: * Procedure Codes:?1036F TOBAC CO NON-USER, G8785 BP SCR NOT PRFRM REC REASON NOS * Preventive Medicine:? ??Screenings:?Fall Risk Screening?Fall Risk Assessment:?No falls in the past year,?Screening:?No falls in the past year,?Assessment:?Not performed, no reason specified,?Plan of Care:?Not documented, no reason specified.? * Follow Up:?2024 * * The named appointment provid er may or may not be the originator of this progress note, and it is not deemed complete until electronically signed by the appointment provider. Sign off status: Pending * Provider:?Riki Clements MD Date:? 025 Generated for Jeanine thapa/Kamari/Isidoro on:?09/26/2024 06:00 PM EDT History and Physical Notes * HPI (History [...] recently a negative small bowel enteroscopy at [facility] in April of 2024. All of [...] Watchman procedure on June 08, 2024 at [facility] and is scheduled for a followup [...]
--- OUTSIDE RECORDS SUMMARY | 2024-09-26 18:00 | XMS_ITS ---
Author Organization [facility] Address [address] [place] [address] Care Team Providers Care Sales Training Manager Name Role Phone Doen VALENZUELA, Josesito Primary Care Provider Riki Avila [phone] REASON FOR VISIT Patient presents today for a f/u from a GI bleed. Encounters Encounter Location Date Provider Diagnosis [facility] [address] [place] [address] 05/19/2024 Riki Clements Plan Of Treatment Next Appt Details Provider Name:Riki Clements , 03/21/2025 09:30:00 AM, [address], [address], [place], [address], Progress Notes * ANNE MARTINEZDOB: [birth year] (83 yo M)Acc No.[id number]:05/19/2024 Progress Notes Patient:?ANNE MARTINEZ Provider:?Riki Clements MD :1940???Age:83 Y???Sex:Male Doroteo e:05/19/2024 Address:[address] [place], [place] [address] Pcp:Josesito Chavarria MD Subjective: * Chief Complaints: [...] MD Date:? 024 Generated for Jeanine thapa/Kamari/Isidoro on:?09/26/2024 06:00 PM EDT
--- OUTSIDE RECORDS SUMMARY | 2024-09-26 18:00 | XMS_ITS | Clinical Summary ---
Author Organization [facility] [employer] Address [address] [facility] [place] [address] Phone Care Team Providers Care Metalworker Name Role Phone Josesito Chavarria MD Primary Care Provider [phone] Allergies No known active allergies Medications ascorbic [...] EVERY DAY 90 tablet 3 06/13/2024 Active clopidogreL (PLAVIX) 75 mg tablet Take 1 tablet (75 mg total) by mouth 1 (one) time each day. 30 each 3 08/09/2024 Active Active Problems Problem Noted Date Diagnosed [...] Office Visit [facility] Cardiology [facility] [address] [facility] [address] [place] [address] Christina Varma NP Atrial fibrillation, unspecified type (CMS/HCC) (Primary Dx) 08/09/2024 Telephone [facility] [address] [place] [address] Jovani Cuba MD medication 07/25/2024 1:04 PM EST Anesthesia Event [facility]iac Senior Lead Developer [address] [place] [address] Ant Herndon MD 07/25/2024 12:35 PM EST - 07/25/2024 11:59 PM EST Hospital Encounter [facility] [address] [place] [address] Esteban Mcguire MD Gomes, Sheldon B, MD Atrial fibrillation, unspecified type (CMS/HCC) Discharge Disposition: Home or Self Care 07/07/2024 8:10 AM EST Office Visit [facility] [address] [place] [address] Marilyn Gutiérrez NP Atrial fibrillation, unspecified type (CMS/HCC) (Primary Dx); Coronary artery disease involving kake coronary artery of kake heart without angina pectoris; Aortic valve stenosis, etiology of cardiac valve disease unspecified from Last 3 Months Medical History Medical [...] Description 02/28/2025 1:00 PM EDT Office Visit [facility] [address] [facility] [address] [place] [address] Jovani Cuba MD [address] [place] [address] [address] [place] [address] Health Maintenance Due Date Last Done Comments [...] obtained. The probe was inserted by the petroleum plant operator. There was no probe insertion difficulty. Moderate sedation was administered by anesthesia. The patient had no complications. Estimated blood loss: no blood loss. No specimens were collected. Dom Aceves MD CV ECHO PROCEDURES Final R esult * External clinical lab (07/18/2024 9:42 AM EST) Result [facility] Historical Provider LAB BLOOD ORDERABLES Edit ed Result - Final * ECG 12 lead (07/07/2024 9:00 AM EST) [facility] Ventricular Rate ECG 89 BPM GEMUSE Atrial Rate 375 BPM GEMUSE QRS Duration 82 ms GEMUSE Q-T Interval 392 ms GEMUSE QTc 476 ms GEMUSE R Jasper 118 degrees GEMUSE T Jasper 11 degrees GEMUSE ECG Interpretation Atrial fibrillation Right axis deviation Abnormal ECG Confirmed by Prasad CUBA JAMES ([id number]) on 07/07/2024 2:34:42 PM GEMUSE 07/07/2024 8:28 AM EST 07/07/2024 2:34 PM EST Marilyn Gutiérrez SERVICE CASHIER ECG ORDERABLES Edited Resul t - Final GEMUSE * Annual BMP Blood Test (04/16/2024) [employer] Annual BMP Blood Test abstracted Historical Provider HEALTH MAINTENANCE Final Result from Last 3 Months or Most Recently Relevant to Health Maintenance Insurance MEDICARE [facility] Care Teams Metalworker Relationship Specialty Start Date End Date Josesito Chavarria MD [address] [place] [address] Dr Sary [place] PCP - General 11/29/13
--- OUTSIDE RECORDS SUMMARY | 2024-09-26 18:01 | XMS_ITS | Referral Summary ---
Author Organization [facility] Address [address] [place] [address] Care Team Providers Care Nurse Office Name Role Phone Josesito Chavarria MD Primary Care Provider [phone] Allergies No known active allergies Medications dutasteride [...] often do you attend chur ch or judaism services? Never 04/15/2024 Do you belong to any clubs o r organizations such as episcopal groups, unions, fraternal or athletic groups, or [...] Recorded Patient Health Questionnaire-2 Score 0 04/13/2024 [facility] - Occupational Stress Questionnaire Answer Date Recorded [...] any time in the past 12 m [facility], were you homeless or living in a long-term (including now)? No 04/14/2024 Alcohol Use/AUDIT-C Answer [...] file Insurance MEDICARE PART A AND B [facility] Advance Directives * Full Code (Latest Code Status on File) Date Activated Date Inactivated Comments 04/13/2024 8:20 PM 04/16/2024 2:35 PM Care Teams Nurse Office Relationship Specialty Start Date End Date Josesito Chavarria MD [address] [place] [address] [place] [address] PCP - General Family Medicine 04/15/24
--- OUTSIDE RECORDS SUMMARY | 2024-09-26 18:01 | XMS_ITS | Clinical Summary ---
Author Organization [facility] Address [address] [place] [address] Care Team Providers Care Packer Fuser Name Role Phone Josesito Chavarria MD Primary Care Provider [phone] Allergies No known active allergies Medications dutasteride [...] often do you attend chur ch or jew services? Never 04/15/2024 Do you belong to any clubs o r organizations such as jainism groups, unions, fraternal or athletic groups, or [...] Recorded Patient Health Questionnaire-2 Score 0 04/13/2024 [facility] - Occupational Stress Questionnaire Answer Date [...] any time in the past 12 m [facility], were you homeless or living in a detention (including now)? No 04/14/2024 Alcohol Use/AUDIT-C Answer [...] topic Insurance MEDICARE PART A AND B [facility] Advance Directives * Full Code (Latest Code Status on File) Date Activated Date Inactivated Comments 04/13/2024 8:20 PM 04/16/2024 2:35 PM Care Teams Packer Fuser Relationship Specialty Start Date End Date Josesito Chavarria MD [address] [place] [address] [place] [address] PCP - General Family Medicine 04/15/24
--- OUTSIDE RECORDS SUMMARY | 2024-09-26 18:01 | XMS_ITS | Patient Health Record ---
Author Organization [facility] Address [address] [place] [address] Care Team Providers Care Inventory Representative Name Role Phone Deon VALENZUELA, Josesito Primary Care Provider Esther ClementsRiki Unavailable [phone] Allergies No Known Allergies Results Component Value Reference Range Notes Pathology Reviewed date:12/25/2023 04:12:01 PM Interpretation: Performing Lab:[facility], [address] [place] [phone] Notes/Report: --- Name: Elvin Cao Age/Sex: 83/M : 1940 Unit#: [id number] Attend Dr: Tegan Buckner MD Re12/22/23 Status : DIS IN Location: [facility] 473-1 Disch: 12/24/23 --- SPEC : [id number] RECD : 12/24/23 STATUS: RAGHAVENDRA MILIAN NUM: [id number] DENI: 12/23/23-[address] [facility] [address]: Anshul Salter MD ENTERED: 12/24/23-08 40 [...] stains Copies To: Anshul Salter MD [facility] [address] [place] [address] [address] [place] [address] Josesito Chavarria MD [address] [place] [address], [address] [place] [address] Tegan Buckner MD [address] [place] [address] CONTINUED ON NEXT PAGE --- Name: Elvin Cao Age/Sex: 83/M : 1940 Unit#: [id number] Attend Dr: Tegan Buckner MD Re12/22/23 Status : DIS IN Location: [facility] 473- Disch: 12/24/23 --- SPEC : [id number] RECD : 12/24/23 STATUS: RAGHAVENDRA MILIAN NUM: [id number] DENI: 12/23/23-[address] [facility] [address]: Anshul Salter MD ENTERED: 12/24/23 40 SP TYPE: Surgical OTHR DR: Josesito Chavarria MD,Tegan VALENZUELA ORDERED: HE Stain/3, Gross Micro L4, IHC, Special st. 2, H. pylori, AB/PAS --- Signed (signature on file) Manfred Vance MD 12/25/23 1349 --- END OF REPORT Complete Blood Count Auto Di ff Reviewed date:12/24/2023 12:39:32 PM Interpretation: Performing Lab:[facility], [address] [place] [phone] Notes/Report: White Blood Count 9.7 4.8-10.8 X10*3/uL [...] g Reviewed date:12/24/2023 12:40:09 PM Interpretation: Performing Lab:[facility], [address] [place] [phone] Notes/Report: Sodium 139 135-145 mmol/L Potassium 4.6 [...] Glomerular Filt Rate > 60 NOTE: For -Togolese individuals, multiply the result by 1.210. Chronic [...] day for 30 day(s) 07/07/2024 Active pyRIDostigmine [place] 60 MG 1 tablet Orally every 4 [...] Status Risk Notes Problem Acute posthemorrhagic anemia (266572058) Acute posthemorrhagic anemia (D62) Active confirmed Vital Signs Blood pressure diastolic 00 mm Hg 07/07/2024 Height 67 in 07/07/2024 Blood pressure systolic 00 mm Hg 07/07/2024 Weight 152 lbs 07/07/2024 BMI 23.80 kg/m2 07/07/2024 Encounters Encounter Location Date Provider Diagnosis [facility] [address] [place] [phone] 07/07/2024 Riki Clements Acute posthemorrhagi c anemia D62 [facility] [address] [place] [address] 09/20/2024 Riki Clements [facility] [address] [place] [address] 12/24/2023 Riki Clements [facility] [address] [place] [phone] 12/25/2023 Riki Clements [facility] [address] [place] [address] 01/20/2024 Riki Clements Acute posthemorrhagi c anemia D62 [facility] [address] [place] [address] 04/13/2024 Riki Clements [facility] [address] [place] [address] 04/21/2024 Riki Clements [facility] [address] [place] [address] 05/15/2024 Riki Clements Assessments Encounter Date Diagnosis (ICD Code) Assessment Notes Treatment Notes Treatment Clinical Notes Section Notes 07/07/2024 Acute posthemorrhagic anemia (ICD-10 - D62) Continue the Protonix and Sucralfate twice a day chcf for now Overall, Elvin appears to be [...] Provider Name:Riki Clements , 03/21/2025 09:30:00 AM, [address] [place] [address], [address], [place], [address], Insurance Providers Payer Name Payer Address Payer Phone Subscriber Number Group Number Insured Name Patient Relationship to Insured Coverage Start Date Coverage End Date MEDICARE OF [place] [address] [place] [address] [id number] ELVIN CAO Self - patient is the insured [facility] [address] [place], [place] [id number] [phone] [id number] ELVIN CAO Self - patient is the insured Medical (General) History Medical History History ICD Code HTN NIDDM 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 screening colonoscopy i n 09/2002 except for a hyperplastic polyp, sigmoid divertciulosis, internal hemorrhoidsis Colonoscopy 2014with a tubular adenoma r emoved Hyperlipidemia GI bleeding--multiple episod es of GI bleeding with significant anemia in 2022 and 2023. Evaluated at [facility], [facility], and [facility] with multiple upper endoscopies and a colonoscopy. These were all nonrevealing. 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 A followup small bowel enteroscopy with Dr. Blair at [facility] in 04/2024 was also negative however. He has not had any sign of active bleeding since then despite remaining on his blood thinners. Watchman procedure in at [facility] and scheduled for a DAVI 07/25/2024 to see if his Xarelto can be changed to Plavix. Surgical History Surgery Date(Month/Year) Bilateral inguinal hernia CABG as above Left knee
--- OUTSIDE RECORDS SUMMARY | 2024-09-26 18:01 | XMS_ITS | Patient Health Record ---
Author Organization [facility] Carmen marisela Price Address [address] [place] [address] Care Team Providers Care Mount Loader Name Role Phone Josesito Chavarria MD Primary Care Provider Carol Barron Unavailable [phone] Allergies No Known Allergies Results Component Value [...] Problem Acquired hammer toe of right foot (9469375459709 105) Other hammer toe(s) (acquired), right foot (M20.41) Active confirmed Problem Type 2 diabetes mellitus with peripheral angiopathy (269096921) Type 2 diabetes mellitus with diabetic peripheral angiopathy without gangrene (E11.51) Active confirmed Q7(A), Q8(2B), Q9(1B,2C) Problem Acquired hammer toe of left foot (9394038196684 103) Other hammer toe(s) (acquired), left foot (M20.42) Active confirmed Vital Signs Height 5ft 6in in 06/24/2024 Weight 150 lbs 06/24/2024 BMI 24.21 kg/m2 06/24/2024 Procedures Procedure Date Ordered Date Performed Result Body Sit e 70230-XIXKOHH NAIL, 6 OR MORE 06/24/2024 N/A 05949-DPBG SKIN LESIONS, OVER 4 06/24/2024 N/A Encounters Encounter Location Date Provider Diagnosis [facility] [place] [address] [place] [address] 06/24/2024 Carol Valerio Other hammer toe(s) (acquired), [...] Treatment Pending Test Test Name Order Date 90058-TSCVUAV NAIL, 6 OR MORE 06/24/2024 97747-STHQ SKIN LESIONS, OVER 4 06/24/20 24 Next Appt Details Provider Name:Carol Lauren lucrecia, 10/18/2024 10:15:00 AM, [address] [facility] [address], [place], [address], Insurance Providers Payer Name Payer Address Payer Phone Subscriber Number Group Number Insured Name Patient Relationship to Insured Coverage Start Date Coverage End Date Medicare National [employer]t [employer] [address] [place] [address] [id number] Elvin Barone Self - patient is the insured 6 [facility] [address] [place] [address] [id number] Elvin Barone Self - patient is the insured 6 Medical (General) History Medical History History ICD Code Anemia CAD (Cholesterol) type II diabetes High Blood Pressure Reflux ( GERD) Stomach ulcer Chicken pox Transfusions Surgical History Surgery Date(Month/Year) CABG surgery 1996 Stent 2021 hernia 2010
--- OUTSIDE RECORDS SUMMARY | 2024-09-26 18:01 | XMS_ITS ---
Author Organization [facility] marisela [place] Address [address] [place] [address] Care Team Providers Care Research Scientist Name Role Phone Josesito Chavarria MD Primary Care Provider Carol Barron Unavailable [phone] Allergies No Known Allergies REASON FOR VISIT [...] Problem Acquired hammer toe of right foot (8168891024740 105) Other hammer toe(s) (acquired), right foot (M20.41) Active confirmed Problem Acquired hammer toe of left foot (0971477124058 103) Other hammer toe(s) (acquired), left foot (M20.42) Active confirmed Problem Type 2 diabetes mellitus with peripheral angiopathy (400898114) Type 2 diabetes mellitus with diabetic peripheral angiopathy without gangrene (E11.51) Active confirmed Q7(A), Q8(2B), Q9(1B,2C) Vital Signs Height 5ft 6in in 06/24/2024 Weight 150 lbs 06/24/2024 BMI 24.21 kg/m2 06/24/2024 Procedures Procedure Date Ordered Date Performed Result Body Sit e 71738-DLGPBPE NAIL, 6 OR MORE 06/24/2024 N/A 59528-JDNU SKIN LESIONS, OVER 4 06/24/2024 N/A Encounters Encounter Location Date Provider Diagnosis [facility] [address] [address] 06/24/2024 Carol Valerio Other hammer toe(s) (acquired), [...] INSTRUCTIONS.pdf) Pending Test Test Name Order Date 64942-NKPHUXX NAIL, 6 OR MORE 06/24/2024 80594-LXGS SKIN LESIONS, OVER 4 06/24/20 24 Next Appt Details Follow Up: 4 Months, Reason: Provider Name:Carol singer, 10/18/2024 10:15:00 AM, [address] [facility], [address], [place], [address], Procedure Notes * Category Sub-Category Detail Notes [...] use of a nail nipper and/or dremel-type watch parts grinder, to a more viable healthy nail [...] to maintain effectiveness in symptomatic relief - 20523 Keratoma Treatment Parring or Cutting o f [...] instrumentation by the physician of record - 80267, Q8 Progress Notes * Elvin BARONEDOB: (83 yo M)Acc No.[id number]:06/24/2024 Progress Notes Patient:?Elvin BARONE Provider:?Carol Valerio DPM :1940???Age:83 Y???Sex:Male Doroteo e:06/24/2024 Address:[address] [place] [address], [place] [address] Pcp:Josesito Chavarria MD Subjective: * Chief Complaints: [...] 5.8 * Examination: ???Ophthalmology Referral: ?DIABETES EYE EXAM?Diabetic Retinopathy Screening:?Yes 08/2023?Orthopedic: ?MUSCLE STRENGTH:?5/5 all groups in a symmetrical [...] for office visit today.?ORIENTED:?person, place, and time.?FOOT EXAM:?Lower Extremity Neurological Exam performed:?Yes ?Footwear Evaluation?Footwear Evaluation performed:?Yes?Vascular: ?DP PULSES (B):? 0/4, B/L.?PT PULSES (B):? [...] mellitus with diabetic peripheral angiopathy without gangrene?Procedure: 99018-ZZCO SKIN LESIONS, OVER 4 3.?Tinea unguium?Procedure: 76157-EGGCVMD NAIL, 6 OR MORE * Procedures:?Debride Nail [...] use of a nail nipper and/or dremel-type watch parts grinder, to a more viable healthy nail [...] to maintain effectiveness in symptomatic relief - 51428.?Keratoma Treatment:?Parring or Cutting of Benign Hyperkeratotic Lesion(s)?(-57) [...] instrumentation by the physician of record - 19339, Q8.? * Procedure Codes:?43257 DEBRI DE NAIL, 6 OR MORE, Modifiers: XS 01859 TRIM SKIN LESIONS, OVER 4, Modifiers: XS [...] * Sign off status: Completed true * Provider:?Carol Valerio DPM Date:?08/25/2023 Generated for Jeanine thapa/Kamari/Paolaitting on:?09/26/2024 06:00 PM EDT History and Physical [...] 3rd and 5th metatarsal heads B/L Orthopedic FOOTWEAR EVALUATION: worn, non-s upportive, shoe gear properties exacerbate patient's foot/toe deformity [...]
--- OUTSIDE RECORDS SUMMARY | 2024-09-26 18:01 | XMS_ITS ---
Author Organization [facility] Address [address] [place] [address] Care Team Providers Care Ripper Operator Name Role Phone Josesito Chavarria MD Primary Care Provider Riki Avila [phone] REASON FOR VISIT PLEASE LOCK NOTE Encounters Encounter Location Date Provider Diagnosis [facility] [address] [place] [address] 09/20/2024 Riki Clements Plan Of Treatment Next Appt Details Provider Name:Riki Clements , 03/21/2025 09:30:00 AM, [address], [address], [place], [address], Progress Notes * ANNE MARTINEZDOB: [birth year] (83 yo M)Acc No.[id number]:09/20/2024 Patient:?ANNE MARTINEZ :1940???Age:83 Y???Sex:Male Address:[address] [place] [address] [place] [address] * * Date:?
== END 2024-09-26 16:25 | disposition home or self-care (01) ==
LOC: HO.LABR 16:24
PROVIDERS: PCP Internal Medicine; Visit Provider Internal Medicine
DX: D64.9 Anemia, unspecified (principal)
CPT/HCPCS: 36415; 85025

== ENCOUNTER 2024-10-07 13:01 | Outpatient (REF) | payer MEDICARE, BC, SELFPAY ==
[2024-10-07 13:12] LABS: MANUAL DIFF FLAG NO
--- OUTSIDE RECORDS SUMMARY | 2024-10-07 13:31 | XMS_ITS ---
Author Organization [facility] Address [address] [facility] [address] [place] [address] Care Team Providers Care Marine Mammal Trainer Name Role Phone Deon VALENZUELA, Josesito Primary Care Provider Riki Avila [phone] REASON FOR VISIT Patient presents today for a f/u from a GI bleed. Encounters Encounter Location Date Provider Diagnosis [facility] [address] [place] [address] 05/19/2024 Riki Clements Plan Of Treatment Next Appt Details Provider Name:Riki Clements , 03/21/2025 09:30:00 AM, [address], [address], [place], [address], Progress Notes * ANNE MARTINEZDOB: [birth year] (83 yo M)Acc No.[id number]:05/19/2024 Progress Notes Patient:?ANNE MARTINEZ Provider:?Riki Clements MD :1940???Age:83 Y???Sex:Male Doroteo e:05/19/2024 Address:[address] [place], [place] [address] Pcp:Josesito Chavarria MD Subjective: * Chief Complaints: [...] MD Date:? 024 Generated for Jeanine thapa/Kamari/Isidoro on:?10/07/2024 01:31 PM EDT
--- OUTSIDE RECORDS SUMMARY | 2024-10-07 13:32 | XMS_ITS | Referral Summary ---
Author Organization [facility] Address [address] [place] [address] Care Team Providers Care International Trade Specialist Name Role Phone Josesito Chavarria MD Primary Care Provider [phone] Allergies No known active allergies Medications dutasteride [...] Used Date Smoking Tobacco: Former Cigarettes 1 40.3 1 985 - 1956 Smokeless Tobacco: Never [...] often do you attend chur ch or christianity services? Never 04/15/2024 Do you belong to any clubs o r organizations such as catholic groups, unions, fraternal or athletic groups, [...] Recorded Patient Health Questionnaire-2 Score 0 04/13/2024 [facility] - Occupational Stress Questionnaire Answer Date [...] time in the past 12 m [facility], were you homeless or living in a intermediate (including now)? No 04/14/2024 Alcohol Use/AUDIT-C Answer [...] file Insurance MEDICARE PART A AND B [facility] Advance Directives * Full Code (Latest Code Status on File) Date Activated Date Inactivated Comments 04/13/2024 8:20 PM 04/16/2024 2:35 PM Care Teams International Trade Specialist Relationship Specialty Start Date End Date Josesito Chavarria MD [address] [place] [address] [place] [address] PCP - General Family Medicine 04/15/24
--- OUTSIDE RECORDS SUMMARY | 2024-10-07 13:32 | XMS_ITS ---
Author Organization [facility] marisela Voltaire Address [address] [place] [address] Care Team Providers Care Insurance Underwriter Name Role Phone Josesito Chavarria MD Primary Care Provider Carol Barron Unavailable [phone] Allergies No Known Allergies REASON FOR VISIT [...] Problem Acquired hammer toe of right foot (1980328131928 105) Other hammer toe(s) (acquired), right foot (M20.41) Active confirmed Problem Acquired hammer toe of left foot (5700452097710 103) Other hammer toe(s) (acquired), left foot (M20.42) Active confirmed Problem Type 2 diabetes mellitus with peripheral angiopathy (209708326) Type 2 diabetes mellitus with diabetic peripheral angiopathy without gangrene (E11.51) Active confirmed Q7(A), Q8(2B), Q9(1B,2C) Vital Signs Height 5ft 6in in 06/24/2024 Weight 150 lbs 06/24/2024 BMI 24.21 kg/m2 06/24/2024 Procedures Procedure Date Ordered Date Performed Result Body Sit e 86911-KNSPLMU NAIL, 6 OR MORE 06/24/2024 N/A 35593-JHXP SKIN LESIONS, OVER 4 06/24/2024 N/A Encounters Encounter Location Date Provider Diagnosis [facility] [address] [address] 06/24/2024 Carol Valerio Other hammer toe(s) (acquired), [...] INSTRUCTIONS.pdf) Pending Test Test Name Order Date 55136-QFHJDAP NAIL, 6 OR MORE 06/24/2024 34009-UFFV SKIN LESIONS, OVER 4 06/24/20 24 Next Appt Details Follow Up: 4 Months, Reason: Provider Name:Carol singer, 10/18/2024 10:15:00 AM, [address] [facility], [address], [place], [address], Procedure Notes * Category Sub-Category Detail Notes [...] use of a nail nipper and/or dremel-type precision lens grinder, to a more viable healthy nail [...] to maintain effectiveness in symptomatic relief - 85998 Keratoma Treatment Parring or Cutting o f [...] instrumentation by the physician of record - 69627, Q8 Progress Notes * Elvin BARONEDOB: (83 yo M)Acc No.[id number]:06/24/2024 Progress Notes Patient:?Elvin BARONE Provider:?Carol Valerio DPM :1940???Age:83 Y???Sex:Male Doroteo e:06/24/2024 Address:[address] [place] [address], [place] [address] Pcp:Josesito Chavarria MD Subjective: * Chief Complaints: [...] mellitus with diabetic peripheral angiopathy without gangrene?Procedure: 28095-CNLX SKIN LESIONS, OVER 4 3.?Tinea unguium?Procedure: 86407-KCSMNNI NAIL, 6 OR MORE * Procedures:?Debride Nail [...] use of a nail nipper and/or dremel-type precision lens grinder, to a more viable healthy nail [...] to maintain effectiveness in symptomatic relief - 63495.?Keratoma Treatment:?Parring or Cutting of Benign Hyperkeratotic Lesion(s)?(-57) [...] instrumentation by the physician of record - 96808, Q8.? * Procedure Codes:?89760 DEBRI DE NAIL, 6 OR MORE, Modifiers: XS 41415 TRIM SKIN LESIONS, OVER 4, Modifiers: XS [...] Valerio DPM Date:?08/25/2023 Generated for Jeanine thapa/Kamari/Paolaitting on:?10/07/2024 01:31 PM EDT History and Physical Notes * [...]
--- OUTSIDE RECORDS SUMMARY | 2024-10-07 13:32 | XMS_ITS | Patient Health Record ---
Author Organization [facility] Address [address] [place] [address] Care Team Providers Care Mandrel Press Hand Name Role Phone Deon VALENZUELA, Josesito Primary Care Provider Esther ClementsRiki Unavailable [phone] Allergies No Known Allergies Results Component Value Reference Range Notes Pathology Reviewed date:12/25/2023 04:12:01 PM Interpretation: Performing Lab:[facility], [address] [place] [address] Notes/Report: --- Name: Elvin Cao Age/Sex: 83/M : 1940 Unit#: [id number] Attend Dr: Tegan Buckner MD Re12/22/23 Status : DIS IN Location: [facility] 473-1 Disch: 12/24/23 --- SPEC : [id number] RECD : 12/24/23 STATUS: RAGHAVENDRA MILIAN NUM: [id number] DENI: 12/23/23-[address] [facility] [address]: Anshul Salter MD ENTERED: 12/24/23-08 [...] AB/PAS stains Copies To: Anshul Salter MD [facility] [address] [place] [address] [address] [place] [address] Josesito Chavarria MD [address] [place] [address], [address] [place] [address] Tegan Buckner MD [address] [place] [address] CONTINUED ON NEXT PAGE --- Name: Elvin Cao Age/Sex: 83/M : 1940 Unit#: [id number] Attend Dr: Tegan Buckner MD Re12/22/23 Status : DIS IN Location: [facility] 473- Disch: 12/24/23 --- SPEC : [id number] RECD : 12/24/23 STATUS: RAGHAVENDRA MILIAN NUM: [id number] DENI: 12/23/23-[address] [facility] [address]: Anshul Salter MD ENTERED: 12/24/23 40 SP TYPE: Surgical OTHR DR: Josesito Chavarria MD,Tegan VALENZUELA ORDERED: HE Stain/3, Gross Micro L4, IHC, Special st. 2, H. pylori, AB/PAS --- Signed (signature on file) Manfred Vance MD 12/25/23 1349 --- END OF REPORT Complete Blood Count Auto Di ff Reviewed date:12/24/2023 12:39:32 PM Interpretation: Performing Lab:[facility], [address] [place] [address] Notes/Report: White Blood Count 9.7 4.8-10.8 X10*3/uL [...] g Reviewed date:12/24/2023 12:40:09 PM Interpretation: Performing Lab:[facility], [address] [place] [address] Notes/Report: Sodium 139 135-145 mmol/L Potassium 4.6 [...] Glomerular Filt Rate > 60 NOTE: For -Peruvian individuals, multiply the result by 1.210. Chronic [...] day for 30 day(s) 07/07/2024 Active pyRIDostigmine [place] 60 MG 1 tablet Orally every 4 [...] Status Risk Notes Problem Acute posthemorrhagic anemia (593809277) Acute posthemorrhagic anemia (D62) Active confirmed Vital Signs Blood pressure diastolic 00 mm Hg 07/07/2024 Height 67 in 07/07/2024 Blood pressure systolic 00 mm Hg 07/07/2024 Weight 152 lbs 07/07/2024 BMI 23.80 kg/m2 07/07/2024 Encounters Encounter Location Date Provider Diagnosis [facility] [address] [place] [address] 07/07/2024 Riki Clements Acute posthemorrhagi c anemia D62 [facility] [address] [place] [phone] 09/20/2024 Riki Clements [facility] [address] [place] [address] 12/24/2023 Riki Clements [facility] [address] [place] [address] 12/25/2023 Riki Clements [facility] [address] [place] [address] 01/20/2024 Riki Clements Acute posthemorrhagi c anemia D62 [facility] [address] [place] [address] 04/13/2024 Riki Clements [facility] [address] [place] [phone] 04/21/2024 Riki Clements [facility] [address] [place] [phone] 05/15/2024 Riki Clements Assessments Encounter Date Diagnosis [...] Provider Name:Riki Clements , 03/21/2025 09:30:00 AM, [address] [place] [address], [address], [place], [address], Insurance Providers Payer Name Payer Address Payer Phone Subscriber Number Group Number Insured Name Patient Relationship to Insured Coverage Start Date Coverage End Date MEDICARE OF [place] [address] [place] [address] [id number] ELVIN CAO Self - patient is the insured [facility] [address] [place], [place] [id number] ELVIN CAO Self - patient is the insured Medical (General) History Medical History History ICD Code HTN NIDDM CAD--4V CABG-1996--no [place] A.fib--refractory to cardioversion--prev iously on Coumadin BPH Denies [place],CVA,Lung disease,renal disease Neg. screening colonoscopy i n 09/2002 except for a hyperplastic polyp, sigmoid divertciulosis, internal hemorrhoidsis Colonoscopy 2014with a tubular adenoma r emoved Hyperlipidemia GI bleeding--multiple episod es of GI bleeding with significant anemia in 2022 and 2023. Evaluated at [facility], [facility], and [facility] with multiple upper endoscopies and a colonoscopy. These were all nonrevealing. 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 A followup small bowel enteroscopy with Dr. Blair at [facility] in 04/2024 was also negative however. He has not had any sign of active bleeding since then despite remaining on his blood thinners. Watchman procedure in at [facility] and scheduled for a DAVI 07/25/2024 to see if his Xarelto can be changed to Plavix. Surgical History Surgery Date(Month/Year) Bilateral inguinal hernia CABG as above Left knee
--- OUTSIDE RECORDS SUMMARY | 2024-10-07 13:32 | XMS_ITS ---
Author Organization [facility] Address [address] [place] [address] Care Team Providers Care Mail Messenger Name Role Phone Josesito Chavarria MD Primary Care Provider Riki Avila Unavailable [phone] Allergies No Known Allergies Medications Medication SIG [...] AT BEDTIME Oral for 90 Active pyRIDostigmine [place] 60 MG 1 tablet Orally every 4 [...] [facility] [address] [place] [address] 07/07/2024 Riki Clements Acute posthemorrhagi c anemia D62 Assessments Encounter Date Diagnosis (ICD Code) Assessment Notes Treatment Notes Treatment Clinical Notes Section Notes 07/07/2024 Acute posthemorrhagic anemia (ICD-10 - D62) Continue the Protonix and 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 Overall, Elvin appears to be [...] e Protonix and 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 All [...] Watchman procedure on June 08, 2024 at [facility] and is scheduled for a [...] Capsule 1 capsule Orally Once a day Tamsulosin HCl 0.4 MG Capsule 1 capsule 30 minutes after the same meal each day Orally Once a day Dutasteride 0.5 MG Capsule TAKE ONE CAPSULE [...] Release 1 tablet Orally Once a day Flomax 0.4 MG Capsule 1 capsule Orally Once a day Vitamin D 50 MCG (2000 UT) Tablet 1 tablet Orally Once a day Ferrous Sulfate 325 (65 Fe) MG Tablet 1 tablet Orally Three times a Week Folic Acid 800 MCG Tablet 1 tablet Orally Once a day Vitamin C 500 MG Capsule as directed Orally Taking Avodart 0.5 MG Capsule 1 capsule Orally Once a day Taking Tamsulosin HCl 0.4 MG Capsule 1 capsule 30 minutes after the same meal each day Orally Once a day Taking Dutasteride 0.5 MG Capsule TAKE ONE [...] Release 1 tablet Orally Once a day Taking Flomax 0.4 MG Capsule 1 capsule Orally Once a day Taking Vitamin D 50 MCG (2000 UT) Tablet 1 tablet Orally Once a day Taking Ferrous Sulfate 325 (65 Fe) MG Tablet 1 tablet Orally Three times a Week Taking Folic Acid 800 MCG Tablet 1 tablet Orally Once a day Taking Vitamin C 500 MG Capsule as directed Orally Not-Taking/PRNVytorin 10-40 MG Tablet 1 tablet Orally Once a day pyRIDostigmine [place] 60 MG Tablet 1 tablet Orally every 4 hrs Warfarin Sodium 5 MG Tablet 1 tablet Orally Once a day Not-Taking/PRN Vytorin 10-40 MG Tablet 1 tablet Orally Once a day Not-Taking/PRN pyRIDostigmine [place] 60 MG Tablet 1 tablet Orally every 4 hrs Not-Taking/PRN Warfarin Sodium 5 MG Tablet 1 tablet Orally Once a day DiscontinuedAtenolol 25 MG Tablet 1 tablet Orally Once a day metFORMIN HCl 500 MG Tablet 1 tablet with meals Orally Twice a day Suprep Bowel Prep 1 kit Solution as directed Orally as directed Medication List reviewed and reconciled with the patientDiscontinued Atenolol 25 MG Tablet 1 tablet Orally Once a day Discontinued metFORMIN HCl 500 MG Tablet 1 tablet with meals Orally Twice a day Discontinued Suprep Bowel Prep 1 kit Solution as directed Orally as directed Medication List reviewed and reconciled with the [...] * Treatment: * Procedure Codes:?1036F TOBAC CO NON-XDLZH0996 BP SCR NOT PRFRM REC REASON NOS * Preventive Medicine:? ??Screenings:?Fall Risk Screening?Fall Risk Assessment:?No falls in the past year,?Screening:?No falls in the past year,?Assessment:?Not performed, no reason specified,?Plan of Care:?Not documented, no reason specified.? * Follow Up:?2024 * * Sign off status: Completed true * Provider:?Riki Clements MD Date:? 025 Generated for Jeanine thapa/Kamari/Isidoro on:?10/07/2024 01:31 PM EDT History and Physical [...] recently a negative small bowel enteroscopy at [facility] in April of 2024. All [...] Watchman procedure on June 08, 2024 at [facility] and is scheduled for a [...]
--- OUTSIDE RECORDS SUMMARY | 2024-10-07 13:32 | XMS_ITS | Clinical Summary ---
Author Organization [facility] Address [address] [place] [address] Care Team Providers Care Faculty Criminal Justice Name Role Phone Josesito Chavarria MD Primary Care Provider [phone] Allergies No known active allergies Medications dutasteride [...] often do you attend chur ch or sabianist services? Never 04/15/2024 Do you belong to any clubs o r organizations such as hinduism groups, unions, fraternal or athletic groups, or [...] Recorded Patient Health Questionnaire-2 Score 0 04/13/2024 [facility] - Occupational Stress Questionnaire Answer [...] any time in the past 12 m [facility], were you homeless or living in a senior living (including now)? No 04/14/2024 Alcohol Use/AUDIT-C Answer [...] - 1-dose 75+ series) 11/20/2015 Influenza Vaccine (Season Ended) 2025 03/25/20 23 HPV Vaccines Aged Out No longer eligi ble based on patient's age to complete this topic Meningococcal Vaccine Aged Out No sher epi eligible based on patient's age to complete this topic Insurance MEDICARE PART A AND B [facility] Advance Directives * Full Code (Latest Code Status on File) Date Activated Date Inactivated Comments 04/13/2024 8:20 PM 04/16/2024 2:35 PM Care Teams Faculty Criminal Justice Relationship Specialty Start Date End Date Josesito Chavarria MD [address] [place] [address] [place] [address] PCP - General Family Medicine 04/15/24
--- OUTSIDE RECORDS SUMMARY | 2024-10-07 13:32 | XMS_ITS | Clinical Summary ---
Author Organization [facility] Address [address] [place] [address] Phone Care Team Providers Care Regrinder Operator Name Role Phone Josesito Chavarria MD Primary Care Provider [phone] Allergies No known active allergies Medications ascorbic [...] evidence of mild aortic stenosis Atrial fibrillation (CMS/HCC V24, CMS/HCC V28) 0 11/30/2020 Overview (05/19/2024): Last Assessment & Plan: [...] EST Office Visit [facility] [address] [facility] [address] [place] [address] Christina Varma NP Atrial fibrillation, unspecified type (CMS/HCC V24, CMS/HCC V28) (Primary Dx) 08/09/2024 Telephone [facility] [address] [place] [address] Jovani Cuba MD medication 07/25/2024 1:04 PM EST Anesthesia Event [facility] [address] [place] [address] Ant Herndon MD 07/25/2024 12:35 PM EST - 07/25/2024 11:59 PM EST Hospital Encounter [facility] [address] [place] [address] Esteban Mcguire MD Gomes, Sheldon B, MD Atrial fibrillation, unspecified type (CMS/HCC V24, CMS/[facility] V28) Discharge Disposition: Home or Self Care from Last 3 Months Medical History Medical History Date Comments Diabetes mellitus type 2, co ntrolled, with complications (CMS/HCC V24, CMS/[facility] V28) DX:Diabetes mellitus type 2, controlled, with complications ([facility]) Hyperlipidemia DX:Hyperlipidemi a Diverticulosis DX:Diverticulosi s Peptic [...] Description 02/28/2025 1:00 PM EDT Office Visit [facility] [address] [place] [address] Jovani Cuba MD [address] [place] [address] [address] [place] [address] Health Maintenance Due Date Last Done Comments DTaP,Tdap,and Td Vaccines (1 - Tdap) 11/20/1959 Pneumococcal Vaccine: 50+ Years (1 of 2 - PCV) 11/20/1959 Zoster Vaccines (1 of 2) 1990 RSV Immunization Adult Patients (1 - 1-dose 75+ series) 11/20/2015 Cholesterol Screening (Lipid Panel) 06/07/2022 Depression Screening 06/07/2022 Falls Risk Assessment 06/07/2022 Social Influencers of Health Screening 06/07/2022 Medicare Annual Wellness Visit 08/14/2023 08/14/2022 COVID-19 Vaccine ( - season) 2024 Influenza Vaccine (Season Ended) 2025 03/25/2023 Hypertension/CHF/CAD Annual BMP Blood Test 04/16/2025 [...] age to complete this topic Meningococcal B Vaccine Aged Out No l onger eligible based on patient's age to complete this topic RSV Immunization Patients Under 20 months Aged Out No longer eligible based on patient's age to complete this topic Varicella Vaccines Aged Out No longer eligible based on patient's age to complete this topic Procedures Procedure Name Priority Date/Time Associated Diagnosis Comments DAVI COMPLETE Routine 07/25/2024 1:52 PM EST Atrial fibrillation, unspecified type (CMS/HCC V24, CMS/HCC V28) EXTERNAL CLINICAL LAB Routine 07/18/2024 9:42 AM EST ANNUAL BMP BLOOD TEST Routine 04/16/2024 [...] obtained. The probe was inserted by the computer support specialist instructor. There was no probe insertion difficulty. Moderate sedation was administered by anesthesia. The patient had no complications. Estimated blood loss: no blood loss. No specimens were collected. Result [facility] Dom Aceves MD CV ECHO PROCEDURES Final R esult * External clinical lab (07/18/2024 9:42 AM EST) Result [facility] Historical Provider LAB BLOOD ORDERABLES Edit ed Result - Final * Annual BMP Blood Test (04/16/2024) Annual BMP Blood Test abstracted Historical Provider HEALTH MAINTENANCE Final Result from Last 3 Months or Most Recently Relevant to Health Maintenance Insurance MEDICARE [facility] Care Teams Regrinder Operator Relationship Specialty Start Date End Date Josesito Chavarria MD [address] [place] [address] Dr Sary [place] [facility] - General 11/29/13
--- OUTSIDE RECORDS SUMMARY | 2024-10-07 13:32 | XMS_ITS ---
Author Organization [facility] Address [address] [place] [address] Care Team Providers Care Wildlife Conservation Officer Name Role Phone Josesito Chavarria MD Primary Care Provider Riki Avila [phone] REASON FOR VISIT PLEASE LOCK NOTE Encounters Encounter Location Date Provider Diagnosis [facility] [address] [place] [address] 09/20/2024 Riki Clements Plan Of Treatment Next Appt Details Provider Name:Riki Clements , 03/21/2025 09:30:00 AM, [address], [address], [place], [address], Progress Notes * ANNE MARTINEZDOB: [birth year] (83 yo M)Acc No.[id number]:09/20/2024 Patient:?ANNE MARTINEZ :1940???Age:83 Y???Sex:Male Address:[address] [place] [address] [address] [facility] [place] [address] * * Date:?
--- OUTSIDE RECORDS SUMMARY | 2024-10-07 13:32 | XMS_ITS | Patient Health Record ---
Author Organization [facility] Carmen marisela Price Address [address] [place] [address] Care Team Providers Care Buttonhole Maker Hand Name Role Phone Josesito Chavarria MD Primary Care Provider Carol Barron Unavailable [phone] Allergies No Known Allergies Results Component Value [...] Problem Acquired hammer toe of right foot (0721387669017 105) Other hammer toe(s) (acquired), right foot (M20.41) Active confirmed Problem Type 2 diabetes mellitus with peripheral angiopathy (578279057) Type 2 diabetes mellitus with diabetic peripheral angiopathy without gangrene (E11.51) Active confirmed Q7(A), Q8(2B), Q9(1B,2C) Problem Acquired hammer toe of left foot (8982677352360 103) Other hammer toe(s) (acquired), left foot (M20.42) Active confirmed Vital Signs Height 5ft 6in in 06/24/2024 Weight 150 lbs 06/24/2024 BMI 24.21 kg/m2 06/24/2024 Procedures Procedure Date Ordered Date Performed Result Body Sit e 76806-PGKYQGU NAIL, 6 OR MORE 06/24/2024 N/A 03783-EYPQ SKIN LESIONS, OVER 4 06/24/2024 N/A Encounters Encounter Location Date Provider Diagnosis [facility] [place] [address] [place] [address] 06/24/2024 Carol Valerio Other hammer toe(s) (acquired), [...] Treatment Pending Test Test Name Order Date 92339-PPXSYUQ NAIL, 6 OR MORE 06/24/2024 96105-TWCD SKIN LESIONS, OVER 4 06/24/20 24 Next Appt Details Provider Name:Carol Lauren lucrecia, 10/18/2024 10:15:00 AM, [address] [facility] [facility] [address], [place], [address], Insurance Providers Payer Name Payer Address Payer Phone Subscriber Number Group Number Insured Name Patient Relationship to Insured Coverage Start Date Coverage End Date Medicare National [employer] [address] [facility] [place] [address] [id number] Elvin Barone Self - patient is the insured 6 [facility] [address] [place] [address] [id number] Elvin Barone Self - patient is the insured 6 Medical (General) History Medical History History ICD Code Anemia CAD (Cholesterol) type II diabetes High Blood Pressure Reflux ( GERD) Stomach ulcer Chicken pox Transfusions Surgical History Surgery Date(Month/Year) CABG surgery 1996 Stent 2021 hernia 2010
[2024-10-07 14:29] LABS: Basophils Percent Auto 0.5 % (0-2); Eosinophils Absolute Auto 0.1 X10*3/uL (0.0-0.4); Eosinophils Percent Auto 2.2 % (0-4); Hematocrit 37.4 % (42.0-52.0); Hemoglobin 12.2 g/dl (14.0-18.0); Imm Gran Abs Auto 0.04 X10*3/uL (0.00-0.03); Imm Gran Pct Auto 0.6 % (0.0-0.4); Lymphocytes Absolute Auto 1.3 X10*3/uL (1.2-4.9); Lymphocytes Percent Auto 20.4 % (20-40); Mean Corpuscular HGB Conc 32.6 g/dl (31.0-36.0); Mean Corpuscular Hemoglobin 28.9 pg (27.0-33.0); Mean Corpuscular Volume 88.6 fL (80.0-98.0); Mean Platelet Volume 11.2 fL (9.4-12.4); Monocytes Absolute Auto 0.8 X10*3/uL (0.1-1.2); Monocytes Percent Auto 12.3 % (2-11); Neutrophils Absolute Auto 4.1 x10*3/uL (2.0-8.3); Platelet Count 188 X10*3/uL (160-400); Red Blood Count 4.22 X10*6/uL (4.60-5.80); Red Cell Distribution Width 15.3 % (11.0-16.0); White Blood Count 6.4 X10*3/uL (4.8-10.8)
[2024-10-07 14:47] LABS: Iron 97 mcg/dL (45-160); Percent Iron Saturation 32 % (15-50); Total Iron Binding Capacity 305 mcg/dL (228-428); Unsaturated Iron Binding 208 ug/dL
== END 2024-10-07 13:02 | disposition home or self-care (01) ==
LOC: HO.LAB 13:01
PROVIDERS: PCP Internal Medicine; Visit Provider Internal Medicine
DX: D64.9 Anemia, unspecified (principal)
CPT/HCPCS: 36415; 83540; 85025

== ENCOUNTER 2024-10-13 13:41 | Outpatient (REF) | payer MEDICARE, BC, SELFPAY ==
[2024-10-13 13:53] LABS: MANUAL DIFF FLAG NO
[2024-10-13 14:27] LABS: Basophils Percent Auto 0.8 % (0-2); Eosinophils Absolute Auto 0.1 X10*3/uL (0.0-0.4); Eosinophils Percent Auto 2.1 % (0-4); Hematocrit 36.9 % (42.0-52.0); Hemoglobin 12.1 g/dl (14.0-18.0); Imm Gran Abs Auto 0.03 X10*3/uL (0.00-0.03); Imm Gran Pct Auto 0.6 % (0.0-0.4); Lymphocytes Absolute Auto 1.2 X10*3/uL (1.2-4.9); Lymphocytes Percent Auto 23.2 % (20-40); Mean Corpuscular HGB Conc 32.8 g/dl (31.0-36.0); Mean Corpuscular Volume 88.5 fL (80.0-98.0); Mean Platelet Volume 11.2 fL (9.4-12.4); Monocytes Absolute Auto 0.6 X10*3/uL (0.1-1.2); Monocytes Percent Auto 11.2 % (2-11); Neutrophils Absolute Auto 3.3 x10*3/uL (2.0-8.3); Neutrophils Percent Auto 62.1 % (45-73); Platelet Count 195 X10*3/uL (160-400); Red Blood Count 4.17 X10*6/uL (4.60-5.80); White Blood Count 5.3 X10*3/uL (4.8-10.8)
--- OUTSIDE RECORDS SUMMARY | 2024-10-13 16:47 | XMS_ITS | Clinical Summary ---
Author Organization [facility] Address [address] [place] [address] Care Team Providers Care Window Caser Name Role Phone Josesito Chavarria MD Primary [...] often do you attend chur ch or baptism services? Never 04/15/2024 Do you belong to [...] Recorded Patient Health Questionnaire-2 Score 0 04/13/2024 [facility] - Occupational Stress Questionnaire Answer Date Recorded [...] any time in the past 12 m [facility], were you homeless or living in [...] topic Insurance MEDICARE PART A AND B [facility] Advance Directives * Full Code (Latest Code Status on File) Date Activated Date Inactivated Comments 04/13/2024 8:20 PM 04/16/2024 2:35 PM Care Teams Window Caser Relationship Specialty Start Date End Date Josesito Chavarria MD [address] [place] [address] [place] [address] PCP - General Family Medicine 04/15/24
--- OUTSIDE RECORDS SUMMARY | 2024-10-13 16:47 | XMS_ITS ---
Author Organization [facility] Address [address] [place] [address] Care Team Providers Care Hospice Clinical Manager Name Role Phone Josesito Chavarria MD Primary Care Provider Riki Avila Unavailable [phone] Allergies No Known Allergies Medications Medication SIG [...] AT BEDTIME Oral for 90 Active pyRIDostigmine Lagro 60 MG 1 tablet Orally every 4 [...] 07/07/2024 Encounters Encounter Location Date Provider Diagnosis [facility] [address] [place] [address] 07/07/2024 Riki Clements Acute posthemorrhagi c anemia D62 Assessments Encounter Date Diagnosis (ICD Code) Assessment Notes Treatment Notes Treatment Clinical Notes Section Notes 07/07/2024 Acute posthemorrhagic anemia (ICD-10 - D62) 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 Overall, Elvin appears to be [...] e Protonix and Sucralfate twice a day 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 All of the [...] Watchman procedure on June 08, 2024 at [facility] and is scheduled for a followup DAVI [...] 1 tablet Orally Once a day pyRIDostigmine Lagro 60 MG Tablet 1 tablet Orally every 4 hrs Warfarin Sodium 5 MG Tablet 1 tablet Orally Once a day Not-Taking/PRN Vytorin 10-40 MG Tablet 1 tablet Orally Once a day Not-Taking/PRN pyRIDostigmine Lagro 60 MG Tablet 1 tablet Orally every [...] * Treatment: * Procedure Codes:?1036F TOBAC CO NON-LSHFQ6244 BP SCR NOT PRFRM REC REASON NOS * Preventive Medicine:? ??Screenings:?Fall Risk Screening?Fall Risk Assessment:?No falls in the past year,?Screening:?No falls in the past year,?Assessment:?Not performed, no reason specified,?Plan of Care:?Not documented, no reason specified.? * Follow Up:?2024 * * Sign off status: Completed true * Provider:?Riki Clements MD Date:? 025 Generated for Jeanine thapa/Kamari/Isidoro on:?10/13/2024 04:46 PM EDT History and Physical Notes * [...] recently a negative small bowel enteroscopy at [facility] in April of 2024. All of the [...] Watchman procedure on June 08, 2024 at [facility] and is scheduled for a followup DAVI [...]
--- OUTSIDE RECORDS SUMMARY | 2024-10-13 16:47 | XMS_ITS | Referral Summary ---
Author Organization [facility] Address [address] [place] [address] Care Team Providers Care Brand Ambassador Name Role Phone Josesito Chavarria MD Primary Care Provider [phone] Allergies No known active allergies Medications dutasteride [...] often do you attend chur ch or shinto services? Never 04/15/2024 Do you belong to any clubs o r organizations such as mandaen groups, unions, fraternal or athletic groups, or [...] Recorded Patient Health Questionnaire-2 Score 0 04/13/2024 [facility] - Occupational Stress Questionnaire Answer Date [...] any time in the past 12 m [facility], were you homeless or living in [...] file Insurance MEDICARE PART A AND B [facility] Advance Directives * Full Code (Latest Code Status on File) Date Activated Date Inactivated Comments 04/13/2024 8:20 PM 04/16/2024 2:35 PM Care Teams Brand Ambassador Relationship Specialty Start Date End Date Josesito Chavarria MD [address] [place] [address] [place] [address] PCP - General Family Medicine 04/15/24
--- OUTSIDE RECORDS SUMMARY | 2024-10-13 16:47 | XMS_ITS ---
Author Organization [facility] Address [address] [place] [address] Care Team Providers Care Accounts Executive Name Role Phone Josesito Chavarria MD Primary Care Provider Riki Avila [phone] REASON FOR VISIT PLEASE LOCK NOTE Encounters Encounter Location Date Provider Diagnosis [facility] [address] [place] [address] 09/20/2024 Riki Clements Plan Of Treatment Next Appt Details Provider Name:Riki Clements , 03/21/2025 09:30:00 AM, [address], [address], [place], [address], Progress Notes * ANNE MARTINEZDOB: [birth year] (83 yo M)Acc No.[id number]:09/20/2024 Patient:?ANNE MARTINEZ :1940???Age:83 Y???Sex:Male Address:[address] [place] [address] [place] [address] * * Date:?
--- OUTSIDE RECORDS SUMMARY | 2024-10-13 16:47 | XMS_ITS | Clinical Summary ---
Author Organization [facility] Address [address] [place] [address] Phone Care Team Providers Care Solo Musician Name Role Phone Josesito Chavarria MD Primary Care Provider [phone] Allergies No known active allergies Medications ascorbic [...] Description 08/09/2024 1:40 PM EST Office Visit [facility] [address] [facility] [address] [place] [address] Christina Varma NP Atrial fibrillation, unspecified type (CMS/HCC V24, CMS/HCC V28) (Primary Dx) 08/09/2024 Telephone [facility] [address] [place] [address] Jovani Cuba MD medication 07/25/2024 1:04 PM EST Anesthesia Event [facility] Cardiac Resident Intern [address] [place] [address] Ant Herndon MD 07/25/2024 12:35 PM EST - 07/25/2024 11:59 PM EST Hospital Encounter [facility] Cardiac Resident Intern [address] [place] [address] Esteban Mcguire MD Gomes, Sheldon B, MD Atrial fibrillation, unspecified type (CMS/HCC V24, CMS/FORMERLY [facility] V28) Discharge Disposition: Home or Self Care from Last 3 Months Medical History Medical History Date Comments Diabetes mellitus type 2, co ntrolled, with complications (CMS/HCC V24, CMS/FORMERLY [facility] V28) DX:Diabetes mellitus type 2, controlled, with complications (FORMERLY [facility]) Hyperlipidemia DX:Hyperlipidemi a Diverticulosis DX:Diverticulosi s Peptic [...] Description 02/28/2025 1:00 PM EDT Office Visit [facility] [address] [place] [address] Jovani Cuba MD [address] [place] [address] [address] [place] [address] Health Maintenance Due Date Last Done Comments [...] obtained. The probe was inserted by the immigration guard. There was no probe insertion difficulty. Moderate sedation was administered by anesthesia. The patient had no complications. Estimated blood loss: no blood loss. No specimens were collected. Result [facility] Dom Aceves MD CV ECHO PROCEDURES Final R esult * External clinical lab (07/18/2024 9:42 AM EST) Result [facility] Historical Provider LAB BLOOD ORDERABLES Edit ed Result - Final * Annual BMP Blood Test (04/16/2024) Annual BMP Blood Test abstracted Historical Provider HEALTH MAINTENANCE Final Result from Last 3 Months or Most Recently Relevant to Health Maintenance Insurance MEDICARE [facility] Care Teams Solo Musician Relationship Specialty Start Date End Date Josesito Chavarria MD [address] [place] [address] Dr Sary [place] [facility] - General 11/29/13
--- OUTSIDE RECORDS SUMMARY | 2024-10-13 16:47 | XMS_ITS ---
Author Organization [facility] Address [address] [place] [address] Care Team Providers Care Financial Operations Clerk Name Role Phone Deon VALENZUELA, Josesito Primary Care Provider Riki Avila [phone] REASON FOR VISIT Patient presents today for a f/u from a GI bleed. Encounters Encounter Location Date Provider Diagnosis [facility] [address] [place] [address] 05/19/2024 Riki Clements Plan Of Treatment Next Appt Details Provider Name:Riki Clements , 03/21/2025 09:30:00 AM, [address], [address], [place], [address], Progress Notes * ANNE MARTINEZDOB: [birth year] (83 yo M)Acc No.[id number]:05/19/2024 Progress Notes Patient:?ANNE MARTINEZ Provider:?Riki Clements MD :1940???Age:83 Y???Sex:Male Doroteo e:05/19/2024 Address:[address] [place], [place] [address] Pcp:Josesito Chavarria MD Subjective: * Chief Complaints: [...] MD Date:? 024 Generated for Jeanine thapa/Kamari/Isidoro on:?10/13/2024 04:46 PM EDT
--- OUTSIDE RECORDS SUMMARY | 2024-10-13 16:47 | XMS_ITS | Patient Health Record ---
Author Organization [facility] Carmen marisela Price Address [address] [place] [address] Care Team Providers Care Board Stacker Name Role Phone Josesito Chavarria MD Primary Care Provider Carol Barron Unavailable [phone] Allergies No Known Allergies Results Component Value [...] Problem Acquired hammer toe of right foot (4484205973840 105) Other hammer toe(s) (acquired), right foot (M20.41) Active confirmed Problem Type 2 diabetes mellitus with peripheral angiopathy (603437770) Type 2 diabetes mellitus with diabetic peripheral angiopathy without gangrene (E11.51) Active confirmed Q7(A), Q8(2B), Q9(1B,2C) Problem Acquired hammer toe of left foot (7821268748550 103) Other hammer toe(s) (acquired), left foot (M20.42) Active confirmed Vital Signs Height 5ft 6in in 06/24/2024 Weight 150 lbs 06/24/2024 BMI 24.21 kg/m2 06/24/2024 Procedures Procedure Date Ordered Date Performed Result Body Sit e 12330-VEQSYRX NAIL, 6 OR MORE 06/24/2024 N/A 65715-KFNT SKIN LESIONS, OVER 4 06/24/2024 N/A Encounters Encounter Location Date Provider Diagnosis [facility] [place] [address] [place] [address] 06/24/2024 Carol Valerio Other hammer toe(s) (acquired), [...] Treatment Pending Test Test Name Order Date 53994-LYVLEOP NAIL, 6 OR MORE 06/24/2024 61618-KUDI SKIN LESIONS, OVER 4 06/24/20 24 Next Appt Details Provider Name:Carol Lauren lucrecia, 10/18/2024 10:15:00 AM, [address] [facility], [facility] [address], [place], [address], Insurance Providers Payer Name Payer Address Payer Phone Subscriber Number Group Number Insured Name Patient Relationship to Insured Coverage Start Date Coverage End Date Medicare National [employer] [address] [facility] [place] [address] [id number] Elvin Barone Self - patient is the insured 6 [facility] [address] [place] [address] [id number] Elvin Barone Self - patient is the insured 6 Medical (General) History Medical History History ICD Code Anemia CAD (Cholesterol) type II diabetes High Blood Pressure Reflux ( GERD) Stomach ulcer Chicken pox Transfusions Surgical History Surgery Date(Month/Year) CABG surgery 1996 Stent 2021 hernia 2010
--- OUTSIDE RECORDS SUMMARY | 2024-10-13 16:47 | XMS_ITS | Patient Health Record ---
Author Organization [facility] Address [address] [place] [address] Care Team Providers Care Customer Success Director Name Role Phone Deon VALENZUELA, Josesito Primary Care Provider Esther ClementsRiki Unavailable [phone] Allergies No Known Allergies Results Component Value Reference Range Notes Pathology Reviewed date:12/25/2023 04:12:01 PM Interpretation: Performing Lab:[facility], [address] [place] [address] Notes/Report: --- Name: Elvin Cao Age/Sex: 83/M : 1940 Unit#: [id number] Attend Dr: Tegan Buckner MD Re12/22/23 Status : DIS IN Location: [facility] 473-1 Disch: 12/24/23 --- SPEC : [id number] RECD : 12/24/23 STATUS: RAGHAVENDRA MILIAN NUM: [id number] DENI: 12/23/23-[address] [facility] [address]: Anshul Salter MD ENTERED: 12/24/23-08 40 [...] stains Copies To: Anshul Salter MD [facility] [address] [place] [address] [address] [place] [address] Josesito Chavarria MD [address] [place] [address], [address] [place] [address] Tegan Buckner MD [address] [place] [address] CONTINUED ON NEXT PAGE --- Name: Elvin Cao Age/Sex: 83/M : 1940 Unit#: [id number] Attend Dr: Tegan Buckner MD Re12/22/23 Status : DIS IN Location: [facility] 473- Disch: 12/24/23 --- SPEC : [id number] RECD : 12/24/23 STATUS: RAGHAVENDRA MILIAN NUM: [id number] DENI: 12/23/23-[address] [facility] [address]: Anshul Salter MD ENTERED: 12/24/23 40 SP TYPE: Surgical OTHR DR: Josesito Chavarria MD,Tegan VALENZUELA ORDERED: HE Stain/3, Gross Micro L4, IHC, Special st. 2, H. pylori, AB/PAS --- Signed (signature on file) Manfred Vance MD 12/25/23 1349 --- END OF REPORT Complete Blood Count Auto Di ff Reviewed date:12/24/2023 12:39:32 PM Interpretation: Performing Lab:[facility], [address] [place] [address] Notes/Report: White Blood Count 9.7 4.8-10.8 X10*3/uL [...] g Reviewed date:12/24/2023 12:40:09 PM Interpretation: Performing Lab:[facility], [address] [place] [address] Notes/Report: Sodium 139 135-145 mmol/L Potassium 4.6 [...] Glomerular Filt Rate > 60 NOTE: For -Ivorian individuals, multiply the result by 1.210. Chronic [...] day for 30 day(s) 07/07/2024 Active pyRIDostigmine [place] 60 MG 1 tablet Orally every 4 [...] Status Risk Notes Problem Acute posthemorrhagic anemia (525243989) Acute posthemorrhagic anemia (D62) Active confirmed Vital Signs Blood pressure diastolic 00 mm Hg 07/07/2024 Height 67 in 07/07/2024 Blood pressure systolic 00 mm Hg 07/07/2024 Weight 152 lbs 07/07/2024 BMI 23.80 kg/m2 07/07/2024 Encounters Encounter Location Date Provider Diagnosis [facility] [address] [place] [address] 07/07/2024 Rkii Clements Acute posthemorrhagi c anemia D62 [facility] [address] [place] [address] 09/20/2024 Riki Clements [facility] [address] [place] [address] 12/24/2023 Riki Clements [facility] [address] [place] [address] 12/25/2023 Riki Clements [facility] [address] [place] [address] 01/20/2024 Riki Clements Acute posthemorrhagi c anemia D62 [facility] [address] [place] [address] 04/13/2024 Riki Clements [facility] [address] [place] [address] 04/21/2024 Riki Clements [facility] [address] [place] [address] 05/15/2024 Riki Clements Assessments Encounter Date Diagnosis (ICD Code) Assessment Notes Treatment Notes Treatment Clinical Notes Section Notes 07/07/2024 Acute posthemorrhagic anemia (ICD-10 - D62) Continue the Protonix and Sucralfate twice a day mcc for now Overall, Elvin appears to be [...] Provider Name:Riki Clements , 03/21/2025 09:30:00 AM, [address] [place] [address], [address], [place], [address], Insurance Providers Payer Name Payer Address Payer Phone Subscriber Number Group Number Insured Name Patient Relationship to Insured Coverage Start Date Coverage End Date MEDICARE OF [place] [address] [place] [address] [id number] ELVIN CAO Self - patient is the insured [facility] [address] [place], [place] [id number] ELVIN CAO Self - patient is the insured Medical (General) History Medical History History ICD Code HTN NIDDM 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 screening colonoscopy i n 09/2002 except for a hyperplastic polyp, sigmoid divertciulosis, internal hemorrhoidsis Colonoscopy 2014with a tubular adenoma r emoved Hyperlipidemia GI bleeding--multiple episod es of GI bleeding with significant anemia in 2022 and 2023. Evaluated at [facility], [facility], and [facility] with multiple upper endoscopies and a colonoscopy. These were all nonrevealing. 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 A followup small bowel enteroscopy with Dr. Blair at [facility] in 04/2024 was also negative however. He has not had any sign of active bleeding since then despite remaining on his blood thinners. Watchman procedure in at [facility] and scheduled for a DAVI 07/25/2024 to see if his Xarelto can be changed to Plavix. Surgical History Surgery Date(Month/Year) Bilateral inguinal hernia CABG as above Left knee
--- OUTSIDE RECORDS SUMMARY | 2024-10-13 16:47 | XMS_ITS ---
Author Organization [facility] marisela Hilliard Address [address] [place] [address] Care Team Providers Care Tape Cutting Machine Operator Name Role Phone Josesito Chavarria MD Primary Care Provider Carol Barron Unavailable [phone] Allergies No Known Allergies REASON FOR VISIT [...] Problem Acquired hammer toe of right foot (9460149691661 105) Other hammer toe(s) (acquired), right foot (M20.41) Active confirmed Problem Acquired hammer toe of left foot (2441309203783 103) Other hammer toe(s) (acquired), left foot (M20.42) Active confirmed Problem Type 2 diabetes mellitus with peripheral angiopathy (663736053) Type 2 diabetes mellitus with diabetic peripheral angiopathy without gangrene (E11.51) Active confirmed Q7(A), Q8(2B), Q9(1B,2C) Vital Signs Height 5ft 6in in 06/24/2024 Weight 150 lbs 06/24/2024 BMI 24.21 kg/m2 06/24/2024 Procedures Procedure Date Ordered Date Performed Result Body Sit e 17643-DNPBSRA NAIL, 6 OR MORE 06/24/2024 N/A 29040-DRVM SKIN LESIONS, OVER 4 06/24/2024 N/A Encounters Encounter Location Date Provider Diagnosis [facility] [address] [address] 06/24/2024 Carol Valerio Other hammer toe(s) (acquired), [...] INSTRUCTIONS.pdf) Pending Test Test Name Order Date 59238-VJOKFYI NAIL, 6 OR MORE 06/24/2024 74404-CDTO SKIN LESIONS, OVER 4 06/24/20 24 Next Appt Details Follow Up: 4 Months, Reason: Provider Name:Carol singer, 10/18/2024 10:15:00 AM, [address] [facility], [address], [place], [address], Procedure Notes * Category Sub-Category Detail Notes [...] use of a nail nipper and/or dremel-type grinder hardboard, to a more viable healthy nail plate [...] to maintain effectiveness in symptomatic relief - 61340 Keratoma Treatment Parring or Cutting o f [...] instrumentation by the physician of record - 83547, Q8 Progress Notes * Elvin BARONEDOB: (83 yo M)Acc No.[id number]:06/24/2024 Progress Notes Patient:?Elvin BARONE Provider:?Carol Valerio DPM :1940???Age:83 Y???Sex:Male Doroteo e:06/24/2024 Address:[address] [place] [address], [place] [address] Pcp:Josesito Chavarria MD Subjective: * Chief Complaints: [...] mellitus with diabetic peripheral angiopathy without gangrene?Procedure: 44253-RCJB SKIN LESIONS, OVER 4 3.?Tinea unguium?Procedure: 19147-UNELBJO NAIL, 6 OR MORE * Procedures:?Debride Nail [...] use of a nail nipper and/or dremel-type grinder hardboard, to a more viable healthy nail plate [...] to maintain effectiveness in symptomatic relief - 34238.?Keratoma Treatment:?Parring or Cutting of Benign Hyperkeratotic Lesion(s)?(-57) [...] instrumentation by the physician of record - 44734, Q8.? * Procedure Codes:?54336 DEBRI DE NAIL, 6 OR MORE, Modifiers: XS 24949 TRIM SKIN LESIONS, OVER 4, Modifiers: XS [...] Valerio DPM Date:?08/25/2023 Generated for Jeanine thapa/Kamari/Paolaitting on:?10/13/2024 04:47 PM EDT History and Physical Notes * [...]
== END 2024-10-13 13:42 | disposition home or self-care (01) ==
LOC: HO.LABR 13:41
PROVIDERS: PCP Internal Medicine; Visit Provider Internal Medicine
DX: D64.9 Anemia, unspecified (principal)
CPT/HCPCS: 36415; 85025

== ENCOUNTER 2024-11-16 16:08 | Outpatient (REF) | payer MEDICARE, BC, SELFPAY ==
--- OUTSIDE RECORDS SUMMARY | 2024-11-16 16:16 | XMS_ITS ---
Author Organization [facility] marisela Ramona Address [address] [place] [address] Care Team Providers Care Supervisor Blast Furnace Name Role Phone Josesito Chavarria MD Primary Care Provider Carol Barron Unavailable [phone] Allergies No Known Allergies REASON FOR VISIT At Risk Footcare, Painful Nail(s) aggravated by shoes and causing difficulty standing/walking, Toe Irritation Medications Medication SIG (Take, Route, Frequency, Duration) Notes Start Date End Date Status Xarelto 20 MG 1 tablet with food Orally Once a day Not-Taking Extra Depth Orthopedic Shoes, (1) Pair With (3) Pair Custom Heat Molded Multidensity Innersoles Dx: NIDDM/PVD(E11.51), Hammertoe Foot Deformity(M20.41,M20.42 ), Preulcerative Skin Lesion(s)(L85.1) Wear Daily for 365 days 06/24/2024 Active Isosorbide Mononitrate ER 30 MG 1 tablet in the morning Orally Once a day Active Metoprolol Succinate 12.5mg Active Pantoprazole Sodium 40 MG 1 tablet 1/2 to 1 hour before morning meal Orally twice a day Active Carafate 1 GM 1 tablet on an empty stomach Orally Twice a day Active Jardiance 10 MG 1 tablet Orally Once a day Active Ferrous Sulfate 325 (65 Fe) MG 1 tablet Orally Three times a Week Active Flomax 0.4 MG 1 capsule Orally Onc e a day Active Vitamin D Active Avodart 0.5 MG 1 capsule Orally Onc e a day Active Vitamin C 500 MG as directed Orally Active Folic Acid 1 MG 1 tablet Orally Once a day Active Simvastatin 40 MG 1 tablet in the even ing Orally Once a day Active Zetia 10 MG 1 tablet Orally Once a day Active Clopidogrel Bisulfate 75 MG 1 tablet Orally Once a day Active Nitroglycerin PRN Active Social History Tobacco Use: Social History Observation Description Date Details (start date - stop date) Never Smoker NA - NA Tobacco use other than smoking: Question Answer Notes Are you an other tobacco user? No Tobacco Control (Standard) Question Answer Notes Tobacco use: Nonsmoker Additional Findings: Tobacco non-user Current no nsmoker Vital Signs Height 5ft 6in in 10/18/2024 Weight 154 lbs 10/18/2024 BMI 24.85 kg/m2 10/18/2024 Procedures Procedure Date Ordered Date Performed Result Body Sit e 80139-UZGJRJQ NAIL, 6 OR MORE 10/18/2024 N/A 14537-LISV SKIN LESIONS, OVER 4 10/18/2024 N/A Encounters Encounter Location Date Provider Diagnosis [facility] [address] [address] 10/18/2024 Carol Iman Type 2 diabetes mellitus with diabetic peripheral angiopathy without gangrene E11.51 ; Tinea unguium B35.1 ; Pain in right toe(s) M79.674 ; Pain in left toe(s) M79.675 ; Other hammer toe(s) (acquired), right foot M20.41 and Other hammer toe(s) (acquired), left foot M20.42 Assessments Encounter Date Diagnosis (ICD Code) Assessment Notes Treatment Notes Treatment Clinical Notes Section Notes 10/18/2024 Type 2 diabetes mellitus with diabetic peripheral angiopathy without gangrene (ICD-10 - E11.51) Q7(A), Q8(2B), Q9(1B,2C) 10/18/2024 Tinea unguium (ICD-10 - B35.1) 10/18/2024 Pain in right toe(s) (ICD-10 - M79.674) 10/18/2024 Pain in left toe(s) (ICD-10 - M79.675) 10/18/2024 Other hammer toe(s) (acquired), right foot (ICD-10 - M20.41) Response to treatment,Impro vement 10/18/2024 Other hammer toe(s) (acquired), left foot (ICD-10 - M20.42) Response to treatment,Impro vement Plan Of Treatment Pending Test Test Name Order Date 67315-IINMBQI NAIL, 6 OR MORE 10/18/2024 20354-VRPU SKIN LESIONS, OVER 4 10/19/19 25 Next Appt Details Follow Up: 3 Months, Reason: Provider Name:Carol singer, 01/17/2025 03:00:00 PM, [address] [facility], [address], [place], [address], Procedure Notes * Category Sub-Category Detail Notes [...] use of a nail nipper and/or dremel-type finish grinder, to a more viable healthy nail [...] to maintain effectiveness in symptomatic relief - 06776 Keratoma Treatment Parring or Cutting o f Benign Hyperkeratotic Lesion(s) (-57) More than 4 Lesions - Due to the at risk nature of the patients medical condition as documented in the exam findings, performance of this keratoderma treatment is medically necessary as its management by an unskilled/untrained nonprofessional would put this patients foot and overall health at risk. Therefore, the benign hyperkeratotic lesions, (8_) in total, locations as stated and described in the exam ( 1st, 2nd, 3rd and 5th metatarsal heads B/L.), were pared, and/or cut utilizing a sterile 15 blade, tissue nippers, and/or power dremel instrumentation by the physician of record - 94429 Progress Notes * Maxine BARONE: 1 (83 yo M)Acc No.[id number]:10/18/2024 Progress Note Patient:?Elvin BARONE Provider:?Carol Valerio DPM :1940???Age:83 Y???Sex:Male Doroteo e:10/18/2024 Address:[address] [place] [address], [place] [address] Pcp:Josesito Chavarria MD Subjective: * Chief Complaints: * ???At Risk FootcarePainful N ail(s) aggravated by shoes and causing difficulty standing/walkingToe Irritation * HPI: ???At Risk footcare:?Pt States Last PCP Visit:?Date?08/01/2024 ???Toe pain:?Treatments:?Rx shoes .? * ROS:?General/Constitutional:?Nausea?denies.?Vomiting?denies.?Hunger Thirst?denies.?Loss appetite?denies.?Chills?denies.?Fatigue?denies.?Fever?denies.?Night Sweats?denies.?Unexplained weight loss?denies.?Unexplained weight gain?denies.?HEENTM:?Dentures?admits.?Dizziness?denies.?Glasses/contacts?denies.?Retinopathy?den ies.?Blurred/double vision?admits.?TMJ?denies.?Discharge/drainage?denies.?Implants?denies.?Sore throat?denies.?Dental implants?denies.?Hard of hearing ?denies.?Difficulty chewing/swallowing/speaking?denies.?Nose bleeds?denies.?Sore mouth?denies.?Respiratory:?On O xygen?denies.?Pneumonia/pleurisy?denies.?Bronchitis?denies.?Emphysema?denies.?Co ughing?denies.?Cough blood?denies.?Shortness of breath?denies.?Wheezing?denies.?Cardiovascular:?Pacemaker?denies.?MVP?denies.?WPW?denies.?CHF?denies.?Heart attack?denies.?Septal defect?denies.?Rapid beat?denies.?Chest pain ?denies.?Atrial Fib.?admits.?Murmur/Palpitations?denies.?Gastrointestinal:?Hemorrhoids?denies.?Stomach/Abdominal pain?admits.?Dark blood stool?denies.?Irritable bowel ?denies.?Constipation?denies.?Diarrhea?denies.?Hematology:?Swelling?denies.?Clots?denies.?Varicose Veins?denies.?Bruising?denies.?Bleeding problem?denies.?Genitourinary:?Blood urine?denies.?Frequent/Painfu/urination/bladder control?denies.?Kidney stones?denies.?Infection (UTI)?denies.?Nephropathy?denies.?sex trans dis (STD)?denies.?Prostate?admits.?Musculoskeletal:?Hammertoes?denies.?Bunions?denies.?Back Pain?denies.?Muscle Cramps/ Resting?denies.?Muscle cramps / walking?denies.?Generalized aches and pains?denies.?Weakness?denies.?Integ.:?Manriquez?denies.?Scars?denies.?Corns/calluses?denies.?Ingrown nails?denies.?Painful nails?denies.?Open Sores?denies.?Rashes?denies.?Neurologic:?Difficulty sleeping?denies.?Brain disorder?denies.?Numbness?denies.?Balance t rouble?denies.?Confusion?denies.?Fainting/blackouts?denies.?Tingling?denies.?Peterson mors?denies.? * Medical History:? * Surgical History:?CABG surge ry 1997Stent 2021hernia 2010[facility] 06/08/24 * Hospitalization/Major Diagno stic Procedure:?No Hospitalization History. * Family History:?Mother: dece ased, diagnosed with Other malignant neoplasm of unspecified site.?Father: , diagnosed with Unspecified heart disease.? * Social History:?Tobacco Use:?Tobacco use other than smoking?Are you an other tobacco user??No ?Tobacco Control (Standard)?Tobacco use:?Nonsmoker ?Additional Findings: Tobacco non-user?Current nonsmoker ???Drugs/Alcohol:?Drugs?Have you used drugs other than those for medical reasons in the past 12 months??No ???Miscellaneous:?Caffeine: yes, 2-3 cups per day. ?Children: yes. ?Exercise: yes, walking, golf. ?Marital status: . ?Occupation: Retired. * Medications:?TakingClopidogr el Bisulfate 75 MG Tablet 1 tablet Orally Once a day Nitroglycerin , Notes to Pharmacist: PRNSimvastatin 40 MG [...] before morning meal Orally twice a day Extra Depth Orthopedic Shoes, (1) Pair With (3) Pair Custom Heat Molded Multidensity Innersoles . Dx: NIDDM/PVD(E11.51), Hammertoe Foot Deformity(M20.41,M20.42), Preulcerative Skin Lesion(s)(L85.1) Wear Daily Taking Clopidogrel Bisulfate 75 MG Tablet 1 tablet Orally Once a day Taking Nitroglycerin , Notes to Pharmacist: PRNTaking Simvastatin [...] morning meal Orally twice a day Taking Extra Depth Orthopedic Shoes, (1) Pair With (3) Pair Custom Heat Molded Multidensity Innersoles . Dx: NIDDM/PVD(E11.51), Hammertoe Foot Deformity(M20.41,M20.42), Preulcerative Skin Lesion(s)(L85.1) Wear Daily Not-Taking/PRNXarelto 20 MG Tablet 1 tablet with food Orally Once a day Medication List reviewed and reconciled with the patientNot-Taking/PRN Xarelto 20 MG Tablet 1 tablet with food Orally Once a day Medication List reviewed and reconciled with the patient * Allergies:?N.K.D.A.yes[Aller gies Verified] Objective: * Vitals:?Ht: 5ft 6in, Wt: 154 , BMI: 24.85, Shoe size: 10.5, BS: 136, Ht-cm: 167.64 cm, Wt-k.85 kg. * ???Past Orders: ???Lab:HEMOGLOBIN A1C (GLYCO HEMOGLOBIN) (Order Date - 08/01/2024) (Collection Date & Time - 08/01/2024 10:13 AM) ? Value Reference Range ?HEMOGLOBIN A1C % (HH) 5.8 * Examination: ???Ophthalmology Referral: ?DIABETES EYE EXAM?Procedure Performed:?Yes ?Date of Exam Performed?10/27/2023?Vascular: ?DP PULSES (B):? 0/4, B/L.?PT PULSES (B):? 0/4, B/L.?CAPILLARY FILL TIME:? delayed, all digits, B/L.?TROPHIC CONDITION-TEXTURE/ELASTICITY/TURGOR/HAIR GROWTH (B):? decreased, fragile, thin, shiny, with sparse to absent hair growth, B/L.?TEMPERTURE GRADIENT (C):? decreased, cool to cool, proximal to distal, B/L.?PIGMENTATION:?normal, B/L.?EDEMA (C):?absent, B/L.?CLAUDICATION (C):?denies, B/L.?REST PAIN:?denies, B/L.?PARESTHESIA (C):?absent, B/L.?BURNING (C):?absent, B/L.?Nails: ?NAILS are:?Elongated, overgrown, dystrophic, lytic, greater than 3mm thick, discolored and friable with crumbly malodorous subungual debris, with pain on palpation, TA, T1, T2, T3, T4, T5, T6, T7, T8, T9.?Dermatologic: ?SKIN FINDINGS:?Skin exam reveals Keratotic lesion(s) located at?1st, 2nd, 3rd and 5th metatarsal heads B/L..?Neurological: ?SENSORY:?Neurological exam reveals intact sensorium, pain sensation normal, vibration sensation intact, pinprick sensation is normal in the lower extremities, 5.07 monofilament test performed at plantar aspects of 5 varied sites per foot shows sensation, normal, B/L, Pt denies, anesthesia, burning, paresthesia, tingling, B/L.?Orthopedic: ?MUSCLE STRENGTH:?5/5 all groups in a symmetrical fashion, B/L.?FOOTWEAR EVALUATION:?good condition, exhibit proper fit and accommodation for pedal deformities. OT were inspected and noted to be worn, but in good condition giving proper support at the present time.?General Examination: ?GENERAL APPEARANCE:?Reveals a pleasant, alert, well nourished, well- developed, well hydrated individual, who demonstrates proper attention to hygiene/body habitus, and is in no acute distress, Pt serves as own historian for office visit today.?ORIENTED:?person, place, and time.?Footwear Evaluation?Footwear Evaluation performed:?Yes??? Assessment: * Assessment: 1.?Type 2 diabetes mellitus with diabetic peripheral angiopathy without gangrene - E11.51 (Primary)???Notes :Q7(A), Q8(2B), Q9(1B,2C)???2.?Tinea unguium - B35.1???3.?Pain in right toe(s) - M79.674???4.?Pain in left toe(s) - M79.675???5.?Other hammer toe(s) (acquired), right foot - M20.41???Specify :Chronic problem, Stable (1=3,2=4)???Notes :Response to treatment,Improvement???6.?Other hammer toe(s) (acquired), left foot - M20.42???Specify :Chronic problem, Stable (1=3,2=4)???Notes :Response to treatment,Improvement??? Plan: * Treatment: 2.?Tinea unguium?Procedure: 05267-ESCJEMN NAIL, 6 OR MORE * Procedures:?Debride Nail [...] use of a nail nipper and/or dremel-type finish grinder, to a more viable healthy nail [...] to maintain effectiveness in symptomatic relief - 72883.?Keratoma Treatment:?Parring or Cutting of Benign Hyperkeratotic Lesion(s)?(-57) More than 4 Lesions - Due to the at risk nature of the patients medical condition as documented in the exam findings, performance of this keratoderma treatment is medically necessary as its management by an unskilled/untrained nonprofessional would put this patients foot and overall health at risk. Therefore, the benign hyperkeratotic lesions, (8_) in total, locations as stated and described in the exam ( 1st, 2nd, 3rd and 5th metatarsal heads B/L.), were pared, and/or cut utilizing a sterile 15 blade, tissue nippers, and/or power dremel instrumentation by the physician of record - 07577.? * Procedure Codes:?41148 DEBRI DE NAIL, 6 OR MORE, Modifiers: XS 26731 TRIM SKIN LESIONS, OVER 4, Modifiers: XS * Preventive Medicine:? ??Counseling:?Discussion:?-13: Office or other outpatient visit for the evaluation and management of an established patient, which required a medically appropriate history and/or examination and LOW level of DECISION MAKING for: 1 STABLE ACUTE UNCOMPLICATED PROBLEM, 2 OR MORE MINOR PROBLEMS, OR 1 STABLE CHRONIC PROBLEM, THAT POSE(S) A LOW RISK FOR MORBIDITY/MORTALITY. The visit on the day of the [...] have encouraged the patient to call the office.?Shoe Gear Counseling:?A thorough inspection of the patients Rxed shoegear and inserts was performed and findings communicated. We reviewed the many important medical advantages for adhering to regularly wearing these shoe and insert accomidative devices daily as well as reviewed the fact that a failure in accepting these recommedations may be deleterious, unable to prevent, and disadvantagely result in, many pedal complications such as skin irritation, skin ulceration, infection, and even loss of toe/foot/leg/or even their life. Time was also spent reviewing the proper footcare techniques including daily skin moisturization, daily foot inspection for any interruption in skin integrity, open lesions, or sign of infection such as redness/malodor/drainage/swelling as well as daily shoe inspection for the presence of internal foreign bodies and shoe as well as insert wear. Patient questions re: shoes, inserts, and self foot inspections were answered to their satisfaction as the patient verbally confirmed a full understanding of the above information.? ??Screening/Special Tests:?Fall Risk?Screening:?No falls in the past year ?FALLS: Screening for Future Fall Risk?Have you had any falls with injury in the past year??No * Follow Up:?3 Months * Images: * Sign off status: Completed true * Provider:?Carol Valerio DPM Date:?0 10/18/2024 Generated for Jeanine thapa/Kamari/eTransmliss on:?11/16/2024 04:16 PM EDT History and Physical Notes * HPI (History of Present Illness) Category Sub-Category Detail Notes Category Not es Toe pain Treatments: Rx shoes At Risk footcare Pt States Last PCP Visit: Date: Examination Category Sub-Category Detail Notes Category Not [...] exam reveal s Keratotic lesion(s) located at 1st, 2nd, 3rd and 5th metatarsal heads B/L. Orthopedic FOOTWEAR EVALUATION: good condit ion, exhibit proper fit and accommodation for pedal deformities. OT were inspected and noted to be worn, but in good condition giving proper support at the present time MUSCLE STRENGTH: 5/5 all groups in a symmetrical fashion, B/L General Examination GENERAL APPEARANCE: Reveals a pleasant, alert, well nourished, well-developed, well hydrated individual, who demonstrates proper attention to hygiene/body habitus, and is in no acute distress, Pt serves as own historian for office visit today ORIENTED: person, place, and t marilyn Footwear Evaluation Footwear Evaluation performe d:: Yes Ophthalmology Referral DIABETES EYE EXAM Procedure Perform ed:: Yes ?Date of Exam Performed: 10/27/2023 Vascular DP PULSES (B): 0/4, B/L PT PULSES (B): 0/4, B/L CAPILLARY FILL TIME: delayed, all digits , B/L TEMPERTURE GRADIENT (C): decreased, cool to cool, proximal to distal, B/L TROPHIC CONDITION-TEXTURE/ELASTICITY/TURGOR/HAIR GROWTH (B): decreased, fragile, thin, shiny, with sp arse to absent hair growth, B/L EDEMA (C): absent, B/L CLAUDICATION (C): denies, B/L REST PAIN: denies, B/L PIGMENTATION: normal, B/L PARESTHESIA (C): absent, B/L BURNING (C): absent, B/L Nails NAILS are: Elongated, overg rown, dystrophic, lytic, greater than 3mm thick, discolored and friable with crumbly malodorous subungual debris, with pain on palpation, TA, T1, T2, T3, T4, T5, T6, T7, T8, T9
--- OUTSIDE RECORDS SUMMARY | 2024-11-16 16:16 | XMS_ITS ---
Author Organization [facility] Address [address] [place] [address] Care Team Providers Care Barrel Builder Name Role Phone Deon VALENZUELA, Josesito Primary Care Provider Riki Avila [phone] REASON FOR VISIT Patient presents today for a f/u from a GI bleed. Encounters Encounter Location Date Provider Diagnosis [facility] [address] [place] [address] 05/19/2024 Riki Clements Plan Of Treatment Next Appt Details Provider Name:Riki Clements , 03/21/2025 09:30:00 AM, [address], [address], [place], [address], Progress Notes * ANNE MARTINEZDOB: [birth year] (83 yo M)Acc No.[id number]:05/19/2024 Progress Notes Patient:?ANNE MARTINEZ Provider:?Riki Clements MD :1940???Age:83 Y???Sex:Male Doroteo e:05/19/2024 Address:[address] [place], [place] [address] Pcp:Josesito Chavarria MD Subjective: * Chief Complaints: [...] MD Date:? 024 Generated for Jeanine thapa/Kamari/Isidoro on:?11/16/2024 04:16 PM EDT
--- OUTSIDE RECORDS SUMMARY | 2024-11-16 16:17 | XMS_ITS | Patient Health Record ---
Author Organization [facility] Address [address] [place] [address] Care Team Providers Care Database Technician Name Role Phone Deon VALENZUELA, Josesito Primary Care Provider Esther ClementsRiki Unavailable [phone] Allergies No Known Allergies Results Component Value Reference Range Notes Pathology Reviewed date:12/25/2023 04:12:01 PM Interpretation: Performing Lab:[facility], [address] [place] [phone] Notes/Report: --- Name: Elvin Cao Age/Sex: 83/M : 1940 Unit#: [id number] Attend Dr: Tegan Buckner MD Re12/22/23 Status : DIS IN Location: [facility] 473-1 Disch: 12/24/23 --- SPEC : [id number] RECD : 12/24/23 STATUS: RAGHAVENDRA MILIAN NUM: [id number] DENI: 12/23/23-[address] [facility] [address]: Anshul Salter MD ENTERED: 12/24/23-08 [...] AB/PAS stains Copies To: Anshul Salter MD [facility] [address] [place] [address] [address] [place] [address] Josesito Chavarria MD [address] [place] [address], [address] [place] [address] Tegan Buckner MD [address] [place] [address] CONTINUED ON NEXT PAGE --- Name: Elvin Cao Age/Sex: 83/M : 1940 Unit#: [id number] Attend Dr: Tegan Buckner MD Re12/22/23 Status : DIS IN Location: [facility] 473- Disch: 12/24/23 --- SPEC : [id number] RECD : 12/24/23 STATUS: RAGHVAENDRA MILIAN NUM: [id number] DENI: 12/23/23-[address] [facility] [address]: Anshul Salter MD ENTERED: 12/24/23 40 SP TYPE: Surgical OTHR DR: Josesito Chavarria MD,Tegan VALENZUELA ORDERED: HE Stain/3, Gross Micro L4, IHC, Special st. 2, H. pylori, AB/PAS --- Signed (signature on file) Manfred Vance MD 12/25/23 1349 --- END OF REPORT Complete Blood Count Auto Di ff Reviewed date:12/24/2023 12:39:32 PM Interpretation: Performing Lab:[facility], [address] [place] [phone] Notes/Report: White Blood Count 9.7 4.8-10.8 X10*3/uL [...] g Reviewed date:12/24/2023 12:40:09 PM Interpretation: Performing Lab:[facility], [address] [place] [phone] Notes/Report: Sodium 139 135-145 mmol/L Potassium 4.6 [...] Glomerular Filt Rate > 60 NOTE: For -[place] Islander individuals, multiply the result by 1.210. [...] day for 30 day(s) 07/07/2024 Active pyRIDostigmine Whitt 60 MG 1 tablet Orally every 4 [...] Status Risk Notes Problem Acute posthemorrhagic anemia ([id number]) Acute posthemorrhagic anemia (D62) Active confirmed Vital Signs Blood pressure diastolic 00 mm Hg 07/07/2024 Height 67 in 07/07/2024 Blood pressure systolic 00 mm Hg 07/07/2024 Weight 152 lbs 07/07/2024 BMI 23.80 kg/m2 07/07/2024 Encounters Encounter Location Date Provider Diagnosis [facility] [address] [place] [phone] 07/07/2024 Riki Clements Acute posthemorrhagi c anemia D62 [facility] [address] [place] [phone] 12/24/2023 Riki Clements [facility] [address] [place] [phone] 12/25/2023 Riki Clements [facility] [address] [place] [address] 01/20/2024 Riki Clements Acute posthemorrhagi c anemia D62 [facility] [address] [place] [phone] 04/13/2024 Riki Clements [facility] [address] [place] [phone] 04/21/2024 Riki Clements [facility] [address] [place] [address] 05/15/2024 Riki Clements [facility] [address] [place] [phone] 09/20/2024 Riki Clements Assessments Encounter Date Diagnosis (ICD Code) Assessment Notes Treatment Notes Treatment Clinical Notes Section Notes 07/07/2024 Acute posthemorrhagic anemia (ICD-10 - D62) Continue the Protonix and Sucralfate twice a day salvage determiner for now Overall, Elvin appears to be [...] Provider Name:Riki Clements , 03/21/2025 09:30:00 AM, [address] [place] [address], [address], [place], [address], Insurance Providers Payer Name Payer Address Payer Phone Subscriber Number Group Number Insured Name Patient Relationship to Insured Coverage Start Date Coverage End Date MEDICARE OF [place] [address] [place] [address] [id number] ELVIN CAO Self - patient is the insured [facility] [address] [place], [place] [id number] [phone] [id number] ELVIN CAO Self - patient is the insured Medical (General) History Medical History History ICD Code HTN NIDDM 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 screening colonoscopy i n 09/2002 except for a hyperplastic polyp, sigmoid divertciulosis, internal hemorrhoidsis Colonoscopy 2014with a tubular adenoma r emoved Hyperlipidemia GI bleeding--multiple episod es of GI bleeding with significant anemia in 2022 and 2023. Evaluated at [facility], [facility], and [facility] with multiple upper endoscopies and a colonoscopy. These were all nonrevealing. 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 A followup small bowel enteroscopy with Dr. Blair at [facility] in 04/2024 was also negative however. He has not had any sign of active bleeding since then despite remaining on his blood thinners. Watchman procedure in at [facility] and scheduled for a DAVI 07/25/2024 to see if his Xarelto can be changed to Plavix. Surgical History Surgery Date(Month/Year) Bilateral inguinal hernia CABG as above Left knee
--- OUTSIDE RECORDS SUMMARY | 2024-11-16 16:17 | XMS_ITS | Referral Summary ---
Author Organization [facility] Address [address] [place] [address] Care Team Providers Care Television Anchor Name Role Phone Josesito Chavarria MD Primary Care Provider [phone] Allergies No known active allergies Medications dutasteride [...] in the morning HOLD UNTIL REPEAT LABS. Active Xarelto 20 MG tablet Take 1 [...] Used Date Smoking Tobacco: Former Cigarettes 1 40.4 1 985 - 1956 Smokeless Tobacco: Never [...] often do you attend chur ch or mormon services? Never 04/15/2024 Do you belong to any clubs o r organizations such as orthodox groups, unions, fraternal or athletic groups, or [...] Recorded Patient Health Questionnaire-2 Score 0 04/13/2024 [facility] - Occupational Stress Questionnaire Answer Date [...] the past 12 m [facility], were you homeless or living in a group home (including now)? No 04/14/2024 Alcohol Use/AUDIT-C Answer Date Recorde d How often do you have a drin k containing alcohol? Never 04/13/2024 How many standard drinks con taining alcohol do you have on a typical day? Patient does not drink 04/13/2024 How often do you have six or more drinks on one occasion? Unrecognized value 04/13/2024 Sex and Gender Information Value Date [...] MEDICARE PART A AND B [facility] Advance Directives * Full Code (Latest Code Status on File) Date Activated Date Inactivated Comments 04/13/2024 8:20 PM 04/16/2024 2:35 PM Care Teams Television Anchor Relationship Specialty Start Date End Date Josesito Chavarria MD [address] [place] [address] [place] [address] PCP - General Family Medicine 04/15/24
--- OUTSIDE RECORDS SUMMARY | 2024-11-16 16:17 | XMS_ITS | Clinical Summary ---
Author Organization [facility] Address [address] [facility] [place] [address] Phone Care Team Providers Care Automotive Electrician Helper Name Role Phone Josesito Chavarria MD Primary Care Provider [phone] Allergies No known active allergies Medications ascorbic [...] TWO TABLETS BY MOUTH EVERY DAY Active nitroglycerin (NITROSTAT) 0.4 mg SL tablet [...] each day. 30 each 3 5 Active metoprolol tartrate (LOPRESSOR) 25 mg tablet Take 0.5 tablets (12.5 mg total) by mouth 2 (two) times a day. 45 tablet 2 5 Active metoprolol tartrate (LOPRESSOR) 25 mg tablet Take 0.5 Tablets by mouth daily. 10/26/19 25 Discontinu ed(Reorder ) Active Problems Problem Noted Date Diagnosed Date [...] Encounters Date Type Department Care Team Description 10/25/2024 Telephone [facility] - [facility] [address] [place] [address] Jovani Cuba MD Med Refill from Last 3 Months Medical History Medical History Date Comments Diabetes mellitus type 2, co ntrolled, with complications (CMS/HCC V24, CMS/HCC V28) DX:Diabetes mellitus type 2, controlled, with [...] Description 02/28/2025 1:00 PM EDT Office Visit [facility] [address] [place] [address] Jovani Cuba MD [address] [place] [address] [address] [place] [address] Health Maintenance Due Date Last Done Comments [...] COVID-19 Vaccine ( season) 2024 Influenza Vaccine (Season Ended) 2025 [...] Procedure Name Priority Date/Time Associated Diagnosis Comments ANNUAL BMP BLOOD TEST Routine 04/16/2024 from Last 3 Months or Most Recently Relevant to Health Maintenance Results * Annual BMP Blood Test (04/16/2024) Annual BMP Blood Test abstracted Historical Provider MD HEALTH MAINTENANCE Final Result from Last 3 Months or Most Recently Relevant to Health Maintenance Insurance MEDICARE [facility] Care Teams Automotive Electrician Helper Relationship Specialty Start Date End Date Josesito Chavarria MD [address] [place] [address] Dr [place] PCP - General 11/29/13
--- OUTSIDE RECORDS SUMMARY | 2024-11-16 16:17 | XMS_ITS | Clinical Summary ---
Author Organization [facility] Address [address] [place] [address] Care Team Providers Care Manager Fixed Income Name Role Phone Josesito Chavarria MD Primary Care Provider [phone] Allergies No known active allergies Medications dutasteride [...] often do you attend chur ch or moravian services? Never 04/15/2024 Do you belong to any clubs o r organizations such as mosque groups, unions, fraternal or athletic groups, or [...] Recorded Patient Health Questionnaire-2 Score 0 04/13/2024 [facility] - Occupational Stress Questionnaire Answer Date [...] any time in the past 12 m [facility], were you homeless or living in a [...] Vaccines (1 of 2) 1990 Pneumococcal Vaccine: 50+ (1 of 1 - PCV) 2005 Respiratory Syncytial Virus (RSV): 60+ years (1 - 1-dose 75+ series) 11/20/2015 Influenza Vaccine (Season Ended) 2025 03/25/20 23 HPV Vaccines Aged Out No longer eligi ble based on patient's age to complete this topic Meningococcal Vaccine Aged Out No sher epi eligible based on patient's age to complete this topic Insurance MEDICARE PART A AND B [facility] Advance Directives * Full Code (Latest Code Status on File) Date Activated Date Inactivated Comments 04/13/2024 8:20 PM 04/16/2024 2:35 PM Care Teams Manager Fixed Income Relationship Specialty Start Date End Date Josesito Chavarria MD [address] [place] [address] [place] [address] PCP - General Family Medicine 04/15/24
--- OUTSIDE RECORDS SUMMARY | 2024-11-16 16:17 | XMS_ITS | Patient Health Record ---
Author Organization [facility]ud[facility] Address [address] [place] [address] Care Team Providers Care Steak Sauce Maker Name Role Phone Josesito Chavarria MD Primary Care Provider Carol Barron Unavailable [phone] Allergies No Known Allergies Results Component Value Reference Range Notes HEMOGLOBIN A1C (GLYCOHEMOGLO BIN) Reviewed date:06/24/2024 12:19:41 PM Interpretation: Performing Lab: Notes/Report: TOTAL HEMOGLOBIN (HGBA1C) 5.8 HEMOGLOBIN A1C (GLYCOHEMOGLO BIN) Reviewed date:10/18/2024 10:14:15 AM Interpretation: Performing Lab: Notes/Report: HEMOGLOBIN A1C % (HH) 5.8 Reason For Referral No Information Medications Medication SIG (Take, Route, Frequency, Duration) Notes Start Date End Date Status Carafate 1 GM 1 tablet on an empty stomach Orally Twice a day Active Jardiance 10 MG 1 tablet Orally Once a day Active Avodart 0.5 MG 1 capsule Orally Onc e a day Active Xarelto 20 MG 1 tablet with food Orally Once a day Not-Taking Vitamin C 500 MG as directed Orally Active Extra Depth Orthopedic Shoes, (1) Pair With (3) Pair Custom Heat Molded Multidensity Innersoles Dx: NIDDM/PVD(E11.51), Hammertoe Foot Deformity(M20.41,M20.42 ), Preulcerative Skin Lesion(s)(L85.1) Wear Daily for 365 days 06/24/2024 Active Folic Acid 1 MG 1 tablet Orally Once a day Active Ferrous Sulfate 325 (65 Fe) MG 1 tablet Orally Three times a Week Active Clopidogrel Bisulfate 75 MG 1 tablet Orally Once a day Active Flomax 0.4 MG 1 capsule Orally Onc e a day Active Nitroglycerin PRN Active Isosorbide Mononitrate ER 30 MG 1 tablet in the morning Orally Once a day Active Simvastatin 40 MG 1 tablet in the even ing Orally Once a day Active Metoprolol Succinate 12.5mg Active Zetia 10 MG 1 tablet Orally Once a day Active Pantoprazole Sodium 40 MG 1 tablet 1/2 to 1 hour before morning meal Orally twice a day Active Vitamin D Active Social [...] Problem Acquired hammer toe of right foot (0157240033620 105) Other hammer toe(s) (acquired), right foot (M20.41) Active confirmed Response to treatment,I mprovement Problem Type 2 diabetes mellitus with peripheral angiopathy (263799142) Type 2 diabetes mellitus with diabetic peripheral angiopathy without gangrene (E11.51) Active confirmed Q7(A), Q8(2B), Q9(1B,2C) Problem Acquired hammer toe of left foot (1029439842284 103) Other hammer toe(s) (acquired), left foot (M20.42) Active confirmed Response to treatment,I mprovement Vital Signs Height 5ft 6in in 10/18/2024 Weight 154 lbs 10/18/2024 BMI 24.85 kg/m2 10/18/2024 Procedures Procedure Date Ordered Date Performed Result Body Sit e 65364-KNMFOBW NAIL, 6 OR MORE 06/24/2024 N/A 05161-YQZV SKIN LESIONS, OVER 4 06/24/2024 N/A 19986-EBWMFBX NAIL, 6 OR MORE 10/18/2024 N/A 96647-WKGR SKIN LESIONS, OVER 4 10/18/2024 N/A Encounters Encounter Location Date Provider Diagnosis [facility] [address] [address] 06/24/2024 Carol Valerio Other hammer toe(s) (acquired), right foot M20.41 ; Other hammer toe(s) (acquired), left foot M20.42 ; Type 2 diabetes mellitus with diabetic peripheral angiopathy without gangrene E11.51 ; Tinea unguium B35.1 ; Pain in right toe(s) M79.674 and Pain in left toe(s) M79.675 [facility] [place] [address] [address] 10/18/2024 Carol Valerio Type 2 diabetes mellitus with diabetic peripheral [...] toe(s) (acquired), left foot (ICD-10 - M20.42) 10/18/2024 Type 2 diabetes mellitus with diabetic peripheral angiopathy without gangrene (ICD-10 - E11.51) Q7(A), Q8(2B), Q9(1B,2C) 10/18/2024 Tinea unguium (ICD-10 - B35.1) 10/18/2024 Pain in right toe(s) (ICD-10 - M79.674) 06/24/2024 Type 2 diabetes mellitus with diabetic peripheral angiopathy without gangrene (ICD-10 - E11.51) Q7(A), Q8(2B), Q9(1B,2C) 06/24/2024 Tinea unguium (ICD-10 - B35.1) 10/18/2024 Pain in left toe(s) (ICD-10 - M79.675) 06/24/2024 Pain in right toe(s) (ICD-10 - M79.674) 10/18/2024 Other hammer toe(s) (acquired), right foot (ICD-10 - M20.41) Response to treatment,Impro vement 10/18/2024 Other hammer toe(s) (acquired), left foot (ICD-10 - M20.42) Response to treatment,Impro vement 06/24/2024 Pain in left toe(s) (ICD-10 - M79.675) Plan Of Treatment Pending Test Test Name Order Date 40493-BYFPMOW NAIL, 6 OR MORE 06/24/2024 84740-XXWJKZZ NAIL, 6 OR MORE 10/18/2024 42658-PVTZ SKIN LESIONS, OVER 4 10/19/19 03931-CLOM SKIN LESIONS, OVER 4 06/24/20 Next Appt Details Provider Name:Carol singer, 01/17/2025 03:00:00 PM, [address] [facility], [facility] [address], [place], [address], Insurance Providers Payer Name Payer Address Payer Phone Subscriber Number Group Number Insured Name Patient Relationship to Insured Coverage Start Date Coverage End Date Medicare National [facility] [address] [place] [address] [id number] Elvin Barone Self - patient is the insured 6 [facility] [address] [place] [address] [id number] Elvin Barone Self - patient is the insured 6 Medical (General) History Medical History History ICD Code Anemia CAD (Cholesterol) type II diabetes High Blood Pressure Reflux ( GERD) Stomach ulcer Chicken pox Transfusions Surgical History Surgery Date(Month/Year) CABG surgery 1996 Stent 2021 hernia 2010 watchmen 06/08/24
--- OUTSIDE RECORDS SUMMARY | 2024-11-16 16:17 | XMS_ITS ---
Author Organization [facility] Address [address] [place] [address] Care Team Providers Care Automation Qa Analyst Name Role Phone Josesito Chavarria MD Primary Care Provider Riki Avila Unavailable [phone] Allergies No Known Allergies Medications Medication SIG [...] AT BEDTIME Oral for 90 Active pyRIDostigmine Grygla 60 MG 1 tablet Orally every 4 [...] 07/07/2024 Encounters Encounter Location Date Provider Diagnosis [facility] [address] [place] [address] 07/07/2024 Riki Clements Acute posthemorrhagi c anemia D62 Assessments Encounter Date Diagnosis (ICD Code) Assessment Notes Treatment Notes Treatment Clinical Notes Section Notes 07/07/2024 Acute posthemorrhagic anemia (ICD-10 - D62) Continue the Protonix and Sucralfate twice a day intermission coordinator for now Overall, Elvin appears to be [...] e Protonix and Sucralfate twice a day fdc for now Next Appt Details Follow Up: 2024, Earlo n: Provider Name:Riki Clements , 03/21/2025 09:30:00 AM, [address], [address], [place], [address], Progress Notes * ELVIN MARTINEZ JDOB: [birth year] (83 yo M)Acc No.[id number]:07/07/2024 Progress Notes Patient:?ELVIN MARTINEZ Provider:?Riki Clements MD :1940???Age:83 Y???Sex:Male Doroteo e:07/07/2024 Address:[address] [place] [address] Pcp:Josesito Chavarria MD Subjective: * Chief Complaints: * ??? * HPI: ???incontinence:? I saw Elvin in followup today in regard to his previous GI bleeding and anemia. He was accompanied by his daughter. I last saw Evlin in November of 2023 when he was [...] recently a negative small bowel enteroscopy at [facility] in April of 2024. All of the [...] Watchman procedure on June 08, 2024 at [facility] and is scheduled for a followup DAVI [...] 1 tablet Orally Once a day pyRIDostigmine Grygla 60 MG Tablet 1 tablet Orally every 4 hrs Warfarin Sodium 5 MG Tablet 1 tablet Orally Once a day Not-Taking/PRN Vytorin 10-40 MG Tablet 1 tablet Orally Once a day Not-Taking/PRN pyRIDostigmine Grygla 60 MG Tablet 1 tablet Orally every [...] * Treatment: * Procedure Codes:?1036F TOBAC CO NON-PWTMD0555 BP SCR NOT PRFRM REC REASON NOS * Preventive Medicine:? ??Screenings:?Fall Risk Screening?Fall Risk Assessment:?No falls in the past year,?Screening:?No falls in the past year,?Assessment:?Not performed, no reason specified,?Plan of Care:?Not documented, no reason specified.? * Follow Up:?2024 * * Sign off status: Completed true * Provider:?Riki Clements MD Date:? 025 Generated for Jeanine thapa/Kamari/Isidoro on:?11/16/2024 04:16 PM EDT History and Physical [...] recently a negative small bowel enteroscopy at [facility] in April of 2024. All of the [...] Watchman procedure on June 08, 2024 at [facility] and is scheduled for a followup DAVI [...]
--- OUTSIDE RECORDS SUMMARY | 2024-11-16 16:17 | XMS_ITS ---
Author Organization [facility] Address [address] [place] [address] Care Team Providers Care Peoplesoft Developer Name Role Phone Josesito Chavarria MD Primary Care Provider Riki Avila [phone] REASON FOR VISIT PLEASE LOCK NOTE Encounters Encounter Location Date Provider Diagnosis [facility] [address] [place] [address] 09/20/2024 Riki Clements Plan Of Treatment Next Appt Details Provider Name:Riki Clements , 03/21/2025 09:30:00 AM, [address], [address], [place], [address], Progress Notes * ANNE MARTINEZDOB: [birth year] (83 yo M)Acc No.[id number]:09/20/2024 Patient:?ANNE MARTINEZ :1940???Age:83 Y???Sex:Male Address:[address] [place] [address] [place] [address] * true * Date:? Generated for Printi ng/Faxing/eTransmitting on:?11/16/2024 04:16 PM EDT
--- OUTSIDE RECORDS SUMMARY | 2024-11-16 16:17 | XMS_ITS ---
Author Organization [facility] mar[facility] Address [address] [place] [address] Care Team Providers Care Product Development Technician Name Role Phone Josesito Chavarria MD Primary Care Provider Carol Barron Unavailable [phone] Allergies No Known Allergies REASON FOR VISIT [...] Problem Acquired hammer toe of right foot (1383116653264 105) Other hammer toe(s) (acquired), right foot (M20.41) Active confirmed Response to treatment,I mprovement Problem Acquired hammer toe of left foot (8949365682146 103) Other hammer toe(s) (acquired), left foot (M20.42) Active confirmed Response to treatment,I mprovement Problem Type 2 diabetes mellitus with peripheral angiopathy (681502644) Type 2 diabetes mellitus with diabetic peripheral angiopathy without gangrene (E11.51) Active confirmed Q7(A), Q8(2B), Q9(1B,2C) Vital Signs Height 5ft 6in in 06/24/2024 Weight 150 lbs 06/24/2024 BMI 24.21 kg/m2 06/24/2024 Procedures Procedure Date Ordered Date Performed Result Body Sit e 94677-VALJJCU NAIL, 6 OR MORE 06/24/2024 N/A 25078-RSCP SKIN LESIONS, OVER 4 06/24/2024 N/A Encounters Encounter Location Date Provider Diagnosis [facility] [address] [address] 06/24/2024 Carol Valerio Other hammer toe(s) (acquired), [...] INSTRUCTIONS.pdf) Pending Test Test Name Order Date 79345-TOSMKAT NAIL, 6 OR MORE 06/24/2024 04056-RILJ SKIN LESIONS, OVER 4 06/24/20 24 Next Appt Details Follow Up: 4 Months, Reason: Provider Name:Carol singer, 01/17/2025 03:00:00 PM, [address] [facility], [address], [place], [address], Procedure Notes * Category Sub-Category Detail Notes [...] to maintain effectiveness in symptomatic relief - 53082 Keratoma Treatment Parring or Cutting o f [...] instrumentation by the physician of record - 26169, Q8 Progress Notes * Elvin BARONEDOB: [birth year] (83 yo M)Acc No.[id number]:06/24/2024 Progress Notes Patient:?Elvin BARONE Provider:?Carol Valerio DPM :1940???Age:83 Y???Sex:Male Doroteo e:06/24/2024 Address:[address] [place] [address] Pcp:Josesito Chavarria MD Subjective: * Chief Complaints: [...] mellitus with diabetic peripheral angiopathy without gangrene?Procedure: 16512-OUSI SKIN LESIONS, OVER 4 3.?Tinea unguium?Procedure: 08379-UTMATXO NAIL, 6 OR MORE * Procedures:?Debride Nail [...] to maintain effectiveness in symptomatic relief - 20530.?Keratoma Treatment:?Parring or Cutting of Benign Hyperkeratotic Lesion(s)?(-57) [...] instrumentation by the physician of record - 89486, Q8.? * Procedure Codes:?53104 DEBRI DE NAIL, 6 OR MORE, Modifiers: XS 57196 TRIM SKIN LESIONS, OVER 4, Modifiers: XS [...] Provider:?Carol Valerio DPM Date:?08/25/2023 Generated for Jeanine thapa/Kamari/eTransmitting on:?11/16/2024 04:17 PM EDT History and Physical Notes * [...]
[2024-11-16 16:27] LABS: MANUAL DIFF FLAG NO
[2024-11-16 17:04] LABS: Basophils Percent Auto 0.5 % (0-2); Eosinophils Absolute Auto 0.1 X10*3/uL (0.0-0.4); Eosinophils Percent Auto 2.2 % (0-4); Hematocrit 40.9 % (42.0-52.0); Hemoglobin 13.4 g/dl (14.0-18.0); Imm Gran Abs Auto 0.04 X10*3/uL (0.00-0.03); Imm Gran Pct Auto 0.7 % (0.0-0.4); Lymphocytes Absolute Auto 1.4 X10*3/uL (1.2-4.9); Lymphocytes Percent Auto 23.4 % (20-40); Mean Corpuscular HGB Conc 32.8 g/dl (31.0-36.0); Mean Corpuscular Hemoglobin 29.3 pg (27.0-33.0); Mean Corpuscular Volume 89.5 fL (80.0-98.0); Mean Platelet Volume 10.9 fL (9.4-12.4); Monocytes Absolute Auto 0.9 X10*3/uL (0.1-1.2); Monocytes Percent Auto 14.9 % (2-11); Neutrophils Absolute Auto 3.5 x10*3/uL (2.0-8.3); Neutrophils Percent Auto 58.3 % (45-73); Platelet Count 195 X10*3/uL (160-400); Red Blood Count 4.57 X10*6/uL (4.60-5.80); Red Cell Distribution Width 14.8 % (11.0-16.0)
== END 2024-11-16 16:09 | disposition home or self-care (01) ==
LOC: HO.LAB 16:08
PROVIDERS: PCP Internal Medicine; Visit Provider Internal Medicine
DX: D64.9 Anemia, unspecified (principal)
CPT/HCPCS: 36415; 85025

== ENCOUNTER 2024-11-18 10:55 | Outpatient (AMB) | payer MEDICARE, BC, SELFPAY ==
--- NOTE | 2024-11-18 10:57 | A.OFFPC_ITS ---
Vital Signs 11/18/24 10:58 Height 5 ft 7 in Weight 150 lb BMI 23.5 BP 124/76 Blood Pressure Location Lt brachial Position Sitting Pulse 72 Pulse Source Pulse Oximeter Temp 97.5 F Temp Source Axillary Pulse Oximetry (%) 99 Oxygen Delivery Method Room Air Intake Visit Reasons: Routine Snow Ranger Required: No Accompanied by: Daughter Allergies No Known Allergies Allergy (Verified 11/18/24 11:00) Tobacco use date assessed: 11/18/24 Fall risk assessment: 1 Fall in past year Last assessed Fall Risk: 11/18/24 Dental Screening Dental Screen Date: 11/18/24 Did you have a dental visit in the last 12 months?: No Did you have a dental problem in the last 6 months where you did not have access to dental care?: No HPI HPI Comments History of Present Illness Details 83 year old male with a past medical his tory of CAD s/p CBG, atrial fibrillation, NIDDM, GERD, hyperlipidemia, BPH, MCI, presenting for follow up CV: Follows with Dr Ibarra at [facility]. s/p awtchman device-jun 05. comes off plavix in 3 weeks. Saw urology remtotely. Has had recurrent episodes of GI bleeding Last colonoscopy 2023. History of . cute GI bleeding ROS CONSTITUTIONAL: Denies weight loss, fever and chills. HEENT: Denies changes in vision and hearing. RESPIRATORY: Denies SOB and cough. CV: Denies palpitations and CP GI: Denies abdominal pain, nausea, vomiting and diarrhea. : Denies dysuria and urinary frequency. MSK: right shoulder pain SKIN: Denies rash and pruritus. NEUROLOGICAL: Denies headache PSYCHIATRIC: Denies recent changes in mood. PHYSICAL EXAM: GENERAL: Alert and oriented x 3. NAD EYES: EOMI. Anicteric. HENT: Moist mucous membranes. No scleral icterus. No cervical lymphadenopathy. LUNGS: Clear to auscultation bilaterally. CARDIOVASCULAR: Regular rate and rhythm. No murmur. No JVD. ABDOMEN: Soft, non-tender +bs EXTREMITIES: No edema. Non-tender. SKIN: No rashes or lesions. Warm. NEUROLOGIC: No focal neurological deficits. CN II-XII grossly intact PSYCHIATRIC: Cooperative. Appropriate mood and affect [facility] Medical History Chronic anemia Coronary artery disease Hx of nursing home use of blood thinners Atrial fibrillation Surgical History History of esophagogastroduodenoscopy (EGD) History of coronary artery stent placement History of umbilical hernia repair History of left knee surgery History of coronary artery bypass graft Family History Mother No problems noted. Father No problems noted. Social History Household Members: Spouse and Family Housing: House Do you presently have visiting nurse or other home services: No Patient Tobacco Use Status: Former Tobacco user e-Cigarette/Vaping Use: Former Use Second Hand Smoke Exposure: No service: No Current occupational status: retired Cognitive needs: No Hearing needs: No Vision needs: Yes (rx glasses) Questionnaire PHQ-9 Over the last 2 weeks, how often have you been bothered by any of the following problems? 1. Little interest or pleasure in doing things: not at all 2. Feeling down, depressed, or hopeless: not at all 3. Trouble falling or staying asleep, or sleeping too much: not at all 4. Feeling tired or having little energy: not at all 5. Poor appetite or overeating: not at all 6. Feeling bad about yourself - or that you are a failure or have let yourself or your family down: not at all 7. Trouble concentrating on things, such as reading the newspaper or watching television: not at all 8. Moving or speaking so slowly that other people could have noticed. Or the opposite - being so fidgety or restless that you have been moving around a lot more than usual: not at all 9. Thoughts that you would be better off or of hurting yourself in some way: not at all Total score: 0 Depression Screening Interpretation: Negative Depression Screening Done: Yes 11662 - PHQ-9 Billing: Yes Source: Developed by Drs. Riki Jauregui, Astrid Shell, Russ Bains and colleagues, with an educational johnny from [employer]. Thrive Questionnaire Date Thrive assessed: 11/18/24 I am a: Patient Within the past 12 months, did the food you bought not last and you didn't have the money to get more?: Never true Within the past 12 months, did you worry whether your food would run out before you got money to buy more?: Never true Do you have trouble paying for medicines?: No Do you have trouble getting transportation to medical appointments?: No Do you have trouble paying your heating and electricity bill?: No Do you have trouble taking care of your child, family member or friend?: No Do you have trouble with day-to-day activities such as bathing, preparing meals, shopping, managing finances, etc.?: No Are you currently unemployed and looking for a job?: No Are you interested in more education?: No THRIVE Score: 0 AUDIT C Alcohol Use Questionnaire (AUDIT-C) 1. How often do you have a drink containing alcohol?: Monthly or less 2. How many drinks containing alcohol do you have on a typical day when you are drinking?: 1 or 2 3. How often do you have six or more drinks on one occasion?: Less than monthly Total Score: 2 MEAGHAN-7 AMB Questionnaire MEAGHAN-7 Date MEAGHAN - 7 assessed: 11/18/24 Feeling nervous, anxious, or on edge: 0 = Not at all Not being able to stop or control worryin = Not at all Worrying too much about different things: 0 = Not at all Trouble relaxin = Not at all Being so restless that it is hard to sit still: 0 = Not at all Becoming easily annoyed or irritable: 0 = Not at all Feeling afraid as if something awful might happen: 0 = Not at all Total MEAGHAN-7 score (0-4 normal; 5-9 mild; 10-14 moderate; 15-21 severe): 0 Source: Developed by Drs. Riki Jauregui, Astrid Shell, Russ Bains and colleagues, with an educational johnny from [employer]. Physical exam (Primary Care) Vital Signs: Last Vital Signs Temp 97.5 F 11/18/24 10:58 Pulse 72 11/18/24 10:58 BP 124/76 11/18/24 10:58 Pulse Ox 99 11/18/24 10:58 Oxygen Delivery Method Room Air 11/18/24 10:58 BMI result Body Mass Index 23.5 Tobacco/Smoking Status: Tobacco use Status Tobacco use date assessed 11/18/24 11/18/24 11:07 Patient Tobacco Use Status Former Tobacco user 11/18/24 11:07 e-Cigarette/Vaping Use Former Use 11/18/24 11:07 PHQ-9: PHQ-9 Score PHQ-9: Total score 0 11/18/24 11:09 Depression Screening Interpretation: Negative Thrive Assessment: Date of Thrive Assessment Date Thrive assessed 11/18/24 11/18/24 11:07 Coding Level of Care Code New Pt Level 4 (53915) Complex EM visit Add On G2211 Diagnoses History of diabetes mellitus Z86.39 Chronic atrial fibrillation I48.20 Coronary artery disease involving [place] heart without angina pectoris, unspecified vessel or lesion type I25.10 Coronary Disease-Associated Artery/Lesion type: unspecified vessel or lesion type [place] vs. transplanted heart: [place] heart Associated angina: without angina Additional Codes PHQ-9 - 37906 - PHQ-9 Billing: Yes ([id number]) Assessment & Plan Assessment & Plan (1) History of diabetes mellitus: Code(s): Z86.39 - Personal history of other endocrine, nutritional and metabolic disease Category: Medical (2) Chronic atrial fibrillation: Code(s): I48.20 - Chronic atrial fibrillation, unspecified Category: Medical (3) Coronary artery disease: Code(s): I25.10 - Atherosclerotic heart disease of [place] coronary artery without angina pectoris Category: Medical Qualifiers: Coronary Disease-Associated Artery/Lesion type: unspecified vessel or lesion type [place] vs. transplanted heart: [place] heart Associated angina: without angina Qualified Code(s): I25.10 - Atherosclerotic heart disease of [place] coronary artery without angina pectoris Plan 84 year old to establish care past medical, surgical, social reviewed Labs ordered. Right shoulder pain-referred to ortho Orders: Orders Complete Blood Count Auto Diff 3 Weeks D64.9 - Anemia, unspecified Complete Blood Count Auto Diff 5 Months D64.9 - Anemia, unspecified Hemoglobin A1c 3 Weeks Z86.39 - Personal history of other endocrine, nutritional and metabolic disease Complete Blood Count Auto Diff 2 Months D64.9 - Anemia, unspecified Comprehensive Met. Panel 3 Weeks D64.9 - Anemia, unspecified Referrals Orthopedics Referral M25.511 - Pain in right shoulder Medications: New tobramycin-dexamethasone 0.3-0.1 % 1 drp ophthalmic (eye) Q6H 5 mL 3RF
[2024-11-18 10:58] VITALS: BP 124/76; PULSE 72; TEMP 36.4; O2SAT 99; BMI 23.5
--- OUTSIDE RECORDS SUMMARY | 2024-11-18 11:01 | XMS_ITS ---
Author Organization [facility] Address [address] [place] [address] Care Team Providers Care Risk Manager Name Role Phone Deon VALENZUELA, Josesito Primary Care Provider Riki Avila [phone] REASON FOR VISIT Patient presents today for a f/u from a GI bleed. Encounters Encounter Location Date Provider Diagnosis [facility] [address] [place] [address] 05/19/2024 Riki Clements Plan Of Treatment Next Appt Details Provider Name:Riki Clements , 03/21/2025 09:30:00 AM, [address], [address], [place], [address], Progress Notes * ANNE MARTINEZDOB: [birth year] (83 yo M)Acc No.[id number]:05/19/2024 Progress Notes Patient:?ANNE MARTINEZ Provider:?Riki Clements MD :1940???Age:83 Y???Sex:Male Doroteo e:05/19/2024 Address:[address] [place], [place] [address] Pcp:Josesito Chavarria MD Subjective: * Chief Complaints: [...] MD Date:? 024 Generated for Jeanine thapa/Kamari/Isidoro on:?11/18/2024 11:01 AM EDT
== END 2024-11-18 11:28 | disposition home or self-care (01) ==
LOC: HO.HMCHD 10:56
PROVIDERS: PCP Internal Medicine; Visit Provider Internal Medicine
DX: Z86.39 Personal history of other endocrine, nutritional and metabolic disease (principal); I48.20 Chronic atrial fibrillation, unspecified; I25.10 Atherosclerotic heart disease of native coronary artery without angina pectoris

== ENCOUNTER → 2024-11-18 10:55 | Outpatient (BNVA) | payer MEDICARE, BC, SELFPAY | PROVIDERS: PCP Internal Medicine; Visit Provider Internal Medicine | DX: I25.10 Atherosclerotic heart disease of native coronary artery without angina pectoris (principal); I48.20 Chronic atrial fibrillation, unspecified; E11.9 Type 2 diabetes mellitus without complications; K21.9 Gastro-esophageal reflux disease without esophagitis; E27.5 Adrenomedullary hyperfunction; N40.0 Benign prostatic hyperplasia without lower urinary tract symptoms; Z86.39 Personal history of other endocrine, nutritional and metabolic disease; Z95.1 Presence of aortocoronary bypass graft | CPT/HCPCS: 96127; 99202 ==

== ENCOUNTER 2024-12-09 10:30 | Outpatient (REF) | payer MEDICARE, BC, SELFPAY ==
--- OUTSIDE RECORDS SUMMARY | 2024-12-09 11:33 | XMS_ITS ---
Author Organization [facility] Address [address] [place] [address] Care Team Providers Care Director Of Assessment Name Role Phone Deon VALENZUELA, Josesito Primary Care Provider Riki Avila [phone] REASON FOR VISIT Patient presents today for a f/u from a GI bleed. Encounters Encounter Location Date Provider Diagnosis [facility] [address] [place] [address] 05/19/2024 Riki Clements Plan Of Treatment Next Appt Details Provider Name:Riki Clements , 03/21/2025 09:30:00 AM, [address], [address], [place], [address], Progress Notes * ANNE MARTINEZDOB: [birth year] (84 yo M)Acc No.[id number]:05/19/2024 Progress Notes Patient:?ANNE MARTINEZ Provider:?Riki Clements MD :1940???Age:83 Y???Sex:Male Doroteo e:05/19/2024 Address:[address] [place], [place] [address] Pcp:Josesito Chavarria MD Subjective: * Chief Complaints: [...] MD Date:? 024 Generated for Jeanine thapa/Kamari/Isidoro on:?12/09/2024 11:33 AM EDT
[2024-12-09 13:08] LABS: MANUAL DIFF FLAG NO
[2024-12-09 13:17] LABS: Basophils Percent Auto 0.5 % (0-2); Eosinophils Absolute Auto 0.2 X10*3/uL (0.0-0.4); Eosinophils Percent Auto 2.8 % (0-4); Hematocrit 37.1 % (42.0-52.0); Hemoglobin 12.4 g/dl (14.0-18.0); Imm Gran Abs Auto 0.04 X10*3/uL (0.00-0.03); Imm Gran Pct Auto 0.7 % (0.0-0.4); Lymphocytes Absolute Auto 1.3 X10*3/uL (1.2-4.9); Lymphocytes Percent Auto 21.9 % (20-40); Mean Corpuscular HGB Conc 33.4 g/dl (31.0-36.0); Mean Corpuscular Hemoglobin 29.5 pg (27.0-33.0); Mean Corpuscular Volume 88.1 fL (80.0-98.0); Mean Platelet Volume 10.7 fL (9.4-12.4); Monocytes Absolute Auto 0.8 X10*3/uL (0.1-1.2); Neutrophils Absolute Auto 3.7 x10*3/uL (2.0-8.3); Neutrophils Percent Auto 61.1 % (45-73); Platelet Count 192 X10*3/uL (160-400); Red Blood Count 4.21 X10*6/uL (4.60-5.80); Red Cell Distribution Width 14.1 % (11.0-16.0); White Blood Count 6.1 X10*3/uL (4.8-10.8)
[2024-12-09 13:31] LABS: Estimated Average Glucose 151 mg/dL; Hemoglobin A1c % 6.9 % (<6.0); Total Hemoglobin (HGBA1C) 3201.8995 umol/L
[2024-12-09 13:56] LABS: Alanine Aminotransferase 16 U/L (0-40); Albumin Level 4.4 g/dL (3.5-5.0); Alkaline Phosphatase 71 U/L (39-117); Anion Gap 11 (12-20); Aspartate Amino Transferase 23 U/L (5-37); Bilirubin Total 0.6 mg/dL (0.0-1.0); Blood Urea Nitrogen 23 mg/dL (9-16); Calcium 9.4 mg/dL (8.4-10.2); Carbon Dioxide 28 mmol/L (22-29); Chloride 104 mmol/L (96-108); Estimated Glomerular Filt Rate > 60; Glucose Random 153 mg/dL (60-115); Potassium 3.8 mmol/L (3.3-5.1); Sodium 139 mmol/L (135-145); Total Protein 6.7 g/dL (6.5-8.0)
== END 2024-12-09 10:31 | disposition home or self-care (01) ==
LOC: HO.10HDL 10:30
PROVIDERS: Visit Provider Internal Medicine
DX: Z86.39 Personal history of other endocrine, nutritional and metabolic disease (principal); D64.9 Anemia, unspecified
CPT/HCPCS: 36415; 80053; 83036; 85025

== ENCOUNTER 2025-01-24 10:24 | Outpatient (REF) | payer MEDICARE, BC, SELFPAY ==
--- OUTSIDE RECORDS SUMMARY | 2024-05-19 06:20 | XMS_ITS ---
Author Organization [facility] Address [address] [place] [address] Care Team Providers Care Bale Piler Name Role Phone Deon (RETIRED) Josesito VALENZUELA Primary Care Provide Riki Medel [phone] REASON FOR VISIT Patient presents today for a f/u from a GI bleed. Encounters Encounter Location Date Provider Diagnosis [facility] [address] [place] [address] 05/19/2024 Riki Clements Plan Of Treatment Next Appt Details Provider Name:Riki Diaz Tyree , 03/21/2025 09:30:00 AM, [address], [address], [place], [address], Progress Notes * ANNE MARTINEZDOB: [birth year] (84 yo M)Acc No.[id number]:05/19/2024 Progress Notes Patient: Joe SHARIF ANNE Parker Provider: Feliz Clements MD :1940 A ge:83 Y S ex:Male Date:05/19/2024 Address:[address] [place] [address] [address] [facility] Pcp:Josesito Chavarria (RETIRED )MD Subjective: * Chief Complaints: * 1 . Patient presents today for a f/u from a GI bleed. . * Medical History: Objective: * Vitals: Assessment: Plan: * Treatment: * * The named appointment provid er may or may not be the originator of this progress note, and it is not deemed complete until electronically signed by the appointment provider. Sign off status: Pending * Provider: Feliz Clements MD Date: 1 07/19/2023 Generated for Jeanine thapa/Kamari/Isidoro on: 0 01/25/2025 11:15 AM EDT
--- NOTE | ~2025-01-24 | XR_ITS ---
EXAMINATION: XR SHOULDER 2 OR MORE VIEWS RIGHT HISTORY: M25.511 - Pain in right shoulder COMPARISON: There are no prior studies available for comparison. FINDINGS: Two views of the right shoulder are submitted. Osseous mineralization is normal. There is no fracture or dislocation. The humeral head is high riding, articulating with the undersurface of the acromion, consistent with rotator cuff arthropathy. There is severe osteoarthritis of the AC joint with joint space narrowing and osteophyte formation. The glenohumeral joint is maintained. The soft tissues are unremarkable. XR/XR shoulder RT min 2V IMPRESSION: Severe osteoarthritis of the AC joint. High riding humeral head consistent with rotator cuff arthropathy. Electronically signed by: Riki Zamora MD 01/24/2025 11:15 AM EDT
--- OUTSIDE RECORDS SUMMARY | 2025-01-25 11:16 | XMS_ITS | Patient Health Record ---
Author Organization [facility] Yudithcaesar Price Address [address] [place] [address] Care Team Providers Care Student Driving Instructor Name Role Phone Cora Broderick Primary Care Provider Carol Cardenas Unavailable [phone] Allergies No Known Allergies Results Component Value [...] Problem Acquired hammer toe of right foot (64636301389 86576) Other hammer toe(s) (acquired), right foot (M20.41) Active confirmed Response to treatment,Im provement Problem Type 2 diabetes mellitus with diabetic peripheral angiopathy without gangrene (E11.51) Active confirmed Q7(A), Q8(2B), Q9(1B,2C) Problem Acquired hammer toe of left foot (47919031992 52830) Other hammer toe(s) (acquired), left foot (M20.42) Active confirmed Response to treatment,Im provement Vital Signs Height 5ft 6in in 01/17/2025 Weight 141 lbs 01/17/2025 BMI 22.76 kg/m2 01/17/2025 Procedures Procedure Date Ordered Date Performed Result Body Sit e 24090-TCQLQMS NAIL, 6 OR MORE 06/24/2024 N/A 23941-NRJA SKIN LESIONS, OVER 4 06/24/2024 N/A 03728-KTPMWCJ NAIL, 6 OR MORE 10/18/2024 N/A 68945-QEHR SKIN LESIONS, OVER 4 10/18/2024 N/A Encounters Encounter Location Date Provider Diagnosis [address] [address] 06/24/2024 Carol Valerio Other hammer toe(s) (acquired), right foot M20.41 ; Other hammer toe(s) (acquired), left foot M20.42 ; Type 2 diabetes mellitus with diabetic peripheral angiopathy without gangrene E11.51 ; Tinea unguium B35.1 ; Pain in right toe(s) M79.674 and Pain in left toe(s) M79.[address] [address] 10/18/2024 Carol Valerio Type 2 diabetes mellitus with diabetic peripheral angiopathy without gangrene E11.51 ; Tinea unguium B35.1 ; Pain in right toe(s) M79.674 ; Pain in left toe(s) M79.675 ; Other hammer toe(s) (acquired), right foot M20.41 and Other hammer toe(s) (acquired), left foot M20.[address] [address] 01/17/2025 Carol Valerio Type 2 diabetes mellitus [...] Treatment Pending Test Test Name Order Date 13390-YNIOFJD NAIL, 6 OR MORE 06/24/2024 51429-AHDLQUT NAIL, 6 OR MORE 10/18/2024 69134-AHRR SKIN LESIONS, OVER 4 10/19/19 25 10374-YZYS SKIN LESIONS, OVER 4 06/24/20 24 Next Appt Details Provider Name:Carol Xin singer, 03/28/2025 02:45:00 PM, [address] [facility], [place] [address], [place], [address], Insurance Providers Payer Name Payer Address Payer Phone Subscriber Number Group Number Insured Name Patient Relationship to Insured Coverage Start Date Coverage End Date Medicare [employer] [address] [place] [address] [id number] Elvin Barone Self - patient is the insured 6 [facility] [address] [place] [address] [id number] Elvin Barone Self - patient is the insured 6 Medical (General) History Medical History History ICD Code Anemia CAD (Cholesterol) type II diabetes High Blood Pressure Reflux ( GERD) Stomach ulcer Chicken pox Transfusions Surgical History Surgery Date(Month/Year) CABG surgery 1996 Stent 2021 hernia 2010 watchmen 06/08/24
--- OUTSIDE RECORDS SUMMARY | 2025-01-25 11:16 | XMS_ITS | Clinical Summary ---
Author Organization [facility] Address [address] [place] [address] Care Team Providers Care Copyist Name Role Phone Josesito Chavarria MD Primary Care Provider [phone] Allergies No known active allergies Medications dutasteride [...] often do you attend chur ch or congregational services? Never 04/15/2024 Do you belong to any clubs o r organizations such as bahai groups, unions, fraternal or athletic groups, or [...] Recorded Patient Health Questionnaire-2 Score 0 04/13/2024 [facility] - Occupational Stress Questionnaire Answer Date [...] any time in the past 12 m [facility], were you homeless or living in a [facility] (including now)? No 04/14/2024 Alcohol Use/AUDIT-C Answer [...] topic Insurance MEDICARE PART A AND B [facility] Advance Directives * Full Code (Latest Code Status on File) Date Activated Date Inactivated Comments 04/13/2024 8:20 PM 04/16/2024 2:35 PM Care Teams Copyist Relationship Specialty Start Date End Date Josesito Chavarria MD [address] [place] [address] [place] [address] PCP - General Family Medicine 04/15/24
--- OUTSIDE RECORDS SUMMARY | 2025-01-25 11:16 | XMS_ITS | Clinical Summary ---
Author Organization [facility] Address [address] [facility] [place] [address] Phone Care Team Providers Care Management Internship Name Role Phone Josesito Chavarria MD Primary Care Provider [phone] Allergies No known active allergies Medications ascorbic [...] be controlling his symptoms at this time Medical History Medical History Date Comments Diabetes mellitus type 2, co ntrolled, with complications ([facility] V24, [facility] V28) DX:Diabetes mellitus type 2, controlled, with complications ([facility]) Hyperlipidemia DX:Hyperlipidemi a Diverticulosis DX:Diverticulosi s Peptic [...] Description 02/28/2025 1:00 PM EDT Office Visit [facility] [address] [place] [address] Jovani Cuba MD [address] [place] [address] [address]IVE [address] [place] [address] Health Maintenance Due Date Last Done Comments [...] Recently Relevant to Health Maintenance Insurance MEDICARE [facility] Care Teams Management Internship Relationship Specialty Start Date End Date Josesito Chavarria MD [address] [place] [address] Dr Kumar [address] [place] [address] PCP - General 11/29/13
== END 2025-01-24 10:25 | disposition home or self-care (01) ==
LOC: HO.HOSX 10:24
PROVIDERS: Visit Provider Orthopaedic Surgery
DX: M25.311 Other instability, right shoulder (principal); M25.511 Pain in right shoulder; Z79.82 Long term (current) use of aspirin; Z79.899 Other long term (current) drug therapy; Z79.52 Long term (current) use of systemic steroids
CPT/HCPCS: 20610; 73030; 99202; J1010; J2003

== ENCOUNTER 2025-01-24 10:58 | Outpatient (AMB) | payer MEDICARE, BC, SELFPAY ==
--- OUTSIDE RECORDS SUMMARY | 2024-05-19 06:20 | XMS_ITS ---
Author Organization [facility] Address [address] [place] [address] Care Team Providers Care Nozzle Operator Name Role Phone Deon (RETIRED) Josesito VALENZUELA Primary Care Provide Riki Medel [phone] REASON FOR VISIT Patient presents today for a f/u from a GI bleed. Encounters Encounter Location Date Provider Diagnosis [facility] [address] [place] [address] 05/19/2024 Riki Clements Plan Of Treatment Next Appt Details Provider Name:Riki Joe Tyree , 03/21/2025 09:30:00 AM, [address], [address], [place], [address], Progress Notes * ANNE MARTINEZDOB: [birth year] (84 yo M)Acc No.[id number]:05/19/2024 Progress Notes Patient: Joe SHARIF ANNE Parker Provider: Feliz Clements MD :1940 A ge:83 Y S ex:Male Date:05/19/2024 Address:[address] [place] [address] [address] [id number] Pcp:Josesito Chavarria (RETIRED )MD Subjective: * Chief [...] 07/19/2023 Generated for Jeanine thapa/Kamari/Isidoro on: 0 01/24/2025 12:15 PM EDT
[2025-01-24 11:07] VITALS: BMI 21.9
--- NOTE | 2025-01-24 11:07 | MHC.OFFVIS ---
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 At today's visit he states that he has had right shoulder pain for over 20 years. Patient reports that 09/20 he had an injury/pulled arm that caused the pain to flair up. The patient states that he has had cortisone injections in the past. He has gotten fairly good relief from the injections. He wishes to hold off on surgery if at all possible. Allergies No Known Allergies Allergy (Verified 01/24/25 11:12) Medication List - Last Reconciled 01/24/25 by Jesu Lujan MD aspirin 81 mg PO DAILY cholecalciferol (vitamin D3) (Vitamin D3) 25 mcg PO DAILY clopidogrel 75 mg PO DAILY dutasteride 0.5 mg PO BEDTIME ezetimibe 10 mg PO DAILY isosorbide mononitrate ER 30 mg PO DAILY Jardiance (empagliflozin) 10 mg PO DAILY NS metoprolol succinate ER 12.5 mg PO DAILY nitroglycerin 0.4 mg sublingual NEEDED pantoprazole 40 mg PO DAILY simvastatin 40 mg PO BEDTIME tamsulosin 0.4 mg PO DAILY tobramycin-dexamethasone 0.3-0.1 % 1 drp ophthalmic (eye) Q6H PFSH Medical History Chronic anemia Coronary artery disease 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 Father No problems noted. Social History Household Members: Spouse and Family Housing: House Do you presently have visiting nurse or other home services: No Patient Tobacco Use Status: Former Tobacco user e-Cigarette/Vaping Use: Former Use Second Hand Smoke Exposure: No service: No Current occupational status: retired Cognitive needs: No Hearing needs: No Vision needs: Yes (rx glasses) Physical Exam Vital Signs: BMI result Body Mass Index 21.9 Const Other: Well-nourished well-developed very friendly male awake alert and oriented x3 in no acute distress Extrem Other: Right shoulder examination shows slightly decreased range of motion when compared to his left shoulder, 3/5 strength with supraspinatus testing, positive impingement signs, no instability Office Procedures AMB Joint Injection/Aspiration Joint Injection/Aspiration Primary Site: right shoulder Prep: site was prepped using aseptic technique Injected: 40 mg of, DepoMedrol and 1% plain lidocaine Procedure: The patient tolerated the procedure well Coding - Large joint Procedure code (CPT) selection complete Results Reviewed Results Reviewed: X-rays of the patient's right shoulder show a high-riding humeral head consistent with chronic rotator cuff tearing, no acute bony abnormalities Assessment & Plan Assessment & Plan (1) Rotator cuff insufficiency of right shoulder: Code(s): M25.311 - Other instability, right shoulder Category: Medical Plan Mr. Cao presents with right shoulder pain and weakness due to chronic rotator cuff tearing. The risks and benefits of a right shoulder cortisone injection were discussed at length with the patient. The patient wished to proceed. He tolerated the injection well. He will continue with his home exercise program. He will contact me prior to his follow-up appointment in 3 months should any questions or concerns arise. Feel free to call me at any time should questions regarding his orthopedic management arise. Thank you very much for asking me to see this very friendly gentleman. I spent 20 minutes in reviewing the patient's records and imaging studies, seeing the patient and documenting in the medical record. Orders: Orders AMB Joint Injection/Aspiration Today M25.311 - Other instability, right shoulder XR shoulder RT min 2V Today M25.511 - Pain in right shoulder Coding Level of Care Code New Pt Level 3 (82945) Complex EM visit Add On G2211 Diagnoses Rotator cuff insufficiency of right shoulder M25.311 CPT Codes Coding - Large joint: 55589 - Large joint ([id number])
--- OUTSIDE RECORDS SUMMARY | 2025-01-24 12:15 | XMS_ITS | Clinical Summary ---
Author Organization [facility] Address [address] [place] [address] Care Team Providers Care Equipment Engineer Name Role Phone Josesito Chavarria MD Primary Care Provider [phone] Allergies No known active allergies Medications dutasteride [...] Used Date Smoking Tobacco: Former Cigarettes 1 40.6 1 985 - 1956 Smokeless Tobacco: Never [...] often do you attend chur ch or bahai services? Never 04/15/2024 Do you belong to any clubs o r organizations such as jewish groups, unions, fraternal or athletic groups, or [...] Patient Health Questionnaire-2 Score 0 04/13/2024 [facility] - Occupational Stress Questionnaire Answer [...] any time in the past 12 m [facility], were you homeless or living in a fpc (including now)? No 04/14/2024 Alcohol Use/AUDIT-C Answer [...] 72 04/16/2024 9:00 AM EDT Temperature 36.4 C (97.5 F) 04/16/2024 5:05 AM EDT Respiratory Rate 16 04/16/2024 9:00 AM EDT [...] (1 - Tdap) 11/20/1959 Pneumococcal Vaccine: 50+ (1 of 1 - PCV) 1990 Zoster Vaccines (1 of 2) 1990 Respiratory Syncytial Virus (RSV): 60+ years (1 - 1-dose 75+ series) 11/20/2015 Influenza Vaccine (#1) 2025 03/25/2023 HPV Vaccines Aged Out No longer eligi ble based on patient's age to complete this topic Meningococcal Vaccine Aged Out No sher epi eligible based on patient's age to complete this topic Insurance MEDICARE PART A AND B [facility] Advance Directives * Full Code (Latest Code Status on File) Date Activated Date Inactivated Comments 04/13/2024 8:20 PM 04/16/2024 2:35 PM Care Teams Equipment Engineer Relationship Specialty Start Date End Date Josesito Chavarria MD [address] [place] [address] [place] [address] PCP - General Family Medicine 04/15/24
--- OUTSIDE RECORDS SUMMARY | 2025-01-24 12:15 | XMS_ITS | Clinical Summary ---
Author Organization [facility] Address [address] [place] [address] Phone Care Team Providers Care Stud Dairy Cattle Farmer Name Role Phone Josesito Chavarria MD Primary Care Provider [phone] Allergies No known active allergies Medications ascorbic [...] each day. 30 each 3 08/09/2024 Active metoprolol tartrate (LOPRESSOR) 25 mg tablet Take 0.5 tablets (12.5 mg total) by mouth 2 (two) times a day. 45 tablet 2 10/25/2024 Active Active Problems Problem Noted Date Diagnosed [...] Type Department Care Team Description 10/25/2024 Telephone [facility] [address] [place] [address] Jovani Cuba MD Med Refill [...] Description 02/28/2025 1:00 PM EDT Office Visit [facility] [address] [place] [address] Jovani Cuba MD [address] [place] [address] [address] [place] [address] Health Maintenance Due Date Last Done Comments DTaP,Tdap,and Td Vaccines (1 - Tdap) 11/20/1959 Pneumococcal Vaccine: 50+ Years (1 of 2 - PCV) 11/20/1959 Zoster Vaccines (1 of 2) 1990 RSV Immunization Adult Patients (1 - 1-dose 75+ series) 11/20/2015 Cholesterol Screening (Lipid Panel) 06/07/2022 Falls Risk Assessment 06/07/2022 Social Influencers of Health Screening 06/07/2022 Medicare Annual Wellness Visit 08/14/2023 08/14/2022 COVID-19 Vaccine ( - season) 2024 Depression Screening 06/29/2024 Influenza Vaccine (#1) 2025 03/25/2023 Hypertension/CHF/CAD Annual BMP Blood Test [...] Relevant to Health Maintenance Insurance MEDICARE [facility] Care Teams Stud Dairy Cattle Farmer Relationship Specialty Start Date End Date Josesito Chavarria MD [address] [place] [address] Dr MandelyokeDAMARIS PCP - General 11/29/13
--- OUTSIDE RECORDS SUMMARY | 2025-01-24 12:15 | XMS_ITS | Patient Health Record ---
Author Organization [facility] Yudithcaesar Price Address [address] [place] [address] Care Team Providers Care Lumber Sticker Name Role Phone Cora Broderick Primary Care Provider Carol Cardenas Unavailable [phone] Allergies No Known Allergies Results Component Value Reference Range Notes HEMOGLOBIN A1C (GLYCOHEMOGLO BIN) Reviewed date:06/24/2024 12:19:41 PM Interpretation: Performing Lab: Notes/Report: TOTAL HEMOGLOBIN (HGBA1C) 5.8 HEMOGLOBIN A1C (GLYCOHEMOGLO BIN) Reviewed date:10/18/2024 10:14:15 AM Interpretation: Performing Lab: Notes/Report: HEMOGLOBIN A1C % (HH) 5.8 HEMOGLOBIN A1C (GLYCOHEMOGLO BIN) Reviewed date:01/17/2025 03:10:38 PM Interpretation: Performing Lab: Notes/Report: HEMOGLOBIN A1C % (HH) 5.8 Reason For Referral No Information Medications Medication SIG (Take, Route, Frequency, Duration) Notes Start Date End Date Status Jardiance 10 MG 1 tablet Orally Once a day Active Carafate 1 GM 1 tablet on an empty stomach Orally Twice a day Active Ferrous Sulfate 325 (65 Fe) MG 1 tablet Orally Three times a Week Active Folic Acid 1 MG 1 tablet Orally Once a day Active Vitamin C 500 MG as directed Orally Active Xarelto 20 MG 1 tablet with food Orally Once a day Not-Taking Avodart 0.5 MG 1 capsule Orally Onc e a day Active Extra Depth Orthopedic Shoes, (1) Pair With (3) Pair Custom Heat Molded Multidensity Innersoles Dx: NIDDM/PVD(E11.51), Hammertoe Foot Deformity(M20.41,M20.42 ), Preulcerative Skin Lesion(s)(L85.1) Wear Daily; Duration: 365 days 06/24/2024 Active Zetia 10 MG 1 tablet Orally Once a day Active Pantoprazole Sodium 40 MG 1 tablet 1/2 to 1 hour before morning meal Orally twice a day Active Simvastatin 40 MG 1 tablet in the even ing Orally Once a day Active Metoprolol Succinate 12.5mg Active Nitroglycerin PRN Active Isosorbide Mononitrate ER 30 MG 1 tablet in the morning Orally Once a day Active Clopidogrel Bisulfate 75 MG 1 tablet Orally Once a day Active Flomax 0.4 MG 1 capsule Orally Onc e a day Active Vitamin D Active Immunizations Vaccine Route Administration Date Status Comme nts Influenza Unknown 02/29/2024 Administered Social History Tobacco Use: Social History Observation [...] Problem Acquired hammer toe of right foot (1709708251147 105) Other hammer toe(s) (acquired), right foot (M20.41) Active confirmed Response to treatment,I mprovement Problem Type 2 diabetes mellitus with peripheral angiopathy (921764549) Type 2 diabetes mellitus with diabetic peripheral angiopathy without gangrene (E11.51) Active confirmed Q7(A), Q8(2B), Q9(1B,2C) Problem Other hammer toe(s) (acquired), left foot (M20.42) Active confirmed Response to treatment,I mprovement Vital Signs Height 5ft 6in in 01/17/2025 Weight 141 lbs 01/17/2025 BMI 22.76 kg/m2 01/17/2025 Procedures Procedure Date Ordered Date Performed Result Body Sit e 30453-FPNMOIT NAIL, 6 OR MORE 06/24/2024 N/A 37529-UKZA SKIN LESIONS, OVER 4 06/24/2024 N/A 11155-PNMWUVV NAIL, 6 OR MORE 10/18/2024 N/A 59767-HTUH SKIN LESIONS, OVER 4 10/18/2024 N/A Encounters Encounter Location Date Provider Diagnosis [address] [address] 06/24/2024 Carol Valerio Other hammer toe(s) (acquired), right foot M20.41 ; Other hammer toe(s) (acquired), left foot M20.42 ; Type 2 diabetes mellitus with diabetic peripheral angiopathy without gangrene E11.51 ; Tinea unguium B35.1 ; Pain in right toe(s) M79.674 and Pain in left toe(s) M79.[address] [address] 10/18/2024 Carol Valerio Type 2 diabetes mellitus with diabetic peripheral angiopathy without gangrene E11.51 ; Tinea unguium B35.1 ; Pain in right toe(s) M79.674 ; Pain in left toe(s) M79.675 ; Other hammer toe(s) (acquired), right foot M20.41 and Other hammer toe(s) (acquired), left foot M20.[address] [address] 01/17/2025 Carol Valerio Type 2 diabetes mellitus with [...] Q9(1B,2C) 10/18/2024 Tinea unguium (ICD-10 - B35.1) 01/17/2025 Type 2 diabetes mellitus with diabetic peripheral angiopathy without gangrene (ICD-10 - E11.51) Q7(A), Q8(2B), Q9(1B,2C) 01/17/2025 Tinea unguium (ICD-10 - B35.1) 10/18/2024 Pain in right toe(s) (ICD-10 - M79.674) 06/24/2024 Type 2 diabetes mellitus with diabetic peripheral angiopathy without gangrene (ICD-10 - E11.51) Q7(A), Q8(2B), Q9(1B,2C) 06/24/2024 Tinea unguium (ICD-10 - B35.1) 01/17/2025 Pain in right toe(s) (ICD-10 - M79.674) 10/18/2024 Pain in left toe(s) (ICD-10 - M79.675) 01/17/2025 Pain in left toe(s) (ICD-10 - M79.675) 06/24/2024 Pain in right toe(s) (ICD-10 - M79.674) 10/18/2024 Other hammer toe(s) (acquired), right foot (ICD-10 - M20.41) Response to treatment,Impro vement 10/18/2024 Other hammer toe(s) (acquired), left foot (ICD-10 - M20.42) Response to treatment,Impro vement 06/24/2024 Pain in left toe(s) (ICD-10 - M79.675) Plan Of Treatment Pending Test Test Name Order Date 46666-CXYHLOP NAIL, 6 OR MORE 06/24/2024 70749-XMGSDLC NAIL, 6 OR MORE 10/18/2024 86669-OQGP SKIN LESIONS, OVER 4 10/19/19 25 49300-HQSO SKIN LESIONS, OVER 4 06/24/20 24 Next Appt Details Provider Name:Carol Maemary carmen lucrecia, 03/28/2025 02:45:00 PM, [address] [facility], [place] [address], [place], [address], Insurance Providers Payer Name Payer Address Payer Phone Subscriber Number Group Number Insured Name Patient Relationship to Insured Coverage Start Date Coverage End Date Medicare National [facility] [address] [place] [address] [id number] Elvin Barone Self - patient is the insured 6 [facility] [address] [place] [address] [id number] Elvin Barone Self - patient is the insured 6 Medical (General) History Medical History History ICD Code Anemia CAD (Cholesterol) type II diabetes High Blood Pressure Reflux ( GERD) Stomach ulcer Chicken pox Transfusions Surgical History Surgery Date(Month/Year) CABG surgery 1996 Stent 2021 hernia 2010 watchmen 06/08/24
== END 2025-01-24 11:40 | disposition home or self-care (01) ==
LOC: HO.HOS 10:59
PROVIDERS: PCP Internal Medicine; Visit Provider Orthopaedic Surgery
DX: M25.311 Other instability, right shoulder (principal)
CPT/HCPCS: 20610; 99203

== ENCOUNTER → 2025-01-24 11:02 | Outpatient (BNV) | payer MEDICARE, BC, SELFPAY | PROVIDERS: Visit Provider Radiology Diagnostic Radiology | DX: M19.011 Primary osteoarthritis, right shoulder (principal) | CPT/HCPCS: 73030 ==

== ENCOUNTER 2025-03-17 10:10 | Outpatient (AMB) | payer MEDICARE, BC, SELFPAY ==
--- NOTE | 2025-03-17 09:40 | MHC.PC.OV ---
Vital Signs 03/17/25 10:18 Height 5 ft 7 in Weight 141 lb BMI 22.1 BP 110/48 L Blood Pressure Location Lt brachial Position Sitting Respiration 18 Pulse 66 Pulse Source Pulse Oximeter Temp 97.7 F Temp Source Temporal Artery Scan Pulse Oximetry (%) 97 Oxygen Delivery Method Room Air Intake Visit Reasons: 4 Month F/U Manager Technical Services Required: No Accompanied by: daughter-Roz Allergies No Known Allergies Allergy (Verified 03/17/25 09:40) Medication List - Last Reconciled 03/17/25 by Eliceo Pham MD aspirin 81 mg PO DAILY cholecalciferol (vitamin D3) (Vitamin D3) 25 mcg PO DAILY dutasteride 0.5 mg PO BEDTIME ezetimibe 10 mg PO DAILY isosorbide mononitrate ER 30 mg PO DAILY Jardiance (empagliflozin) 10 mg PO DAILY NS metoprolol succinate ER 12.5 mg PO DAILY nitroglycerin 0.4 mg sublingual NEEDED pantoprazole 40 mg PO DAILY simvastatin 40 mg PO BEDTIME tamsulosin 0.4 mg PO DAILY tobramycin-dexamethasone 0.3-0.1 % 1 drp ophthalmic (eye) Q6H Tobacco use date assessed: 03/17/25 Fall risk assessment: 1 Fall in past year Last assessed Fall Risk: 03/17/25 Dental Screening Dental Screen Date: 03/17/25 Did you have a dental visit in the last 12 months?: No Did you have a dental problem in the last 6 months where you did not have access to dental care?: No Was dental information given to patient?: Patient has dentist HPI HPI Comments History of Present Illness Details The patient is an 84-year-old male presenting for a routine follow-up regarding his chronic conditions. He reports a change in his voice, describing it as lower and foggier, which he has noticed in the past few months. There is no associated pain, sore throat, or significant discomfort apart from the change in vocal quality. The patient associates this change with prolonged CPAP use, which he has been using for several years. The patient has been previously diagnosed with atrial fibrillation and recently underwent a Watchman procedure. Since then, he has been taken off Xarelto and Plavix, and he denies any bleeding episodes post-procedure. Additionally, the patient has experienced intermittent fluttering and shortness of breath, though he notes that these symptoms have been longstanding and not currently bothersome. His history of coronary artery disease is managed with metoprolol succinate and isosorbide mononitrate. The patient also takes aspirin for cardiovascular protection. He is a known diabetic and maintains his condition with Jardiance, with his last HbA1c checked in November at 6.9%. His cholesterol is managed with simvastatin. The patient reports no notable urinary or gastrointestinal symptoms. He had a cortisone injection in his right shoulder approximately a month ago, currently experiencing some soreness, unrelated to recent activities. No other acute concerns were raised during this visit. Medical History: - Coronary Artery Disease - Atrial Fibrillation - Diabetes Mellitus - Hyperlipidemia - Benign Prostatic Hyperplasia Surgical History: - Watchman Device Implantation Medications: - Metoprolol Succinate for atrial fibrillation - Isosorbide Mononitrate for coronary artery disease - Aspirin for coronary artery disease - Jardiance for diabetes mellitus - Simvastatin for hyperlipidemia - Tamsulosin for benign prostatic hyperplasia - Dutasteride for benign prostatic hyperplasia Diagnostic Results: - Labs: Last HbA1c (November) was 6.9 - Procedures: Recent Watchman Device Implantation Social: - 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 - Exercise and Activity: Advised to avoid heavy lifting and be cognizant of health - Functional Status: Uses CPAP machine at night [facility] Medical History (Updated 03/17/25 @ 10:33 by Eliceo Pham MD) Diabetes BPH (benign prostatic hyperplasia) Hypertriglyceridemia GERD (gastroesophageal reflux disease) Chronic anemia Coronary artery disease 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 Father No problems noted. Social History Household Members: Spouse and Family Housing: House Do you presently have visiting nurse or other home services: No Patient Tobacco Use Status: Former Tobacco user Years Smoked: 30 years-quit 1984 e-Cigarette/Vaping Use: Never Used Second Hand Smoke Exposure: No service: No Current occupational status: retired Cognitive needs: No Hearing needs: No Vision needs: Yes (rx glasses) Questionnaire Thrive Questionnaire Date Thrive assessed: 11/18/24 MEAGHAN-7 AMB Questionnaire MEAGHAN-7 Date MEAGHAN - 7 assessed: 11/18/24 Source: Developed by Drs. Riki Jauregui, Astrid Shell, Russ Bains and colleagues, with an educational johnny from [employer]. Review of Systems Const Details: - Respiratory: Denies pain associated with voice changes - Cardiovascular: Reports intermittent fluttering and shortness of breath; denies recent exacerbation - Genitourinary: Denies urinary concerns - Gastrointestinal: Denies gastrointestinal concerns - Musculoskeletal: Reports soreness in right shoulder post cortisone injection All systems reviewed & are unremarkable except as reviewed in HPI and above Physical exam (Primary Care) Vital Signs: Last Vital Signs Temp 97.7 F 03/17/25 10:18 Pulse 66 03/17/25 10:18 Resp 18 03/17/25 10:18 BP 110/48 L 03/17/25 10:18 Pulse Ox 97 03/17/25 10:18 Oxygen Delivery Method Room Air 03/17/25 10:18 BMI result Body Mass Index 22.1 Tobacco/Smoking Status: Tobacco use Status Tobacco use date assessed 03/17/25 03/17/25 09:41 Patient Tobacco Use Status Former Tobacco user 03/17/25 09:41 e-Cigarette/Vaping Use Never Used 03/17/25 10:19 Thrive Assessment: Date of Thrive Assessment Date Thrive assessed 11/18/24 03/17/25 09:41 Const Other: General: Alert and oriented, Well nourished, No acute distress. Eye: Pupils are equal, round and reactive to light, Intact accommodation, Extraocular movements are intact, Normal conjunctiva, Vision unchanged. HENT: Normocephalic, Atraumatic, Tympanic membranes are clear, Normal hearing, Oral mucosa is moist, No pharyngeal erythema, Ear canals patent. Respiratory: Lungs CTA bilaterally, No wheeze, Respirations are non-labored. Cardiovascular: Regular rate, Regular rhythm, S1 auscultated, S2 auscultated, No murmur, Good pulses equal in all extremities, Normal peripheral perfusion, No edema. Gastrointestinal: Soft, Non-tender, Non-distended, Normal bowel sounds, No organomegaly. Musculoskeletal: Normal range of motion, Normal strength, No tenderness, No swelling, No deformity, Normal gait. Integumentary: Warm, Dry, [place], Intact. Neurologic: Alert, Oriented, Normal sensory, Normal motor function, No focal defects, Cranial Nerves II-XII are grossly intact, Normal deep tendon reflexes. Psychiatric: Cooperative, Appropriate mood & affect, Normal judgment. Coding Level of Care Code Est Pt Level 4 (10095) Complex EM visit Add On G2211 Diagnoses Coronary artery disease involving [place] heart without angina pectoris, unspecified vessel or lesion type I25.10 Associated angina: without angina Coronary Disease-Associated Artery/Lesion type: unspecified vessel or lesion type [place] vs. transplanted heart: [place] heart Chronic atrial fibrillation I48.20 Gastroesophageal reflux disease without esophagitis K21.9 Esophagitis presence: without esophagitis Hypertriglyceridemia E78.1 Benign prostatic hyperplasia without lower urinary tract symptoms N40.0 Lower urinary tract symptom presence: symptoms absent Type 2 diabetes mellitus without complication, without long-term current use of insulin E11.9 Diabetes mellitus type: type 2 Diabetes mellitus predatory animal exterminator insulin use: without predatory animal exterminator use Diabetes mellitus complication status: without complication Assessment & Plan Assessment & Plan (1) Coronary artery disease: Comment: - Continue aspirin, metoprolol succinate, and isosorbide mononitrate. - Monitor blood pressure management and stability. Code(s): I25.10 - Atherosclerotic heart disease of [place] coronary artery without angina pectoris Category: Medical Qualifiers: Associated angina: without angina Coronary Disease-Associated Artery/Lesion type: unspecified vessel or lesion type [place] vs. transplanted heart: [place] heart Qualified Code(s): I25.10 - Atherosclerotic heart disease of [place] coronary artery without angina pectoris (2) Chronic atrial fibrillation: Comment: - S/p Watchman and off Xarelto and Plavix - Monitor for any notable symptoms. - Encourage avoidance of activities that may exacerbate the condition. Code(s): I48.20 - Chronic atrial fibrillation, unspecified Category: Medical (3) GERD (gastroesophageal reflux disease): Comment: - Continue Protonix Code(s): K21.9 - Gastro-esophageal reflux disease without esophagitis Category: Medical Qualifiers: Esophagitis presence: without esophagitis Qualified Code(s): K21.9 - Gastro-esophageal reflux disease without esophagitis (4) Hypertriglyceridemia: Comment: - Maintain on simvastatin 40 mg daily. - Lipid Panel completed in November WN Code(s): E78.1 - Pure hyperglyceridemia Category: Medical (5) BPH (benign prostatic hyperplasia): Comment: - Continue tamsulosin and dutasteride. - Monitor urinary symptoms. Code(s): N40.0 - Benign prostatic hyperplasia without lower urinary tract symptoms Category: Medical Qualifiers: Lower urinary tract symptom presence: symptoms absent Qualified Code(s): N40.0 - Benign prostatic hyperplasia without lower urinary tract symptoms (6) Diabetes: Comment: - Current medication regimen: Jardiance. - Plan to reevaluate HbA1c today (Last 12.05) Code(s): E11.9 - Type 2 diabetes mellitus without complications Category: Medical Qualifiers: Diabetes mellitus type: type 2 Diabetes mellitus predatory animal exterminator insulin use: without predatory animal exterminator use Diabetes mellitus complication status: without complication Qualified Code(s): E11.9 - Type 2 diabetes mellitus without complications Plan I have discussed the management plan for the patient?s coronary artery disease, diabetes mellitus, hyperlipidemia, atrial fibrillation, and benign prostatic hyperplasia. The need for continued vigilance regarding blood pressure and glucose control was emphasized. The importance of adherence to the current medication regimen was discussed with the patient. The patient will have an updated HbA1c test to assess the current state of diabetes management. We also covered potential interactions and adverse effects of current medications. I reaffirmed the significance of routine follow-ups and the potential need for adjustments in his treatment plan depending on test outcomes. The CPAP-related voice changes were addressed, with a plan to monitor any further symptomatic developments. The importance of avoiding any strenuous activities that may exacerbate existing conditions was advised. Clearly communicated the risk and benefits associated with symptom management and necessary lifestyle adjustments. Guidelines on when to seek medical attention, particularly for acute symptoms that may suggest complications related to his medical conditions, were provided. Orders: Orders Complete Blood Count Auto Diff Today I48.20 - Chronic atrial fibrillation, unspecified Hemoglobin A1c Today E11.9 - Type 2 diabetes mellitus without complications Patient Instructions: - Continue all prescribed medications as discussed. - Monitor blood pressure and blood sugar levels regularly. - Avoid heavy lifting and ensure adequate rest. - Schedule follow-up appointments as needed. - If you experience worsening symptoms such as chest pain, severe shortness of breath, or significant changes in well-being, seek medical attention immediately. - Bring any documents regarding code status to the next visit.
[2025-03-17 10:18] VITALS: BP 110/48; PULSE 66; RESP 18; TEMP 36.5; O2SAT 97; BMI 22.1
--- OUTSIDE RECORDS SUMMARY | 2025-03-17 10:46 | XMS_ITS | Clinical Summary ---
Author Organization [facility] Address [address] [place] [address] Phone Care Team Providers Care Wheel Alignment Technician Name Role Phone Josesito Chavarria MD Primary Care Provider [phone] Allergies No known active allergies Medications ascorbic [...] Active pantoprazole (PROTONIX) 40 mg EC tablet 1 tablet (40 mg total) 1 (one) time each day before breakfast. Active simvastatin (ZOCOR) 40 mg tablet Take 1 tablet by mouth daily. Active sucralfate (CARAFATE) 1 gram tablet Take 1 Tablet by mouth 2 times daily. Active tamsulosin (FLOMAX) 0.4 mg 24 hr capsule Take 1 capsule by mouth daily. Active ezetimibe (ZETIA) 10 mg tablet TAKE ONE TABLET BY MOUTH EVERY DAY 90 tablet 3 06/13/20 24 Active clopidogreL (PLAVIX) 75 mg tablet Take 1 tablet (75 mg total) by mouth 1 (one) time each day. 30 each 3 08/09/19 25 Active Additional Information Patient not taking.Reported on 02/28/2025 metoprolol tartrate (LOPRESSOR) 25 mg tablet TAKE ONE-HALF TABLET (12.5MG) BY MOUTH TWICE A DAY 135 tablet 2 03/13/20 25 Active metoprolol tartrate (LOPRESSOR) 25 mg tablet Take 0.5 tablets (12.5 mg total) by mouth 2 (two) times a day. 45 tablet 2 10/26/19 25 025 Discontinued Active Problems Problem Noted Date Diagnosed Date [...] that ultimately we can discontinue his anticoagulation Assessment & Plan (02/28/2025 1:32 PM EDT): Patient is in atrial fibrillation today. Anticoagulation has been stopped secondary to GI bleed issues he has a Watchman device in place right now is off Xarelto and off of Plavix at this time. He is in A-fib that is rate controlled and he is asymptomatic Coronary artery disease 11/30/2020 Overview (05/19/2024): Last [...] and following up with routine medical care. Assessment & Plan (02/28/2025 1:32 PM EDT): History of coronary bypass. With angioplasty of the ostium of the vein graft to an obtuse marginal recently with that his symptoms have resolved. He has had no chest pain pressure or shortness of breath is physically active without limitations. Restratification is in place. Recent lipid profile [facility] LDL cholesterol 75. Patient is been instructed to contact us if he develops any exertional symptoms. Resolved Problems Problem Noted Date Diagnosed Date [...] Encounters Date Type Department Care Team Description 02/28/2025 1:00 PM EDT Office Visit [facility] [address] [place] [address] Jovani Cuba MD Paroxysmal atrial fibrillation (CMS/HCC V24, CMS/HCC V28) (Primary Dx); Coronary artery disease involving [place] coronary artery of [place] heart without angina pectoris from Last 3 Months Medical History Medical [...] 129/65 08/09/2024 1:55 PM EST Pulse 61 02/28/2025 1:06 PM EDT Temperature - - Respiratory Rate 18 07/25/2024 1:45 PM EST Oxygen Saturation 97% 02/28/2025 1:06 PM EDT Inhaled Oxygen Concentration - - Weight 64.7 kg (142 lb 11.2 oz) 02/28/2025 1:06 PM EDT Height 170.2 cm (5' 7 ) 02/28/2025 1:06 PM EDT Body Mass Index 22.35 02/28/2025 1:06 PM EDT Plan of Treatment Health Maintenance Due [...] 06/07/2022 Medicare Annual Wellness Visit 08/14/2023 08/14/2022 Depression Screening 06/29/2024 COVID-19 Vaccine ( - season) 2025 Influenza Vaccine (#1) 2025 03/25/2023 Hypertension/CHF/CAD Annual [...] Recently Relevant to Health Maintenance Insurance MEDICARE [facility] Care Teams Wheel Alignment Technician Relationship Specialty Start Date End Date Josesito Chavarria MD [address] [place] [address] Dr Sary [place] PCP - General 11/29/13
--- OUTSIDE RECORDS SUMMARY | 2025-03-17 10:46 | XMS_ITS | Clinical Summary ---
Author Organization [facility] Address [address] [place] [address] Care Team Providers Care Senior Counsel Commercial Name Role Phone Josesito Chavarria MD Primary Care Provider [phone] Allergies No known active allergies Medications dutasteride [...] Used Date Smoking Tobacco: Former Cigarettes 1 40.7 1 985 - 1956 Smokeless Tobacco: Never [...] often do you attend chur ch or anglican services? Never 04/15/2024 Do you belong to any clubs o r organizations such as religious groups, unions, fraternal or athletic groups, or [...] Score 0 04/13/2024 [facility] - Occupational Stress Questionnaire Answer Date [...] any time in the past 12 m [facility], were you homeless or living in a custodial (including now)? No 04/14/2024 Alcohol Use/AUDIT-C Answer [...] Insurance MEDICARE PART A AND B [facility] Advance Directives * Full Code (Latest Code Status on File) Date Activated Date Inactivated Comments 04/13/2024 8:20 PM 04/16/2024 2:35 PM Care Teams Senior Counsel Commercial Relationship Specialty Start Date End Date Josesito Chavarria MD [address] [place] [address] [place] [address] PCP - General Family Medicine 04/15/24
== END 2025-03-17 10:38 | disposition home or self-care (01) ==
LOC: HO.HMCHD 10:11
PROVIDERS: PCP Student in an Organized Health Care Education/Training Program; Visit Provider Student in an Organized Health Care Education/Training Program
DX: I25.10 Atherosclerotic heart disease of native coronary artery without angina pectoris (principal); I48.20 Chronic atrial fibrillation, unspecified; K21.9 Gastro-esophageal reflux disease without esophagitis; E78.1 Pure hyperglyceridemia; N40.0 Benign prostatic hyperplasia without lower urinary tract symptoms; E11.9 Type 2 diabetes mellitus without complications

== ENCOUNTER 2025-03-17 10:35 | Outpatient (REF) | payer MEDICARE, BC, SELFPAY ==
[2025-03-17 11:55] LABS: MANUAL DIFF FLAG NO
[2025-03-17 12:06] LABS: Hematocrit 37.4 % (42.0-52.0); Hemoglobin 12.5 g/dl (14.0-18.0); Imm Gran Abs Auto 0.05 X10*3/uL (0.00-0.03); Imm Gran Pct Auto 0.7 % (0.0-0.4); Lymphocytes Absolute Auto 1.2 X10*3/uL (1.2-4.9); Mean Corpuscular HGB Conc 33.4 g/dl (31.0-36.0); Mean Corpuscular Hemoglobin 29.9 pg (27.0-33.0); Mean Corpuscular Volume 89.5 fL (80.0-98.0); NRBC Abs Auto 0.000 X10*3/uL (0.0-0.012); NRBC Pct Auto 0.0 /100WBC (0.0-0.2); Platelet Count 204 X10*3/uL (160-400); Red Blood Count 4.18 X10*6/uL (4.60-5.80); White Blood Count 6.8 X10*3/uL (4.8-10.8)
[2025-03-17 12:30] LABS: Total Hemoglobin (HGBA1C) 3281.0582 umol/L
== END 2025-03-17 10:36 | disposition home or self-care (01) ==
LOC: HO.10HDL 10:35
PROVIDERS: Visit Provider Student in an Organized Health Care Education/Training Program
DX: I25.10 Atherosclerotic heart disease of native coronary artery without angina pectoris (principal); I48.20 Chronic atrial fibrillation, unspecified; K21.9 Gastro-esophageal reflux disease without esophagitis; E78.1 Pure hyperglyceridemia; N40.0 Benign prostatic hyperplasia without lower urinary tract symptoms; E11.9 Type 2 diabetes mellitus without complications
CPT/HCPCS: 36415; 83036; 85025; 99212

== ENCOUNTER 2025-04-26 10:59 | Outpatient (AMB) | payer MEDICARE, BC, SELFPAY ==
--- OUTSIDE RECORDS SUMMARY | 2024-05-19 06:20 | XMS_ITS ---
Author Organization [facility] Address [address] [place] [address] Care Team Providers Care Maintenance Mgr Name Role Phone Deon (RETIRED) Josesito VALENZUELA Primary Care Provide Riki Medel [phone] REASON FOR VISIT Patient presents today for a f/u from a GI bleed. Encounters Encounter Location Date Provider Diagnosis [facility] [address] [place] [address] 05/19/2024 Riki Clements Plan Of Treatment Next Appt Details Provider Name:Riki Joe Tyree , 07/11/2025 01:40:00 PM, [address], [address], [place], [address], Progress Notes * ANNE MARTINEZDOB: [birth year] (84 yo M)Acc No.[id number]:05/19/2024 Progress Notes Patient: Joe SHARIF ANNE Parker Provider: Feliz Clements MD :1940 A ge:83 Y S ex:Male Date:05/19/2024 Address:[address] [place] [address] [address] [facility] Pcp:Josesito Chavarria (RETIRED )MD Subjective: * Chief [...] Clements MD Date: 07/19/2023 Generated for Jeanine tahpa/Kamari/Isidoro on: 01:55 PM EDT
--- OUTSIDE RECORDS SUMMARY | 2025-03-16 10:28 | XMS_ITS ---
Author Organization [facility] Address [address] [place] [address] Care Team Providers Care Blueprinting Machine Operator Name Role Phone Deon (RETIRED) Josesito VALENZUELA Primary Care Provide juaquin David Tyree Riki Frankie [phone] REASON FOR VISIT reschedule appointment Encounters Encounter Location Date Provider Diagnosis [facility] [address] [place] [address] 03/16/2025 Riki Clements Plan Of Treatment Next Appt Details Provider Name:Riki Clements , 07/11/2025 01:40:00 PM, [address], [address], [place], [address], Progress Notes * ANNE MARTINEZDOB: [birth year] (84 yo M)Acc No.[id number]:03/16/2025 Patient: Joe ANNE SHARIF :1940 A ge:84 Y S ex:Male Address:[address] [place] [address] Subjective: * Chief Complaints: * R eschedule appointment * Medical History: * Surgical History: * Hospitalization/Major Diagno stic Procedure: * Medications: Objective: * Vitals: * Physical Examination: Assessment: Plan: * Treatment: * Procedure Codes: * * Date:
--- OUTSIDE RECORDS SUMMARY | 2025-03-21 05:30 | XMS_ITS ---
Author Organization [facility] Address [address] [place] [address] Care Team Providers Care Screener Perfumer Name Role Phone Deon (RETIRED) Josesito VALENZUELA Primary Care Provide Riki Medel [phone] REASON FOR VISIT Patient presents today for a follow up from a GI bleed Encounters Encounter Location Date Provider Diagnosis [facility] [address] [place] [address] 03/21/2025 Riki Clements Plan Of Treatment Next Appt Details Provider Name:Riki Diaz Tyree , 07/11/2025 01:40:00 PM, [address], [address], [place], [address], Progress Notes * ANNE MARTINEZDOB: [birth year] (84 yo M)Acc No.[id number]:03/21/2025 Progress Notes Patient: Joe SHARIF ANNE Parker Provider: Feliz Clements MD :1940 A ge:84 Y S ex:Male Date:03/21/2025 Address:[address] [place] [address] Feliz [id number] Pcp:Josesito Chavarria (RETIRED )MD Subjective: * Chief Complaints: * 1 . Patient presents today for a follow up from a GI bleed. * Medical History: Objective: * Vitals: Assessment: Plan: * Treatment: * * The named appointment provid er may or may not be the originator of this progress note, and it is not deemed complete until electronically signed by the appointment provider. Sign off status: Pending * Provider: Feliz Clements MD Date: 0 03/21/2025 Generated for Jeanine thapa/Kamari/Isidoro on: 01:55 PM EDT
--- NOTE | 2025-04-26 11:14 | A.OFFVIS_ITS ---
Vital Signs 04/26/25 11:18 Height 5 ft 7 in Weight 140 lb BMI 21.9 Intake Visit Reasons: OV-Pain in right shoulder last inj 01/24/25 Intake Note: Elvin is a 84 year old male who presents with complaints of intermittent discomfort in both of his shoulders. The patient was given a cortisone injection at his last visit. He states he got fairly good relief from the inje ction. He continues to golf for exercise. He continues with his yoga exercise program. Allergies No Known Allergies Allergy (Verified 03/17/25 09:40) Medication List - Last Reconciled 04/26/25 by Jesu Lujan MD aspirin 81 mg PO DAILY cholecalciferol (vitamin D3) (Vitamin D3) 25 mcg PO DAILY dutasteride 0.5 mg PO BEDTIME ezetimibe 10 mg PO DAILY isosorbide mononitrate ER 30 mg PO DAILY Jardiance (empagliflozin) 10 mg PO DAILY NS metoprolol succinate ER 12.5 mg PO DAILY nitroglycerin 0.4 mg sublingual NEEDED pantoprazole 40 mg PO DAILY simvastatin 40 mg PO BEDTIME tamsulosin 0.4 mg PO DAILY tobramycin-dexamethasone 0.3-0.1 % 1 drp ophthalmic (eye) Q6H [facility] Medical History (Updated 04/26/25 @ 12:41 by Jesu Lujan MD) Diabetes BPH (benign prostatic hyperplasia) Hypertriglyceridemia GERD (gastroesophageal reflux disease) Chronic anemia Coronary artery disease 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 Father No problems noted. Social History Household Members: Spouse and Family Housing: House Do you presently have visiting nurse or other home services: No Patient Tobacco Use Status: Former Tobacco user Years Smoked: 30 years-quit 1984 e-Cigarette/Vaping Use: Never Used Second Hand Smoke Exposure: No service: No Current occupational status: retired Cognitive needs: No Hearing needs: No Vision needs: Yes (rx glasses) Physical Exam Vital Signs: BMI result Body Mass Index 21.9 Extrem Other: Bilateral shoulder examination shows forward flexion to 150 degrees, external rotation to 50 degrees, 3/5 strength with supraspinatus testing, no instability Assessment & Plan Assessment & Plan (1) Bilateral shoulder pain: Code(s): M25.511 - Pain in right shoulder; M25.512 - Pain in left shoulder Category: Medical Plan Mr. Cao presents with intermittent bilateral shoulder discomfort due to chronic rotator cuff tearing. I had a lengthy discussion with the patient regarding the treatment options. At this point the patient's symptoms are tolerable to him. We will hold off on another cortisone injection. He will follow up with me on an as-needed basis should his symptoms worsen in any way. Feel free to call me at any time should questions regarding his orthopedic management arise. I spent 20 minutes in reviewing the patient's records and imaging studies, seeing the patient and documenting in the medical record. Coding Level of Care Code Est Pt Level 3 (24038) Complex EM visit Add On G2211 Diagnoses Bilateral shoulder pain M25.511; M25.512
[2025-04-26 11:18] VITALS: BMI 21.9
--- OUTSIDE RECORDS SUMMARY | 2025-04-26 13:55 | XMS_ITS | Clinical Summary ---
Author Organization [facility] Address [address] [place] [address] Phone Care Team Providers Care Structures Assembler Name Role Phone Josesito Chavarria MD Primary Care Provider [phone] Allergies No known active allergies Medications ascorbic [...] each day. 30 each 3 5 Active Additional Information Patient not taking.Reported on 02/28/2025 metoprolol tartrate (LOPRESSOR) 25 mg tablet TAKE ONE-HALF TABLET (12.5MG) BY MOUTH TWICE A DAY 135 tablet 2 5 Active Active Problems Problem Noted Date Diagnosed [...] Restratification is in place. Recent lipid profile [facility] LDL cholesterol 75. Patient is been instructed [...] Description 02/28/2025 1:00 PM EDT Office Visit [facility] [address] [place] [address] Jovani Cuba MD Paroxysmal atrial fibrillation (CMS/HCC V24, CMS/HCC V28) (Primary Dx); Coronary artery disease involving [place] coronary artery of [place] heart without angina pectoris from Last 3 Months Medical History Medical History Date Comments Diabetes mellitus type 2, co ntrolled, with complications (CMS/HCC V24, CMS/HCC V28) DX:Diabetes mellitus type 2, controlled, with complications ([facility]) Hyperlipidemia DX:Hyperlipidemi a Diverticulosis DX:Diverticulosi s Peptic [...] Recently Relevant to Health Maintenance Insurance MEDICARE [facility] Care Teams Structures Assembler Relationship Specialty Start Date End Date Josesito Chavarria MD [address] [place] [address] Dr Sary [place] PCP - General 11/29/13
--- OUTSIDE RECORDS SUMMARY | 2025-04-26 13:56 | XMS_ITS | Patient Health Record ---
Author Organization [facility] Yudithcaesar Price Address [address] [place] [address] Care Team Providers Care First Coat Sander Name Role Phone Cora Broderick Primary Care Provider Carol Cardenas Unavailable [phone] Allergies No Known Allergies Results Component Value [...] Duration) Notes Start Date End Date Status Ferrous Sulfate 325 (65 Fe) MG 1 [...] Wear Daily; Duration: 365 days 06/24/2024 Active Avodart 0.5 MG 1 capsule Orally Onc e a day Active Zetia 10 MG 1 [...] empty stomach Orally Twice a day Active Immunizations Vaccine Route Administration Date Status [...] Problem Acquired hammer toe of right foot (6704844399840 105) Other hammer toe(s) (acquired), right foot (M20.41) Active confirmed Response to treatment,I mprovement Problem Type 2 diabetes mellitus with peripheral angiopathy (843303631) Type 2 diabetes mellitus with diabetic peripheral angiopathy without gangrene (E11.51) Active confirmed Q7(A), Q8(2B), Q9(1B,2C) Problem Acquired hammer toe of left foot (5291927418129 103) Other hammer toe(s) (acquired), left foot (M20.42) Active confirmed Response to treatment,I mprovement Vital Signs Blood pressure diastolic 78 mm Hg 03/28/2025 Height 5ft 6in in 03/28/2025 Blood pressure systolic 120 mm Hg 03/28/2025 Weight 140 lbs 03/28/2025 BMI 22.59 kg/m2 03/28/2025 Procedures Procedure Date Ordered Date Performed Result Body Sit e 06331-PWIVHKC NAIL, 6 OR MORE 06/24/2024 N/A 15562-FVCK SKIN LESIONS, OVER 4 06/24/2024 N/A 55068-JLRGRIM NAIL, 6 OR MORE 10/18/2024 N/A 42601-YUDO SKIN LESIONS, OVER 4 10/18/2024 N/A Encounters Encounter Location Date Provider Diagnosis [address] [address] 06/24/2024 Carol Valerio Other hammer toe(s) (acquired), right foot M20.41 ; Other hammer toe(s) (acquired), left foot M20.42 ; Type 2 diabetes mellitus with diabetic peripheral angiopathy without gangrene E11.51 ; Tinea unguium B35.1 ; Pain in right toe(s) M79.674 and Pain in left toe(s) M79.[address] [address] 10/18/2024 Carol Valerio Type 2 diabetes mellitus with diabetic peripheral angiopathy without gangrene E11.51 ; Tinea unguium B35.1 ; Pain in right toe(s) M79.674 ; Pain in left toe(s) M79.675 ; Other hammer toe(s) (acquired), right foot M20.41 and Other hammer toe(s) (acquired), left foot M20.[address] [address] 01/17/2025 Carol Valerio Type 2 diabetes mellitus with diabetic peripheral angiopathy without gangrene E11.51 ; Tinea unguium B35.1 ; Pain in right toe(s) M79.674 and Pain in left toe(s) M79.[address] [address] 03/28/2025 Carol Valerio Type 2 diabetes mellitus with [...] gangrene (ICD-10 - E11.51) Q7(A), Q8(2B), Q9(1B,2C) 03/28/2025 Type 2 diabetes mellitus with diabetic peripheral angiopathy without gangrene (ICD-10 - E11.51) Q7(A), Q8(2B), Q9(1B,2C) 03/28/2025 Tinea unguium (ICD-10 - B35.1) 10/18/2024 Pain in right toe(s) (ICD-10 - M79.674) 01/17/2025 Tinea unguium (ICD-10 - B35.1) 06/24/2024 Type 2 diabetes mellitus with diabetic peripheral angiopathy without gangrene (ICD-10 - E11.51) Q7(A), Q8(2B), Q9(1B,2C) 06/24/2024 Tinea unguium (ICD-10 - B35.1) 10/18/2024 Pain in left toe(s) (ICD-10 - M79.675) 01/17/2025 Pain in right toe(s) (ICD-10 - M79.674) 03/28/2025 Pain in right toe(s) (ICD-10 - M79.674) 03/28/2025 Pain in left toe(s) (ICD-10 - M79.675) [...] Treatment Pending Test Test Name Order Date 44391-RZAOHGD NAIL, 6 OR MORE 06/24/2024 72600-UPFFHDT NAIL, 6 OR MORE 10/18/2024 12304-TRLS SKIN LESIONS, OVER 4 10/19/19 36809-PTRB SKIN LESIONS, OVER 4 06/24/20 Next Appt Details Provider Name:Carol Lauren lucrecia, 05/30/2025 10:15:00 AM, [address] [facility], [facility] [address], [place], [address], Insurance Providers Payer Name Payer Address Payer Phone Subscriber Number Group Number Insured Name Patient Relationship to Insured Coverage Start Date Coverage End Date Medicare [employer] [address] [place] [address] [id number] Elvin Barone Self - patient is the insured 6 [facility] [address] [place] [address] [id number] Elvin Barone Self - patient is the insured 6 Medical (General) History Medical History History ICD Code Anemia CAD (Cholesterol) type II diabetes High Blood Pressure Reflux ( GERD) Stomach ulcer Chicken pox Transfusions Surgical History Surgery Date(Month/Year) CABG surgery 1996 Stent 2021 hernia 2010 watchmen 06/08/24
--- OUTSIDE RECORDS SUMMARY | 2025-04-26 13:56 | XMS_ITS | Patient Health Record ---
Author Organization [facility] Address [address] [place] [address] Care Team Providers Care Lead Java Software Engineer Name Role Phone Deon (RETIRED) Josesito VALENZUELA Primary Care Provide r Unavailable Riki Clements Unavailable [phone] Allergies No Known Allergies Reason For Referral No Information Medications Medication SIG (Take, Route, Frequency, Duration) Notes Start Date End Date Status Vytorin 10-40 MG 1 tablet Orally Once a day Not-Taking Aspirin 81 81 MG 1 tablet Orally Once a day; Duration: 30 day(s) 07/07/2024 Active Tamsulosin HCl 0.4 MG 1 capsule 30 minut es after the same meal each day Orally Once a day Active Isosorbide Mononitrate ER 30 MG TAKE TWO TABLETS BY MOUTH EVERY DAY Oral; Duration: 90 Active Dutasteride 0.5 MG TAKE ONE CAPSULE BY MOUTH DAILY AT BEDTIME Oral; Duration: 90 Active Vitamin D 50 MCG (1999 UT) 1 tablet Oral ly Once a day; Duration: 30 day(s) 07/07/2024 Active pyRIDostigmine [place] 60 MG 1 tablet Orally every 4 hrs Not-Taking Flomax 0.4 MG 1 capsule Orally Onc e a day; Duration: 30 day(s) 07/07/2024 Active Ezetimibe 10 MG TAKE ONE TABLET BY MOUTH EVERY DAY Oral; Duration: 90 Active Folic Acid 800 MCG 1 tablet Orally Once a day; Duration: 30 day(s) 07/07/2024 Active Jardiance 10 MG TAKE ONE TABLET BY MOUTH EVERY DAY Oral; Duration: 30 Active Ferrous Sulfate 325 (65 Fe) MG 1 tablet Orally Three times a Week; Duration: 30 day(s) 07/07/2024 Active Xarelto 20 MG TAKE 1 TABLET BY CAREN TH ONCE A DAY. WITH MEAL Oral; Duration: 90 Active Warfarin Sodium 5 MG 1 tablet Orally Onc e a day Not-Taking Sucralfate 1 GM TAKE ONE TABLET BY MOUTH THREE TIMES A DAY. Oral; Duration: 30 Active Vitamin C 500 MG as directed Orally 07/07/2024 Active Pantoprazole Sodium 40 MG TAKE ONE TABLE T BY MOUTH TWICE A DAY Oral; Duration: 90 Active Simvastatin 40 MG TAKE ONE TABLET BY MOUTH EVERY DAY Oral; Duration: 90 Active Metoprolol Succinate ER 25 MG TAKE HALF A TABLET BY MOUTH DAILY. Oral; Duration: 90 Active Avodart 0.5 MG 1 capsule Orally Onc e a day Active Problems Problem Type SNOMED Code ICD Code Onset Dates Problem Status W/U Status Risk Notes Problem Acute posthemorrhagic anemia (592510031) Acute posthemorrhagic anemia (D62) Active confirmed Vital Signs Blood pressure diastolic 00 mm Hg 07/07/2024 Height 67 in 07/07/2024 Blood pressure systolic 00 mm Hg 07/07/2024 Weight 152 lbs 07/07/2024 BMI 23.80 kg/m2 07/07/2024 Encounters Encounter Location Date Provider Diagnosis [facility] [address] [place] [phone] 07/07/2024 Riki Clements Acute posthemorrhagi c anemia D62 [facility] [address] [place] [phone] 03/16/[address] [facility] [address] [place] [phone] 05/15/[address] [facility] [address] [place] [phone] 09/20/2024 Riki Clements Assessments Encounter Date Diagnosis (ICD Code) Assessment Notes Treatment Notes Treatment Clinical Notes Section Notes 07/07/2024 Acute posthemorrhagic anemia (ICD-10 - D62) Continue the Protonix and Sucralfate twice a day custodial for now Overall, Elvin appears to be [...] advised of his progress. Plan Of Treatment Pending Test Test Name Order Date CBC w DIFF 01/20/2024 Future Test Test Name Order Date COLONOSCOPY 12/13/2014 Next Appt Details Provider Name:Riki Clements , 07/11/2025 01:40:00 PM, [address] [place] [address], [address], [place], [address], Insurance Providers Payer Name Payer Address Payer Phone Subscriber Number Group Number Insured Name Patient Relationship to Insured Coverage Start Date Coverage End Date MEDICARE OF [place] [address] [place] [address] [id number] ELVIN MARTINEZ Self - patient is the insured [facility] [address] [place], [place] [id number] [phone] [id number] ELVIN MARTINEZ Self - patient is the insured Medical [...] anemia in 2022 and 2023. Evaluated at [facility], [facility], and [facility] with multiple upper endoscopies and a colonoscopy. These were all nonrevealing. 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 A followup small bowel enteroscopy with Dr. Blair at [facility] in 04/2024 was also negative however. He has not had any sign of active bleeding since then despite remaining on his blood thinners. Watchman procedure in at [facility] and scheduled for a DAVI 07/25/2024 to see if his Xarelto can be changed to Plavix. Surgical History Surgery Date(Month/Year) Bilateral inguinal hernia CABG as above Left knee
--- OUTSIDE RECORDS SUMMARY | 2025-04-26 13:56 | XMS_ITS | Clinical Summary ---
Author Organization [facility] Address [address] [place] [address] Care Team Providers Care Master At Arms Name Role Phone Josesito Chavarria MD Primary Care Provider [phone] Allergies No known active allergies Medications dutasteride [...] Used Date Smoking Tobacco: Former Cigarettes 1 40.8 1 985 - 1956 Smokeless Tobacco: Never [...] often do you attend chur ch or adventism services? Never 04/15/2024 Do you belong to any clubs o r organizations such as gnosticism groups, unions, fraternal or athletic groups, or [...] 0 04/13/2024 [facility] - Occupational Stress Questionnaire Answer Date [...] any time in the past 12 m [facility], were you homeless or living in a alf (including now)? No 04/14/2024 Alcohol Use/AUDIT-C Answer [...] MEDICARE PART A AND B [facility] Advance Directives * Full Code (Latest Code Status on File) Date Activated Date Inactivated Comments 04/13/2024 8:20 PM 04/16/2024 2:35 PM Care Teams Master At Arms Relationship Specialty Start Date End Date Josesito Chavarria MD [address] [place] [address] [place] [address] PCP - General Family Medicine 04/15/24
== END 2025-04-26 11:56 | disposition home or self-care (01) ==
LOC: HO.HOS 11:00
PROVIDERS: PCP Internal Medicine; Visit Provider Orthopaedic Surgery
DX: M25.511 Pain in right shoulder (principal); M25.512 Pain in left shoulder
CPT/HCPCS: 99213; G2211

== ENCOUNTER → 2025-04-26 10:59 | Outpatient (BNVA) | payer MEDICARE, BC, SELFPAY | PROVIDERS: PCP Internal Medicine; Visit Provider Orthopaedic Surgery | DX: M25.511 Pain in right shoulder (principal); M25.512 Pain in left shoulder; M75.102 Unspecified rotator cuff tear or rupture of left shoulder, not specified as traumatic; M75.101 Unspecified rotator cuff tear or rupture of right shoulder, not specified as traumatic | CPT/HCPCS: 99212 ==

== ENCOUNTER 2025-06-14 09:36 | Outpatient (AMB) | payer MEDICARE, BC, SELFPAY ==
[2025-06-14 09:38] VITALS: BP 128/72; TEMP 36.2; BMI 23.0
--- NOTE | 2025-06-14 09:38 | MHC.PC.OV ---
Vital Signs 06/14/25 09:38 Height 5 ft 7 in Weight 147 lb BMI 23.0 BP 128/72 Blood Pressure Location Rt brachial Position Sitting Temp 97.2 F Temp Source Temporal Artery Scan Intake Visit Reasons: 3 month f/u Tripe Washer Required: No Accompanied by: Self / Same As Patient Allergies No Known Allergies Allergy (Verified 06/14/25 09:39) Medication List - Last Reconciled 06/14/25 by Eliceo Pham MD ascorbate calcium (vitamin C) 500 mg PO DAILY aspirin 81 mg PO DAILY cholecalciferol (vitamin D3) (Vitamin D3) 25 mcg PO DAILY dutasteride 0.5 mg PO BEDTIME ezetimibe 10 mg PO DAILY ferrous fumarate 325 mg PO DAILY folic acid 0.8 mg PO DAILY isosorbide mononitrate ER 30 mg PO DAILY Jardiance (empagliflozin) 10 mg PO DAILY NS metoprolol succinate ER 12.5 mg PO DAILY nitroglycerin 0.4 mg sublingual NEEDED pantoprazole 40 mg PO DAILY simvastatin 40 mg PO BEDTIME 90 days tamsulosin 0.4 mg PO DAILY tobramycin-dexamethasone 0.3-0.1 % 1 drp ophthalmic (eye) Q6H Tobacco use date assessed: 06/14/25 Fall risk assessment: No Falls in past year Last assessed Fall Risk: 06/14/25 Dental Screening Dental Screen Date: 06/14/25 Did you have a dental visit in the last 12 months?: No Did you have a dental problem in the last 6 months where you did not have access to dental care?: No HPI HPI Comments History of Present Illness Details History of Present Illness The patient is an 84 year old male presenting for a follow-up visit for chronic condition management and evaluation of right shoulder pain. The patient reports experiencing pain in his right shoulder when moving it, particularly with activities like cutting things. He notes difficulty lifting his arm above his head and requires two hands to place items like a milk carton in the refrigerator. He has a history of right rotator cuff issues dating back to 2006 and reports having seen an orthopedic surgeon who offered a steroid injection as a treatment option. The patient has a diagnosis of diabetes mellitus, and his last A1c in February was 7.0. He is on multiple medications for coronary artery disease, benign prostatic hyperplasia, hypercholesterolemia, and GERD. Medical History: - Coronary artery disease - Benign prostatic hyperplasia - Hypercholesterolemia - Gastroesophageal reflux disease (GERD) - Type 2 diabetes mellitus - Right rotator cuff disorder, since 2006 Medications: - Aspirin 81 mg for coronary artery disease - Dutasteride 0.5 mg daily for benign prostatic hyperplasia - Ezetimibe 10 mg for hypercholesterolemia - Isosorbide mononitrate 30 mg daily for coronary artery disease - Jardiance 10 mg daily for coronary artery disease and diabetes mellitus - Metoprolol succinate 12.5 mg daily for coronary artery disease - Pantoprazole 40 mg daily for GERD - Simvastatin 40 mg for hypercholesterolemia - Tamsulosin 0.4 mg daily for benign prostatic hyperplasia - Folic acid supplement - Iron supplement Diagnostic Results: - Labs from February: Hemoglobin A1c was 7.0. - Other labs from February: Blood counts and electrolytes were stable. Social History - Functional Status: The patient is currently helping care for his daughter who broke her leg. - Recreation: The patient likes to play golf, but this is affected by his shoulder pain. 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 Father No problems noted. Social History Household Members: Spouse and Family Housing: House Do you presently have visiting nurse or other home services: No Patient Tobacco Use Status: Former Tobacco user Years Smoked: 30 years-quit 1984 e-Cigarette/Vaping Use: Never Used Second Hand Smoke Exposure: No service: No Current occupational status: retired Cognitive needs: No Hearing needs: No Vision needs: Yes (rx glasses) Questionnaire Thrive Questionnaire Date Thrive assessed: 11/18/24 MEAGHAN-7 AMB Questionnaire MEAGHAN-7 Date MEAGHAN - 7 assessed: 11/18/24 Source: Developed by Drs. Riki Jauregui, Astrid Shell, Russ Bains and colleagues, with an educational johnyn from [employer]. Review of Systems Narrative Review of Systems - Constitutional: Reports feeling 100% well. - Musculoskeletal: Reports pain in the right shoulder with movement. - Neurological: Denies tingling in the right arm. All systems reviewed & are unremarkable except as reviewed in HPI and above Physical exam (Primary Care) Vital Signs: Last Vital Signs Temp 97.2 F 06/14/25 09:38 BP 128/72 06/14/25 09:38 BMI result Body Mass Index 23.0 Tobacco/Smoking Status: Tobacco use Status Tobacco use date assessed 06/14/25 06/14/25 09:47 Patient Tobacco Use Status Former Tobacco user 06/14/25 09:47 e-Cigarette/Vaping Use Never Used 06/14/25 09:47 Thrive Assessment: Date of Thrive Assessment Date Thrive assessed 11/18/24 06/14/25 09:47 Narrative Physical Exam General: +Alert and oriented, Well nourished, No acute distress. Eye: Pupils are equal, round and reactive to light, Intact accommodation, Extraocular movements are intact, Normal conjunctiva, Vision unchanged. HENT: Normocephalic, Atraumatic, Tympanic membranes are clear, Normal hearing, Oral mucosa is moist, No pharyngeal erythema, Ear canals patent. Respiratory: Lungs CTA bilaterally, No wheeze, Respirations are non-labored. Cardiovascular: Regular rate, Regular rhythm, S1 auscultated, S2 auscultated, No murmur, Good pulses equal in all extremities, Normal peripheral perfusion, No edema. Gastrointestinal: Soft, Non-tender, Non-distended, Normal bowel sounds, No organomegaly. Musculoskeletal: Limited range of motion in the right shoulder, Pain on active movement, No swelling, No deformity, Normal gait. Integumentary: Warm, Dry, Mill[place], Intact. Neurologic: Alert, Oriented, Normal sensory, Normal motor function, No focal defects, Cranial Nerves II-XII are grossly intact, Normal deep tendon reflexes. Psychiatric: Cooperative, Appropriate mood & affect, Normal judgment. 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 transplanted heart: [place] heart Associated angina: without angina Chronic atrial fibrillation I48.20 Hypertriglyceridemia E78.1 Benign prostatic hyperplasia without lower urinary tract symptoms N40.0 Lower urinary tract symptom presence: symptoms absent Gastroesophageal reflux disease without esophagitis K21.9 Esophagitis presence: without esophagitis Assessment & Plan Assessment & Plan (1) Diabetes: Comment: - The patient's last A1c in February was 7.0. - He is currently on Jardiance 10 mg which has a dual benefit for his heart disease. - Plan includes repeating blood work today, including an A1c. - If sugar levels remain elevated, the dose of Jardiance will be increased to 25 mg. 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 - He has a known history of this condition and has been seen by an orthopedic surgeon. - The plan for an X-ray was deferred as the diagnosis is established. - He is advised to contact his orthopedic surgeon to receive a corticosteroid injection as previously offered. - Recommended use of Tylenol for pain and continuing exercises. Code(s): M25.311 - Other instability, right shoulder Category: Medical (3) Coronary artery disease: Comment: - Continue aspirin, metoprolol succinate, and isosorbide mononitrate. - Monitor blood pressure management and stability. Code(s): I25.10 - Atherosclerotic heart disease of [place] coronary artery without angina pectoris Category: Medical Qualifiers: Coronary Disease-Associated Artery/Lesion type: unspecified vessel or lesion type [place] vs. transplanted heart: [place] heart Associated angina: without angina Qualified Code(s): I25.10 - Atherosclerotic heart disease of [place] coronary artery without angina pectoris (4) Chronic atrial fibrillation: Comment: - S/p Watchman and off Xarelto and Plavix - Monitor for any notable symptoms. - Encourage avoidance of activities that may exacerbate the condition. Code(s): I48.20 - Chronic atrial fibrillation, unspecified Category: Medical (5) Hypertriglyceridemia: Comment: - Maintain on simvastatin 40 mg daily. - Lipid Panel completed in November [facility] Code(s): E78.1 - Pure hyperglyceridemia Category: Medical (6) BPH (benign prostatic hyperplasia): Comment: - Continue tamsulosin and dutasteride. - Monitor urinary symptoms. Code(s): N40.0 - Benign prostatic hyperplasia without lower urinary tract symptoms Category: Medical Qualifiers: Lower urinary tract symptom presence: symptoms absent Qualified Code(s): N40.0 - Benign prostatic hyperplasia without lower urinary tract symptoms (7) GERD (gastroesophageal reflux disease): Comment: - Continue Protonix Code(s): K21.9 - Gastro-esophageal reflux disease without esophagitis Category: Medical Qualifiers: Esophagitis presence: without esophagitis Qualified Code(s): K21.9 - Gastro-esophageal reflux disease without esophagitis Plan: Health Maintenance: - The patient will undergo blood work today, including an A1c, to monitor his diabetes. - He was counseled to perform exercises for his shoulder. - A follow-up visit is scheduled in 3 months. Patient was informed and verbally consented to the use of an ambient scribe for clinic note documentation during this visit. Plan I reviewed the patient's medication list with him. We discussed his diagnosis of diabetes and the prior A1c result of 7.0. I explained the plan to recheck his blood work today and that if his sugars remain elevated, I will increase his Jardiance dose to 25 mg. We discussed his right shoulder pain, and I explained that his symptoms suggest a rotator cuff issue, which he has a history of. After he informed me he has already been evaluated by an orthopedic surgeon for this, I advised him to follow up with that specialist to receive a steroid injection, as was previously offered. I explained that an x-ray would not be necessary given this established diagnosis. I recommended Tylenol for pain control. We agreed to a follow-up appointment in three months. Orders: Orders Hemoglobin A1c Today E11.9 - Type 2 diabetes mellitus without complications Patient Instructions: - Go to the lab to have your blood drawn today. - Continue taking all your medications as prescribed. - I may increase the dose of your Jardiance medication if your blood sugar levels are still high. - Contact the office of your orthopedic surgeon (bone and joint doctor) to schedule a shot in your right shoulder for the pain. - You may take Tylenol for your shoulder pain as needed. - Continue to do exercises for your shoulder. - Please schedule a follow-up appointment to be seen again in three months.
== END 2025-06-14 10:10 | disposition home or self-care (01) ==
LOC: HO.HMCHD 09:36
PROVIDERS: PCP Student in an Organized Health Care Education/Training Program; Visit Provider Student in an Organized Health Care Education/Training Program
DX: E11.9 Type 2 diabetes mellitus without complications (principal); M25.311 Other instability, right shoulder; I25.10 Atherosclerotic heart disease of native coronary artery without angina pectoris; I48.20 Chronic atrial fibrillation, unspecified; E78.1 Pure hyperglyceridemia; N40.0 Benign prostatic hyperplasia without lower urinary tract symptoms; K21.9 Gastro-esophageal reflux disease without esophagitis

== ENCOUNTER 2025-06-14 09:36 | Outpatient (REF) | payer MEDICARE, BC, SELFPAY ==
--- OUTSIDE RECORDS SUMMARY | 2024-05-19 05:20 | XMS_ITS ---
Author Organization [facility] Address [address] [place] [address] Care Team Providers Care Business Support Coordinator Name Role Phone Deon (RETIRED) Josesito VALENZUELA Primary Care Provide Riki Medel [phone] REASON FOR VISIT Patient presents today for a f/u from a GI bleed. Encounters Encounter Location Date Provider Diagnosis [facility] [address] [place] [address] 05/19/2024 Riki Clements Plan Of Treatment Next Appt Details Provider Name:Riki Clements , 07/11/2025 01:40:00 PM, [address], [address], [place], [address], Progress Notes * JUAN ANNE ParkerDOB: [birth year] (84 yo M)Acc No.[id number]:05/19/2024 Progress Notes Patient: ANNE LAY Provider: Feliz Clements MD :1940 A ge:83 Y S ex:Male Date:05/19/2024 Address:[address] [place] [address] [address] [id number] Pcp:Josesito Chavarria (RETIRED )MD Subjective: * Chief Complaints: * P atient presents today for a f/u from a GI bleed. * The named appointment provid er may or may not be the originator of this progress note, and it is not deemed complete until electronically signed by the appointment provider. Sign off status: Pending * Provider: Feliz Clements MD Date: 07/19/2023 Generated for Jeanine thapa/Kamari/Paolaitting on: 1 08/15/2024 01:04 PM EST
--- OUTSIDE RECORDS SUMMARY | 2025-03-21 04:30 | XMS_ITS ---
Author Organization [facility] Address [address] [place] [address] Care Team Providers Care Retanner Name Role Phone Deon (RETIRED) Josesito VALENZUELA Primary Care Provide Riki Medel [phone] REASON FOR VISIT Patient presents today for a follow up from a GI bleed Encounters Encounter Location Date Provider Diagnosis [facility] [address] [place] [address] 03/21/2025 Riki Clements Plan Of Treatment Next Appt Details Provider Name:Riki Clements , 07/11/2025 01:40:00 PM, [address], [address], [place], [address], Progress Notes * ANNE MARTINEZDOB: [birth year] (84 yo M)Acc No.[id number]:03/21/2025 Progress Notes Patient: ANEN LAY Elena Provider: Feliz Clements MD :1940 A ge:84 Y S ex:Male Date:03/21/2025 Address:[address] [place] [address] [address] [id number] Pcp:Josesito Chavarria (RETIRED )MD Subjective: * Chief Complaints: * P atient presents today for a follow up from a GI bleed * The named appointment provid er may or may not be the originator of this progress note, and it is not deemed complete until electronically signed by the appointment provider. Sign off status: Pending * Provider: Feliz Clements MD Date: 0 03/21/2025 Generated for Jeanine thapa/Kamari/Isidoro on: 1 08/15/2024 01:04 PM EST
--- OUTSIDE RECORDS SUMMARY | 2025-05-30 05:15 | XMS_ITS ---
Author Organization [facility] Address [address] [place] [address] Care Team Providers Care Music Journalist Name Role Phone Cora Broderick Primary Care Provider Carol Cardenas Unavailable [phone] Dan Encounters Encounter Location Date Provider Diagnosis [facility] [address] [place] [phone] 05/30/2025 Carol Valerio Plan Of Treatment Next Appt Details Provider Name:Carol singer, 08/11/2025 11:30:00 AM, [address] [facility], [place] [address], [place], [address], Progress Notes * Elvin BARONEDOB: (84 yo M)Acc No.[id number]:05/30/2025 Progress Note Patient: Elvin LAY Provider: Jorge Valerio DPM :1940 A ge:84 Y S ex:Male Date:05/30/2025 Address:[address] [place], [place] [phone] Pcp:Cora Broderick Subjective: * Chief Complaints: * [address] Dan[address] * Medical History: Objective: * Vitals: Assessment: Plan: * Treatment: * Images: * The named appointment provid er may or may not be the originator of this progress note, and it is not deemed complete until electronically signed by the appointment provider. Sign off status: Pending * Provider: Jorge Valerio DPM Date: 1 07/31/2024 Generated for Jeanine thapa/Kamari/Emeritasmitting on: 1 08/15/2024 01:04 PM EST
--- OUTSIDE RECORDS SUMMARY | 2025-06-14 13:05 | XMS_ITS | Patient Health Record ---
Author Organization [facility] Yudithcaesar Price Address [address] [place] [address] Care Team Providers Care Streaming Media Specialist Name Role Phone Cora Broderick Primary Care Provider Carol Cardenas Unavailable [phone] Allergies No Known Allergies Results Component Value [...] (HH) 5.8 HEMOGLOBIN A1C (GLYCOHEMOGLO BIN) Reviewed date:06/02/2025 12:03:16 PM Interpretation: Performing Lab: Notes/Report: HEMOGLOBIN A1C % (HH) 5.6 Reason For Referral No Information Medications Medication SIG (Take, Route, Frequency, Duration) Notes Start Date End Date Status Simvastatin 40 MG 1 tablet in the even ing Orally Once a day Active Metoprolol Succinate 12.5mg Active Nitroglycerin PRN Active Isosorbide Mononitrate ER 30 MG 1 tablet in the morning Orally Once a day Active Zetia 10 MG 1 tablet Orally Once a day Active Pantoprazole Sodium 40 MG 1 tablet 1/2 to 1 hour before morning meal Orally twice a day Active Vitamin C 500 MG [...] Wear Daily; Duration: 365 days 06/24/2024 Active Ferrous Sulfate 325 (65 Fe) MG 1 tablet Orally Three times a Week Active Folic Acid 1 MG 1 tablet Orally Once a day Active Jardiance 10 MG 1 tablet Orally Once a day Active Carafate 1 GM 1 tablet on an empty stomach Orally Twice a day Active Clopidogrel Bisulfate 75 MG [...] Problem Acquired hammer toe of right foot (3118553965057 105) Other hammer toe(s) (acquired), right foot (M20.41) Active confirmed Response to treatment,I mprovement Problem Type 2 diabetes mellitus with peripheral angiopathy (394443092) Type 2 diabetes mellitus with diabetic peripheral angiopathy without gangrene (E11.51) Active confirmed Q7(A), Q8(2B), Q9(1B,2C) Problem Acquired hammer toe of left foot (6632724812542 103) Other hammer toe(s) (acquired), left foot (M20.42) Active confirmed Response to treatment,I mprovement Vital Signs Blood pressure diastolic 78 mm Hg 06/02/2025 Height 5ft 6in in 06/02/2025 Blood pressure systolic 120 mm Hg 06/02/2025 Weight 145 lbs 06/02/2025 BMI 23.4 kg/m2 06/02/2025 Procedures Procedure Date Ordered Date Performed Result Body Sit e 93362-BYIGRMX NAIL, 6 OR MORE 06/24/2024 N/A 86958-ASRW SKIN LESIONS, OVER 4 06/24/2024 N/A 10515-HZGYMIS NAIL, 6 OR MORE 10/18/2024 N/A 78091-QTYY SKIN LESIONS, OVER 4 10/18/2024 N/A Encounters Encounter Location Date Provider Diagnosis [address] [phone] 06/24/2024 Carol Valerio Other hammer toe(s) (acquired), right foot M20.41 ; Other hammer toe(s) (acquired), left foot M20.42 ; Type 2 diabetes mellitus with diabetic peripheral angiopathy without gangrene E11.51 ; Tinea unguium B35.1 ; Pain in right toe(s) M79.674 and Pain in left toe(s) M79.[address] [address] 10/18/2024 Carol Valerio Type 2 diabetes mellitus with diabetic peripheral angiopathy without gangrene E11.51 ; Tinea unguium B35.1 ; Pain in right toe(s) M79.674 ; Pain in left toe(s) M79.675 ; Other hammer toe(s) (acquired), right foot M20.41 and Other hammer toe(s) (acquired), left foot M20.[address] [address] 01/17/2025 Carol Valerio Type 2 diabetes mellitus with diabetic peripheral angiopathy without gangrene E11.51 ; Tinea unguium B35.1 ; Pain in right toe(s) M79.674 and Pain in left toe(s) M79.[address] [address] 03/28/2025 Carol Valerio Type 2 diabetes mellitus with diabetic peripheral angiopathy without gangrene E11.51 ; Tinea unguium B35.1 ; Pain in right toe(s) M79.674 and Pain in left toe(s) M79.675 [facility] [place] [address] [address] 06/02/2025 Carol Valerio Type 2 diabetes mellitus with [...] gangrene (ICD-10 - E11.51) Q7(A), Q8(2B), Q9(1B,2C) 06/02/2025 Type 2 diabetes mellitus with diabetic peripheral angiopathy without gangrene (ICD-10 - E11.51) Q7(A), Q8(2B), Q9(1B,2C) 06/02/2025 Tinea unguium (ICD-10 - B35.1) 03/28/2025 Tinea unguium (ICD-10 - B35.1) 10/18/2024 [...] Pain in right toe(s) (ICD-10 - M79.674) 06/02/2025 Pain in right toe(s) (ICD-10 - M79.674) 06/02/2025 Pain in left toe(s) (ICD-10 - M79.675) 03/28/2025 Pain in left toe(s) (ICD-10 - [...] Treatment Pending Test Test Name Order Date 36054-TGBKUVI NAIL, 6 OR MORE 06/24/2024 36116-SAQCCDB NAIL, 6 OR MORE 10/18/2024 07571-WAEP SKIN LESIONS, OVER 4 10/19/19 25 89187-DGIP SKIN LESIONS, OVER 4 06/24/20 24 Next Appt Details Provider Name:Carol Xin singer, 08/11/2025 11:30:00 AM, [address] [facility], [place] [address], [place], [address], Insurance Providers Payer Name Payer Address Payer Phone Subscriber Number Group Number Insured Name Patient Relationship to Insured Coverage Start Date Coverage End Date Medicare [employer] [address] [place] [address] [id number] Elvin Barone Self - patient is the insured 6 [facility] [address] [place] [address] [phone] [id number] Elvin Barone Self - patient is the insured 6 Medical (General) History Medical History History ICD Code Anemia CAD (Cholesterol) type II diabetes High Blood Pressure Reflux ( GERD) Stomach ulcer Chicken pox Transfusions Surgical History Surgery Date(Month/Year) CABG surgery 1996 Stent 2021 hernia 2010 watchmen 06/08/24
--- OUTSIDE RECORDS SUMMARY | 2025-06-14 13:05 | XMS_ITS | Patient Health Record ---
Author Organization [facility] Address [address] [place] [address] Care Team Providers Care Engineer Soils Name Role Phone Deon (RETIRED) Josesito VALENZUELA Primary Care Provide r Riki Lentz Unavailable [phone] Allergies No Known Allergies Reason For Referral No Information Medications Medication SIG (Take, Route, Frequency, Duration) Notes Start Date End Date Status Vytorin 10-40 MG Tablet 1 tablet Orally Once a day Not-Taking/PRN Aspirin 81 81 MG Tablet Delayed Release 1 tablet Orally Once a day; Duration: 30 day(s) 07/07/2024 Active Tamsulosin HCl 0.4 MG Capsule 1 capsule 30 minutes after the same meal each day Orally Once a day Active Isosorbide Mononitrate ER 30 MG Tablet Extended Release 24 Hour TAKE TWO TABLETS BY MOUTH EVERY DAY Oral; Duration: 90 Active Dutasteride 0.5 MG Capsule TAKE ONE CAPSULE BY MOUTH DAILY AT BEDTIME Oral; Duration: 90 Active Vitamin D 50 MCG (2000 UT) Tablet 1 tablet Orally Once a day; Duration: 30 day(s) 07/07/2024 Active pyRIDostigmine [place] 60 MG Tablet 1 tablet Orally every 4 hrs Not-Taking/PRN Flomax 0.4 MG Capsule 1 capsule Orally Once a day; Duration: 30 day(s) 07/07/2024 Active Ezetimibe 10 MG Tablet TAKE ONE TABLET B Y MOUTH EVERY DAY Oral; Duration: 90 Active Folic Acid 800 MCG Tablet 1 tablet Orally Once a day; Duration: 30 day(s) 07/07/2024 Active Jardiance 10 MG Tablet TAKE ONE TABLET B Y MOUTH EVERY DAY Oral; Duration: 30 Active Ferrous Sulfate 325 (65 Fe) MG Tablet 1 tablet Orally Three times a Week; Duration: 30 day(s) 07/07/2024 Active Xarelto 20 MG Tablet TAKE 1 TABLET BY MOUTH ONCE A DAY. WITH MEAL Oral; Duration: 90 Active Warfarin Sodium 5 MG Tablet 1 tablet Orally Once a day Not-Taking/PRN Sucralfate 1 GM Tablet TAKE ONE TABLET B Y MOUTH THREE TIMES A DAY. Oral; Duration: 30 Active Vitamin C 500 MG Capsule as directed Orally 2024 Active Pantoprazole Sodium 40 MG Tablet Delayed Release TAKE ONE TABLET BY MOUTH TWICE A DAY Oral; Duration: 90 Active Simvastatin 40 MG Tablet TAKE ONE TABLET BY MOUTH EVERY DAY Oral; Duration: 90 Active Metoprolol Succinate ER 25 MG Tablet Extended Release 24 Hour TAKE HALF A TABLET BY MOUTH DAILY. Oral; Duration: 90 Active Avodart 0.5 MG Capsule 1 capsule Orally Once a day Active Social History Social History Additional Details Category Social Info Options Details Miscellaneous: Marital status: Occupation: retired Section Notes: Nonsmoker; no sig alcohol Nonsmoker; no sig alcohol Problems Problem Type SNOMED Code ICD Code Onset Dates Problem Status W/U Status Risk Notes Problem Acute posthemorrhagic anemia (437076453) Acute posthemorrhagic anemia (D62) Active confirmed Vital Signs Blood pressure diastolic 00 mm Hg 07/07/2024 Height 67 in 07/07/2024 Blood pressure systolic 00 mm Hg 07/07/2024 Weight 152 lbs 07/07/2024 BMI 23.80 kg/m2 07/07/2024 Encounters Encounter Location Date Provider Diagnosis [facility] [address] [place] [phone] 07/07/2024 iRki Clements Acute posthemorrhagi c anemia D62 [facility] [address] [place] [phone] 09/20/2024 Riki Clements [facility] [address] [place] [phone] 03/16/2025 Riki Clements Assessments Encounter Date Diagnosis (ICD Code) Assessment Notes Treatment Notes Treatment Clinical Notes Section Notes 07/07/2024 Acute posthemorrhagic anemia (ICD-10 - D62) Continue the Protonix and Sucralfate twice a day longterm for now Overall, Elvin appears to be [...] Provider Name:Riki Clements , 07/11/2025 01:40:00 PM, [address] [place] [address], [address], [place], [address], Insurance Providers Payer Name Payer Address Payer Phone Subscriber Number Group Number Insured Name Patient Relationship to Insured Coverage Start Date Coverage End Date MEDICARE OF [place] [address] [place] [address] [id number] ELVIN MARTINEZ Self - patient is the insured [facility] [address] [place], [place] [id number] ELVIN MARTINEZ Self - patient is the insured Medical (General) History Medical History History ICD Code HTN NIDDM CAD--4V CABG-1996--no OR A.fib--refractory to cardioversion--prev iously on Coumadin BPH Denies OR,CVA,Lung disease,renal disease Neg. screening colonoscopy i n 09/2002 except for a hyperplastic polyp, sigmoid divertciulosis, internal hemorrhoidsis Colonoscopy 2014with a tubular adenoma r emoved Hyperlipidemia GI bleeding--multiple episod es of GI bleeding with significant anemia in 2022 and 2023. Evaluated at [facility], [facility], and [facility] with multiple upper endoscopies and a colonoscopy. These were all nonrevealing. 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 A followup small bowel enteroscopy with Dr. Blair at [facility] in 04/2024 was also negative however. He has not had any sign of active bleeding since then despite remaining on his blood thinners. Watchman procedure in at [facility] and scheduled for a DAVI 07/25/2024 to see if his Xarelto can be changed to Plavix. Surgical History Surgery Date(Month/Year) Bilateral inguinal hernia CABG as above Left knee
--- OUTSIDE RECORDS SUMMARY | 2025-06-14 13:05 | XMS_ITS | Clinical Summary ---
Author Organization [facility] Address [address] [place] [address] Care Team Providers Care Global Creative Chairman Name Role Phone Josesito Chavarria MD Primary Care Provider [phone] Allergies No known active allergies Medications dutasteride [...] Used Date Smoking Tobacco: Former Cigarettes 1 41 1 985 - 1956 Smokeless Tobacco: Never [...] No 04/15/2024 Social Connection and Isolation Panel Answer Date Recorded In a typical week, how many times do you talk on the phone with family, friends, or neighbors? Three times a week 04/15/2024 How often do you get togethe r with friends or relatives? Twice a week 04/15/2024 How often do you attend chur ch or rastafarian services? Never 04/15/2024 Do you belong to any clubs o r organizations such as sikh groups, unions, fraternal or athletic groups, or [...] Recorded Patient Health Questionnaire-2 Score 0 04/13/2024 [facility] - Occupational Stress Questionnaire Answer Date [...] any time in the past [address] [facility], were you homeless or living in a senior care (including now)? No 04/14/2024 Alcohol Use/AUDIT-C Answer [...] MEDICARE PART A AND B [facility] Advance Directives * Full Code (Latest Code Status on File) Date Activated Date Inactivated Comments 04/13/2024 8:20 PM 04/16/2024 2:35 PM Care Teams Global Creative Chairman Relationship Specialty Start Date End Date Josesito Chavarria MD [address] [place] [address] DR THURSTONDAMARIS LEHMAN [id number] PCP - General Family Medicine 04/15/24
--- OUTSIDE RECORDS SUMMARY | 2025-06-14 13:05 | XMS_ITS | Clinical Summary ---
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 Active clopidogreL (PLAVIX) 75 mg tablet Take 1 tablet (75 mg total) by mouth 1 (one) time each day. 30 each 3 08/09/19 25 Active Additional Information Patient not taking.Reported on 02/28/2025 metoprolol tartrate (LOPRESSOR) 25 mg tablet TAKE ONE-HALF TABLET (12.5MG) BY MOUTH TWICE A DAY 135 tablet 2 03/13/20 25 Active ezetimibe (ZETIA) 10 mg tablet TAKE ONE TABLET BY MOUTH EVERY DAY 90 tablet 3 06/13/20 25 Active ezetimibe (ZETIA) 10 mg tablet TAKE ONE TABLET BY MOUTH EVERY DAY 90 tablet 3 06/13/20 24 025 Discontinued Active Problems Problem Noted Date [...] Restratification is in place. Recent lipid profile [facility] LDL cholesterol 75. Patient is [...] Orientation Straight 07/25/2024 12 :30 PM EST Last Filed Vital Signs Vital Sign Reading [...] 08/14/2022 Depression Screening 06/29/2024 COVID-19 Vaccine ( season) 2025 Influenza Vaccine (#1) 2025 03/25/2023 [...] MEDICARE [facility] Care Teams Inspector [employer] Relationship Specialty Start Date End Date Josesito Chavarria MD [address] [place] [address] Dr Sary [place] PCP - General 11/29/13
== END 2025-06-14 09:37 | disposition home or self-care (01) ==
LOC: HO.10HDL 09:36
PROVIDERS: PCP Student in an Organized Health Care Education/Training Program; Visit Provider Student in an Organized Health Care Education/Training Program
DX: E11.9 Type 2 diabetes mellitus without complications (principal); M25.311 Other instability, right shoulder; I25.10 Atherosclerotic heart disease of native coronary artery without angina pectoris; I48.20 Chronic atrial fibrillation, unspecified; E78.1 Pure hyperglyceridemia; N40.0 Benign prostatic hyperplasia without lower urinary tract symptoms; K21.9 Gastro-esophageal reflux disease without esophagitis
CPT/HCPCS: 36415; 83036; 99212